=== PATIENT | male | born 1960 | race Caucasian/White ===

== ENCOUNTER 2017-03-14 14:15 | Inpatient (IN) | payer BC, OTHER ==
[2017-03-14 14:22] VITALS: BMI 19.8
--- NOTE | 2017-03-14 15:14 | PDOC ---
History of Present Illness - General Chief Complaint: Pain Stated Complaint: FEVER Time Seen by Provider: 03/14/17 15:11 History Source: Patient Exam Limitations: No Limitations - History of Present Illness Initial Comments: CHIEF COMPLAINT: 56 y/o afebrile male with PMH renal carcinoma with partial right nephrectomy (2009), sarcoidosis sent in by Dr. Villafana for admission. HISTORY OF PRESENT ILLNESS: According to the patient and his he has had a fever for the past 2 weeks with dry cough x 1 week and 25lb unintentional weight loss over the past 1 month. The patient was seen by Dr. Villafana today and sent here to be admitted to Dr. Ayon. The patient states currently he has minimal abdominal pain. The patient denies BURT, earache, sore throat, runny nose, n/v/d, CP, SOB, back pain, hematuria, dsyuria. He took tylenol for fever prior to coming to the ER. Pt is a former smoker. Vital signs on arrival are within normal limits. REVIEW OF SYSTEMS: GENERAL/CONSTITUTIONAL: +fever x 2 weeks. No weakness. No weight change. HEAD, EYES, EARS, NOSE AND THROAT: No change in vision. No ear pain or discharge. No sore throat. CARDIOVASCULAR: No chest pain or shortness of breath. RESPIRATORY: +dry cough x 1 week. No wheezing or hemoptysis. GASTROINTESTINAL: +abdominal pain. No nausea, vomiting, diarrhea. GENITOURINARY: No dysuria, frequency, or change in urination. MUSCULOSKELETAL: No joint or muscle swelling or pain. No neck or back pain. SKIN: No rash or easy bruising. NEUROLOGIC: No headache, vertigo, loss of consciousness, or loss of sensation. PHYSICAL EXAM: GENERAL: The patient is awake, alert, and fully oriented, in no acute distress. He has an infrequent dry cough. HEAD: Normal with no signs of trauma. ENT: Pupils equal, round and reactive to light, extraocular movements intact, sclera anicteric, conjunctiva clear. Neck supple. LUNGS: Clear to auscultation bilaterally. Normal excursion. No respiratory distress or use of accessory muscles. CV: RRR, S1/S2, no MRG. Cap refill < 2 sec. ABDOMEN: Soft, non-distended, non-tender even to deep palpation, no hepatomegaly or splenomegaly, no masses. EXTREMITIES: Normal range of motion, no edema. NEUROLOGICAL: Normal speech, normal gait. CN II-XII grossly intact. PSYCH: Normal mood, normal affect. SKIN: Warm, dry, normal turgor, no rashes or lesions noted. Past History - Past Medical History Allergies/Adverse Reactions: Allergies Allergy/AdvReac Type Severity Reaction Status Date / Time No Known Allergies Allergy Verified 03/14/17 14:18 Home Medications: Ambulatory Orders Gabapentin 100 mg PO HS 03/14/17 Losartan Potassium 50 mg PO DAILY 03/14/17 Metronidazole [Flagyl -] 250 mg PO TID 03/14/17 Prednisone 10 mg PO DAILY 03/14/17 HTN: Yes Other medical history: GOUT. SARCOIDOSIS. - Surgical History Lung Surgery: Yes (RT LOBECTOMY.) - Psycho/Social/Smoking Cessation Hx Anxiety: No Suicidal Ideation: No Smoking History: Former smoker Have you smoked in the past 12 months: No If you are a former smoker, when did you quit?: 2009 Information on smoking cessation initiated: No Hx Alcohol Use: No Drug/Substance Use Hx: No Substance Use Type: None *Physical Exam - Vital Signs Last Vital Signs Temp Pulse Resp BP Pulse Ox 97.8 F 79 18 133/89 98 03/14/17 14:17 03/14/17 14:17 03/14/17 14:17 03/14/17 14:17 03/14/17 14:17 ED Treatment Course - LABORATORY CBC & Chemistry Diagram: 03/14/17 16:40 03/14/17 16:40 Medical Decision Making - Medical Decision Making A/P: 56 y/o afebrile male sent in by PCP for admission for fever x 2 weeks, cough x 1 week and 25 lb unintentional weight loss over the past 1 month. The patient's PCP would like him admitted with Dr. Ayon for ID consult. Plan is as follows: 1. Labs 2. CXR 3. EKG 4. UA/culture Labs with WBC could of 15.4 with left shift. Lactic acidosis of 3.6. Ordered 2L IVF Spoke with Dr. Ayon who agrees to consult. Paged hospitalist for admission *DC/Admit/Observation/Transfer Diagnosis at time of Disposition: Fever of unknown origin, Lactic acidosis - Discharge Dispostion Condition at time of disposition: Stable - Referrals Referrals: Kuldeep Villafana [Primary Care Provider] -
--- NOTE | 2017-03-14 15:18 | PDOC ---
History of Present Illness - General Chief Complaint: Pain Stated Complaint: FEVER Time Seen by Provider: 03/14/17 15:11 Past History - Past Medical History Allergies/Adverse Reactions: Allergies Allergy/AdvReac Type Severity Reaction Status Date / Time No Known Allergies Allergy Verified 03/14/17 14:18 HTN: Yes Other medical history: GOUT. SARCOIDOSIS. - Surgical History Lung Surgery: Yes (RT LOBECTOMY.) - Psycho/Social/Smoking Cessation Hx Anxiety: No Suicidal Ideation: No Smoking History: Former smoker Have you smoked in the past 12 months: No If you are a former smoker, when did you quit?: 2009 Information on smoking cessation initiated: No Hx Alcohol Use: No Drug/Substance Use Hx: No Substance Use Type: None *Physical Exam - Vital Signs Last Vital Signs Temp Pulse Resp BP Pulse Ox 97.8 F 79 18 133/89 98 03/14/17 14:17 03/14/17 14:17 03/14/17 14:17 03/14/17 14:17 03/14/17 14:17
[2017-03-14 17:10] LABS: BASOPHIL 0.5 % (0-2.0); EOSINOPHIL 0.4 % (0-4.5); MCH 26.2 pg (25.7-33.7); MEAN PLT VOLUME 7.7 fl (7.5-11.1); NEUTROPHILS 83.1 % (42.8-82.8); PLATELET COUNT 405 K/MM3 (134-434); RDW 14.2 % (11.9-15.9); WHITE BLOOD COUNT 15.4 K/mm3 (4.0-10.0)
--- NOTE | 2017-03-14 17:21 | PDOC ---
*Physical Exam - Vital Signs Last Vital Signs Temp Pulse Resp BP Pulse Ox 97.8 F 79 18 133/89 98 03/14/17 14:17 03/14/17 14:17 03/14/17 14:17 03/14/17 14:17 03/14/17 14:17 ED Treatment Course - LABORATORY CBC & Chemistry Diagram: 03/20/17 09:10 03/20/17 09:10 - ADDITIONAL ORDERS Additional order review: 03/14/17 16:40 RBC 4.90 MCV 82.0 MCHC 32.0 RDW 14.2 MPV 7.7 Neutrophils % 83.1 H Lymphocytes % 6.3 L Monocytes % 9.7 Eosinophils % 0.4 Basophils % 0.5 Medical Decision Making - Medical Decision Making 03/14/17 17:20 Pt seen by the Advanced Practice Provider under my direct supervision Ancillary studies reviewed I agree with plan as outlined by the Advanced Practice Provider SUMEET Pack *DC/Admit/Observation/Transfer Diagnosis at time of Disposition: Lactic acidosis, Right upper lobe pneumonia, SIRS (systemic inflammatory response syndrome) - Discharge Dispostion Condition at time of disposition: Stable - Referrals - Patient Instructions - Post Discharge Activity
[2017-03-14 17:25] LABS: ALBUMIN 2.8 g/dl (3.4-5.0); ANION GAP 7 (8-16); CALCIUM 8.6 mg/dL (8.5-10.1); CO2 27 mmol/L (21-32); CREATININE 1.2 mg/dL (0.7-1.3); GLUCOSE,RANDOM 96 mg/dL (74-106); SGPT/ALT 32 U/L (12-78); TOT PROT 6.5 g/dl (6.4-8.2)
[2017-03-14 17:32] LABS: ALK PHOS 139 U/L (45-117); BILIRUBIN,TOTAL 0.7 mg/dL (0.2-1.0)
[2017-03-14 17:34] LABS: URINE APPEARANCE CLEAR; URINE BILIRUBIN NEGATIVE (NEGATIVE); URINE BLOOD NEGATIVE (NEGATIVE); URINE COLOR STRAW; URINE GLUCOSE (UA) NEGATIVE (NEGATIVE); URINE KETONE NEGATIVE (NEGATIVE); URINE LEUK ESTERASE NEGATIVE (NEGATIVE); URINE NITRITE NEGATIVE (NEGATIVE); URINE PROTEIN NEGATIVE (NEGATIVE); URINE UROBILINOGEN NEGATIVE mg/dL (0.2-1.0)
[2017-03-14 17:37] LABS: SGOT/AST 20 U/L (15-37)
[2017-03-14] MEDS ORDERED: SODIUM CHLORIDE 2,000 ML IV STA (18:34)
--- NOTE | 2017-03-14 19:19 | PDOC ---
*Physical Exam - Vital Signs Last Vital Signs Temp Pulse Resp BP Pulse Ox 97.8 F 79 18 133/89 98 03/14/17 14:17 03/14/17 14:17 03/14/17 14:17 03/14/17 14:17 03/14/17 14:17 ED Treatment Course - LABORATORY CBC & Chemistry Diagram: 03/31/17 09:30 03/31/17 09:30 - ADDITIONAL ORDERS Additional order review: Laboratory Results 03/14/17 03/14/17 03/14/17 16:40 16:40 16:40 Sodium 133 L Potassium 4.6 Chloride 99 Carbon Dioxide 27 Anion Gap 7 L BUN 13 Creatinine 1.2 Creat Clearance w eGFR > 60 Random Glucose 96 Lactic Acid 3.6 H* Calcium 8.6 Total Bilirubin 0.7 AST 20 ALT 32 Alkaline Phosphatase 139 H Total Protein 6.5 Albumin 2.8 L Urine Color Straw Urine Appearance Clear Urine pH 6.0 Urine Protein Negative Urine Glucose (UA) Negative Urine Ketones Negative Urine Blood Negative Urine Nitrite Negative Urine Bilirubin Negative Urine Urobilinogen Negative Ur Leukocyte Esterase Negative 03/14/17 16:40 RBC 4.90 MCV 82.0 MCHC 32.0 RDW 14.2 MPV 7.7 Neutrophils % 83.1 H Lymphocytes % 6.3 L Monocytes % 9.7 Eosinophils % 0.4 Basophils % 0.5 Medical Decision Making - Medical Decision Making 03/14/17 19:52 CHest xray: RUL pneuomonia with 2 additional nodules. considering fever, cough will cover with ceftriaxone and azithromycin. patient pending admission for further management of care. 03/14/17 20:17 patient accepted for admission by hospitalist Dr. salguero. pending official admission by [facility] team *DC/Admit/Observation/Transfer Diagnosis at time of Disposition: Lactic acidosis, SIRS (systemic inflammatory response syndrome) Right upper lobe pneumonia Qualifiers: Pneumonia type: due to unspecified organism Qualified Code(s): J18.1 - Lobar pneumonia, unspecified organism - Discharge Dispostion Disposition: HOME Condition at time of disposition: Stable Admit: Yes - Referrals - Patient Instructions - Post Discharge Activity
[2017-03-14] MEDS ORDERED: CEFTRIAXONE 1,000 MG in DEXTROSE 5%-WATER - 50 ML IVPB ONE (19:49)
[2017-03-14] MEDS ORDERED: AZITHROMYCIN IVPB 500 MG in DEXTROSE 5%-WATER - 250 ML IVPB ONE (19:49)
[2017-03-14] MEDS ORDERED: AZITHROMYCIN IVPB 250 ML IVPB ONE (20:25)
[2017-03-14] MEDS ORDERED: cefTRIAXone SODIUM 1 GM VIAL ONE (20:26)
[2017-03-14] MEDS ORDERED: SODIUM CHLORIDE 1,000 ML IV SCH (22:00)
--- NOTE | 2017-03-14 22:04 | HP ---
CHIEF COMPLAINT: cough, fever PCP: Dr. Villafana HISTORY OF PRESENT ILLNESS: This is a 56 year old male with a past medical history of renal cell carcinoma s /p partial nephrectomy 2009, R lung lobectomy ? upper, sarcoidosis, gout, HTN presented to the ED with a 1 month history of fever and dry cough. Pt also reports night sweats and weight loss of 30 pounds over the past 2-3 months. 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 He was sent by his PCP for admission. Pt also reports that he had a CT of his abdomen about 2 weeks ago secondary to abdominal pain and was put on flagyl for a thickening of his cecum and referred to GI. He is scheduled for colonoscopy on this Monday. He denies abdominal pain, N/V/D at present. Denies CP or SOB. ER course was notable for: (1) fever 103 (2) WBC 15.4 (3) CXR c/w RUL pna Recent Travel: pt denies any in last 3 months, went to [facility] in August PAST MEDICAL HISTORY: renal cell carcinoma s/p partial R nephrectomy sarcoidosis gout HTN PAST SURGICAL HISTORY: R partial nephrectomy 2009 R lung lobectomy, ? upper, due to suspected CA Social History: works as a chemistry technician Smoking: Quit 2009, previous 1/2ppd Alcohol: socially at events Drugs: denies Family History: mother alive, with gout father age 79, emphysema, HTN brother --"system shut down" unclear picture of etiology-was in [facility] daughter with HTN sisters alive and well Allergies No Known Allergies Allergy (Verified 03/14/17 14:18) HOME MEDICATIONS: 3 Medication Instructions Recorded Gabapentin 100 mg PO HS 03/14/17 Losartan Potassium 50 mg PO DAILY 03/14/17 Metronidazole [Flagyl -] 250 mg PO TID 03/14/17 Prednisone 10 mg PO DAILY 03/14/17 REVIEW OF SYSTEMS CONSTITUTIONAL: Present: fever, chills, weight change, night sweats Absent: diaphoresis, generalized weakness, malaise, loss of appetite HEENT: Absent: rhinorrhea, nasal congestion, throat pain, throat swelling, difficulty swallowing, mouth swelling, ear pain, eye pain, visual changes CARDIOVASCULAR: Absent: chest pain, syncope, palpitations, irregular heart rate, lightheadedness , peripheral edema RESPIRATORY: Present: cough Absent: shortness of breath, dyspnea with exertion, orthopnea, wheezing, stridor , hemoptysis GASTROINTESTINAL: Absent: abdominal pain, abdominal distension, nausea, vomiting, diarrhea, constipation, melena, hematochezia GENITOURINARY: Absent: dysuria, frequency, urgency, hesitancy, hematuria, flank pain, genital pain MUSCULOSKELETAL: Absent: myalgia, arthralgia, joint swelling, back pain, neck pain SKIN: Absent: rash, itching, pallor HEMATOLOGIC/IMMUNOLOGIC: Absent: easy bleeding, easy bruising, lymphadenopathy, frequent infections ENDOCRINE: Absent: unexplained weight gain, unexplained weight loss, heat intolerance, cold intolerance NEUROLOGIC: Absent: headache, focal weakness or paresthesias, dizziness, unsteady gait, seizure, mental status changes, bladder or bowel incontinence PSYCHIATRIC: Absent: anxiety, depression, suicidal or homicidal ideation, hallucinations. PHYSICAL EXAMINATION Vital Signs - 24 hr 3 03/14/17 03/14/17 03/14/17 14:17 19:20 22:25 Temperature 97.8 F 103 F H Pulse Rate 79 Pulse Rate [ 102 H Left] Respiratory 18 18 Rate Blood Pressure 133/89 Blood Pressure 130/84 [Left Arm] O2 Sat by Pulse 98 98 96 Oximetry (%) GENERAL: Awake, alert, and fully oriented, in no acute distress. HEAD: Normal with no signs of trauma. EYES: Pupils equal, round and reactive to light, extraocular movements intact, sclera anicteric, conjunctiva clear. No lid lag. EARS, NOSE, THROAT: Ears normal, nares patent, oropharynx clear without exudates. Moist mucous membranes. NECK: Normal range of motion, supple without lymphadenopathy, JVD, or masses. LUNGS: Breath sounds equal, clear to auscultation bilaterally except RUL. No wheezes, and no crackles. No accessory muscle use. RUL with crackles, squeaks HEART: Regular rate and rhythm, normal S1 and S2 without murmur, rub or gallop. ABDOMEN: Soft, nontender, not distended, normoactive bowel sounds, no guarding, no rebound, no masses. No hepatomegaly or splenomegaly. MUSCULOSKELETAL: Normal range of motion at all joints. No bony deformities or tenderness. No CVA tenderness. UPPER EXTREMITIES: 2+ pulses, warm, well-perfused. No cyanosis. No clubbing. No peripheral edema. LOWER EXTREMITIES: 2+ pulses, warm, well-perfused. No calf tenderness. No peripheral edema. NEUROLOGICAL: Cranial nerves II-XII intact. Normal speech. Normal gait. PSYCHIATRIC: Cooperative. Good eye contact. Appropriate mood and affect. SKIN: Warm, dry, normal turgor, no rashes or lesions noted, normal capillary refill. Laboratory Results - last 24 hr 3 03/14/17 03/14/17 03/14/17 16:40 16:40 16:40 WBC 15.4 H RBC 4.90 Hgb 12.9 Hct 40.2 MCV 82.0 MCH 26.2 MCHC 32.0 RDW 14.2 Plt Count 405 MPV 7.7 Neutrophils % 83.1 H Lymphocytes % 6.3 L Monocytes % 9.7 Eosinophils % 0.4 Basophils % 0.5 Sodium 133 L Potassium 4.6 Chloride 99 Carbon Dioxide 27 Anion Gap 7 L BUN 13 Creatinine 1.2 Creat Clearance w eGFR > 60 Random Glucose 96 Lactic Acid 3.6 H* Calcium 8.6 Total Bilirubin 0.7 AST 20 ALT 32 Alkaline Phosphatase 139 H Total Protein 6.5 Albumin 2.8 L Urine Color Straw Urine Appearance Clear Urine pH 6.0 Urine Protein Negative Urine Glucose (UA) Negative Urine Ketones Negative Urine Blood Negative Urine Nitrite Negative Urine Bilirubin Negative Urine Urobilinogen Negative Ur Leukocyte Esterase Negative Radiology Reports CHEST PA LAT Rule out pneumonia Chest x-ray PA and lateral. No prior is available for comparison. The cardiac silhouette is within normal limits in size of the aortic arch. There is interstitial thickening and airspace disease in the right upper lobe suggestive of pneumonia. 2 round densities in the left mid to lower lung measuring 1.8 and 1.3 cm, respectively. Mild elevation of the right hemidiaphragm. Mediastinum and visualized osseous structures appear intact. Impression: Right upper lobe airspace disease with pleural thickening suggestive of pneumonia. 2 round opacities in the left mid to lower lung measuring 1.8 and 1.3 cm, respectively suggestive of nodules. Further evaluation is needed. Reported By: Agustina Chiang MD 03/14/171945 ECG NSR, vent rate [address]/T changes ASSESSMENT/PLAN: 56yM with PMH R renal carcinoma s/p nephrectomy, right lobectomy, sarcoidosis, gout, HTN presented to the ED with fever, cough, weight loss, night sweats. He is being admitted for RUL PNA. RUL PNA, community acquired, severe sepsis - Elevated HR and temp, meets SIRS criteria with elevated lactic acid - cont ceftriaxone and zithromax - r/o TB given symptoms and potential for occupational exposure, Quantiferon gold and AFB x 3 if able to produce - ID consult with Dr. Ayon as per PCP - CT chest for further evaluation of RUL - if not improving with ceftriaxone and zithromax, consider fungal etiology given long standing prednisone - repeat lactic acid pending Sarcoidosis - cont prednisone 10mg HTN - cont home losartan, monitor renal function ? colitis - will continue flagyl for now. DVT PPX - mod risk, start heparin 5000u BID FEN - NS @ 100cc/hr - BMP in am - low sodium diet as tolerated Dispo: pt currently requires inpatient management of his emergent symptoms. Visit type - Emergency Visit Emergency Visit: Yes ED Registration Date: 03/14/17 Care time: The patient presented to the Emergency Department on the above date and was hospitalized for further evaluation of their emergent condition. - New Patient This patient is new to me today: Yes Date on this admission: 03/14/17 - Critical Care Critical Care patient: No
[2017-03-14] MEDS: HEPARIN NA (PORCINE) 5,000 UNITS/ML 1ML VIAL SQ SCH (22:22)
[2017-03-14] MEDS ORDERED: HEPARIN NA (PORCINE) 5,000 UNITS/ML 1ML VIAL ONE (22:37)
[2017-03-14] MEDS: SODIUM CHLORIDE 1,000 ML IV SCH (23:10)
[2017-03-14] MEDS: ACETAMINOPHEN 325 MG TABLET (FP) PO PRN (23:10)
[2017-03-15] MEDS: metroNIDAZOLE 250 MG TABLET PO SCH ×2 (06:55→14:55)
[2017-03-15] MEDS: ACETAMINOPHEN 325 MG TABLET (FP) PO PRN (07:06)
[2017-03-15 08:34] LABS: BASOPHIL 0.6 % (0-2.0); EOSINOPHIL 0.1 % (0-4.5); MCH 26.7 pg (25.7-33.7); MEAN PLT VOLUME 7.7 fl (7.5-11.1); PLATELET COUNT 361 K/MM3 (134-434); RDW 14.7 % (11.9-15.9); WHITE BLOOD COUNT 13.2 K/mm3 (4.0-10.0)
[2017-03-15 09:00] LABS: ANION GAP 10 (8-16); CALCIUM 7.8 mg/dL (8.5-10.1); CO2 24 mmol/L (21-32); CREATININE 0.9 mg/dL (0.7-1.3); GLUCOSE,RANDOM 86 mg/dL (74-106); PHOSPHOROUS 2.2 mg/dL (2.5-4.9)
[2017-03-15] MEDS: predniSONE 10 MG TABLET (UD) PO SCH (09:45)
[2017-03-15] MEDS: HEPARIN NA (PORCINE) 5,000 UNITS/ML 1ML VIAL SQ SCH (09:45)
[2017-03-15] MEDS: LOSARTAN POTASSIUM 50 MG TABLET (FP) PO SCH (09:45)
[2017-03-15 12:31] LABS: ALBUMIN 2.2 g/dl (3.4-5.0); BILIRUBIN,DIRECT 0.3 mg/dL (0.0-0.2); BILIRUBIN,TOTAL 0.5 mg/dL (0.2-1.0); TOT PROT 5.2 g/dl (6.4-8.2); URIC ACID 6.6 mg/dL (2.6-7.2)
--- NOTE | 2017-03-15 13:21 | EKG ---
Test Reason : Blood Pressure : / mmHG Vent. Rate : 099 BPM Atrial Rate : 099 BPM P-R Int : 154 ms QRS Dur : 070 ms QT Int : 314 ms P-R-T Axes : 053 038 018 degrees QTc Int : 402 ms NORMAL SINUS RHYTHM NORMAL ECG NO PREVIOUS ECGS AVAILABLE Confirmed by KRIS PENNY, LAZ ([id number]) on 03/15/2017 1:20:57 PM Referred By: Confirmed By:LAZ PONCE MD
--- NOTE | 2017-03-15 13:28 | PN ---
Physical Exam: SUBJECTIVE: Patient seen and examined. He is in no acute distress. He feels clammy. CT chest results d/w him and . OBJECTIVE: Vital Signs Period Temp Pulse Resp BP Sys/Parks Pulse Ox Last 24 Hr 103 F-103 F 92-102 18-20 107-130/65-84 96 PE Neuro: alert, awake, cn 2-12intact Pulm: left upper lobe course bs, no crackles, wheezing, sob CV: s1 s2 rrr no mrg Abd: s nt nd + bs Ext: warm, no le edema Laboratory Results - last 24 hr 03/14/17 03/15/17 03/15/17 21:40 06:30 06:30 WBC 13.2 H RBC 4.37 Hgb 11.7 Hct 35.4 MCV 81.0 MCH 26.7 MCHC 33.0 RDW 14.7 Plt Count 361 MPV 7.7 Neutrophils % 88.0 H Lymphocytes % 2.9 L D Monocytes % 8.4 Eosinophils % 0.1 Basophils % 0.6 Sodium 136 Potassium 4.2 Chloride 102 Carbon Dioxide 24 Anion Gap 10 BUN 9 D Creatinine 0.9 D Random Glucose 86 Lactic Acid 2.5 H* Uric Acid Calcium 7.8 L Phosphorus 2.2 L Magnesium 2.0 Total Bilirubin Direct Bilirubin AST ALT Alkaline Phosphatase LD Total Total Protein Albumin 03/15/17 03/15/17 10:25 11:28 WBC RBC Hgb Hct MCV MCH MCHC RDW Plt Count MPV Neutrophils % Lymphocytes % Monocytes % Eosinophils % Basophils % Sodium Potassium Chloride Carbon Dioxide Anion Gap BUN Creatinine Random Glucose Lactic Acid 1.2 Uric Acid 6.6 Calcium Phosphorus Magnesium Total Bilirubin 0.5 D Direct Bilirubin 0.3 H AST 9 L D ALT 21 D Alkaline Phosphatase 103 D LD Total 192 Total Protein 5.2 L Albumin 2.2 L D Active Medications Generic Name Dose Route Start Last Admin Trade Name Freq PRN Reason Stop Dose Admin Acetaminophen 650 mg 03/14/17 22:00 03/15/17 07:06 Tylenol - PO 650 mg Q4H PRN Administration FEVER OR PAIN Gabapentin 100 mg 03/15/17 22:00 Neurontin - PO HS TAMAR Sodium Chloride 1,000 mls @ 100 mls/hr 03/14/17 23:00 03/14/17 23:10 Normal Saline - IV 100 mls/hr ASDIR TAMAR Administration Losartan Potassium 50 mg 03/15/17 10:00 03/15/17 09:45 Cozaar - PO 50 mg DAILY TAMAR Administration Metronidazole 250 mg 03/15/17 06:00 03/15/17 06:55 Flagyl - PO 250 mg TID TAMAR Administration Prednisone 10 mg 03/15/17 10:00 03/15/17 09:45 Deltasone - PO 10 mg DAILY TAMAR Administration Assessment: 56 year old male with PMH R renal carcinoma s/p nephrectomy, right lobectomy, sarcoidosis, gout, HTN admitted with fever, cough, weight loss, night sweats. Plan: 1. Media stinal Lymphadenopathy. R axillary enlarged lymph - US R axilla for mapping - PT/INR - US guided biopsy tomorrow - d/w CT surgery will see pt - Continue IVF - Send LDH, hep panel, g6pd, hep b antigen/antb - d/w above w heme/onc Dr. whitt 2. RUL PNA, community acquired, severe sepsis/ rule out TB - Quant gold sent - AFB x3, induce sputum - Repeat lactic acid wnl - d/w Dr. Ayon will see pt and eval for abx at that time 3. Sarcoidosis - pulmonary consult placed given above findings - cont prednisone 10mg 4. HTN - Controlled - Losartan 50mg day 5. ? colitis - will continue flagyl for now - Previous CTAP w/ contrast given to Dr. Armstrong - Per , pt with full GI work up yesterday with Dr. Cabrera, will d/w dr. cabrera, outpt colonoscopy was scheduled 6. DVT PPX - Hold Heparin 5000units q8 for tomorrow, SCDs Visit type - Emergency Visit Emergency Visit: Yes ED Registration Date: 03/14/17 Care time: The patient presented to the Emergency Department on the above date and was hospitalized for further evaluation of their emergent condition. - New Patient This patient is new to me today: Yes Date on this admission: 03/15/17 - Critical Care Critical Care patient: Yes Total Critical Care Time (in minutes): 35 Critical Care Statement: The care of this patient involved high complexity decision making to prevent further life threatening deterioration of the patient 's condition and/or to evalute & treat vital organ system(s) failure or risk of failure. - Discharge Referral Referred to [facility] Med [facility].C.: No
[2017-03-15 13:50] LABS: INR 1.32 (0.82-1.09); PROTHROMBIN TIME (PATIENT) 14.6 SEC (9.98-11.88)
[2017-03-15] MEDS ORDERED: HEPARIN NA (PORCINE) 5,000 UNITS/ML 1ML VIAL SQ SCH (14:00)
--- NOTE | 2017-03-15 14:41 | CONSULT ---
Consult Consult Specialty:: Infectious Diseases Reason for Consultation:: Fever and weight loss - History of Present Illness Chief Complaint: Fever History of Present Illness: Patient is a 56 yr old man admitted with fever, chills, sweats and weight loss ( > 30 lbs ). He was well, as in his usual state of health until about mid-January when he noted intermittent fevers, chills and occasional sweats. This was associated with weakness and malaise. He was still able to work and did not have any other symptoms. In mid-February, he developed acute onset abdominal pains and was hospitalized in [facility] in the [place]. W/Up then included CT A/ P which reportedly showed slightly increased pulmonary nodules. He was given Zosyn for a few doses and was DC'ed. They offered to do colonoscopy but he refused. Since then, he continued to have same symptoms, as well as increased dry non-productive cough with SOB. Condition persisted and he was admitted. - History Source History Provided By: Patient, Family Member Limitations to Obtaining History: No Limitations - Past Medical History Cardio/Vascular: Yes: HTN Pulmonary: Yes: Other ((+) PPD) Renal/: Yes: Cancer Additional Medical History: Hx Sarcoid on chronic steroids since 2012. - Past Surgical History Past Surgical History: Yes: Nephrectomy ( - Partial (R)) Additional Surgical History: Wedge resection (R) Lung - Alcohol/Substance Use Hx Alcohol Use: No - Smoking History Smoking history: Former smoker Have you smoked in the past 12 months: No If you are a former smoker, when did you quit?: 2009 Home Medications - Allergies Allergies/Adverse Reactions: Allergies Allergy/AdvReac Type Severity Reaction Status Date / Time No Known Allergies Allergy Verified 03/14/17 14:18 - Home Medications Home Medications: Ambulatory Orders Gabapentin 100 mg PO HS 03/14/17 Losartan Potassium 50 mg PO DAILY 03/14/17 Metronidazole [Flagyl -] 250 mg PO TID 03/14/17 Prednisone 10 mg PO DAILY 03/14/17 Review of Systems - Review of Systems Constitutional: reports: Chills, Fever, Night Sweats Eyes: reports: No Symptoms HENT: reports: No Symptoms Neck: reports: No Symptoms Cardiovascular: reports: No Symptoms Respiratory: reports: Cough, SOB Gastrointestinal: denies: Abdominal Pain, Nausea, Rectal Bleeding, Vomiting, Vomiting Blood Genitourinary: reports: No Symptoms Musculoskeletal: reports: Muscle Weakness Physical Exam Vital Signs: Vital Signs Temperature 103 F H 03/15/17 07:47 Pulse Rate 92 H 03/15/17 07:47 Respiratory Rate 20 03/15/17 07:47 Blood Pressure 107/65 03/15/17 07:47 O2 Sat by Pulse Oximetry (%) 96 03/14/17 22:25 Constitutional: Yes: Thin Eyes: Yes: Conjunctiva Clear, EOM Intact, PERRL HENT: Yes: Normocephalic Neck: Yes: Supple Cardiovascular: Yes: Regular Rate and Rhythm Respiratory: Yes: CTA Bilaterally Gastrointestinal: Yes: Normal Bowel Sounds, Soft Musculoskeletal: Yes: WNL Extremities: Yes: WNL Labs: CBC, BMP 03/15/17 06:30 03/15/17 06:30 Imaging - Results Chest X-ray: Report Reviewed Cat Scan: Report Reviewed Problem List - Problems (1) Fever of unknown origin Code(s): R50.9 - FEVER, UNSPECIFIED (2) Right upper lobe pneumonia Code(s): J18.1 - LOBAR PNEUMONIA, UNSPECIFIED ORGANISM Qualifiers: Qualified Code(s): J18.1 - Lobar pneumonia, unspecified organism Assessment/Plan Patient with Hx renal cancer, sarcoid on chronic steroids, (+) PPD who is admitted with fever, weight loss and cough. r/o PTB, ? PCP vs fungal ? Malignancy Mancera c/s, Check TB spot/Quantiferon, Since no sputum can be obtained - needs Bronch with washings. Check AFB, Fungal, PCP smears. Isolation for now. Check ABG on RA. CT A/P with PO & IV contrast. Will consider axillary Bx. Check ESR/CRP.
[2017-03-15] MEDS: NAPH,MB-DB/K PH,MBDB POWDER PACKET PO SCH ×2 (14:43→22:38)
--- NOTE | 2017-03-15 14:48 | CONSULT ---
Consult - text type - Consultation Consultation Note: Thoracic Surgery Consultation: 56M with h/o renal cell carcinoma and sarcoid (on prednisone) presumably diagnosed by lung nodule resection on right p/w fever x 3 weeks and significant weight loss. No productive sputum. CXR and CT show cavitating RUL pneumonia. PE significant for fever and tachycardia. OTW looks well. No obvious palpable LUKAS. Right vats/thor scars present. CT: cavitating RUL pneumonia, could be early parapneumonic effusion component as well. B/L lung nodules. Imp/Plan: PNA and lung nodules--lung nodules may be chronic and typical of his sarcoid. Recommend: Address PNA. ID on board. Strongly consider bronchoscopy to get cx's as diff dx is broad on prednisone and should include aspergillus/other fungus, MAC, TB, and bacterial pathogens. Nodules should not be sampled if are stable compared to old films. I have spent 40 minutes in consultation with over 50% in counseling the patient and coordination of care with Dr. Ayon and Dr. Teran and the patient and his .
--- NOTE | 2017-03-15 16:17 | PN ---
Progress Note (short form) - Note Progress Note: PULMONARY CONSULTATION DICTATED IMP PNEUMONIA RUL ?TB,OPPORTUNISTIC FEVER ,WT LOSS ABOVE BILATERAL PULMONARY NODULES LIKELY SARCOID MEDIASTINAL AND HILAR ADENOPATHY LIKELY SECONDARY TO SARCOID,?INFECTIOUS H/O RENAL CELL CA S/P R NEPHRECTOMY ELEVATED LACTATE LEVEL PLAN FLEX BRONCH CULTURES ANTIBIOTICS PER ID DANAY BX IF BRONCH NEGATIVE DR LOJA Problem List - Problems (1) Right upper lobe pneumonia Code(s): J18.1 - LOBAR PNEUMONIA, UNSPECIFIED ORGANISM (2) SIRS (systemic inflammatory response syndrome) Code(s): R65.10 - SIRS OF NON-INFECTIOUS ORIGIN W/O ACUTE ORGAN DYSFUNCTION (3) Fever of unknown origin Code(s): R50.9 - FEVER, UNSPECIFIED (4) Sarcoidosis of lung with sarcoidosis of lymph nodes Code(s): D86.2 - SARCOIDOSIS OF LUNG WITH SARCOIDOSIS OF LYMPH NODES (5) Weight loss Code(s): R63.4 - ABNORMAL WEIGHT LOSS (6) H/O renal cell carcinoma Code(s): Z85.528 - PERSONAL HISTORY OF OTHER MALIGNANT NEOPLASM OF KIDNEY
--- NOTE | 2017-03-15 16:39 | CONS ---
DATE OF CONSULTATION: 03/15/2017 REFERRING PHYSICIAN: Elena Nelson NP HISTORY: The patient is a 56-year-old [place] male with a past medical history of renal cell carcinoma status post nephrectomy in 2009, history of sarcoidosis diagnosed by thoracotomy of the pulmonary nodule in 2012. The patient has since been on steroids initially on 20 mg daily currently maintained on 10 mg daily. He is a nonsmoker. Admitted to [facility] with complaint of 3- to 4-[id number] of 25- to 30-pound weight loss and fevers. The patient was hospitalized recently apparently secondary to abdominal pain. At the time, he apparently underwent a CAT scan of the abdomen, which revealed evidence of increased pulmonary nodules. At that time, he was hospitalized. He was placed on Zosyn for a few days and discharged home. Apparently, he was offered colonoscopy but refused. Since that time, he has complained of a dry cough and also fevers as well as significant weight loss. He does complain of shortness of breath with exertion. He denies any hemoptysis. There is no history of occupational exposures to chemicals or fumes. There is no history of recent travel. Of note, he does have a history of positive PPD. The patient underwent a CT scan of the chest during current hospitalization, which revealed bilateral pulmonary nodules, cavitary nodule in the right upper lobe, and a right upper lobe consolidation on air bronchogram in the right perihilar region that concluded in a superior segment of the right lower lobe. There were multiple pulmonary nodules and mediastinal right hilar adenopathy as well as some right axillary adenopathy. PAST MEDICAL HISTORY: Again, includes sarcoidosis, renal cell cancer status post right nephrectomy. REVIEW OF SYSTEMS: Positive fever. Positive weight loss, sweats. No hemoptysis, no chest pain, no palpitations. Positive shortness of breath. No abdominal pain, no lower extremity edema. CURRENT MEDICATIONS: Include prednisone 10 mg daily, Tylenol, Cozaar, Bactrim, Neurontin, normal saline, and . PHYSICAL EXAMINATION: General: The patient is a well-developed, thin [place] male. Awake and alert in no acute distress. Vital Signs: T-max is 103, currently 99.2, respiratory rate 18, O2 saturation 96% on room air. HEENT: Normocephalic and atraumatic. Neck: Supple. Heart: Regular with S1, S2. Chest: Clear. Abdomen: Soft. Bowel sounds are positive. Extremities: No cyanosis or edema. LABORATORIES: WBC 13.2, hemoglobin 11.7, hematocrit 35.4, and a platelet count of 361,000 with 88 polys, 2 lymphocytes, 8 monocytes. Lactate level on admission 0.6, currently 1.2. BUN 9, creatinine 0.9, albumin 2.2. UA negative. Chest CT again reveals right perihilar consolidation with extension into the superior segment of right lower lobe and right upper lobe cavitary infiltrate and nearby pulmonary nodules. IMPRESSION: 1. Fevers, weight loss, right upper lobe cavitary infiltrate, possible opportunistic tuberculosis in view of the patient's chronic steroid use and history of tuberculosis, possible purified protein derivative. Cannot exclude possible other opportunistic infections such as fungal, atypical mycobacteria. Cannot rule out possible malignancy. Right hilar adenopathy and extensive mediastinal adenopathy. Axillary secondary to sarcoid. 2. Bilateral pulmonary nodules most likely secondary to pulmonary sarcoid. 3. History of renal cell carcinoma status post right nephrectomy. PLAN: 1. We will schedule a flexible bronchoscope with BAL to obtain washings with culture. 2. Continue antibiotic therapy as per Infectious Disease. Obtain cultures. Continue isolation. If culture is negative or unrevealing, would recommend possible lymph node biopsy. KAYLAH LOJA M.D. CARTER/[id number]
[2017-03-15 17:51] LABS: ARTERIAL BLD GAS O2 SATURATION 97.3 % (90-98.9); ARTERIAL BLOOD GAS BASE EXCESS -0.9 meq/l (-2-2); ARTERIAL BLOOD GAS HCO3 22.2 meq/L (22-26); ARTERIAL BLOOD GAS PO2 86.3 mmHg (80-100); ARTERIAL BLOOD GAS pH 7.44 (7.35-7.45)
[2017-03-15 17:54] LABS: ALLENS TEST POSITIVE; ART PUNCT SITE RIGHT RADIAL; PT. ON O2? NO
[2017-03-15 17:55] LABS: LPM/O2% ROOM AIR
[2017-03-15] MEDS: SODIUM CHLORIDE 1,000 ML IV SCH (21:00)
[2017-03-15] MEDS: GABAPENTIN 100 MG CAPSULE (FP) PO SCH (22:38)
[2017-03-15] MEDS: SULFAMETHOXAZOLE/TRIMETHOPRIM 800MG/160MG D.S. TABLET PO SCH (22:38)
[2017-03-16] MEDS: SULFAMETHOXAZOLE/TRIMETHOPRIM 800MG/160MG D.S. TABLET PO SCH ×3 (06:42→21:33)
[2017-03-16] MEDS: SODIUM CHLORIDE 1,000 ML IV SCH ×3 (06:42→23:24)
[2017-03-16] MEDS: ACETAMINOPHEN 325 MG TABLET (FP) PO PRN (06:42)
[2017-03-16 08:04] LABS: BASOPHIL 0.5 % (0-2.0); EOSINOPHIL 0.2 % (0-4.5); MCHC 33.2 g/dl (32.0-35.9); MEAN CELL VOLUME 81.2 fl (80-96); MEAN PLT VOLUME 7.6 fl (7.5-11.1); NEUTROPHILS 87.2 % (42.8-82.8); PLATELET COUNT 338 K/MM3 (134-434); RDW 14.4 % (11.9-15.9); WHITE BLOOD COUNT 12.7 K/mm3 (4.0-10.0)
[2017-03-16 08:49] LABS: ALBUMIN 2.2 g/dl (3.4-5.0); ALK PHOS 97 U/L (45-117); ANION GAP 11 (8-16); BILIRUBIN,TOTAL 0.7 mg/dL (0.2-1.0); C-REACTIVE PROTEIN 11.9 MG/DL (0.00-0.3); CALCIUM 7.8 mg/dL (8.5-10.1); CO2 22 mmol/L (21-32); CREATININE 0.9 mg/dL (0.7-1.3); GLUCOSE,RANDOM 90 mg/dL (74-106); PHOSPHOROUS 2.2 mg/dL (2.5-4.9); SGOT/AST 11 U/L (15-37); SGPT/ALT 18 U/L (12-78); TOT PROT 5.1 g/dl (6.4-8.2)
--- NOTE | 2017-03-16 09:53 | PN ---
Progress Note (short form) - Note Progress Note: PULMONARY Remains febrile, +nonproductive cough. For bronchoscopy today. Last Vital Signs Temp Pulse Resp BP Pulse Ox 102.1 F H 96 H 20 119/72 96 03/16/17 06:36 03/16/17 06:36 03/16/17 06:36 03/16/17 06:36 03/15/17 21:00 Gen: diaphoretic Heart: RRR Lung: distant breath sounds Abd: soft, nontender Ext: no edema CBC, BMP 03/16/17 06:30 03/16/17 06:30 Active Medications Acetaminophen (Tylenol -) 650 mg PO Q4H PRN PRN Reason: FEVER OR PAIN Last Admin: 03/16/17 06:42 Dose: 650 mg Gabapentin (Neurontin -) 100 mg PO HS [facility] Last Admin: 03/15/17 22:38 Dose: 100 mg Sodium Chloride (Normal Saline -) 1,000 mls @ 100 mls/hr IV ASDIR [facility] Last Admin: 03/16/17 06:42 Dose: 100 mls/hr Losartan Potassium (Cozaar -) 50 mg PO DAILY [facility] Last Admin: 03/15/17 09:45 Dose: 50 mg Potassium Phos/Sodium Phos (Phos-Nak Packet -) 1 packet PO BID [facility] Last Admin: 03/15/17 22:38 Dose: 1 packet Prednisone (Deltasone -) 10 mg PO DAILY [facility] Last Admin: 03/15/17 09:45 Dose: 10 mg Trimethoprim/Sulfamethoxazole (Bactrim Ds -) 2 each PO TID [facility] Last Admin: 03/16/17 06:42 Dose: 2 each A/P r/o CAP vs atypical PNA vs mycobacterial pneumonia Sarcoidosis on chronic steroids Lung Nodule HTN - for bronchoscopy today with BAL and possible TBBx - continue antibitics for now - continue airborne isolation
[2017-03-16] MEDS ORDERED: DEXAMETHASONE SOD PHOSPHATE 4 MG/1 ML VIAL ONE (11:12)
[2017-03-16] MEDS ORDERED: PROPOFOL 20 ML ONE (11:12)
[2017-03-16] MEDS ORDERED: KETOROLAC TROMETHAMINE 30 MG/1 ML VIAL ONE (11:12)
[2017-03-16] MEDS ORDERED: LIDOCAINE HCL/PF 2% SDV 5ML VIAL ONE (11:12)
[2017-03-16] MEDS ORDERED: SUCCINYLCHOLINE CHLORIDE 200 MG/10 ML VIAL ONE (11:12)
[2017-03-16] MEDS ORDERED: MIDAZOLAM HCL 2 MG/2 ML SINGLE DOSE VIAL ONE (11:23)
--- NOTE | 2017-03-16 12:05 | PROC ---
Procedure Note Procedure: BRONCHOSCOPY NOTE After discussing the benefits of the procedure including bleeding and pneumothorax, informed consent was obtained. Pt was placed under general anesthesia and intubated with size 8.0 ETT by anesthesia. [employer] video bronchoscope was passed via the ETT and the airways were examined down to the subsegmental level. The laurie was sharp, there were no endobronchial lesions noted in either lung. The right upper lobe was wedged and I attempted to brush and biopsy the anterior and posterior segments where most of the disease was noted on CT chest. The airways were extremely narrowed, unable to pass the brush or the biopsy forceps. Forcep biopsies were taken from the end loop and then the segments were lavaged with saline. Bronchosope then withdrawn and procedure terminated. Pre-op Dx: r/o pneumonia Post-op Dx: same - ?post obstructive Plan: - f/u brushings, washings and pathology Anton Teran MD
[2017-03-16] MEDS ORDERED: ONDANSETRON 4 MG/2 ML VIAL IVPUSH PRN (12:20)
[2017-03-16] MEDS ORDERED: PROMETHAZINE HCL 25 MG/1 ML VIAL IVPUSH PRN (12:20)
[2017-03-16] MEDS ORDERED: oxyCODONE HCL 5 MG TABLET PO PRN (12:20)
[2017-03-16] MEDS: LOSARTAN POTASSIUM 50 MG TABLET (FP) PO SCH (14:58)
[2017-03-16] MEDS: NAPH,MB-DB/K PH,MBDB POWDER PACKET PO SCH ×2 (15:03→21:34)
[2017-03-16] MEDS: predniSONE 10 MG TABLET (UD) PO SCH (15:03)
--- NOTE | 2017-03-16 16:00 | PN ---
Physical Exam: SUBJECTIVE: Patient seen and examined. He is feeling much better today, he is coughing less, says the oxygen helps. He is agreeable to needle biopsy OBJECTIVE: Vital Signs Period Temp Pulse Resp BP Sys/Parks Pulse Ox Last 24 Hr 97.6 F-102.1 F 64-100 10-20 89-134/56-90 96-97 PE Neuro: alert, awake, cn 2-12intact Pulm: CTAB CV: s1 s2 rrr no mrg Abd: s nt nd + bs Ext: warm, no le edema Laboratory Results - last 24 hr 03/15/17 03/15/17 03/16/17 11:28 17:43 06:30 WBC RBC Hgb Hct MCV MCH MCHC RDW Plt Count MPV Neutrophils % Lymphocytes % Monocytes % Eosinophils % Basophils % ESR Puncture Site Right radial ABG pH 7.44 ABG pCO2 at Pt Temp 33.3 L ABG pO2 at Pt Temp 86.3 ABG HCO3 22.2 ABG O2 Sat (Measured) 97.3 ABG O2 Content 16.3 ABG Base Excess -0.9 Virgilio Test Positive Oxygen Flow Rate Room air PEEP 0.0 Sodium 138 Potassium 3.9 Chloride 105 Carbon Dioxide 22 Anion Gap 11 BUN 7 D Creatinine 0.9 Creat Clearance w eGFR > 60 Random Glucose 90 Calcium 7.8 L Phosphorus 2.2 L Total Bilirubin 0.7 D AST 11 L D ALT 18 Alkaline Phosphatase 97 C-Reactive Protein 11.9 H Total Protein 5.1 L Albumin 2.2 L Hep Bs Antigen Negative Hep B Core Ab Interpret Positive H 03/16/17 03/16/17 06:30 06:30 WBC 12.7 H RBC 4.12 Hgb 11.1 L Hct 33.5 L MCV 81.2 MCH 27.0 MCHC 33.2 RDW 14.4 Plt Count 338 MPV 7.6 Neutrophils % 87.2 H Lymphocytes % 4.6 L D Monocytes % 7.5 Eosinophils % 0.2 D Basophils % 0.5 ESR 55 H Puncture Site ABG pH ABG pCO2 at Pt Temp ABG pO2 at Pt Temp ABG HCO3 ABG O2 Sat (Measured) ABG O2 Content ABG Base Excess Virgilio Test Oxygen Flow Rate PEEP Sodium Potassium Chloride Carbon Dioxide Anion Gap BUN Creatinine Creat Clearance w eGFR Random Glucose Calcium Phosphorus Total Bilirubin AST ALT Alkaline Phosphatase C-Reactive Protein Total Protein Albumin Hep Bs Antigen Hep B Core Ab Interpret Active Medications Generic Name Dose Route Start Last Admin Trade Name Freq PRN Reason Stop Dose Admin Acetaminophen 650 mg 03/14/17 22:00 03/16/17 06:42 Tylenol - PO 650 mg Q4H PRN Administration FEVER OR PAIN Fentanyl 50 mcg 03/16/17 12:20 Sublimaze Injection - IVPUSH 03/19/17 12:21 [id number] PRN PAIN Gabapentin 100 mg 03/15/17 22:00 03/15/17 22:38 Neurontin - PO 100 mg HS T[facility] Administration Sodium Chloride 1,000 mls @ 100 mls/hr 03/14/17 23:00 03/16/17 13:45 Normal Saline - IV 0 mls ASDIR TAMAR Administration Losartan Potassium 50 mg 03/15/17 10:00 03/16/17 14:58 Cozaar - PO Not Given DAILY [facility] Ondansetron HCl 4 mg 03/16/17 12:20 Zofran Injection IVPUSH 03/16/17 18:21 Q6H PRN NAUSEA AND/OR VOMITING Oxycodone HCl 10 mg 03/16/17 12:20 Roxicodone - PO 03/17/17 12:19 Q4H PRN SEVERE PAIN Potassium Phos/Sodium Phos 1 packet 03/15/17 13:45 03/16/17 15:03 Phos-Nak Packet - PO 1 packet BID T[facility]AR Administration Prednisone 10 mg 03/15/17 10:00 03/16/17 15:03 Deltasone - PO 10 mg DAILY [facility] Administration Promethazine HCl 12.5 mg 03/16/17 12:20 Phenergan Injection - IVPUSH 03/16/17 18:21 Q6H PRN NAUSEA Trimethoprim/Sulfamethoxazole 2 each 03/15/17 22:00 03/16/17 15:02 Bactrim Ds - PO 2 each TID TAMAR Administration Assessment: 56 year old male with PMH R renal carcinoma s/p nephrectomy, right lobectomy, sarcoidosis, gout, HTN admitted with fever, cough, weight loss, night sweats. Plan: 1. Media stinal Lymphadenopathy. R axillary enlarged lymph ? scarcoid - Previous CT chest shows same nodules, per pt, was scheduled for PET scan this week, now hospitalized - For needle biopsy tomorrow - Continue IVF - Send LDH wnl - Hep panel, g6pd, hep b antigen pending - hep b antb + - Discussed with Dr. Ayon and Teran, in agreement 2. r/p MAC, TB, fungus, PCP - Bactrim TID for emperic pcp 3. RUL PNA, community acquired, severe sepsis/ rule out TB - Quant gold sent - AFB x3, induce sputum, 08/16 collected 4. Sarcoidosis - see above - Cont prednisone 10mg 4. HTN - Controlled - Losartan 50mg day 5. ? colitis - stop flagyl - Previous CTAP w/ contrast given to Dr. Armstrong - Per , pt with full GI work up yesterday with Dr. Cabrera, will d/w dr. cabrera, outpt colonoscopy was scheduled 6. DVT PPX - Hold Heparin 5000units q8 for tomorrow, SCDs Visit type - Emergency Visit Emergency Visit: Yes ED Registration Date: 03/14/17 Care time: The patient presented to the Emergency Department on the above date and was hospitalized for further evaluation of their emergent condition. - New Patient This patient is new to me today: No - Critical Care Critical Care patient: No
[2017-03-16] MEDS: GABAPENTIN 100 MG CAPSULE (FP) PO SCH (21:33)
[2017-03-17] MEDS: SULFAMETHOXAZOLE/TRIMETHOPRIM 800MG/160MG D.S. TABLET PO SCH ×4 (05:50→21:49)
--- NOTE | 2017-03-17 08:42 | PN ---
Progress Note (short form) - Note Progress Note: Anesthesia Post op Pt seen and examined A:alert and awake O: Vital Signs Temperature 98.2 F 03/17/17 06:41 Pulse Rate 70 03/17/17 06:41 Respiratory Rate 18 03/17/17 06:41 Blood Pressure 101/69 03/17/17 06:41 O2 Sat by Pulse Oximetry (%) 96 03/16/17 21:00 A/P:Current Active Problems H/O renal cell carcinoma (Acute) Lactic acidosis (Acute) Right upper lobe pneumonia (Acute) SIRS (systemic inflammatory response syndrome) (Acute) Sarcoidosis of lung with sarcoidosis of lymph nodes (Acute) Weight loss (Acute) s/p Bronch Doing well post op Continue current care Vernon Rome MD
[2017-03-17 09:03] LABS: ALBUMIN 2.1 g/dl (3.4-5.0); ANION GAP 9 (8-16); CALCIUM 7.9 mg/dL (8.5-10.1); CO2 21 mmol/L (21-32); GLUCOSE,RANDOM 115 mg/dL (74-106)
[2017-03-17 09:06] LABS: ALK PHOS 105 U/L (45-117); BILIRUBIN,TOTAL 0.4 mg/dL (0.2-1.0); CREATININE 0.8 mg/dL (0.7-1.3); PHOSPHOROUS 3.2 mg/dL (2.5-4.9); SGOT/AST 11 U/L (15-37); SGPT/ALT 18 U/L (12-78)
[2017-03-17 09:12] LABS: BASOPHIL 0.2 % (0-2.0); MCH 26.3 pg (25.7-33.7); MCHC 32.3 g/dl (32.0-35.9); MEAN CELL VOLUME 81.4 fl (80-96); NEUTROPHILS 92.2 % (42.8-82.8); PLATELET COUNT 346 K/MM3 (134-434); RDW 14.8 % (11.9-15.9); WHITE BLOOD COUNT 11.9 K/mm3 (4.0-10.0)
[2017-03-17] MEDS: NAPH,MB-DB/K PH,MBDB POWDER PACKET PO SCH ×3 (10:05→21:54)
[2017-03-17] MEDS: LOSARTAN POTASSIUM 50 MG TABLET (FP) PO SCH (11:30)
[2017-03-17] MEDS: predniSONE 10 MG TABLET (UD) PO SCH (11:30)
[2017-03-17] MEDS ORDERED: SODIUM CHLORIDE 1,000 ML IV SCH (14:20)
--- NOTE | 2017-03-17 14:21 | PN ---
Physical Exam: SUBJECTIVE: Patient seen and examined. He says he is feeling much better, no cough, he is able to take a deep breath w/o catching himself, feels as thought the bronch cleared him up OBJECTIVE: Vital Signs Period Temp Pulse Resp BP Sys/Parks Pulse Ox Last 24 Hr 97.6 F-98.2 F 64-77 18-18 86-105/53-69 96-96 PE Neuro: alert, awake, cn 2-12intact Pulm: CTAB CV: s1 s2 rrr no mrg Abd: s nt nd + bs Ext: warm, no le edema Laboratory Results - last 24 hr 03/15/17 03/17/17 03/17/17 11:28 06:00 06:00 WBC 11.9 H RBC 4.23 4.14 Hgb 10.9 L Hct 33.7 L MCV 81.4 MCH 26.3 MCHC 32.3 RDW 14.8 Plt Count 346 MPV 8.0 Neutrophils % 92.2 H Lymphocytes % 4.1 L Monocytes % 3.5 L Eosinophils % 0.0 D Basophils % 0.2 G6PD RBC Count 182 Sodium 139 Potassium 4.7 D Chloride 109 H Carbon Dioxide 21 Anion Gap 9 BUN 10 D Creatinine 0.8 Creat Clearance w eGFR > 60 Random Glucose 115 H D Calcium 7.9 L Phosphorus 3.2 D Total Bilirubin 0.4 D AST 11 L ALT 18 Alkaline Phosphatase 105 Total Protein 5.0 L Albumin 2.1 L Active Medications Generic Name Dose Route Start Last Admin Trade Name Freq PRN Reason Stop Dose Admin Acetaminophen 650 mg 03/14/17 22:00 03/16/17 06:42 Tylenol - PO 650 mg Q4H PRN Administration FEVER OR PAIN Gabapentin 100 mg 03/15/17 22:00 03/16/17 21:33 Neurontin - PO 100 mg HS T[facility]AR Administration Sodium Chloride 1,000 mls @ 100 mls/hr 03/14/17 23:00 03/16/17 23:24 Normal Saline - IV 100 mls/hr ASDIR TAMAR Administration Losartan Potassium 50 mg 03/15/17 10:00 03/17/17 11:30 Cozaar - PO 50 mg DAILY [facility] Administration Potassium Phos/Sodium Phos 1 packet 03/15/17 13:45 03/17/17 10:05 Phos-Nak Packet - PO Not Given BID [facility] Prednisone 10 mg 08/02/17 10:00 03/17/17 11:30 Deltasone - PO 10 mg DAILY [facility] Administration Trimethoprim/Sulfamethoxazole 2 each 03/15/17 22:00 03/17/17 14:09 Bactrim Ds - PO Not Given TID [facility] Imaging: - Previous CT chest shows same nodules ( report in chart) Assessment: 56 year old male with PMH R renal carcinoma s/p nephrectomy, right lobectomy, sarcoidosis, gout, HTN admitted with fever, cough, weight loss, night sweats. Plan: 1. Media stinal Lymphadenopathy. R axillary enlarged lymph ? scarcoid - For needle biopsy today - Bronch 03/16, awaiting cytology and cx - Decrease IVF - Hep panel, g6pd, hep b antigen pending - hep b antb + 2. r/p MAC, TB, fungus, PCP - Bactrim TID for emperic pcp 3. RUL PNA, community acquired, severe sepsis/ rule out TB - Quant gold sent - AFB x3, induce sputum, 2/3 collected 4. Sarcoidosis - see above - Cont prednisone 10mg 4. HTN - Controlled - Losartan 50mg day 5. ? colitis - stop flagyl - Previous CTAP w/ contrast given to Dr. Armstrong - Per , pt with full GI work up yesterday with Dr. Juarez, will d/w dr. juarez, outpt colonoscopy was scheduled 6. DVT PPX - SCDs Visit type - Emergency Visit Emergency Visit: Yes ED Registration Date: 03/14/17 Care time: The patient presented to the Emergency Department on the above date and was hospitalized for further evaluation of their emergent condition. - New Patient This patient is new to me today: No - Critical Care Critical Care patient: No
--- NOTE | 2017-03-17 15:44 | PN ---
Progress Note, Physician Chief Complaint: Fever History of Present Illness: Pt with Hx Renal cancer, sarcoid admitted with fever, weight loss. Hospital course significant for BAL, Rx with TMP/SMX. He had axillary biopsy today. Of note, he feels better and has been afebrile > 24 hours. - Current Medication List Current Medications: Active Medications Acetaminophen (Tylenol -) 650 mg PO Q4H PRN PRN Reason: FEVER OR PAIN Last Admin: 03/16/17 06:42 Dose: 650 mg Gabapentin (Neurontin -) 100 mg PO HS [facility] Last Admin: 03/16/17 21:33 Dose: 100 mg Sodium Chloride (Normal Saline -) 1,000 mls @ 75 mls/hr IV ASDIR [facility] Losartan Potassium (Cozaar -) 50 mg PO DAILY [facility] Last Admin: 03/17/17 11:30 Dose: 50 mg Potassium Phos/Sodium Phos (Phos-Nak Packet -) 1 packet PO BID [facility] Last Admin: 03/17/17 10:05 Dose: Not Given Prednisone (Deltasone -) 10 mg PO DAILY [facility] Last Admin: 03/17/17 11:30 Dose: 10 mg Trimethoprim/Sulfamethoxazole (Bactrim Ds -) 2 each PO TID [facility] Last Admin: 03/17/17 14:09 Dose: Not Given - Objective Vital Signs: Vital Signs Temperature 98.5 F 03/17/17 14:00 Pulse Rate 79 03/17/17 14:00 Respiratory Rate 18 03/17/17 06:41 Blood Pressure 135/76 03/17/17 14:00 O2 Sat by Pulse Oximetry (%) 96 03/16/17 21:00 Constitutional: Yes: No Distress Eyes: Yes: PERRL Neck: Yes: Trachea Midline Cardiovascular: Yes: Regular Rate and Rhythm Respiratory: Yes: CTA Bilaterally Labs: CBC, BMP 03/17/17 06:00 03/17/17 06:00 INR, PTT INR 1.32 (0.82-1.09) H 03/15/17 12:58 Problem List - Problems (1) Right upper lobe pneumonia Code(s): J18.1 - LOBAR PNEUMONIA, UNSPECIFIED ORGANISM Assessment/Plan Patient with Hx renal cancer, sarcoid on chronic steroids, (+) PPD who is admitted with fever, weight loss and cough. r/o PTB, ? PCP vs fungal ? Malignancy Continue bactrim for now Await c/s results.
--- NOTE | 2017-03-17 16:30 | PATH ---
Surgical Pathology Report Patient Name: MOLLY MICHAEL Med. Rec. #: [id number] /Age/Gender: 1960 (Age: 56) / M Account: [id number] Location: [facility] MED/SURG Taken: 03/16/2017 Received: 03/16/2017 Reported: 03/17/2017 Physicians: Anton Teran M.D. Dalton Georges M.D. Specimen(s) Received BRUSH BIOPSY, RIGHT UPPER LOBE Clinical History SIRS, rule out TB Final Diagnosis LUNG, RIGHT UPPER LOBE, BRUSH BIOPSY: BENIGN BRONCHIAL TISSUE WITH ACTIVE INFLAMMATION. SCATTERED ACID FAST BACILLI IDENTIFIED WITH AFB STAIN. NO FUNGAL ORGANIMS IDENTIFIED WITH GMS STAIN. NO GRANULOMAS IDENTIFIED IN THIS MATERIAL. NO MALIGNANCY IDENTIFIED. Comment: Refer to [id number] and C17-319 for the cytology results. Correlations with pending microbiology studies are suggested. The case was discussed with Dr. Georges on 03/17/17. Electronically Signed Kin Hartley M.D. Gross Description Received in formalin labeled "brush biopsy right upper lobe" is a 0.3 x 0.3 x 0.1 cm aggregate of casillas soft tissue fragments. The formalin is filtered and the specimen is entirely submitted in one cassette. /03/16/201703/16/2017
--- NOTE | 2017-03-17 16:31 | PATH ---
Cytology Non-Gynecological Report Patient Name: MOLLY MICHAEL Med. Rec. #: [id number] /Age/Gender: 1960 (Age: 56) / M Account: [id number] Location: [facility] MED/SURG Taken: 03/16/2017 Received: 03/16/2017 Reported: 03/17/2017 Physicians: Marco Antonio Flynn M.D. Joseph Brill, M.D. Specimen(s) Received BRONCHIAL BRUSHINGS RIGHT UPPER LOBE Clinical History R/o TB Final Diagnosis LUNG, RIGHT UPPER LOBE, BRONCHIAL BRUSHING: SATISFACTORY FOR EVALUATION. NO MALIGNANT CELLS IDENTIFIED. REACTIVE BRONCHIAL CELLS, ACUTE INFLAMMATION AND FOCAL HISTIOCYTES COLLECTIONS SUGGESTIVE OF GRANULOMAS. Comment: Also refer to [id number] and [id number]. Electronically Signed Kin Hartley M.D. Gross Description Received is a brush in 50 cc of clear 50% alcohol. Two Pap stained smear slides are made.
--- NOTE | 2017-03-17 16:34 | PATH ---
Cytology Non-Gynecological Report Patient Name: MOLLY MICHAEL Med. Rec. #: [id number] /Age/Gender: 1960 (Age: 56) / M Account: [id number] Location: [facility] MED/SURG Taken: 03/16/2017 Received: 03/16/2017 Reported: 03/17/2017 Physicians: Anton Teran M.D. Zurdo Galindo M.D. Dalton Georges M.D. Specimen(s) Received RIGHT UPPER LOBE BRONCHIAL WASHINGS Clinical History R/o TB Final Diagnosis LUNG, RIGHT UPPER LOBE, BRONCHIAL WASHINGS: SATISFACTORY FOR EVALUATION. NO MALIGNANT CELLS IDENTIFIED. REACTIVE BRONCHIAL CELLS, ACUTE INFLAMMATION AND FOCAL HISTOCYTES COLLECTION SUGGESTIVE OF GRANULOMAS. ACID-FAST BACILLI IDENTIFIED WITH AFB STAIN. NO FUNGAL ORGANISMS IDENTIFIED WITH GMS STAIN. Comment: Also refer to [id number]. Correlations with pending microbiology studies are suggested. The case was discussed with Dr. Georges on 01/15/17. Electronically Signed Kin Hartley M.D. Gross Description Received is 10 cc of pink fluid fresh. One cytofunnel slide and one cell block are made.
--- NOTE | 2017-03-17 16:39 | PN ---
Progress Note, Physician History of Present Illness: pulmonary alert,nad,-sob.+AFB seen 0n bronchial washings - Current Medication List Current Medications: Active Medications Acetaminophen (Tylenol -) 650 mg PO Q4H PRN PRN Reason: FEVER OR PAIN Last Admin: 03/16/17 06:42 Dose: 650 mg Gabapentin (Neurontin -) 100 mg PO HS [facility] Last Admin: 03/16/17 21:33 Dose: 100 mg Sodium Chloride (Normal Saline -) 1,000 mls @ 75 mls/hr IV ASDIR [facility] Losartan Potassium (Cozaar -) 50 mg PO DAILY [facility] Last Admin: 03/17/17 11:30 Dose: 50 mg Polyethylene Glycol (Miralax (For Daily Use) -) 17 gm PO DAILY [facility] Potassium Phos/Sodium Phos (Phos-Nak Packet -) 1 packet PO BID [facility] Last Admin: 03/17/17 16:00 Dose: 1 packet Prednisone (Deltasone -) 10 mg PO DAILY [facility] Last Admin: 03/17/17 11:30 Dose: 10 mg Senna (Senna -) 1 tab PO HS [facility] Stop: 03/17/17 22:01 Trimethoprim/Sulfamethoxazole (Bactrim Ds -) 2 each PO TID [facility] Last Admin: 03/17/17 16:00 Dose: 2 each - Objective Vital Signs: Vital Signs Temperature 98.5 F 03/17/17 14:00 Pulse Rate 79 03/17/17 14:00 Respiratory Rate 18 03/17/17 06:41 Blood Pressure 135/76 03/17/17 14:00 O2 Sat by Pulse Oximetry (%) 96 03/16/17 21:00 Constitutional: Yes: Well Nourished, Calm Eyes: Yes: WNL HENT: Yes: WNL Neck: Yes: WNL Cardiovascular: Yes: Regular Rate and Rhythm, S1, S2 Respiratory: Yes: Diminished Gastrointestinal: Yes: Normal Bowel Sounds, Soft Extremities: Yes: WNL Edema: No Labs: CBC, BMP 03/17/17 06:00 03/17/17 06:00 INR, PTT INR 1.32 (0.82-1.09) H 03/15/17 12:58 Problem List - Problems (1) Right upper lobe pneumonia Code(s): J18.1 - LOBAR PNEUMONIA, UNSPECIFIED ORGANISM (2) SIRS (systemic inflammatory response syndrome) Code(s): R65.10 - SIRS OF NON-INFECTIOUS ORIGIN W/O ACUTE ORGAN DYSFUNCTION (3) Fever of unknown origin Code(s): R50.9 - FEVER, UNSPECIFIED (4) Sarcoidosis of lung with sarcoidosis of lymph nodes Code(s): D86.2 - SARCOIDOSIS OF LUNG WITH SARCOIDOSIS OF LYMPH NODES (5) Weight loss Code(s): R63.4 - ABNORMAL WEIGHT LOSS (6) H/O renal cell carcinoma Code(s): Z85.528 - PERSONAL HISTORY OF OTHER MALIGNANT NEOPLASM OF KIDNEY Assessment/Plan IMP PNEUMONIA RUL +AFB FEVER ,WT LOSS SECONDAY TO TB BILATERAL PULMONARY NODULES LIKELY SARCOID MEDIASTINAL AND HILAR ADENOPATHY LIKELY SECONDARY TO SARCOID,?TB H/O RENAL CELL CA S/P R NEPHRECTOMY ELEVATED LACTATE LEVEL PLAN TB MEDS PER ID CONTINUE CURRENT RX CHECK BX TREND LACTATE DR LOJA Problem List - Problems (1) Right upper lobe pneumonia Code(s): J18.1 - LOBAR PNEUMONIA, UNSPECIFIED ORGANISM (2) SIRS (systemic inflammatory response syndrome) Code(s): R65.10 - SIRS OF NON-INFECTIOUS ORIGIN W/O ACUTE ORGAN DYSFUNCTION (3) Fever of unknown origin Code(s): R50.9 - FEVER, UNSPECIFIED (4) Sarcoidosis of lung with sarcoidosis of lymph nodes Code(s): D86.2 - SARCOIDOSIS OF LUNG WITH SARCOIDOSIS OF LYMPH NODES (5) Weight loss Code(s): R63.4 - ABNORMAL WEIGHT LOSS (6) H/O renal cell carcinoma Code(s): Z85.528 - PERSONAL HISTORY OF OTHER MALIGNANT NEOPLASM OF KIDNEY
[2017-03-17] MEDS: POLYETHYLENE GLYCOL 3350 119 GM BTL PO SCH (18:56)
[2017-03-17] MEDS: GABAPENTIN 100 MG CAPSULE (FP) PO SCH (21:49)
[2017-03-17] MEDS ORDERED: SENNOSIDES 8.6MG TABLET (FP) PO SCH (22:00)
[2017-03-18] MEDS: SULFAMETHOXAZOLE/TRIMETHOPRIM 800MG/160MG D.S. TABLET PO SCH ×2 (06:35→13:10)
[2017-03-18] MEDS: ACETAMINOPHEN 325 MG TABLET (FP) PO PRN ×2 (06:35→13:55)
[2017-03-18 08:01] LABS: BASOPHIL 0.2 % (0-2.0); EOSINOPHIL 0.1 % (0-4.5); MCH 26.5 pg (25.7-33.7); MCHC 32.7 g/dl (32.0-35.9); MEAN CELL VOLUME 81.1 fl (80-96); MEAN PLT VOLUME 7.9 fl (7.5-11.1); NEUTROPHILS 89.6 % (42.8-82.8); PLATELET COUNT 377 K/MM3 (134-434); RDW 14.3 % (11.9-15.9); WHITE BLOOD COUNT 10.6 K/mm3 (4.0-10.0)
[2017-03-18 08:16] LABS: ANION GAP 12 (8-16); CALCIUM 8.1 mg/dL (8.5-10.1); CO2 20 mmol/L (21-32); CREATININE 1.3 mg/dL (0.7-1.3); GLUCOSE,RANDOM 91 mg/dL (74-106)
[2017-03-18] MEDS ORDERED: SODIUM CHLORIDE 1,000 ML IV SCH ×2 (10:07→10:39)
[2017-03-18] MEDS ORDERED: SODIUM CHLORIDE 1,000 ML IV STA (10:07)
[2017-03-18] MEDS: POLYETHYLENE GLYCOL 3350 119 GM BTL PO SCH (10:29)
[2017-03-18] MEDS: predniSONE 10 MG TABLET (UD) PO SCH (10:29)
[2017-03-18] MEDS: LOSARTAN POTASSIUM 50 MG TABLET (FP) PO SCH (10:29)
[2017-03-18] MEDS: NAPH,MB-DB/K PH,MBDB POWDER PACKET PO SCH (10:30)
[2017-03-18] MEDS: SODIUM CHLORIDE 1,000 ML IV SCH ×2 (11:00→21:12)
--- NOTE | 2017-03-18 13:14 | PN ---
Physical Exam: SUBJECTIVE: Patient seen and examined. He appears flushed today and says he doesn't feel well. He has tenderness to needle bx site, decreased appetite Events: - Febrile tmax 102.7 - Elevated lactic acid x1L bolus given OBJECTIVE: Vital Signs Period Temp Pulse Resp BP Sys/Parks Pulse Ox Last 24 Hr 98.1 F-102.7 F 72-111 18-18 109-138/66-84 95-96 PE Neuro: alert, awake, cn 2-12intact Pulm: right lobe diminished CV: s1 s2 rrr no mrg Abd: s nt nd + bs Ext: warm, no le edema Skin: RUE axilla incision CDI Laboratory Results - last 24 hr 03/18/17 03/18/17 03/18/17 07:40 07:40 07:40 WBC 10.6 H RBC 4.15 Hgb 11.0 L Hct 33.7 L MCV 81.1 MCH 26.5 MCHC 32.7 RDW 14.3 Plt Count 377 MPV 7.9 Neutrophils % 89.6 H Lymphocytes % 3.4 L Monocytes % 6.7 D Eosinophils % 0.1 D Basophils % 0.2 Sodium 135 L Potassium 4.1 Chloride 103 Carbon Dioxide 20 L Anion Gap 12 BUN 8 Creatinine 1.3 D Random Glucose 91 D Lactic Acid 3.3 H* Calcium 8.1 L Active Medications Generic Name Dose Route Start Last Admin Trade Name Freq PRN Reason Stop Dose Admin Acetaminophen 650 mg 03/14/17 22:00 03/18/17 06:35 Tylenol - PO 650 mg Q4H PRN Administration FEVER OR PAIN Gabapentin 100 mg 03/15/17 22:00 03/17/17 21:49 Neurontin - PO 100 mg HS T[facility]AR Administration Sodium Chloride 1,000 mls @ 100 mls/hr 03/18/17 11:08 03/18/17 11:00 Normal Saline - IV 100 mls/hr Q10H [facility]AMAR Administration Losartan Potassium 50 mg 03/15/17 10:00 03/18/17 10:29 Cozaar - PO 50 mg DAILY [facility] Administration Polyethylene Glycol 17 gm 03/17/17 16:15 03/18/17 10:29 Miralax (For Daily Use) - PO Not Given DAILY [facility] Prednisone 10 mg 03/15/17 10:00 03/18/17 10:29 Deltasone - PO 10 mg DAILY [facility] Administration Trimethoprim/Sulfamethoxazole 2 each 03/15/17 22:00 03/18/17 13:10 Bactrim Ds - PO 2 each TID [facility]AR Administration Imaging: - Previous CT chest shows same nodules (report in chart) Assessment: 56 year old male with PMH R renal carcinoma s/p nephrectomy, right lobectomy, sarcoidosis, gout, HTN admitted with fever, cough, weight loss, night sweats. Plan: 1. Media stinal Lymphadenopathy. R axillary enlarged lymph ? scarcoid - BAL pathology report shows AFB stain - Needle bx 03/17, awaiting cultures - Bronch 03/16 cultures pending - Hep panel, g6pd, hep b antigen pending - NS 100cc/hr - Repeat lactic acid in 4 hrs - ID aware, abx recs to follow 2. r/p MAC, TB, fungus, PCP - Bactrim TID for empiric pcp 3. RUL PNA, community acquired, severe sepsis/ rule out TB - Quant gold sent - AFB x3, induce sputum, /3 collected 4. Sarcoidosis - see above - Cont prednisone 10mg 4. HTN - Controlled - Losartan 50mg day 5. ? colitis - Previous CTAP w/ contrast given to Dr. Armstrong - Per , pt with full GI work up yesterday with Dr. Juarez, will d/w dr. juarez, outpt colonoscopy was scheduled 6. DVT PPX - SCDs Visit type - Emergency Visit Emergency Visit: Yes ED Registration Date: 03/14/17 Care time: The patient presented to the Emergency Department on the above date and was hospitalized for further evaluation of their emergent condition. - New Patient This patient is new to me today: No - Critical Care Critical Care patient: No
--- NOTE | 2017-03-18 13:39 | PN ---
Progress Note, Physician History of Present Illness: pulmonary alert,nad,+ febrile earlier 102.7 - Current Medication List Current Medications: Active Medications Acetaminophen (Tylenol -) 650 mg PO Q4H PRN PRN Reason: FEVER OR PAIN Last Admin: 03/18/17 06:35 Dose: 650 mg Gabapentin (Neurontin -) 100 mg PO HS [facility] Last Admin: 03/17/17 21:49 Dose: 100 mg Sodium Chloride (Normal Saline -) 1,000 mls @ 100 mls/hr IV Q10H [facility] Last Admin: 03/18/17 11:00 Dose: 100 mls/hr Losartan Potassium (Cozaar -) 50 mg PO DAILY [facility] Last Admin: 03/18/17 10:29 Dose: 50 mg Polyethylene Glycol (Miralax (For Daily Use) -) 17 gm PO DAILY [facility] Last Admin: 03/18/17 10:29 Dose: Not Given Prednisone (Deltasone -) 10 mg PO DAILY [facility] Last Admin: 03/18/17 10:29 Dose: 10 mg Trimethoprim/Sulfamethoxazole (Bactrim Ds -) 2 each PO TID [facility] Last Admin: 03/18/17 13:10 Dose: 2 each - Objective Vital Signs: Vital Signs Temperature 99.6 F 03/18/17 10:00 Pulse Rate 90 03/18/17 10:00 Respiratory Rate 18 03/18/17 10:00 Blood Pressure 111/69 03/18/17 10:00 O2 Sat by Pulse Oximetry (%) 95 03/18/17 09:00 Constitutional: Yes: Well Nourished, Calm Eyes: Yes: WNL HENT: Yes: WNL Neck: Yes: WNL Cardiovascular: Yes: Regular Rate and Rhythm, S1, S2 Respiratory: Yes: Rales (few crackles rul) Gastrointestinal: Yes: Normal Bowel Sounds, Soft Extremities: Yes: WNL Edema: No Labs: CBC, BMP 03/18/17 07:40 03/18/17 07:40 INR, PTT INR 1.32 (0.82-1.09) H 03/15/17 12:58 Problem List - Problems (1) Right upper lobe pneumonia Code(s): J18.1 - LOBAR PNEUMONIA, UNSPECIFIED ORGANISM (2) SIRS (systemic inflammatory response syndrome) Code(s): R65.10 - SIRS OF NON-INFECTIOUS ORIGIN W/O ACUTE ORGAN DYSFUNCTION (3) Fever of unknown origin Code(s): R50.9 - FEVER, UNSPECIFIED (4) Sarcoidosis of lung with sarcoidosis of lymph nodes Code(s): D86.2 - SARCOIDOSIS OF LUNG WITH SARCOIDOSIS OF LYMPH NODES (5) Weight loss Code(s): R63.4 - ABNORMAL WEIGHT LOSS (6) H/O renal cell carcinoma Code(s): Z85.528 - PERSONAL HISTORY OF OTHER MALIGNANT NEOPLASM OF KIDNEY Assessment/Plan IMP PNEUMONIA RUL +AFB FEVER ,WT LOSS SECONDAY TO TB BILATERAL PULMONARY NODULES LIKELY SARCOID MEDIASTINAL AND HILAR ADENOPATHY LIKELY SECONDARY TO SARCOID,?TB H/O RENAL CELL CA S/P R NEPHRECTOMY ELEVATED LACTATE LEVEL PLAN TB MEDS PER ID CONTINUE CURRENT RX CHECK BX TREND LACTATE DR LOJA Problem List - Problems (1) Right upper lobe pneumonia Code(s): J18.1 - LOBAR PNEUMONIA, UNSPECIFIED ORGANISM (2) SIRS (systemic inflammatory response syndrome) Code(s): R65.10 - SIRS OF NON-INFECTIOUS ORIGIN W/O ACUTE ORGAN DYSFUNCTION (3) Fever of unknown origin Code(s): R50.9 - FEVER, UNSPECIFIED (4) Sarcoidosis of lung with sarcoidosis of lymph nodes Code(s): D86.2 - SARCOIDOSIS OF LUNG WITH SARCOIDOSIS OF LYMPH NODES (5) Weight loss Code(s): R63.4 - ABNORMAL WEIGHT LOSS (6) H/O renal cell carcinoma Code(s): Z85.528 - PERSONAL HISTORY OF OTHER MALIGNANT NEOPLASM OF KIDNEY
[2017-03-18] MEDS: PYRAZINAMIDE 500 MG TABLET PO SCH (15:39)
[2017-03-18] MEDS: ETHAMBUTOL HCL 400 MG TABLET PO SCH (15:39)
[2017-03-18] MEDS: PYRIDOXINE HCL (B-6) 50 MG TABLET (FP) PO SCH (15:40)
[2017-03-18] MEDS: RIFAMPIN 300 MG CAPSULE PO SCH (15:40)
[2017-03-18] MEDS: GABAPENTIN 100 MG CAPSULE (FP) PO SCH (21:11)
[2017-03-19] MEDS: SODIUM CHLORIDE 1,000 ML IV SCH ×3 (00:17→21:17)
[2017-03-19] MEDS: ACETAMINOPHEN 325 MG TABLET (FP) PO PRN (06:34)
[2017-03-19 07:34] LABS: BASOPHIL 0.5 % (0-2.0); EOSINOPHIL 0.1 % (0-4.5); MCH 26.2 pg (25.7-33.7); MCHC 32.1 g/dl (32.0-35.9); MEAN CELL VOLUME 81.4 fl (80-96); MEAN PLT VOLUME 7.9 fl (7.5-11.1); NEUTROPHILS 92.6 % (42.8-82.8); PLATELET COUNT 374 K/MM3 (134-434); RDW 14.7 % (11.9-15.9); WHITE BLOOD COUNT 11.5 K/mm3 (4.0-10.0)
[2017-03-19 08:18] LABS: ANION GAP 11 (8-16); CALCIUM 7.9 mg/dL (8.5-10.1); CO2 23 mmol/L (21-32); CREATININE 1.1 mg/dL (0.7-1.3); GLUCOSE,RANDOM 127 mg/dL (74-106)
[2017-03-19] MEDS ORDERED: SODIUM CHLORIDE 1,000 ML IV STA (09:52)
[2017-03-19] MEDS ORDERED: PT OWN MED DRAWER 7, Y5N ONE (10:14)
[2017-03-19] MEDS: LOSARTAN POTASSIUM 50 MG TABLET (FP) PO SCH (10:28)
[2017-03-19] MEDS: POLYETHYLENE GLYCOL 3350 119 GM BTL PO SCH (10:29)
[2017-03-19] MEDS: ETHAMBUTOL HCL 400 MG TABLET PO SCH (10:29)
[2017-03-19] MEDS: predniSONE 10 MG TABLET (UD) PO SCH (10:29)
[2017-03-19] MEDS: PYRAZINAMIDE 500 MG TABLET PO SCH (10:30)
[2017-03-19] MEDS: PYRIDOXINE HCL (B-6) 50 MG TABLET (FP) PO SCH (10:31)
[2017-03-19] MEDS: RIFAMPIN 300 MG CAPSULE PO SCH (10:31)
--- NOTE | 2017-03-19 10:48 | PN ---
Physical Exam: SUBJECTIVE: Patient seen and examined. He reports diminished appetite and nausea. He is depressed with his TB diagnosis. Denies vomiting. Event: - tmax this AM 101.2 OBJECTIVE: Vital Signs Period Temp Pulse Resp BP Sys/Parks Pulse Ox Last 24 Hr 97.9 F-102.7 F 61-98 18-18 98-111/56-68 96 PE Neuro: alert, awake, cn 2-12intact Pulm: right lobe diminished CV: s1 s2 rrr no mrg Abd: s nt nd + bs Ext: warm, no le edema Skin: RUE axilla incision CDI Laboratory Results - last 24 hr 03/18/17 03/19/17 03/19/17 15:35 06:10 06:10 WBC 11.5 H RBC 4.24 Hgb 11.1 L Hct 34.5 L MCV 81.4 MCH 26.2 MCHC 32.1 RDW 14.7 Plt Count 374 MPV 7.9 Neutrophils % 92.6 H Lymphocytes % 2.7 L D Monocytes % 4.1 Eosinophils % 0.1 Basophils % 0.5 Sodium 135 L Potassium 4.3 Chloride 101 Carbon Dioxide 23 Anion Gap 11 BUN 11 D Creatinine 1.1 Random Glucose 127 H D Lactic Acid 2.2 H* Calcium 7.9 L 03/15/17 03/15/17 03/19/17 11:28 11:28 06:10 G6PD RBC Count 182 Lactic Acid 2.1 H* Hep Bs Antigen Negative Hep B Core Ab Interpret Positive H Active Medications Generic Name Dose Route Start Last Admin Trade Name Freq PRN Reason Stop Dose Admin Acetaminophen 650 mg 03/14/17 22:00 03/19/17 06:34 Tylenol - PO 650 mg Q4H PRN Administration FEVER OR PAIN Ethambutol HCl 1,200 mg 03/18/17 14:30 03/19/17 10:29 Myambutol - PO 1,200 mg DAILY [facility]AMAR Administration Gabapentin 100 mg 03/15/17 22:00 03/18/17 21:11 Neurontin - PO 100 mg HS [facility]AMAR Administration Sodium Chloride 1,000 mls @ 100 mls/hr 03/18/17 11:08 03/19/17 00:17 Normal Saline - IV 100 mls/hr Q10H [facility]AMAR Administration Sodium Chloride 1,000 mls @ 1,000 mls/hr 03/19/17 09:52 03/19/17 10:33 Normal Saline - IV 03/19/17 10:51 1,000 mls/hr ASDIR STA Administration Losartan Potassium 50 mg 03/15/17 10:00 03/19/17 10:28 Cozaar - PO Not Given DAILY [facility] Polyethylene Glycol 17 gm 03/17/17 16:15 03/19/17 10:29 Miralax (For Daily Use) - PO 17 gm DAILY [facility] Administration Prednisone 10 mg 03/15/17 10:00 03/19/17 10:29 Deltasone - PO 10 mg DAILY [facility] Administration Pyrazinamide 1,500 mg 03/18/17 14:30 03/19/17 10:30 Pyrazinamide - PO 1,500 mg DAILY [facility] Administration Pyridoxine HCl 75 mg 03/18/17 14:30 03/19/17 10:31 Vitamin B6 - PO 75 mg DAILY [facility] Administration Rifampin 600 mg 03/18/17 14:45 03/19/17 10:31 Rifadin - PO 600 mg DAILY [facility] Administration Imaging: - Previous CT chest shows same nodules (report in chart) Assessment: 56 year old male with PMH R renal carcinoma s/p nephrectomy, right lobectomy, sarcoidosis, gout, HTN admitted with fever, cough, weight loss, night sweats, status post Bronch 03/16 with active TB on pathology. Plan: 1. Active TB - INH 300mg daily - Rifampin 600mg daily - Ethambutol 1200mg daily - Pyrazinamide 1500mg daily - Vit b6 75mg daily - Opthomology consult placed for baseline eye eval - Trend LFT's - Quant gold pending - AFB x3 2. Media stinal Lymphadenopathy. R axillary enlarged lymph ? scarcoid - Needle bx 03/17, awaiting cultures - Elevated lactic acid this AM - Give 1L bolus - Repeat lactic acid in 4 hrs 3. Sarcoidosis - See above - Cont prednisone 10mg 4. HTN - Controlled - Losartan 50mg day 5. ? colitis - Previous CTAP w/ contrast given to Dr. Armstrong, will need to return to IR to retrieve CD tomorrow - Per , work up w/ Dr. Juarez last week, CEA level drawn 6. DVT PPX - SCDs Visit type - Emergency Visit Emergency Visit: Yes ED Registration Date: 03/14/17 Care time: The patient presented to the Emergency Department on the above date and was hospitalized for further evaluation of their emergent condition. - New Patient This patient is new to me today: No - Critical Care Critical Care patient: No
--- NOTE | 2017-03-19 11:59 | PN ---
Progress Note, Physician History of Present Illness: pulmonary alert,weak,+night sweats. pt started on TB meds - Current Medication List Current Medications: Active Medications Acetaminophen (Tylenol -) 650 mg PO Q4H PRN PRN Reason: FEVER OR PAIN Last Admin: 03/19/17 06:34 Dose: 650 mg Ethambutol HCl (Myambutol -) 1,200 mg PO DAILY [facility] Last Admin: 03/19/17 10:29 Dose: 1,200 mg Gabapentin (Neurontin -) 100 mg PO HS [facility] Last Admin: 03/18/17 21:11 Dose: 100 mg Sodium Chloride (Normal Saline -) 1,000 mls @ 100 mls/hr IV Q10H [facility] Last Admin: 03/19/17 11:38 Dose: 100 mls/hr Losartan Potassium (Cozaar -) 50 mg PO DAILY [facility] Last Admin: 03/19/17 10:28 Dose: Not Given Polyethylene Glycol (Miralax (For Daily Use) -) 17 gm PO DAILY [facility] Last Admin: 03/19/17 10:29 Dose: 17 gm Prednisone (Deltasone -) 10 mg PO DAILY [facility] Last Admin: 03/19/17 10:29 Dose: 10 mg Pyrazinamide (Pyrazinamide -) 1,500 mg PO DAILY [facility] Last Admin: 03/19/17 10:30 Dose: 1,500 mg Pyridoxine HCl (Vitamin B6 -) 75 mg PO DAILY [facility] Last Admin: 03/19/17 10:31 Dose: 75 mg Rifampin (Rifadin -) 600 mg PO DAILY [facility] Last Admin: 03/19/17 10:31 Dose: 600 mg - Objective Vital Signs: Vital Signs Temperature 99 F 03/19/17 08:10 Pulse Rate 86 03/19/17 08:10 Respiratory Rate 18 03/19/17 08:10 Blood Pressure 98/62 03/19/17 08:10 O2 Sat by Pulse Oximetry (%) 96 03/18/17 21:00 Constitutional: Yes: Well Nourished, Calm Eyes: Yes: WNL HENT: Yes: WNL Neck: Yes: WNL Cardiovascular: Yes: Regular Rate and Rhythm, S1, S2 Respiratory: Yes: CTA Bilaterally Gastrointestinal: Yes: Normal Bowel Sounds, Soft Extremities: Yes: WNL Edema: No Labs: CBC, BMP 03/19/17 06:10 03/19/17 06:10 INR, PTT INR 1.32 (0.82-1.09) H 03/15/17 12:58 Laboratory Tests 03/19/17 06:10 Lactic Acid 2.1 H* Problem List - Problems (1) Right upper lobe pneumonia Code(s): J18.1 - LOBAR PNEUMONIA, UNSPECIFIED ORGANISM (2) SIRS (systemic inflammatory response syndrome) Code(s): R65.10 - SIRS OF NON-INFECTIOUS ORIGIN W/O ACUTE ORGAN DYSFUNCTION (3) Fever of unknown origin Code(s): R50.9 - FEVER, UNSPECIFIED (4) Sarcoidosis of lung with sarcoidosis of lymph nodes Code(s): D86.2 - SARCOIDOSIS OF LUNG WITH SARCOIDOSIS OF LYMPH NODES (5) Weight loss Code(s): R63.4 - ABNORMAL WEIGHT LOSS (6) H/O renal cell carcinoma Code(s): Z85.528 - PERSONAL HISTORY OF OTHER MALIGNANT NEOPLASM OF KIDNEY Assessment/Plan IMP PNEUMONIA RUL +AFB FEVER ,WT LOSS SECONDAY TO TB BILATERAL PULMONARY NODULES LIKELY SARCOID MEDIASTINAL AND HILAR ADENOPATHY LIKELY SECONDARY TO SARCOID,?TB H/O RENAL CELL CA S/P R NEPHRECTOMY ELEVATED LACTATE LEVEL IMPROVING PLAN TB MEDS PER ID CONTINUE CURRENT RX CHECK BX MONITOR LFTS TREND LACTATE DR LOJA Problem List - Problems (1) Right upper lobe pneumonia Code(s): J18.1 - LOBAR PNEUMONIA, UNSPECIFIED ORGANISM (2) SIRS (systemic inflammatory response syndrome) Code(s): R65.10 - SIRS OF NON-INFECTIOUS ORIGIN W/O ACUTE ORGAN DYSFUNCTION (3) Fever of unknown origin Code(s): R50.9 - FEVER, UNSPECIFIED (4) Sarcoidosis of lung with sarcoidosis of lymph nodes Code(s): D86.2 - SARCOIDOSIS OF LUNG WITH SARCOIDOSIS OF LYMPH NODES (5) Weight loss Code(s): R63.4 - ABNORMAL WEIGHT LOSS (6) H/O renal cell carcinoma Code(s): Z85.528 - PERSONAL HISTORY OF OTHER MALIGNANT NEOPLASM OF KIDNEY
--- NOTE | 2017-03-19 12:21 | PN ---
Progress Note, Physician Chief Complaint: Fever History of Present Illness: Pt with Hx Renal cancer, sarcoid admitted with fever, weight loss. Hospital course significant for BAL. The brush biopsy showed scattered AFB bacilli. He was started on INH/B6, Rifampin, EMB & PZA. He feels weak and continues to have intermittent fevers. - Current Medication List Current Medications: Active Medications Acetaminophen (Tylenol -) 650 mg PO Q4H PRN PRN Reason: FEVER OR PAIN Last Admin: 03/19/17 06:34 Dose: 650 mg Ethambutol HCl (Myambutol -) 1,200 mg PO DAILY [facility] Last Admin: 03/19/17 10:29 Dose: 1,200 mg Gabapentin (Neurontin -) 100 mg PO HS [facility] Last Admin: 03/18/17 21:11 Dose: 100 mg Sodium Chloride (Normal Saline -) 1,000 mls @ 100 mls/hr IV Q10H [facility] Last Admin: 03/19/17 11:38 Dose: 100 mls/hr Losartan Potassium (Cozaar -) 50 mg PO DAILY [facility] Last Admin: 03/19/17 10:28 Dose: Not Given Polyethylene Glycol (Miralax (For Daily Use) -) 17 gm PO DAILY [facility] Last Admin: 03/19/17 10:29 Dose: 17 gm Prednisone (Deltasone -) 10 mg PO DAILY [facility] Last Admin: 03/19/17 10:29 Dose: 10 mg Pyrazinamide (Pyrazinamide -) 1,500 mg PO DAILY [facility] Last Admin: 03/19/17 10:30 Dose: 1,500 mg Pyridoxine HCl (Vitamin B6 -) 75 mg PO DAILY [facility] Last Admin: 03/19/17 10:31 Dose: 75 mg Rifampin (Rifadin -) 600 mg PO DAILY [facility] Last Admin: 03/19/17 10:31 Dose: 600 mg - Objective Vital Signs: Vital Signs Temperature 99 F 03/19/17 08:10 Pulse Rate 86 03/19/17 08:10 Respiratory Rate 18 03/19/17 08:10 Blood Pressure 98/62 03/19/17 08:10 O2 Sat by Pulse Oximetry (%) 96 03/18/17 21:00 Constitutional: Yes: No Distress Eyes: Yes: PERRL Neck: Yes: Supple Cardiovascular: Yes: Regular Rate and Rhythm Respiratory: Yes: CTA Bilaterally Gastrointestinal: Yes: Normal Bowel Sounds, Soft Labs: CBC, BMP 03/19/17 06:10 03/19/17 06:10 INR, PTT INR 1.32 (0.82-1.09) H 03/15/17 12:58 Problem List - Problems (1) Right upper lobe pneumonia Code(s): J18.1 - LOBAR PNEUMONIA, UNSPECIFIED ORGANISM Assessment/Plan Patient with Hx renal cancer, sarcoid on chronic steroids, (+) PPD who is admitted with fever, weight loss and cough. Pneumonia - ? PTB Continue anti-TB meds Continue isolation Await culture results. Monitor LFT's. Consider baseline Ophthalmology evaluation.
[2017-03-19] MEDS: GABAPENTIN 100 MG CAPSULE (FP) PO SCH (21:11)
[2017-03-20] MEDS: SODIUM CHLORIDE 1,000 ML IV SCH ×4 (07:08→19:00)
[2017-03-20 09:24] LABS: BASOPHIL 1.4 % (0-2.0); EOSINOPHIL 0.6 % (0-4.5); MCH 26.2 pg (25.7-33.7); MCHC 32.2 g/dl (32.0-35.9); MEAN CELL VOLUME 81.3 fl (80-96); MEAN PLT VOLUME 7.6 fl (7.5-11.1); NEUTROPHILS 83.4 % (42.8-82.8); PLATELET COUNT 430 K/MM3 (134-434); RDW 14.9 % (11.9-15.9); WHITE BLOOD COUNT 11.7 K/mm3 (4.0-10.0)
[2017-03-20 09:58] LABS: ALBUMIN 2.4 g/dl (3.4-5.0); ANION GAP 8 (8-16); CALCIUM 8.8 mg/dL (8.5-10.1); CO2 26 mmol/L (21-32); CREATININE 1.1 mg/dL (0.7-1.3); GLUCOSE,RANDOM 99 mg/dL (74-106); SGOT/AST 20 U/L (15-37); SGPT/ALT 37 U/L (12-78)
[2017-03-20 10:01] LABS: ALK PHOS 137 U/L (45-117); BILIRUBIN,TOTAL 0.7 mg/dL (0.2-1.0); TOT PROT 5.8 g/dl (6.4-8.2)
[2017-03-20] MEDS ORDERED: PT OWN MED DRAWER 7, Y5N ONE ×2 (10:50→14:40)
[2017-03-20] MEDS: predniSONE 10 MG TABLET (UD) PO SCH (10:56)
[2017-03-20] MEDS: LOSARTAN POTASSIUM 50 MG TABLET (FP) PO SCH (10:56)
[2017-03-20] MEDS: POLYETHYLENE GLYCOL 3350 119 GM BTL PO SCH ×2 (10:57→11:08)
[2017-03-20] MEDS: ETHAMBUTOL HCL 400 MG TABLET PO SCH (10:58)
--- NOTE | 2017-03-20 10:58 | PN ---
Progress Note (short form) - Note Progress Note: SUBJECTIVE: The patient was seen and examined at the bedside, airborne precautions in place. He has no complaints at this time. Tmax 100 Current Medications Generic Name Dose Route Start Last Admin Trade Name Emerald PRN Reason Stop Dose Admin Acetaminophen 650 mg 03/14/17 22:00 03/19/17 06:34 Tylenol - PO 650 mg Q4H PRN Administration FEVER OR PAIN Ethambutol HCl 1,200 mg 03/18/17 14:30 03/19/17 10:29 Myambutol - PO 1,200 mg DAILY TAMAR Administration Gabapentin 100 mg 03/15/17 22:00 03/19/17 21:11 Neurontin - PO 100 mg HS TAMAR Administration Sodium Chloride 1,000 mls @ 100 mls/hr 03/18/17 11:08 03/20/17 07:08 Normal Saline - IV 100 mls/hr Q10H TAMAR Administration Losartan Potassium 50 mg 03/15/17 10:00 03/19/17 10:28 Cozaar - PO Not Given DAILY TAMAR Polyethylene Glycol 17 gm 03/17/17 16:15 03/19/17 10:29 Miralax (For Daily Use) - PO 17 gm DAILY TAMAR Administration Prednisone 10 mg 03/15/17 10:00 03/19/17 10:29 Deltasone - PO 10 mg DAILY TAMAR Administration Pyrazinamide 1,500 mg 03/18/17 14:30 03/19/17 10:30 Pyrazinamide - PO 1,500 mg DAILY TAMAR Administration Pyridoxine HCl 75 mg 03/18/17 14:30 03/19/17 10:31 Vitamin B6 - PO 75 mg DAILY TAMAR Administration Rifampin 600 mg 03/18/17 14:45 03/19/17 10:31 Rifadin - PO 600 mg DAILY TAMAR Administration Objective: Vital Signs Period Temp Pulse Resp BP Sys/Parks Pulse Ox Last 24 Hr 98.1 F-100 F 75-102 18-20 110-123/72-91 96 Physical Exam: General: NAD, A&Ox3 Lungs: CTA bilaterally Heart: RRR, S1S2 Abd: Soft, non-tender, non-distended. Normoactive bowel sounds Ext: Warm, well-perfused. 2+ DP/PT bilaterally Skin: Right axilla with dressing, c/d/i Neuro: CN 2-12 intact CBCD WBC 11.7 K/mm3 (4.0-10.0) H 03/20/17 09:10 RBC 4.67 M/mm3 (4.00-5.60) 03/20/17 09:10 Hgb 12.2 GM/dL (11.7-16.9) 03/20/17 09:10 Hct 38.0 % (35.4-49) 03/20/17 09:10 MCV 81.3 fl (80-96) 03/20/17 09:10 MCHC 32.2 g/dl (32.0-35.9) 03/20/17 09:10 RDW 14.9 % (11.9-15.9) 03/20/17 09:10 Plt Count 430 K/MM3 (134-434) 03/20/17 09:10 MPV 7.6 fl (7.5-11.1) 03/20/17 09:10 CMP Sodium 135 mmol/L (136-145) L 03/20/17 09:10 Potassium 4.6 mmol/L (3.5-5.1) 03/20/17 09:10 Chloride 101 mmol/L (98-107) 03/20/17 09:10 Carbon Dioxide 26 mmol/L (21-32) 03/20/17 09:10 Anion Gap 8 (8-16) 03/20/17 09:10 BUN 9 mg/dL (7-18) 03/20/17 09:10 Creatinine 1.1 mg/dL (0.7-1.3) 03/20/17 09:10 Creat Clearance w eGFR > 60 (>60) 03/20/17 09:10 Random Glucose 99 mg/dL (74-106) D 03/20/17 09:10 Calcium 8.8 mg/dL (8.5-10.1) 03/20/17 09:10 Total Bilirubin 0.7 mg/dL (0.2-1.0) D 03/20/17 09:10 AST 20 U/L (15-37) D 03/20/17 09:10 ALT 37 U/L (12-78) D 03/20/17 09:10 Alkaline Phosphatase 137 U/L (45-117) H D 03/20/17 09:10 Total Protein 5.8 g/dl (6.4-8.2) L 03/20/17 09:10 Albumin 2.4 g/dl (3.4-5.0) L 03/20/17 09:10 Microbiology 03/19/17 06:45 Sputum - Aerosol Induced AFB Smear Concentration - Preliminary 03/19/17 06:45 Sputum - Aerosol Induced Mycobacterial Culture - Preliminary 03/18/17 06:30 Sputum - Aerosol Induced AFB Smear Concentration - Preliminary 03/18/17 06:30 Sputum - Aerosol Induced Mycobacterial Culture - Preliminary 03/17/17 18:00 Sputum - Aerosol Induced AFB Smear Concentration - Preliminary 03/17/17 18:00 Sputum - Aerosol Induced Mycobacterial Culture - Preliminary 03/15/17 06:30 Blood - Peripheral Venous TB Test (QFT) ([facility]) - Preliminary 03/16/17 12:30 Bronchial Washings - Right Upper Lobe AFB Smear Concentration - Preliminary 03/16/17 12:30 Bronchial Washings - Right Upper Lobe Mycobacterial Culture - Preliminary 03/17/17 13:00 Lymph Node - Axillary Node AFB Smear Concentration - Preliminary 03/17/17 13:00 Lymph Node - Axillary Node Mycobacterial Culture - Preliminary 03/17/17 13:00 Lymph Node - Axillary Node Gram Stain - Final 03/17/17 13:00 Lymph Node - Axillary Node Tissue Culture - Preliminary 03/17/17 13:00 Lymph Node - Axillary Node Anaerobic Culture - Preliminary 03/14/17 19:00 Blood - Peripheral Venous Blood Culture - Final NO GROWTH AFTER 5 DAYS INCUBATION 03/14/17 Unknown Blood - Peripheral Venous Blood Culture - Final NO GROWTH AFTER 5 DAYS INCUBATION 03/16/17 12:30 Bronchial Washings - Right Upper Lobe Gram Stain - Final 03/16/17 12:30 Bronchial Washings - Right Upper Lobe Bronchoalveolar Lavage Culture - Final 03/17/17 13:00 Lymph Node - Axillary Node MELIA Preparation - Preliminary 03/17/17 13:00 Lymph Node - Axillary Node Fungal Culture - Preliminary 03/16/17 12:30 Bronchial Washings - Right Upper Lobe MELIA Preparation - Preliminary 03/16/17 12:30 Bronchial Washings - Right Upper Lobe Fungal Culture - Preliminary 03/14/17 16:40 Urine - Urine Clean Catch Urine Culture - Final NO GROWTH OBTAINED Imaging: - Previous CT chest shows same nodules (report in chart) - CT chest: multiple bilateral pulmonary nodules. Mediastinal and right hilar hymmphadenopathy as well as enlarged right axillary lymph nodes. Airspace disease in the right upper lobe extending to the perihilar region with involvement of the apical segment of the right lower love as well as a small cavity seen in the superior margin. 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 Plan: 1) Pulmonary: Active Tb - Started on INH (03/20) - Rifampin 600mg po daily - Ethambutol 1200mg po daily - Pyrazinamide 1500mg po daily - Vitamin B6 75mg po daily - F/u baseline ophthalmology - Quant gold positive - Appreciate ID consult - Appreciate pulmonary consult Sarcoidosis - With mediastinal and hilar adenopathy: 2/ sarcoid? - F/u right axillary lymph node biopsy - Continue prednisone 2) ID: elevated lactic acid - IV fluid bolus - Continue to monitor 3) Cardiology: HTN - Continue Losartan 4) GI: Colitis? - No complaints of diarrhea - F/u previous CTAP - Follows with Dr. Juarez as an outpatient 5) F/E/N: - Monitor electrolytes - Sodium controlled diet 6) Prophylaxis: - OOB ambulating - Heparin 5,000u sq tid 7) Dispo: - Requires continued inpatient care - Infection control, Zaira Franklin, contacted re: active Tb CODE STATUS: FULL CODE Visit type - Emergency Visit Emergency Visit: Yes ED Registration Date: 03/14/17 Care time: The patient presented to the Emergency Department on the above date and was hospitalized for further evaluation of their emergent condition. - New Patient This patient is new to me today: Yes Date on this admission: 03/20/17 - Critical Care Critical Care patient: No
[2017-03-20] MEDS: PYRAZINAMIDE 500 MG TABLET PO SCH (10:59)
[2017-03-20] MEDS: RIFAMPIN 300 MG CAPSULE PO SCH (10:59)
[2017-03-20] MEDS: PYRIDOXINE HCL (B-6) 50 MG TABLET (FP) PO SCH (10:59)
[2017-03-20] MEDS ORDERED: SODIUM CHLORIDE 1,000 ML IV STA (12:54)
[2017-03-20] MEDS: HEPARIN NA (PORCINE) 5,000 UNITS/ML 1ML VIAL SQ SCH ×2 (13:06→21:49)
--- NOTE | 2017-03-20 13:33 | PN ---
Progress Note, Physician History of Present Illness: PULMONARY ALERT,NAD,WEAK,-SOB - Current Medication List Current Medications: Active Medications Acetaminophen (Tylenol -) 650 mg PO Q4H PRN PRN Reason: FEVER OR PAIN Last Admin: 03/19/17 06:34 Dose: 650 mg Ethambutol HCl (Myambutol -) 1,200 mg PO DAILY [facility] Last Admin: 03/20/17 10:58 Dose: 1,200 mg Gabapentin (Neurontin -) 100 mg PO HS [facility] Last Admin: 03/19/17 21:11 Dose: 100 mg Heparin Sodium (Porcine) (Heparin -) 5,000 unit SQ TID [facility] Last Admin: 03/20/17 13:06 Dose: 5,000 unit Sodium Chloride (Normal Saline -) 1,000 mls @ 100 mls/hr IV Q10H TAMAR Last Admin: 03/20/17 07:08 Dose: 100 mls/hr Sodium Chloride (Normal Saline -) 1,000 mls @ 1,000 mls/hr IV ASDIR STA Stop: 03/20/17 13:53 Last Admin: 03/20/17 13:06 Dose: 1,000 mls/hr Isoniazid (Inh -) 300 mg PO DAILY [facility] Losartan Potassium (Cozaar -) 50 mg PO DAILY [facility] Last Admin: 03/20/17 10:56 Dose: 50 mg Polyethylene Glycol (Miralax (For Daily Use) -) 17 gm PO DAILY [facility] Last Admin: 03/20/17 11:08 Dose: Not Given Prednisone (Deltasone -) 10 mg PO DAILY [facility] Last Admin: 03/20/17 10:56 Dose: 10 mg Pyrazinamide (Pyrazinamide -) 1,500 mg PO DAILY [facility] Last Admin: 03/20/17 10:59 Dose: 1,500 mg Pyridoxine HCl (Vitamin B6 -) 75 mg PO DAILY [facility] Last Admin: 03/20/17 10:59 Dose: 75 mg Rifampin (Rifadin -) 600 mg PO DAILY [facility] Last Admin: 03/20/17 10:59 Dose: 600 mg - Objective Vital Signs: Vital Signs Temperature 99.9 F H 03/20/17 09:15 Pulse Rate 102 H 03/20/17 09:15 Respiratory Rate 20 03/20/17 09:15 Blood Pressure 123/91 03/20/17 09:15 O2 Sat by Pulse Oximetry (%) 96 03/19/17 21:00 Constitutional: Yes: Well Nourished, Calm Eyes: Yes: WNL HENT: Yes: WNL Neck: Yes: WNL Cardiovascular: Yes: Regular Rate and Rhythm, S1, S2 Respiratory: Yes: Diminished Gastrointestinal: Yes: Normal Bowel Sounds, Soft Extremities: Yes: WNL Edema: No Labs: CBC, BMP 03/20/17 09:10 03/20/17 09:10 INR, PTT INR 1.32 (0.82-1.09) H 03/15/17 12:58 Problem List - Problems (1) Right upper lobe pneumonia Code(s): J18.1 - LOBAR PNEUMONIA, UNSPECIFIED ORGANISM (2) SIRS (systemic inflammatory response syndrome) Code(s): R65.10 - SIRS OF NON-INFECTIOUS ORIGIN W/O ACUTE ORGAN DYSFUNCTION (3) Fever of unknown origin Code(s): R50.9 - FEVER, UNSPECIFIED (4) Sarcoidosis of lung with sarcoidosis of lymph nodes Code(s): D86.2 - SARCOIDOSIS OF LUNG WITH SARCOIDOSIS OF LYMPH NODES (5) Weight loss Code(s): R63.4 - ABNORMAL WEIGHT LOSS (6) H/O renal cell carcinoma Code(s): Z85.528 - PERSONAL HISTORY OF OTHER MALIGNANT NEOPLASM OF KIDNEY Assessment/Plan IMP PNEUMONIA RUL +AFB FEVER ,WT LOSS SECONDAY TO TB BILATERAL PULMONARY NODULES LIKELY SARCOID MEDIASTINAL AND HILAR ADENOPATHY LIKELY SECONDARY TO SARCOID,?TB H/O RENAL CELL CA S/P R NEPHRECTOMY ELEVATED LACTATE LEVEL IMPROVING PLAN TB MEDS PER ID CONTINUE CURRENT RX CHECK BX MONITOR LFTS TREND LACTATE DR LOJA Problem List - Problems (1) Right upper lobe pneumonia Code(s): J18.1 - LOBAR PNEUMONIA, UNSPECIFIED ORGANISM (2) SIRS (systemic inflammatory response syndrome) Code(s): R65.10 - SIRS OF NON-INFECTIOUS ORIGIN W/O ACUTE ORGAN DYSFUNCTION (3) Fever of unknown origin Code(s): R50.9 - FEVER, UNSPECIFIED (4) Sarcoidosis of lung with sarcoidosis of lymph nodes Code(s): D86.2 - SARCOIDOSIS OF LUNG WITH SARCOIDOSIS OF LYMPH NODES (5) Weight loss Code(s): R63.4 - ABNORMAL WEIGHT LOSS (6) H/O renal cell carcinoma Code(s): Z85.528 - PERSONAL HISTORY OF OTHER MALIGNANT NEOPLASM OF KIDNEY
[2017-03-20] MEDS: ISONIAZID 300 MG TABLET (FP) PO SCH (14:46)
[2017-03-20] MEDS: GABAPENTIN 100 MG CAPSULE (FP) PO SCH (21:49)
[2017-03-21] MEDS: HEPARIN NA (PORCINE) 5,000 UNITS/ML 1ML VIAL SQ SCH ×3 (06:34→22:16)
[2017-03-21 09:09] LABS: BASOPHIL 0.7 % (0-2.0); EOSINOPHIL 1.1 % (0-4.5); MCH 26.8 pg (25.7-33.7); MCHC 32.9 g/dl (32.0-35.9); MEAN CELL VOLUME 81.4 fl (80-96); MEAN PLT VOLUME 7.6 fl (7.5-11.1); PLATELET COUNT 433 K/MM3 (134-434); RDW 14.7 % (11.9-15.9); WHITE BLOOD COUNT 7.8 K/mm3 (4.0-10.0)
[2017-03-21 09:33] LABS: ALBUMIN 2.4 g/dl (3.4-5.0); ANION GAP 10 (8-16); CALCIUM 8.1 mg/dL (8.5-10.1); CO2 25 mmol/L (21-32); CREATININE 0.8 mg/dL (0.7-1.3); GLUCOSE,RANDOM 138 mg/dL (74-106); SGOT/AST 17 U/L (15-37); SGPT/ALT 31 U/L (12-78)
[2017-03-21 09:35] LABS: ALK PHOS 130 U/L (45-117); BILIRUBIN,TOTAL 0.8 mg/dL (0.2-1.0); TOT PROT 5.8 g/dl (6.4-8.2)
[2017-03-21] MEDS ORDERED: SODIUM CHLORIDE 1,000 ML IV STA (10:25)
[2017-03-21] MEDS ORDERED: SODIUM CHLORIDE 1,000 ML IV SCH (10:30)
[2017-03-21] MEDS ORDERED: PT OWN MED DRAWER 7, Y5N ONE (11:22)
[2017-03-21] MEDS: SODIUM CHLORIDE 1,000 ML IV SCH ×3 (11:36→22:15)
[2017-03-21] MEDS: ISONIAZID 300 MG TABLET (FP) PO SCH (11:37)
[2017-03-21] MEDS: PYRIDOXINE HCL (B-6) 50 MG TABLET (FP) PO SCH ×2 (11:37→11:45)
[2017-03-21] MEDS: ACETAMINOPHEN 325 MG TABLET (FP) PO PRN (11:38)
[2017-03-21] MEDS: ETHAMBUTOL HCL 400 MG TABLET PO SCH (11:38)
[2017-03-21] MEDS: PYRAZINAMIDE 500 MG TABLET PO SCH (11:39)
[2017-03-21] MEDS: RIFAMPIN 300 MG CAPSULE PO SCH (11:39)
[2017-03-21] MEDS: POLYETHYLENE GLYCOL 3350 119 GM BTL PO SCH (11:40)
[2017-03-21] MEDS: LOSARTAN POTASSIUM 50 MG TABLET (FP) PO SCH (11:41)
[2017-03-21] MEDS: predniSONE 10 MG TABLET (UD) PO SCH (11:41)
[2017-03-21 12:45] LABS: URINE APPEARANCE CLEAR; URINE BILIRUBIN NEGATIVE (NEGATIVE); URINE BLOOD NEGATIVE (NEGATIVE); URINE COLOR YELLOW; URINE GLUCOSE (UA) NEGATIVE (NEGATIVE); URINE KETONE NEGATIVE (NEGATIVE); URINE LEUK ESTERASE NEGATIVE (NEGATIVE); URINE NITRITE NEGATIVE (NEGATIVE); URINE PROTEIN NEGATIVE (NEGATIVE); URINE UROBILINOGEN NEGATIVE mg/dL (0.2-1.0)
--- NOTE | 2017-03-21 14:50 | PN ---
Progress Note (short form) - Note Progress Note: SUBJECTIVE: The patient was seen and examined at the bedside, airborne precautions in place. He has no complaints at this time. Tmax 100 Current Medications Generic Name Dose Route Start Last Admin Trade Name Emerald PRN Reason Stop Dose Admin Acetaminophen 650 mg 03/14/17 22:00 03/19/17 06:34 Tylenol - PO 650 mg Q4H PRN Administration FEVER OR PAIN Ethambutol HCl 1,200 mg 03/18/17 14:30 03/19/17 10:29 Myambutol - PO 1,200 mg DAILY TAMAR Administration Gabapentin 100 mg 03/15/17 22:00 03/19/17 21:11 Neurontin - PO 100 mg HS TAMAR Administration Sodium Chloride 1,000 mls @ 100 mls/hr 03/18/17 11:08 03/20/17 07:08 Normal Saline - IV 100 mls/hr Q10H TAMAR Administration Losartan Potassium 50 mg 03/15/17 10:00 03/19/17 10:28 Cozaar - PO Not Given DAILY TAMAR Polyethylene Glycol 17 gm 03/17/17 16:15 03/19/17 10:29 Miralax (For Daily Use) - PO 17 gm DAILY TAMAR Administration Prednisone 10 mg 03/15/17 10:00 03/19/17 10:29 Deltasone - PO 10 mg DAILY TAMAR Administration Pyrazinamide 1,500 mg 03/18/17 14:30 03/19/17 10:30 Pyrazinamide - PO 1,500 mg DAILY TAMAR Administration Pyridoxine HCl 75 mg 03/18/17 14:30 03/19/17 10:31 Vitamin B6 - PO 75 mg DAILY TAMAR Administration Rifampin 600 mg 03/18/17 14:45 03/19/17 10:31 Rifadin - PO 600 mg DAILY TAMAR Administration Objective: Vital Signs Period Temp Pulse Resp BP Sys/Parks Pulse Ox Last 24 Hr 98.1 F-100 F 75-102 18-20 110-123/72-91 96 Physical Exam: General: NAD, A&Ox3 Lungs: CTA bilaterally Heart: RRR, S1S2 Abd: Soft, non-tender, non-distended. Normoactive bowel sounds Ext: Warm, well-perfused. 2+ DP/PT bilaterally Skin: Right axilla with dressing, c/d/i Neuro: CN 2-12 intact Imaging: - Previous CT chest shows same nodules (report in chart) - CT chest: multiple bilateral pulmonary nodules. Mediastinal and right hilar hymmphadenopathy as well as enlarged right axillary lymph nodes. Airspace disease in the right upper lobe extending to the perihilar region with involvement of the apical segment of the right lower love as well as a small cavity seen in the superior margin. 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 Plan: 1) Pulmonary: + AFB on bronchial washings - Started on INH (03/20) - Rifampin 600mg po daily - Ethambutol 1200mg po daily - Pyrazinamide 1500mg po daily - Vitamin B6 75mg po daily - F/u baseline ophthalmology - Quant gold positive - PPD positive - AFB sputum negative x3. Sputum from 03/19 sent for mTb which was not detected - Bronchial washings with rare AFB seen - Appreciate ID consult - Appreciate pulmonary consult Sarcoidosis - With mediastinal and hilar adenopathy: 2/2 sarcoid vs. malignancy - F/u right axillary lymph node biopsy - Continue prednisone 2) ID: elevated lactic acid - IV fluid bolus followed by maintenance fluids - Continue to monitor 3) Cardiology: HTN - Continue Losartan 4) F/E/N: - Monitor electrolytes - Sodium controlled diet 5) Prophylaxis: - OOB ambulating - Heparin 5,000u sq tid 6) Dispo: - Requires continued inpatient care - Infection control, Zaira Franklin, contacted re: Tb CODE STATUS: FULL CODE Visit type - Emergency Visit Emergency Visit: Yes ED Registration Date: 03/14/17 Care time: The patient presented to the Emergency Department on the above date and was hospitalized for further evaluation of their emergent condition. - New Patient This patient is new to me today: No - Critical Care Critical Care patient: No
--- NOTE | 2017-03-21 15:40 | PN ---
Progress Note, Physician - Current Medication List Current Medications: Active Medications Acetaminophen (Tylenol -) 650 mg PO Q4H PRN PRN Reason: FEVER OR PAIN Last Admin: 03/21/17 11:38 Dose: 650 mg Ethambutol HCl (Myambutol -) 1,200 mg PO DAILY@1800 [facility] Gabapentin (Neurontin -) 100 mg PO HS [facility] Last Admin: 03/20/17 21:49 Dose: 100 mg Heparin Sodium (Porcine) (Heparin -) 5,000 unit SQ TID [facility] Last Admin: 03/21/17 15:22 Dose: 5,000 unit Sodium Chloride (Normal Saline -) 1,000 mls @ 100 mls/hr IV Q10H [facility] Last Admin: 03/21/17 11:43 Dose: Not Given Sodium Chloride (Normal Saline -) 1,000 mls @ 75 mls/hr IV ASDIR [facility] Isoniazid (Inh -) 300 mg PO DAILY@0700 [facility] Losartan Potassium (Cozaar -) 50 mg PO DAILY [facility] Last Admin: 03/21/17 11:41 Dose: 50 mg Polyethylene Glycol (Miralax (For Daily Use) -) 17 gm PO DAILY [facility] Last Admin: 03/21/17 11:40 Dose: Not Given Prednisone (Deltasone -) 10 mg PO DAILY [facility] Last Admin: 03/21/17 11:41 Dose: 10 mg Pyrazinamide (Pyrazinamide -) 1,500 mg PO DAILY@1800 [facility] Pyridoxine HCl (Vitamin B6 -) 75 mg PO DAILY@0700 [facility] Rifampin (Rifadin -) 600 mg PO DAILY [facility] Last Admin: 03/21/17 11:39 Dose: 600 mg - Objective Vital Signs: Vital Signs Temperature 99.1 F 03/21/17 15:03 Pulse Rate 80 03/21/17 15:03 Respiratory Rate 20 03/21/17 15:03 Blood Pressure 134/84 03/21/17 06:45 O2 Sat by Pulse Oximetry (%) 96 03/20/17 21:00 Labs: CBC, BMP 03/21/17 07:35 03/21/17 07:35 INR, PTT INR 1.32 (0.82-1.09) H 03/15/17 12:58 Problem List - Problems (1) Right upper lobe pneumonia Code(s): J18.1 - LOBAR PNEUMONIA, UNSPECIFIED ORGANISM (2) SIRS (systemic inflammatory response syndrome) Code(s): R65.10 - SIRS OF NON-INFECTIOUS ORIGIN W/O ACUTE ORGAN DYSFUNCTION (3) Fever of unknown origin Code(s): R50.9 - FEVER, UNSPECIFIED (4) Sarcoidosis of lung with sarcoidosis of lymph nodes Code(s): D86.2 - SARCOIDOSIS OF LUNG WITH SARCOIDOSIS OF LYMPH NODES (5) Weight loss Code(s): R63.4 - ABNORMAL WEIGHT LOSS (6) H/O renal cell carcinoma Code(s): Z85.528 - PERSONAL HISTORY OF OTHER MALIGNANT NEOPLASM OF KIDNEY Assessment/Plan IMP PNEUMONIA RUL +AFB FEVER ,WT LOSS SECONDAY TO TB, ? CA BILATERAL PULMONARY NODULES LIKELY SARCOID MEDIASTINAL AND HILAR ADENOPATHY LIKELY SECONDARY TO SARCOID,?TB H/O RENAL CELL CA S/P R NEPHRECTOMY ELEVATED LACTATE LEVEL IMPROVING PLAN TB MEDS PER ID CONTINUE CURRENT RX CHECK BX MONITOR LFTS TREND LACTATE DR LOJA Problem List - Problems (1) Right upper lobe pneumonia Code(s): J18.1 - LOBAR PNEUMONIA, UNSPECIFIED ORGANISM (2) SIRS (systemic inflammatory response syndrome) Code(s): R65.10 - SIRS OF NON-INFECTIOUS ORIGIN W/O ACUTE ORGAN DYSFUNCTION (3) Fever of unknown origin Code(s): R50.9 - FEVER, UNSPECIFIED (4) Sarcoidosis of lung with sarcoidosis of lymph nodes Code(s): D86.2 - SARCOIDOSIS OF LUNG WITH SARCOIDOSIS OF LYMPH NODES (5) Weight loss Code(s): R63.4 - ABNORMAL WEIGHT LOSS (6) H/O renal cell carcinoma Code(s): Z85.528 - PERSONAL HISTORY OF OTHER MALIGNANT NEOPLASM OF KIDNEY
--- NOTE | 2017-03-21 16:01 | CONSULT ---
Consult Consult Specialty:: Oncology Reason for Consultation:: Axillary mass positive for carcinoma - History of Present Illness History of Present Illness: is a 56 year old male who is admitted with unintentional weight loss , cough and lungnodules. He was planned to w/u as an OP , with a PET-CT. he also has h/o sarcoid for which he is on chronic 10mg prednsione. 2014, h/o RCC, and is s/p Nephrectomy and followed at [facility]. During the hospitalization, patient is diagnosed with TB (species yet to be determined) and presently is being actively treated with anti-TB regimen. He was found to have multiple lung nodules, mediastinal and hilar LAD, and also an axillary mass. Pt underwent axillary mass FNA and pathology is consistent with metastatic RCC. Oncology consulted for further recs. Patient seen and examined. Discussed with pt and daughter as per his request. patient continues to feel week, fatigued. Has intermittent cough. - History Source History Provided By: Patient, Family Member, Medical Record Limitations to Obtaining History: No Limitations - Past Medical History Cardio/Vascular: Yes: HTN Pulmonary: Yes: Other ((+) PPD) Renal/: Yes: Cancer Additional Medical History: Hx Sarcoid on chronic steroids since 2012. - Past Surgical History Past Surgical History: Yes: Nephrectomy ( - Partial (R)) Additional Surgical History: Wedge resection (R) Lung - Alcohol/Substance Use Hx Alcohol Use: No - Smoking History Smoking history: Former smoker Have you smoked in the past 12 months: No If you are a former smoker, when did you quit?: 2009 Home Medications - Allergies Allergies/Adverse Reactions: Allergies Allergy/AdvReac Type Severity Reaction Status Date / Time No Known Allergies Allergy Verified 03/14/17 14:18 - Home Medications Home Medications: Ambulatory Orders Gabapentin 100 mg PO HS 03/14/17 Losartan Potassium 50 mg PO DAILY 03/14/17 Metronidazole [Flagyl -] 250 mg PO TID 03/14/17 Prednisone 10 mg PO DAILY 03/14/17 Review of Systems - Review of Systems Constitutional: reports: Fever, Unintentional Wgt. Loss, Weakness Cardiovascular: denies: Chest Pain, Edema, Palpitations, Shortness of Breath Respiratory: denies: Cough, Exercise Intolerance, Hemoptysis Genitourinary: denies: Burning, Discharge Physical Exam Vital Signs: Vital Signs Temperature 99.1 F 03/21/17 15:03 Pulse Rate 80 03/21/17 15:03 Respiratory Rate 20 03/21/17 15:03 Blood Pressure 134/84 03/21/17 06:45 O2 Sat by Pulse Oximetry (%) 96 03/20/17 21:00 Constitutional: Yes: Calm, Thin Eyes: Yes: Conjunctiva Clear HENT: Yes: Atraumatic, Normocephalic Neck: Yes: Supple, Trachea Midline, Lymphadenopathy, Other (right axillary firm lymph node palpated) Cardiovascular: Yes: Regular Rate and Rhythm Respiratory: Yes: Regular, CTA Bilaterally Gastrointestinal: Yes: Normal Bowel Sounds, Soft Extremities: Yes: WNL Edema: No Labs: CBC, BMP 03/21/17 07:35 03/21/17 07:35 Imaging - Results X-ray: Report Reviewed Cat Scan: Report Reviewed Problem List - Problems (1) Metastatic renal cell carcinoma Code(s): C64.9 - MALIGNANT NEOPLASM OF UNSP KIDNEY, EXCEPT RENAL PELVIS (2) H/O renal cell carcinoma Code(s): Z85.528 - PERSONAL HISTORY OF OTHER MALIGNANT NEOPLASM OF KIDNEY (3) Right upper lobe pneumonia Code(s): J18.1 - LOBAR PNEUMONIA, UNSPECIFIED ORGANISM (4) Sarcoidosis of lung with sarcoidosis of lymph nodes Code(s): D86.2 - SARCOIDOSIS OF LUNG WITH SARCOIDOSIS OF LYMPH NODES (5) Tuberculosis Code(s): A15.9 - RESPIRATORY TUBERCULOSIS UNSPECIFIED Assessment/Plan Metastatic RCC ( clear cell) , past h/o resection of RCC Active TB Sarcoid -will complete staging w/u -CT a/p with contrast -treatment for mRCC presently for him in the setting of being treated for active TB is a challenge, request ID input too. discussed with daughter (RN in 5s)
--- NOTE | 2017-03-21 16:25 | PN ---
Progress Note, Physician History of Present Illness: pulmonary alert,feeling better,-resp distress - Current Medication List Current Medications: Active Medications Acetaminophen (Tylenol -) 650 mg PO Q4H PRN PRN Reason: FEVER OR PAIN Last Admin: 03/21/17 11:38 Dose: 650 mg Ethambutol HCl (Myambutol -) 1,200 mg PO DAILY@1800 [facility] Gabapentin (Neurontin -) 100 mg PO HS [facility] Last Admin: 03/20/17 21:49 Dose: 100 mg Heparin Sodium (Porcine) (Heparin -) 5,000 unit SQ TID [facility] Last Admin: 03/21/17 15:22 Dose: 5,000 unit Sodium Chloride (Normal Saline -) 1,000 mls @ 75 mls/hr IV ASDIR [facility] Isoniazid (Inh -) 300 mg PO DAILY@0700 [facility] Losartan Potassium (Cozaar -) 50 mg PO DAILY [facility] Last Admin: 03/21/17 11:41 Dose: 50 mg Polyethylene Glycol (Miralax (For Daily Use) -) 17 gm PO DAILY [facility] Last Admin: 03/21/17 11:40 Dose: Not Given Prednisone (Deltasone -) 10 mg PO DAILY [facility] Last Admin: 03/21/17 11:41 Dose: 10 mg Pyrazinamide (Pyrazinamide -) 1,500 mg PO DAILY@1800 [facility] Pyridoxine HCl (Vitamin B6 -) 75 mg PO DAILY@0700 [facility] Rifampin (Rifadin -) 600 mg PO DAILY [facility] Last Admin: 03/21/17 11:39 Dose: 600 mg - Objective Vital Signs: Vital Signs Temperature 99.1 F 03/21/17 15:03 Pulse Rate 80 03/21/17 15:03 Respiratory Rate 20 03/21/17 15:03 Blood Pressure 134/84 03/21/17 06:45 O2 Sat by Pulse Oximetry (%) 96 03/20/17 21:00 Constitutional: Yes: Well Nourished, Calm Eyes: Yes: WNL HENT: Yes: WNL Neck: Yes: WNL Cardiovascular: Yes: Regular Rate and Rhythm, S1, S2 Respiratory: Yes: CTA Bilaterally Gastrointestinal: Yes: Normal Bowel Sounds, Soft Extremities: Yes: WNL Edema: No Labs: CBC, BMP 03/21/17 07:35 03/21/17 07:35 INR, PTT INR 1.32 (0.82-1.09) H 03/15/17 12:58 Problem List - Problems (1) Right upper lobe pneumonia Code(s): J18.1 - LOBAR PNEUMONIA, UNSPECIFIED ORGANISM (2) SIRS (systemic inflammatory response syndrome) Code(s): R65.10 - SIRS OF NON-INFECTIOUS ORIGIN W/O ACUTE ORGAN DYSFUNCTION (3) Fever of unknown origin Code(s): R50.9 - FEVER, UNSPECIFIED (4) Sarcoidosis of lung with sarcoidosis of lymph nodes Code(s): D86.2 - SARCOIDOSIS OF LUNG WITH SARCOIDOSIS OF LYMPH NODES (5) Weight loss Code(s): R63.4 - ABNORMAL WEIGHT LOSS (6) H/O renal cell carcinoma Code(s): Z85.528 - PERSONAL HISTORY OF OTHER MALIGNANT NEOPLASM OF KIDNEY Assessment/Plan IMP PNEUMONIA RUL +AFB FEVER ,WT LOSS SECONDAY TO TB, ? CA BILATERAL PULMONARY NODULES LIKELY SARCOID MEDIASTINAL AND HILAR ADENOPATHY LIKELY SECONDARY TO SARCOID,?TB H/O RENAL CELL CA S/P R NEPHRECTOMY ELEVATED LACTATE LEVEL IMPROVING AXILLARY MASS PLAN TB MEDS PER ID CONTINUE CURRENT RX CHECK FINAL PATH MONITOR LFTS TREND LACTATE DR LOJA Problem List - Problems (1) Right upper lobe pneumonia Code(s): J18.1 - LOBAR PNEUMONIA, UNSPECIFIED ORGANISM (2) SIRS (systemic inflammatory response syndrome) Code(s): R65.10 - SIRS OF NON-INFECTIOUS ORIGIN W/O ACUTE ORGAN DYSFUNCTION (3) Fever of unknown origin Code(s): R50.9 - FEVER, UNSPECIFIED (4) Sarcoidosis of lung with sarcoidosis of lymph nodes Code(s): D86.2 - SARCOIDOSIS OF LUNG WITH SARCOIDOSIS OF LYMPH NODES (5) Weight loss Code(s): R63.4 - ABNORMAL WEIGHT LOSS (6) H/O renal cell carcinoma Code(s): Z85.528 - PERSONAL HISTORY OF OTHER MALIGNANT NEOPLASM OF KIDNEY
[2017-03-21] MEDS: GABAPENTIN 100 MG CAPSULE (FP) PO SCH (22:16)
[2017-03-22] MEDS: ACETAMINOPHEN 325 MG TABLET (FP) PO PRN (04:22)
[2017-03-22] MEDS: ISONIAZID 300 MG TABLET (FP) PO SCH (06:46)
[2017-03-22] MEDS: PYRIDOXINE HCL (B-6) 50 MG TABLET (FP) PO SCH (06:46)
[2017-03-22] MEDS: HEPARIN NA (PORCINE) 5,000 UNITS/ML 1ML VIAL SQ SCH ×3 (06:47→21:45)
--- NOTE | 2017-03-22 08:54 | PN ---
Progress Note (short form) - Note Progress Note: SUBJECTIVE: The patient was seen and examined at the bedside, he has no complaints at this time. He reports his appetite has improved Tmax 100.7 Current Medications Generic Name Dose Route Start Last Admin Trade Name Fresudhakar PRN Reason Stop Dose Admin Acetaminophen 650 mg 03/14/17 22:00 03/22/17 04:22 Tylenol - PO 650 mg Q4H PRN Administration FEVER OR PAIN Ethambutol HCl 1,200 mg 03/22/17 18:00 Myambutol - PO DAILY@1800 [facility] Gabapentin 100 mg 03/15/17 22:00 03/21/17 22:16 Neurontin - PO 100 mg HS [facility] Administration Heparin Sodium (Porcine) 5,000 unit 03/20/17 14:00 03/22/17 06:47 Heparin - SQ 5,000 unit TID [facility] Administration Sodium Chloride 1,000 mls @ 75 mls/hr 03/21/17 15:37 03/21/17 22:15 Normal Saline - IV Not Given ASDIR [facility] Isoniazid 300 mg 03/22/17 07:00 03/22/17 06:46 Inh - PO 300 mg DAILY@0700 [facility] Administration Losartan Potassium 50 mg 03/15/17 10:00 03/21/17 11:41 Cozaar - PO 50 mg DAILY [facility] Administration Polyethylene Glycol 17 gm 03/17/17 16:15 03/21/17 11:40 Miralax (For Daily Use) - PO Not Given DAILY [facility] Prednisone 10 mg 03/15/17 10:00 03/21/17 11:41 Deltasone - PO 10 mg DAILY [facility] Administration Pyrazinamide 1,500 mg 03/22/17 18:00 Pyrazinamide - PO DAILY@1800 [facility] Pyridoxine HCl 75 mg 03/22/17 07:00 03/22/17 06:46 Vitamin B6 - PO 75 mg DAILY@0700 [facility] Administration Rifampin 600 mg 03/18/17 14:45 03/21/17 11:39 Rifadin - PO 600 mg DAILY [facility] Administration Objective: Vital Signs Period Temp Pulse Resp BP Sys/Parks Pulse Ox Last 24 Hr 98.4 F-100.7 F 74-105 18-20 118-145/57-96 96-96 Physical Exam: General: NAD, A&Ox3 Lungs: Decreased right upper lobe breath sounds Heart: RRR, S1S2 Abd: Soft, non-tender, non-distended. Normoactive bowel sounds Ext: Warm, well-perfused. 2+ DP/PT bilaterally Skin: Right axillary lymph node swelling, tenderness Neuro: CN 2-12 intact CBCD WBC 7.8 K/mm3 (4.0-10.0) D 03/21/17 07:35 RBC 4.47 M/mm3 (4.00-5.60) 03/21/17 07:35 Hgb 12.0 GM/dL (11.7-16.9) 03/21/17 07:35 Hct 36.4 % (35.4-49) 03/21/17 07:35 MCV 81.4 fl (80-96) 03/21/17 07:35 MCHC 32.9 g/dl (32.0-35.9) 03/21/17 07:35 RDW 14.7 % (11.9-15.9) 03/21/17 07:35 Plt Count 433 K/MM3 (134-434) 03/21/17 07:35 MPV 7.6 fl (7.5-11.1) 03/21/17 07:35 CMP Sodium 136 mmol/L (136-145) 03/21/17 07:35 Potassium 4.2 mmol/L (3.5-5.1) 03/21/17 07:35 Chloride 101 mmol/L (98-107) 03/21/17 07:35 Carbon Dioxide 25 mmol/L (21-32) 03/21/17 07:35 Anion Gap 10 (8-16) 03/21/17 07:35 BUN 8 mg/dL (7-18) 03/21/17 07:35 Creatinine 0.8 mg/dL (0.7-1.3) D 03/21/17 07:35 Creat Clearance w eGFR > 60 (>60) 03/21/17 07:35 Random Glucose 138 mg/dL (74-106) H D 03/21/17 07:35 Calcium 8.1 mg/dL (8.5-10.1) L 03/21/17 07:35 Total Bilirubin 0.8 mg/dL (0.2-1.0) 03/21/17 07:35 AST 17 U/L (15-37) 03/21/17 07:35 ALT 31 U/L (12-78) 03/21/17 07:35 Alkaline Phosphatase 130 U/L (45-117) H 03/21/17 07:35 Total Protein 5.8 g/dl (6.4-8.2) L 03/21/17 07:35 Albumin 2.4 g/dl (3.4-5.0) L 03/21/17 07:35 Microbiology 03/18/17 06:30 Sputum - Aerosol Induced AFB Smear Concentration - Final 03/18/17 06:30 Sputum - Aerosol Induced Direct Acid Fast Bacilli Smear - Final 03/18/17 06:30 Sputum - Aerosol Induced Mycobacterial Culture - Preliminary 03/17/17 18:00 Sputum - Aerosol Induced AFB Smear Concentration - Final 03/17/17 18:00 Sputum - Aerosol Induced Direct Acid Fast Bacilli Smear - Final 03/17/17 18:00 Sputum - Aerosol Induced Mycobacterial Culture - Preliminary 03/19/17 06:45 Sputum - Aerosol Induced AFB Smear Concentration - Final 03/19/17 06:45 Sputum - Aerosol Induced Direct Acid Fast Bacilli Smear - Final 03/19/17 06:45 Sputum - Aerosol Induced Mycobacterial Culture - Preliminary 03/16/17 12:30 Bronchial Washings - Right Upper Lobe AFB Smear Concentration - Final 03/16/17 12:30 Bronchial Washings - Right Upper Lobe Mycobacterial Culture - Preliminary 03/15/17 06:30 Blood - Peripheral Venous TB Test (QFT) ([facility]) - Final 03/17/17 13:00 Lymph Node - Axillary Node AFB Smear Concentration - Preliminary 03/17/17 13:00 Lymph Node - Axillary Node Mycobacterial Culture - Preliminary 03/17/17 13:00 Lymph Node - Axillary Node Gram Stain - Final 03/17/17 13:00 Lymph Node - Axillary Node Tissue Culture - Preliminary 03/17/17 13:00 Lymph Node - Axillary Node Anaerobic Culture - Preliminary 03/14/17 19:00 Blood - Peripheral Venous Blood Culture - Final NO GROWTH AFTER 5 DAYS INCUBATION 03/14/17 Unknown Blood - Peripheral Venous Blood Culture - Final NO GROWTH AFTER 5 DAYS INCUBATION 03/16/17 12:30 Bronchial Washings - Right Upper Lobe Gram Stain - Final 03/16/17 12:30 Bronchial Washings - Right Upper Lobe Bronchoalveolar Lavage Culture - Final 03/17/17 13:00 Lymph Node - Axillary Node MELIA Preparation - Preliminary 03/17/17 13:00 Lymph Node - Axillary Node Fungal Culture - Preliminary 03/16/17 12:30 Bronchial Washings - Right Upper Lobe MELIA Preparation - Preliminary 03/16/17 12:30 Bronchial Washings - Right Upper Lobe Fungal Culture - Preliminary 03/14/17 16:40 Urine - Urine Clean Catch Urine Culture - Final NO GROWTH OBTAINED Imaging: - Previous CT chest shows same nodules (report in chart) - CT chest: multiple bilateral pulmonary nodules. Mediastinal and right hilar hymmphadenopathy as well as enlarged right axillary lymph nodes. Airspace disease in the right upper lobe extending to the perihilar region with involvement of the apical segment of the right lower love as well as a small cavity seen in the superior margin. 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 Plan: 1) Pulmonary: + AFB on bronchial washings - Started on INH (03/20) - Rifampin 600mg po daily - Ethambutol 1200mg po daily - Pyrazinamide 1500mg po daily - Vitamin B6 75mg po daily - F/u baseline ophthalmology - Quant gold positive - PPD positive - AFB sputum negative x3. Sputum from 03/19 sent for mTb which was not detected - Bronchial washings with rare AFB seen - Appreciate ID consult - Appreciate pulmonary consult Sarcoidosis - With mediastinal and hilar adenopathy: 2/2 sarcoid vs. malignancy - F/u right axillary lymph node biopsy - Continue prednisone 2) ID: elevated lactic acid - Resolved - Continue to monitor 3) Cardiology: HTN - Continue Losartan 4) F/E/N: - Monitor electrolytes - Sodium controlled diet 5) Prophylaxis: - OOB ambulating - Heparin 5,000u sq tid 6) Dispo: - Requires continued inpatient care - Infection control, Zaira Franklin, contacted re: Tb CODE STATUS: FULL CODE Visit type - Emergency Visit Emergency Visit: Yes ED Registration Date: 03/14/17 Care time: The patient presented to the Emergency Department on the above date and was hospitalized for further evaluation of their emergent condition. - New Patient This patient is new to me today: No - Critical Care Critical Care patient: No
[2017-03-22] MEDS: predniSONE 10 MG TABLET (UD) PO SCH (10:20)
[2017-03-22] MEDS: LOSARTAN POTASSIUM 50 MG TABLET (FP) PO SCH (10:20)
[2017-03-22] MEDS: RIFAMPIN 300 MG CAPSULE PO SCH (10:20)
[2017-03-22] MEDS: POLYETHYLENE GLYCOL 3350 119 GM BTL PO SCH (10:20)
--- NOTE | 2017-03-22 11:33 | PN ---
Progress Note, Physician Chief Complaint: Fever History of Present Illness: Pt with Hx Renal cancer, sarcoid admitted with fever, weight loss. Hospital course significant for BAL. The brush biopsy showed scattered AFB bacilli. He was started on INH/B6, Rifampin, EMB & PZA. He had nausea and weakness which improved after spacing out meds. AFB smear negative and molecular probe (-) MTB. - Current Medication List Current Medications: Active Medications Acetaminophen (Tylenol -) 650 mg PO Q4H PRN PRN Reason: FEVER OR PAIN Last Admin: 03/22/17 04:22 Dose: 650 mg Ethambutol HCl (Myambutol -) 1,200 mg PO DAILY@1800 [facility] Gabapentin (Neurontin -) 100 mg PO HS [facility] Last Admin: 03/21/17 22:16 Dose: 100 mg Heparin Sodium (Porcine) (Heparin -) 5,000 unit SQ TID [facility] Last Admin: 03/22/17 06:47 Dose: 5,000 unit Sodium Chloride (Normal Saline -) 1,000 mls @ 75 mls/hr IV ASDIR [facility] Last Admin: 03/21/17 22:15 Dose: Not Given Isoniazid (Inh -) 300 mg PO DAILY@0700 [facility] Last Admin: 03/22/17 06:46 Dose: 300 mg Losartan Potassium (Cozaar -) 50 mg PO DAILY [facility] Last Admin: 03/22/17 10:20 Dose: 50 mg Polyethylene Glycol (Miralax (For Daily Use) -) 17 gm PO DAILY [facility] Last Admin: 03/22/17 10:20 Dose: Not Given Prednisone (Deltasone -) 10 mg PO DAILY [facility] Last Admin: 03/22/17 10:20 Dose: 10 mg Pyrazinamide (Pyrazinamide -) 1,500 mg PO DAILY@1800 [facility] Pyridoxine HCl (Vitamin B6 -) 75 mg PO DAILY@0700 [facility] Last Admin: 03/22/17 06:46 Dose: 75 mg Rifampin (Rifadin -) 600 mg PO DAILY [facility] Last Admin: 03/22/17 10:20 Dose: 600 mg - Objective Vital Signs: Vital Signs Temperature 97.8 F 03/22/17 10:00 Pulse Rate 78 03/22/17 10:00 Respiratory Rate 20 03/22/17 10:00 Blood Pressure 121/70 03/22/17 10:00 O2 Sat by Pulse Oximetry (%) 96 03/22/17 10:00 Constitutional: Yes: No Distress Eyes: Yes: PERRL Neck: Yes: Trachea Midline Cardiovascular: Yes: Regular Rate and Rhythm Respiratory: Yes: CTA Bilaterally Gastrointestinal: Yes: Normal Bowel Sounds, Soft Labs: CBC, BMP 03/21/17 07:35 03/21/17 07:35 INR, PTT INR 1.32 (0.82-1.09) H 03/15/17 12:58 Problem List - Problems (1) Right upper lobe pneumonia Code(s): J18.1 - LOBAR PNEUMONIA, UNSPECIFIED ORGANISM Assessment/Plan Patient with Hx renal cancer, sarcoid on chronic steroids, (+) PPD who is admitted with fever, weight loss and cough. Pneumonia - ? MOTB (Mycobacteria other than TB) Continue anti-TB meds Continue isolation Await culture results. Monitor LFT's. Will call [facility].
--- NOTE | 2017-03-22 12:43 | PATH ---
Surgical Pathology Report Patient Name: MOLLY MICHAEL Med. Rec. #: [id number] /Age/Gender: 1960 (Age: 56) / M Account: [id number] Location: [facility] MED/SURG Taken: 03/17/2017 Received: 03/17/2017 Reported: 03/22/2017 Physicians: Marco Antonio Goodwin AGACNP Amara Nandikolla, M.D. Specimen(s) Received BX RIGHT LYMPH NODE Clinical History 56-year-old male with history of sarcoidosis with history of cavitary right upper lobe process and scarring with bilateral spiculated lung nodule and enlarged right axillary lymph node Final Diagnosis LYMPH NODE, RIGHT AXILLARY, NEEDLE CORE BIOPSY: METASTATIC CARCINOMA CONSISTENT WITH METASTATIC RENAL CELL CARCINOMA, CLEAR CELL TYPE, ROMINA NUCLEAR GRADE 2. NO SARCOMATOID AREAS IDENTIFIED. Comment: Sections reveal a proliferation of epithelial cells with clear cytoplasm, rounded nuclei, and small nucleoli. The cells form a nested pattern, and there are areas of hemorrhage. Areas of pigment deposition which is positive with iron stain and consistent with hemosiderin present. Immunohistochemical stains performed and interpreted at [facility] show the following results: The neoplastic cells stain with pankeratin, and do not stain with CK7, CK20, TTF-1, and S100. Immunohistochemical stains performed at [place], [place] ([id number]) and interpreted at [facility] show the following results: The neoplastic cells stain with RCC, PAX8, CD10, and vimentin. Flow cytometry performed and interpreted at [place], [place] ([id number]) shows the following: Interpretation: Limited sample; clonal B-cell populations are not detected, see comment. Comment: The majority of the events acquired appear to be CD45 negative (non-hematolymphoid origin). Correlation with complete morphologic and immunohistochemical assessment of the sample is essential. The histologic and immunophenotypic findings are consistent with metastatic renal cell carcinoma. This case was discussed with LUMA Hamilton and Dr. Banuelos on 03/21/2017. Electronically Signed Anton Mtz M.D. Gross Description Received in formalin labeled "lymph node right," are 5 casillas, cylindrical portions of soft tissue ranging from 0.3-1.2 cm in length and averaging 0.1 cm in diameter. The specimens are submitted in toto in one cassette. There is additional tissue received in RPMI solution which is sent to [facility]. 03/17/201703/17/2017
--- NOTE | 2017-03-22 15:00 | PN ---
Progress Note, Physician History of Present Illness: PULMONARY NO DISTRESS,-CP -SOB,MIN COUGH. AXILLARY NODE BX + METASTATIC RENAL CELL CA - Current Medication List Current Medications: Active Medications Acetaminophen (Tylenol -) 650 mg PO Q4H PRN PRN Reason: FEVER OR PAIN Last Admin: 03/22/17 04:22 Dose: 650 mg Ethambutol HCl (Myambutol -) 1,200 mg PO DAILY@1800 [facility] Gabapentin (Neurontin -) 100 mg PO HS [facility] Last Admin: 03/21/17 22:16 Dose: 100 mg Heparin Sodium (Porcine) (Heparin -) 5,000 unit SQ TID [facility] Last Admin: 03/22/17 13:14 Dose: 5,000 unit Sodium Chloride (Normal Saline -) 1,000 mls @ 75 mls/hr IV ASDIR [facility] Last Admin: 03/21/17 22:15 Dose: Not Given Isoniazid (Inh -) 300 mg PO DAILY@0700 [facility] Last Admin: 03/22/17 06:46 Dose: 300 mg Losartan Potassium (Cozaar -) 50 mg PO DAILY [facility] Last Admin: 03/22/17 10:20 Dose: 50 mg Polyethylene Glycol (Miralax (For Daily Use) -) 17 gm PO DAILY [facility] Last Admin: 03/22/17 10:20 Dose: Not Given Prednisone (Deltasone -) 10 mg PO DAILY [facility] Last Admin: 03/22/17 10:20 Dose: 10 mg Pyrazinamide (Pyrazinamide -) 1,500 mg PO DAILY@1800 [facility] Pyridoxine HCl (Vitamin B6 -) 75 mg PO DAILY@0700 [facility] Last Admin: 03/22/17 06:46 Dose: 75 mg Rifampin (Rifadin -) 600 mg PO DAILY [facility] Last Admin: 03/22/17 10:20 Dose: 600 mg - Objective Vital Signs: Vital Signs Temperature 97.8 F 03/22/17 10:00 Pulse Rate 78 03/22/17 10:00 Respiratory Rate 20 03/22/17 10:00 Blood Pressure 121/70 03/22/17 10:00 O2 Sat by Pulse Oximetry (%) 96 03/22/17 10:00 Constitutional: Yes: Well Nourished, Calm Eyes: Yes: WNL HENT: Yes: WNL Neck: Yes: WNL Cardiovascular: Yes: Regular Rate and Rhythm, S1, S2 Respiratory: Yes: CTA Bilaterally Gastrointestinal: Yes: Normal Bowel Sounds, Soft Extremities: Yes: WNL Edema: No Labs: CBC, BMP 03/21/17 07:35 03/21/17 07:35 INR, PTT INR 1.32 (0.82-1.09) H 03/15/17 12:58 Problem List - Problems (1) Right upper lobe pneumonia Code(s): J18.1 - LOBAR PNEUMONIA, UNSPECIFIED ORGANISM (2) SIRS (systemic inflammatory response syndrome) Code(s): R65.10 - SIRS OF NON-INFECTIOUS ORIGIN W/O ACUTE ORGAN DYSFUNCTION (3) Fever of unknown origin Code(s): R50.9 - FEVER, UNSPECIFIED (4) Sarcoidosis of lung with sarcoidosis of lymph nodes Code(s): D86.2 - SARCOIDOSIS OF LUNG WITH SARCOIDOSIS OF LYMPH NODES (5) Weight loss Code(s): R63.4 - ABNORMAL WEIGHT LOSS (6) H/O renal cell carcinoma Code(s): Z85.528 - PERSONAL HISTORY OF OTHER MALIGNANT NEOPLASM OF KIDNEY Assessment/Plan IMP PNEUMONIA RUL +AFB FEVER ,WT LOSS SECONDAY TO TB, ? CA BILATERAL PULMONARY NODULES LIKELY SARCOID METASTATIC RENAL CALL CA MEDIASTINAL AND HILAR ADENOPATHY LIKELY SECONDARY TO SARCOID,?TB H/O RENAL CELL CA S/P R NEPHRECTOMY ELEVATED LACTATE LEVEL IMPROVING AXILLARY MASS PLAN TB MEDS PER ID CONTINUE CURRENT RX MONITOR LFTS TREND LACTATE W/U PER ONCOLOGY DR LOJA Problem List - Problems (1) Right upper lobe pneumonia Code(s): J18.1 - LOBAR PNEUMONIA, UNSPECIFIED ORGANISM (2) SIRS (systemic inflammatory response syndrome) Code(s): R65.10 - SIRS OF NON-INFECTIOUS ORIGIN W/O ACUTE ORGAN DYSFUNCTION (3) Fever of unknown origin Code(s): R50.9 - FEVER, UNSPECIFIED (4) Sarcoidosis of lung with sarcoidosis of lymph nodes Code(s): D86.2 - SARCOIDOSIS OF LUNG WITH SARCOIDOSIS OF LYMPH NODES (5) Weight loss Code(s): R63.4 - ABNORMAL WEIGHT LOSS (6) H/O renal cell carcinoma Code(s): Z85.528 - PERSONAL HISTORY OF OTHER MALIGNANT NEOPLASM OF KIDNEY
[2017-03-22] MEDS: SODIUM CHLORIDE 1,000 ML IV SCH (15:05)
[2017-03-22] MEDS: ETHAMBUTOL HCL 400 MG TABLET PO SCH (17:27)
[2017-03-22] MEDS: PYRAZINAMIDE 500 MG TABLET PO SCH (17:27)
[2017-03-22] MEDS ORDERED: PT OWN MED DRAWER 7, Y5N ONE (18:02)
[2017-03-22] MEDS: GABAPENTIN 100 MG CAPSULE (FP) PO SCH (21:45)
[2017-03-23] MEDS: SODIUM CHLORIDE 1,000 ML IV SCH ×3 (06:40→17:44)
[2017-03-23] MEDS: ACETAMINOPHEN 325 MG TABLET (FP) PO PRN (06:40)
[2017-03-23] MEDS: ISONIAZID 300 MG TABLET (FP) PO SCH (06:41)
[2017-03-23] MEDS: HEPARIN NA (PORCINE) 5,000 UNITS/ML 1ML VIAL SQ SCH ×3 (06:41→21:38)
[2017-03-23 07:47] LABS: MCH 26.8 pg (25.7-33.7); MCHC 32.9 g/dl (32.0-35.9); MEAN CELL VOLUME 81.3 fl (80-96); MEAN PLT VOLUME 7.4 fl (7.5-11.1); PLATELET COUNT 453 K/MM3 (134-434); RDW 14.8 % (11.9-15.9); WHITE BLOOD COUNT 8.9 K/mm3 (4.0-10.0)
[2017-03-23 08:55] LABS: ALBUMIN 2.4 g/dl (3.4-5.0); ALK PHOS 120 U/L (45-117); ANION GAP 8 (8-16); BILIRUBIN,TOTAL 0.7 mg/dL (0.2-1.0); CALCIUM 9.1 mg/dL (8.5-10.1); CO2 26 mmol/L (21-32); CREATININE 0.7 mg/dL (0.7-1.3); GLUCOSE,RANDOM 90 mg/dL (74-106); SGOT/AST 16 U/L (15-37); SGPT/ALT 24 U/L (12-78); TOT PROT 5.7 g/dl (6.4-8.2)
[2017-03-23] MEDS ORDERED: PT OWN MED DRAWER 7, Y5N ONE ×3 (10:32→20:35)
[2017-03-23] MEDS: PYRIDOXINE HCL (B-6) 50 MG TABLET (FP) PO SCH (10:41)
[2017-03-23] MEDS: predniSONE 10 MG TABLET (UD) PO SCH (10:42)
[2017-03-23] MEDS: RIFAMPIN 300 MG CAPSULE PO SCH (10:42)
[2017-03-23] MEDS: LOSARTAN POTASSIUM 50 MG TABLET (FP) PO SCH (10:43)
[2017-03-23] MEDS: POLYETHYLENE GLYCOL 3350 119 GM BTL PO SCH (10:43)
[2017-03-23] MEDS ORDERED: MEROPENEM 1 GM in DEXTROSE 5%-WATER - 100 ML IVPB ONE (11:30)
--- NOTE | 2017-03-23 13:28 | PN ---
Progress Note (short form) - Note Progress Note: SUBJECTIVE: The patient was seen and examined at the bedside, he has no complaints at this time. He reports his appetite has improved Tmax 101 Current Medications Generic Name Dose Route Start Last Admin Trade Name Emerald PRN Reason Stop Dose Admin Acetaminophen 650 mg 03/14/17 22:00 03/23/17 06:40 Tylenol - PO 650 mg Q4H PRN Administration FEVER OR PAIN Ethambutol HCl 1,200 mg 03/22/17 18:00 03/22/17 17:27 Myambutol - PO 1,200 mg DAILY@1800 TAMAR Administration Gabapentin 100 mg 03/15/17 22:00 03/22/17 21:45 Neurontin - PO 100 mg HS TAMAR Administration Heparin Sodium (Porcine) 5,000 unit 03/20/17 14:00 03/23/17 06:41 Heparin - SQ 5,000 unit TID TAMAR Administration Sodium Chloride 1,000 mls @ 75 mls/hr 03/21/17 15:37 03/23/17 06:40 Normal Saline - IV 75 mls/hr ASDIR TAMAR Administration Meropenem 1 gm/ Dextrose 100 mls @ 100 mls/hr 03/23/17 18:00 IVPB Q8H-IV TAMAR Protocol Isoniazid 300 mg 03/22/17 07:00 03/23/17 06:41 Inh - PO 300 mg DAILY@0700 TAMAR Administration Losartan Potassium 50 mg 03/15/17 10:00 03/23/17 10:43 Cozaar - PO 50 mg DAILY TAMAR Administration Polyethylene Glycol 17 gm 03/17/17 16:15 03/23/17 10:43 Miralax (For Daily Use) - PO Not Given DAILY TAMAR Prednisone 10 mg 03/15/17 10:00 03/23/17 10:42 Deltasone - PO 10 mg DAILY TAMAR Administration Pyrazinamide 1,500 mg 03/22/17 18:00 03/22/17 17:27 Pyrazinamide - PO 1,500 mg DAILY@1800 TAMAR Administration Pyridoxine HCl 75 mg 03/22/17 07:00 03/23/17 10:41 Vitamin B6 - PO 75 mg DAILY@0700 TAMAR Administration Rifampin 600 mg 03/18/17 14:45 03/23/17 10:42 Rifadin - PO 600 mg DAILY TAMAR Administration Objective: Vital Signs Period Temp Pulse Resp BP Sys/Parks Pulse Ox Last 24 Hr 99.1 F-101 F 78-83 18-20 123-125/79-83 96 Physical Exam: General: NAD, A&Ox3 Lungs: Decreased right upper lobe breath sounds Heart: RRR, S1S2 Abd: Soft, non-tender, non-distended. Normoactive bowel sounds Ext: Warm, well-perfused. 2+ DP/PT bilaterally Skin: Right axillary lymph node swelling, tenderness Neuro: CN 2-12 intact CBCD WBC 8.9 K/mm3 (4.0-10.0) 03/23/17 06:00 RBC 4.17 M/mm3 (4.00-5.60) 03/23/17 06:00 Hgb 11.2 GM/dL (11.7-16.9) L 03/23/17 06:00 Hct 33.9 % (35.4-49) L 03/23/17 06:00 MCV 81.3 fl (80-96) 03/23/17 06:00 MCHC 32.9 g/dl (32.0-35.9) 03/23/17 06:00 RDW 14.8 % (11.9-15.9) 03/23/17 06:00 Plt Count 453 K/MM3 (134-434) H 03/23/17 06:00 MPV 7.4 fl (7.5-11.1) L 03/23/17 06:00 CMP Sodium 136 mmol/L (136-145) 03/23/17 06:00 Potassium 4.0 mmol/L (3.5-5.1) 03/23/17 06:00 Chloride 102 mmol/L (98-107) 03/23/17 06:00 Carbon Dioxide 26 mmol/L (21-32) 03/23/17 06:00 Anion Gap 8 (8-16) 03/23/17 06:00 BUN 4 mg/dL (7-18) L D 03/23/17 06:00 Creatinine 0.7 mg/dL (0.7-1.3) 03/23/17 06:00 Creat Clearance w eGFR > 60 (>60) 03/23/17 06:00 Random Glucose 90 mg/dL (74-106) D 03/23/17 06:00 Calcium 9.1 mg/dL (8.5-10.1) 03/23/17 06:00 Total Bilirubin 0.7 mg/dL (0.2-1.0) 03/23/17 06:00 AST 16 U/L (15-37) 03/23/17 06:00 ALT 24 U/L (12-78) D 03/23/17 06:00 Alkaline Phosphatase 120 U/L (45-117) H 03/23/17 06:00 Total Protein 5.7 g/dl (6.4-8.2) L 03/23/17 06:00 Albumin 2.4 g/dl (3.4-5.0) L 03/23/17 06:00 Microbiology 03/21/17 11:35 Blood - Peripheral Venous Blood Culture - Preliminary NO GROWTH OBTAINED AFTER 48 HOURS, INCUBATION TO CONTINUE FOR 3 DAYS. 03/21/17 11:35 Blood - Peripheral Venous Blood Culture - Preliminary NO GROWTH OBTAINED AFTER 48 HOURS, INCUBATION TO CONTINUE FOR 3 DAYS. 03/21/17 11:00 Urine - Urine Clean Catch Urine Culture - Final NO GROWTH OBTAINED 03/18/17 06:30 Sputum - Aerosol Induced AFB Smear Concentration - Final 03/18/17 06:30 Sputum - Aerosol Induced Direct Acid Fast Bacilli Smear - Final 03/18/17 06:30 Sputum - Aerosol Induced Mycobacterial Culture - Preliminary 03/17/17 18:00 Sputum - Aerosol Induced AFB Smear Concentration - Final 03/17/17 18:00 Sputum - Aerosol Induced Direct Acid Fast Bacilli Smear - Final 03/17/17 18:00 Sputum - Aerosol Induced Mycobacterial Culture - Preliminary 03/19/17 06:45 Sputum - Aerosol Induced AFB Smear Concentration - Final 03/19/17 06:45 Sputum - Aerosol Induced Direct Acid Fast Bacilli Smear - Final 03/19/17 06:45 Sputum - Aerosol Induced Mycobacterial Culture - Preliminary 03/16/17 12:30 Bronchial Washings - Right Upper Lobe AFB Smear Concentration - Final 03/16/17 12:30 Bronchial Washings - Right Upper Lobe Mycobacterial Culture - Preliminary 03/15/17 06:30 Blood - Peripheral Venous TB Test (QFT) ([facility]) - Final 03/17/17 13:00 Lymph Node - Axillary Node AFB Smear Concentration - Preliminary 03/17/17 13:00 Lymph Node - Axillary Node Mycobacterial Culture - Preliminary 03/17/17 13:00 Lymph Node - Axillary Node Gram Stain - Final 03/17/17 13:00 Lymph Node - Axillary Node Tissue Culture - Preliminary 03/17/17 13:00 Lymph Node - Axillary Node Anaerobic Culture - Preliminary 03/14/17 19:00 Blood - Peripheral Venous Blood Culture - Final NO GROWTH AFTER 5 DAYS INCUBATION 03/14/17 Unknown Blood - Peripheral Venous Blood Culture - Final NO GROWTH AFTER 5 DAYS INCUBATION 03/16/17 12:30 Bronchial Washings - Right Upper Lobe Gram Stain - Final 03/16/17 12:30 Bronchial Washings - Right Upper Lobe Bronchoalveolar Lavage Culture - Final 03/17/17 13:00 Lymph Node - Axillary Node MELIA Preparation - Preliminary 03/17/17 13:00 Lymph Node - Axillary Node Fungal Culture - Preliminary 03/16/17 12:30 Bronchial Washings - Right Upper Lobe MELIA Preparation - Preliminary 03/16/17 12:30 Bronchial Washings - Right Upper Lobe Fungal Culture - Preliminary 03/14/17 16:40 Urine - Urine Clean Catch Urine Culture - Final NO GROWTH OBTAINED Imaging: - Previous CT chest shows same nodules (report in chart) - CT chest: multiple bilateral pulmonary nodules. Mediastinal and right hilar hymmphadenopathy as well as enlarged right axillary lymph nodes. Airspace disease in the right upper lobe extending to the perihilar region with involvement of the apical segment of the right lower love as well as a small cavity seen in the superior margin. 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 Plan: 1) Pulmonary: + AFB on bronchial washings, quant gold positive - Continue INH, B6, Rifampin, Ethambutol, Pyrazinamide - F/u baseline ophthalmology - AFB sputum negative x3. Sputum from 03/19 sent for mTb which was not detected - Bronchial washings with rare AFB seen - Appreciate ID consult - Appreciate pulmonary consult Sarcoidosis - With mediastinal and hilar adenopathy: 2/2 sarcoid vs. malignancy - Continue prednisone (taper per pulmonary) 2) Onc: Metastatic renal cell carcinoma - Right axillary lymph node positive - F/u oncology consult for further management 2) ID: Possible colitis? vs. malignancy - CTAP with concentric wall thickening involving the cecum and the adjacent portion of the terminal ileum which may be infectious versus neoplastic disease - Discussed with Dr. Ayon, recommendation to start Meropenem given the patient is continuing to spike fevers - Repeat blood cultures today - Continue to monitor 3) Cardiology: HTN - Continue Losartan 4) F/E/N: - Monitor electrolytes - Sodium controlled diet 5) Prophylaxis: - OOB ambulating - Heparin 5,000u sq tid 6) Dispo: - Requires continued inpatient care - Infection control, Zaira Franklin, contacted re: Tb CODE STATUS: FULL CODE Visit type - Emergency Visit Emergency Visit: Yes ED Registration Date: 03/14/17 Care time: The patient presented to the Emergency Department on the above date and was hospitalized for further evaluation of their emergent condition. - New Patient This patient is new to me today: No - Critical Care Critical Care patient: No
--- NOTE | 2017-03-23 15:23 | PN ---
Progress Note, Physician History of Present Illness: pulmonary alert,nad,-sob,-cp,+ cough,+night sweats - Current Medication List Current Medications: Active Medications Acetaminophen (Tylenol -) 650 mg PO Q4H PRN PRN Reason: FEVER OR PAIN Last Admin: 03/23/17 06:40 Dose: 650 mg Ethambutol HCl (Myambutol -) 1,200 mg PO DAILY@1800 [facility] Last Admin: 03/22/17 17:27 Dose: 1,200 mg Gabapentin (Neurontin -) 100 mg PO HS [facility] Last Admin: 03/22/17 21:45 Dose: 100 mg Heparin Sodium (Porcine) (Heparin -) 5,000 unit SQ TID [facility] Last Admin: 03/23/17 13:36 Dose: 5,000 unit Sodium Chloride (Normal Saline -) 1,000 mls @ 75 mls/hr IV ASDIR [facility] Last Admin: 03/23/17 06:40 Dose: 75 mls/hr Meropenem 1 gm/ Dextrose 100 mls @ 100 mls/hr IVPB Q8H-IV TAMAR PRN Reason: Protocol Isoniazid (Inh -) 300 mg PO DAILY@0700 [facility] Last Admin: 03/23/17 06:41 Dose: 300 mg Losartan Potassium (Cozaar -) 50 mg PO DAILY [facility] Last Admin: 03/23/17 10:43 Dose: 50 mg Polyethylene Glycol (Miralax (For Daily Use) -) 17 gm PO DAILY [facility] Last Admin: 03/23/17 10:43 Dose: Not Given Prednisone (Deltasone -) 10 mg PO DAILY [facility] Last Admin: 03/23/17 10:42 Dose: 10 mg Pyrazinamide (Pyrazinamide -) 1,500 mg PO DAILY@1800 [facility] Last Admin: 03/22/17 17:27 Dose: 1,500 mg Pyridoxine HCl (Vitamin B6 -) 75 mg PO DAILY@0700 [facility] Last Admin: 03/23/17 10:41 Dose: 75 mg Rifampin (Rifadin -) 600 mg PO DAILY [facility] Last Admin: 03/23/17 10:42 Dose: 600 mg - Objective Vital Signs: Vital Signs Temperature 99.2 F 03/23/17 15:04 Pulse Rate 80 03/23/17 15:04 Respiratory Rate 20 03/23/17 15:04 Blood Pressure 123/79 08/10/17 06:21 O2 Sat by Pulse Oximetry (%) 96 03/22/17 21:00 Constitutional: Yes: Well Nourished, Calm Eyes: Yes: WNL HENT: Yes: WNL Neck: Yes: WNL Cardiovascular: Yes: Regular Rate and Rhythm, S1, S2 Respiratory: Yes: CTA Bilaterally Gastrointestinal: Yes: Normal Bowel Sounds, Soft Extremities: Yes: WNL Edema: No Labs: CBC, BMP 03/23/17 06:00 03/23/17 06:00 INR, PTT INR 1.32 (0.82-1.09) H 03/15/17 12:58 Problem List - Problems (1) Right upper lobe pneumonia Code(s): J18.1 - LOBAR PNEUMONIA, UNSPECIFIED ORGANISM (2) SIRS (systemic inflammatory response syndrome) Code(s): R65.10 - SIRS OF NON-INFECTIOUS ORIGIN W/O ACUTE ORGAN DYSFUNCTION (3) Fever of unknown origin Code(s): R50.9 - FEVER, UNSPECIFIED (4) Sarcoidosis of lung with sarcoidosis of lymph nodes Code(s): D86.2 - SARCOIDOSIS OF LUNG WITH SARCOIDOSIS OF LYMPH NODES (5) Weight loss Code(s): R63.4 - ABNORMAL WEIGHT LOSS (6) H/O renal cell carcinoma Code(s): Z85.528 - PERSONAL HISTORY OF OTHER MALIGNANT NEOPLASM OF KIDNEY Assessment/Plan IMP PNEUMONIA RUL +AFB?MAC,TB FEVER ,WT LOSS SECONDAY TO TB, ? CA BILATERAL PULMONARY NODULES LIKELY SARCOID METASTATIC RENAL CALL CA MEDIASTINAL AND HILAR ADENOPATHY LIKELY SECONDARY TO SARCOID,?TB H/O RENAL CELL CA S/P R NEPHRECTOMY ELEVATED LACTATE LEVEL IMPROVING AXILLARY MASS PLAN TB MEDS PER ID CONTINUE CURRENT RX MONITOR LFTS W/U PER ONCOLOGY DR LOJA Problem List - Problems (1) Right upper lobe pneumonia Code(s): J18.1 - LOBAR PNEUMONIA, UNSPECIFIED ORGANISM (2) SIRS (systemic inflammatory response syndrome) Code(s): R65.10 - SIRS OF NON-INFECTIOUS ORIGIN W/O ACUTE ORGAN DYSFUNCTION (3) Fever of unknown origin Code(s): R50.9 - FEVER, UNSPECIFIED (4) Sarcoidosis of lung with sarcoidosis of lymph nodes Code(s): D86.2 - SARCOIDOSIS OF LUNG WITH SARCOIDOSIS OF LYMPH NODES (5) Weight loss Code(s): R63.4 - ABNORMAL WEIGHT LOSS (6) H/O renal cell carcinoma Code(s): Z85.528 - PERSONAL HISTORY OF OTHER MALIGNANT NEOPLASM OF KIDNEY
[2017-03-23] MEDS ORDERED: predniSONE 10 MG TABLET (UD) PO SCH (15:50)
[2017-03-23] MEDS: PYRAZINAMIDE 500 MG TABLET PO SCH (17:39)
[2017-03-23] MEDS: ETHAMBUTOL HCL 400 MG TABLET PO SCH (17:39)
[2017-03-23] MEDS: MEROPENEM 1 GM in DEXTROSE 5%-WATER - 100 ML IVPB SCH (21:12)
--- NOTE | 2017-03-23 21:22 | PN ---
Progress Note (short form) - Note Progress Note: Patient seen and examined. Feels better. Trying to "accept" the diagnosis of cancer. Chart reviewed. Constitutional: Yes: Calm, Thin Eyes: Yes: Conjunctiva Clear HENT: Yes: Atraumatic, Normocephalic Neck: Yes: Supple, Trachea Midline, Lymphadenopathy, Other (right axillary firm lymph node palpated) Cardiovascular: Yes: Regular Rate and Rhythm Respiratory: Yes: Regular, CTA Bilaterally Gastrointestinal: Yes: Normal Bowel Sounds, Soft Extremities: Yes: WNL Edema: No Last Vital Signs Temp Pulse Resp BP Pulse Ox 99.5 F 80 20 129/86 95 03/23/17 19:00 03/23/17 19:00 03/23/17 19:00 03/23/17 19:00 03/23/17 09:00 Current Medications Generic Name Dose Route Start Last Admin Trade Name Freq PRN Reason Stop Dose Admin Acetaminophen 650 mg 03/14/17 22:00 03/23/17 06:40 Tylenol - PO 650 mg Q4H PRN Administration FEVER OR PAIN Ethambutol HCl 1,200 mg 03/22/17 18:00 03/23/17 17:39 Myambutol - PO 1,200 mg DAILY@1800 TAMAR Administration Gabapentin 100 mg 03/15/17 22:00 03/22/17 21:45 Neurontin - PO 100 mg HS TAMAR Administration Heparin Sodium (Porcine) 5,000 unit 03/20/17 14:00 03/23/17 13:36 Heparin - SQ 5,000 unit TID TAMAR Administration Sodium Chloride 1,000 mls @ 75 mls/hr 03/21/17 15:37 03/23/17 17:44 Normal Saline - IV 75 mls/hr ASDIR TAMAR Administration Meropenem 1 gm/ Dextrose 100 mls @ 100 mls/hr 03/23/17 20:00 03/23/17 21:12 IVPB 100 mls/hr Q8H-IV TAMAR Administration Protocol Isoniazid 300 mg 03/22/17 07:00 03/23/17 06:41 Inh - PO 300 mg DAILY@0700 TAMAR Administration Losartan Potassium 50 mg 03/15/17 10:00 03/23/17 10:43 Cozaar - PO 50 mg DAILY TAMAR Administration Polyethylene Glycol 17 gm 03/17/17 16:15 03/23/17 10:43 Miralax (For Daily Use) - PO Not Given DAILY [facility] Prednisone 5 mg/ Prednisone 2. 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 Sarcoid -CT a/p with contrast reviewed -would need to know definitively if the hilar/mediastinal/pulm nodules are sarcoid/reactive/TB?,will need to see outside CT scans to compare, as per pt was regularly following with CT scans at [facility]. -appreciate Pulm , tapering steroids. -to be discussed in tumor conference. will follow Problem List - Problems (1) Metastatic renal cell carcinoma Code(s): C64.9 - MALIGNANT NEOPLASM OF UNSP KIDNEY, EXCEPT RENAL PELVIS (2) H/O renal cell carcinoma Code(s): Z85.528 - PERSONAL HISTORY OF OTHER MALIGNANT NEOPLASM OF KIDNEY (3) Right upper lobe pneumonia Code(s): J18.1 - LOBAR PNEUMONIA, UNSPECIFIED ORGANISM (4) Sarcoidosis of lung with sarcoidosis of lymph nodes Code(s): D86.2 - SARCOIDOSIS OF LUNG WITH SARCOIDOSIS OF LYMPH NODES (5) Tuberculosis Code(s): A15.9 - RESPIRATORY TUBERCULOSIS UNSPECIFIED
[2017-03-23] MEDS: GABAPENTIN 100 MG CAPSULE (FP) PO SCH (21:38)
[2017-03-24] MEDS: MEROPENEM 1 GM in DEXTROSE 5%-WATER - 100 ML IVPB SCH ×3 (02:23→18:02)
[2017-03-24] MEDS: HEPARIN NA (PORCINE) 5,000 UNITS/ML 1ML VIAL SQ SCH ×3 (06:09→22:22)
[2017-03-24] MEDS: ACETAMINOPHEN 325 MG TABLET (FP) PO PRN (06:16)
[2017-03-24] MEDS: ISONIAZID 300 MG TABLET (FP) PO SCH (07:08)
[2017-03-24] MEDS: PYRIDOXINE HCL (B-6) 50 MG TABLET (FP) PO SCH (07:08)
[2017-03-24] MEDS ORDERED: PREDNISONE PO SCH (10:00)
[2017-03-24] MEDS ORDERED: PT OWN MED DRAWER 7, Y5N ONE ×3 (10:04→18:01)
[2017-03-24] MEDS: predniSONE 5 MG TABLET (UD) PO SCH (10:10)
[2017-03-24] MEDS: LOSARTAN POTASSIUM 50 MG TABLET (FP) PO SCH (10:10)
[2017-03-24] MEDS: RIFAMPIN 300 MG CAPSULE PO SCH (10:10)
[2017-03-24] MEDS: POLYETHYLENE GLYCOL 3350 119 GM BTL PO SCH (10:10)
--- NOTE | 2017-03-24 13:31 | PN ---
Physical Exam: SUBJECTIVE: Patient seen and examined at bedside. present. Has metallic taste in mouth from meds. Dry cough. Denies pain. OBJECTIVE: Vital Signs Period Temp Pulse Resp BP Sys/Parks Pulse Ox Last 24 Hr 98.1 F-101.5 F 72-89 18-20 112-129/68-86 95 GENERAL: The patient is awake, alert, and fully oriented, in no acute distress. HEAD: Normal with no signs of trauma. EYES: PERRL, extraocular movements intact, sclera anicteric, conjunctiva clear. No ptosis. LUNGS: Breath sounds equal, clear to auscultation bilaterally, no wheezes, no crackles, no accessory muscle use. HEART: Regular rate and rhythm, S1, S2 without murmur, rub or gallop. ABDOMEN: Soft, nontender, nondistended, normoactive bowel sounds, no guarding, no rebound. Well-healed surgical scar upper right flank. EXTREMITIES: 2+ pulses, warm, well-perfused, no edema. NEUROLOGICAL: Cranial nerves II through XII grossly intact. Normal speech, gait not observed. PSYCH: Depressed affect. SKIN: Warm, dry, normal turgor, no rashes or lesions noted Active Medications Generic Name Dose Route Start Last Admin Trade Name Freq PRN Reason Stop Dose Admin Acetaminophen 650 mg 03/14/17 22:00 03/24/17 06:16 Tylenol - PO 650 mg Q4H PRN Administration FEVER OR PAIN Ethambutol HCl 1,200 mg 03/22/17 18:00 03/23/17 17:39 Myambutol - PO 1,200 mg DAILY@1800 TAMAR Administration Gabapentin 100 mg 03/15/17 22:00 03/23/17 21:38 Neurontin - PO 100 mg HS TAMAR Administration Heparin Sodium (Porcine) 5,000 unit 03/20/17 14:00 03/24/17 06:09 Heparin - SQ 5,000 unit TID TAMAR Administration Sodium Chloride 1,000 mls @ 75 mls/hr 03/21/17 15:37 03/23/17 17:44 Normal Saline - IV 75 mls/hr ASDIR TAMAR Administration Meropenem 1 gm/ Dextrose 100 mls @ 100 mls/hr 03/23/17 20:00 03/24/17 10:09 IVPB 100 mls/hr Q8H-IV TAMAR Administration Protocol Isoniazid 300 mg 03/22/17 07:00 03/24/17 07:08 Inh - PO 300 mg DAILY@0700 TAMAR Administration Losartan Potassium 50 mg 03/15/17 10:00 03/24/17 10:10 Cozaar - PO 50 mg DAILY TAMAR Administration Polyethylene Glycol 17 gm 03/17/17 16:15 03/24/17 10:10 Miralax (For Daily Use) - PO Not Given DAILY [facility] Prednisone 7.5 mg 03/24/17 10:00 03/24/17 10:10 Deltasone - PO 7.5 mg DAILY TAMAR Administration Pyrazinamide 1,500 mg 03/22/17 18:00 03/23/17 17:39 Pyrazinamide - PO 1,500 mg DAILY@1800 TAMAR Administration Pyridoxine HCl 75 mg 03/22/17 07:00 03/24/17 07:08 Vitamin B6 - PO 75 mg DAILY@0700 TAMAR Administration Rifampin 600 mg 03/18/17 14:45 03/24/17 10:10 Rifadin - PO 600 mg DAILY TAMAR Administration ASSESSMENT & PLAN 56 year-old male with PMH of HTN, s/p right lung lobectomy, sarcoid, gout, and right renal carcinoma s/p partial nephrectomy (2009). M. tuberculosis complex --03/16 bronchial washing positive for M. tuberculosis complex, culture pending --continue INH, B6, rifampin, ethambutol, pyrazinamide Sarcoidosis --with mediastinal and hilar adenopathy, sarcoid v. malignancy --tapering prednisone Metastatic renal cell carcinoma --diagnosed 2009, s/p partial nephrectomy --03/17 right axillary node pathology positive for metastatic renal cell carcinoma, clear type --discussed with Dr. Banuelos, cannot treat CA until infection issue under control --bone scan pending Concentric r/o colitis v. malignancy --03/23 CTAP: concentric wall thickening involving the cecum and the adjacent portion of the terminal ileum, infectious v. neoplastic disease --continue meropenem (day #2) Hypertension --BP well-controlled --continue Losartan F/E/N Fluids: PO intake adequate Electrolytes: replete as indicated Nutrition: sodium controlled Physical therapy evaluation DVT prophylaxis: subq heparin, oob Dispo: continues to require inpatient care. Full code. Visit type - Emergency Visit Emergency Visit: Yes ED Registration Date: 03/14/17 Care time: The patient presented to the Emergency Department on the above date and was hospitalized for further evaluation of their emergent condition. - New Patient This patient is new to me today: Yes Date on this admission: 03/24/17 - Critical Care Critical Care patient: No
--- NOTE | 2017-03-24 14:55 | PN ---
Progress Note, Physician History of Present Illness: pulmonary alert,oob-chair,-resp distress,poor po intake, tmax 101.5 - Current Medication List Current Medications: Active Medications Acetaminophen (Tylenol -) 650 mg PO Q4H PRN PRN Reason: FEVER OR PAIN Last Admin: 03/24/17 06:16 Dose: 650 mg Ethambutol HCl (Myambutol -) 1,200 mg PO DAILY@1800 [facility] Last Admin: 03/23/17 17:39 Dose: 1,200 mg Gabapentin (Neurontin -) 100 mg PO HS [facility] Last Admin: 03/23/17 21:38 Dose: 100 mg Heparin Sodium (Porcine) (Heparin -) 5,000 unit SQ TID [facility] Last Admin: 03/24/17 14:38 Dose: 5,000 unit Sodium Chloride (Normal Saline -) 1,000 mls @ 75 mls/hr IV ASDIR [facility] Last Admin: 03/23/17 17:44 Dose: 75 mls/hr Meropenem 1 gm/ Dextrose 100 mls @ 100 mls/hr IVPB Q8H-IV TAMAR PRN Reason: Protocol Last Admin: 03/24/17 10:09 Dose: 100 mls/hr Isoniazid (Inh -) 300 mg PO DAILY@0700 [facility] Last Admin: 03/24/17 07:08 Dose: 300 mg Losartan Potassium (Cozaar -) 50 mg PO DAILY [facility] Last Admin: 03/24/17 10:10 Dose: 50 mg Polyethylene Glycol (Miralax (For Daily Use) -) 17 gm PO DAILY [facility] Last Admin: 03/24/17 10:10 Dose: Not Given Prednisone (Deltasone -) 7.5 mg PO DAILY [facility] Last Admin: 03/24/17 10:10 Dose: 7.5 mg Pyrazinamide (Pyrazinamide -) 1,500 mg PO DAILY@1800 [facility] Last Admin: 03/23/17 17:39 Dose: 1,500 mg Pyridoxine HCl (Vitamin B6 -) 75 mg PO DAILY@0700 [facility] Last Admin: 03/24/17 07:08 Dose: 75 mg Rifampin (Rifadin -) 600 mg PO DAILY [facility] Last Admin: 03/24/17 10:10 Dose: 600 mg - Objective Vital Signs: Vital Signs Temperature 98.1 F 03/24/17 10:00 Pulse Rate 72 03/24/17 10:00 Respiratory Rate 18 03/24/17 10:00 Blood Pressure 112/81 03/24/17 10:00 O2 Sat by Pulse Oximetry (%) 95 03/23/17 21:00 Constitutional: Yes: Calm, Thin Eyes: Yes: WNL HENT: Yes: WNL Neck: Yes: WNL Cardiovascular: Yes: Regular Rate and Rhythm, S1, S2 Respiratory: Yes: CTA Bilaterally Gastrointestinal: Yes: Normal Bowel Sounds, Soft Extremities: Yes: WNL Edema: No Labs: CBC, BMP 03/23/17 06:00 03/23/17 06:00 INR, PTT INR 1.32 (0.82-1.09) H 03/15/17 12:58 Problem List - Problems (1) Right upper lobe pneumonia Code(s): J18.1 - LOBAR PNEUMONIA, UNSPECIFIED ORGANISM (2) SIRS (systemic inflammatory response syndrome) Code(s): R65.10 - SIRS OF NON-INFECTIOUS ORIGIN W/O ACUTE ORGAN DYSFUNCTION (3) Fever of unknown origin Code(s): R50.9 - FEVER, UNSPECIFIED (4) Sarcoidosis of lung with sarcoidosis of lymph nodes Code(s): D86.2 - SARCOIDOSIS OF LUNG WITH SARCOIDOSIS OF LYMPH NODES (5) Weight loss Code(s): R63.4 - ABNORMAL WEIGHT LOSS (6) H/O renal cell carcinoma Code(s): Z85.528 - PERSONAL HISTORY OF OTHER MALIGNANT NEOPLASM OF KIDNEY Assessment/Plan IMP PNEUMONIA RUL +AFB?MAC,TB FEVER ,WT LOSS SECONDAY TO TB, ? CA BILATERAL PULMONARY NODULES LIKELY SARCOID,?METS METASTATIC RENAL CALL CA MEDIASTINAL AND HILAR ADENOPATHY LIKELY SECONDARY TO SARCOID,?TB,? CA H/O RENAL CELL CA S/P R NEPHRECTOMY ELEVATED LACTATE LEVEL IMPROVING AXILLARY MASS PLAN TB MEDS ANTIBIOTICS PER ID CONTINUE CURRENT RX MONITOR LFTS W/U PER ONCOLOGY SLOW STEROID TAPER DR LOJA Problem List - Problems (1) Right upper lobe pneumonia Code(s): J18.1 - LOBAR PNEUMONIA, UNSPECIFIED ORGANISM (2) SIRS (systemic inflammatory response syndrome) Code(s): R65.10 - SIRS OF NON-INFECTIOUS ORIGIN W/O ACUTE ORGAN DYSFUNCTION (3) Fever of unknown origin Code(s): R50.9 - FEVER, UNSPECIFIED (4) Sarcoidosis of lung with sarcoidosis of lymph nodes Code(s): D86.2 - SARCOIDOSIS OF LUNG WITH SARCOIDOSIS OF LYMPH NODES (5) Weight loss Code(s): R63.4 - ABNORMAL WEIGHT LOSS (6) H/O renal cell carcinoma Code(s): Z85.528 - PERSONAL HISTORY OF OTHER MALIGNANT NEOPLASM OF KIDNEY
--- NOTE | 2017-03-24 17:16 | PN ---
Progress Note (short form) - Note Progress Note: Patient seen and examined. Feels better. Fever spike noted.OOB to chair at bedside, Chart reviewed. Constitutional: Yes: Calm, Thin Eyes: Yes: Conjunctiva Clear HENT: Yes: Atraumatic, Normocephalic Neck: Yes: Supple, Trachea Midline, Lymphadenopathy, Other (right axillary firm lymph node palpated) Cardiovascular: Yes: Regular Rate and Rhythm Respiratory: Yes: Regular, CTA Bilaterally Gastrointestinal: Yes: Normal Bowel Sounds, Soft Extremities: Yes: WNL Edema: No Last Vital Signs Temp Pulse Resp BP Pulse Ox 99.0 F 88 20 112/81 96 03/24/17 15:13 03/24/17 15:13 03/24/17 15:13 03/24/17 10:00 03/24/17 09:00 CBC, BMP 03/23/17 06:00 03/23/17 06:00 Current Medications Generic Name Dose Route Start Last Admin Trade Name Freq PRN Reason Stop Dose Admin Acetaminophen 650 mg 03/14/17 22:00 03/24/17 06:16 Tylenol - PO 650 mg Q4H PRN Administration FEVER OR PAIN Ethambutol HCl 1,200 mg 03/22/17 18:00 03/23/17 17:39 Myambutol - PO 1,200 mg DAILY@1800 TAMAR Administration Gabapentin 100 mg 03/15/17 22:00 03/23/17 21:38 Neurontin - PO 100 mg HS TAMAR Administration Heparin Sodium (Porcine) 5,000 unit 03/20/17 14:00 03/24/17 14:38 Heparin - SQ 5,000 unit TID TAMAR Administration Sodium Chloride 1,000 mls @ 75 mls/hr 03/21/17 15:37 03/23/17 17:44 Normal Saline - IV 75 mls/hr ASDIR TAMAR Administration Meropenem 1 gm/ Dextrose 100 mls @ 100 mls/hr 03/23/17 20:00 03/24/17 10:09 IVPB 100 mls/hr Q8H-IV TAMAR Administration Protocol Isoniazid 300 mg 03/22/17 07:00 03/24/17 07:08 Inh - PO 300 mg DAILY@0700 TAMAR Administration Losartan Potassium 50 mg 03/15/17 10:00 03/24/17 10:10 Cozaar - PO 50 mg DAILY TAMAR Administration Polyethylene Glycol 17 gm 03/17/17 16:15 03/24/17 10:10 Miralax (For Daily Use) - PO Not Given DAILY TAMAR Prednisone 7.5 mg 03/24/17 10:00 03/24/17 10:10 Deltasone - PO 7.5 mg DAILY TAMAR Administration Pyrazinamide 1,500 mg 03/22/17 18:00 03/23/17 17:39 Pyrazinamide - PO 1,500 mg DAILY@1800 TAMAR Administration Pyridoxine HCl 75 mg 03/22/17 07:00 03/24/17 07:08 Vitamin B6 - PO 75 mg DAILY@0700 TAMAR Administration Rifampin 600 mg 03/18/17 14:45 03/24/17 10:10 Rifadin - PO 600 mg DAILY TAMAR Administration Metastatic RCC ( clear cell) , past h/o resection of RCC Active TB, not MTB species. Sarcoid -CT a/p with contrast reviewed -Ordered bone scan -appreciate Pulm , tapering steroids. -abx per ID -Tumor board discussion, compare old CT, treat infection, then repeat CT chest, later consider RX for RCC (with or without biopsy of the lung nodules) - expressed that she might go to [facility] for further care. will follow Discussed with the and also with Hospitalist. Problem List - Problems (1) Metastatic renal cell carcinoma Code(s): C64.9 - MALIGNANT NEOPLASM OF UNSP KIDNEY, EXCEPT RENAL PELVIS (2) H/O renal cell carcinoma Code(s): Z85.528 - PERSONAL HISTORY OF OTHER MALIGNANT NEOPLASM OF KIDNEY (3) Right upper lobe pneumonia Code(s): J18.1 - LOBAR PNEUMONIA, UNSPECIFIED ORGANISM (4) Sarcoidosis of lung with sarcoidosis of lymph nodes Code(s): D86.2 - SARCOIDOSIS OF LUNG WITH SARCOIDOSIS OF LYMPH NODES (5) Tuberculosis Code(s): A15.9 - RESPIRATORY TUBERCULOSIS UNSPECIFIED
[2017-03-24] MEDS: ETHAMBUTOL HCL 400 MG TABLET PO SCH (18:02)
[2017-03-24] MEDS: SODIUM CHLORIDE 1,000 ML IV SCH (18:40)
[2017-03-24] MEDS: PYRAZINAMIDE 500 MG TABLET PO SCH (19:33)
[2017-03-24] MEDS: GABAPENTIN 100 MG CAPSULE (FP) PO SCH (22:22)
[2017-03-25] MEDS: MEROPENEM 1 GM in DEXTROSE 5%-WATER - 100 ML IVPB SCH ×3 (01:30→18:48)
[2017-03-25] MEDS ORDERED: PT OWN MED DRAWER 7, Y5N ONE ×3 (01:58→17:24)
[2017-03-25] MEDS: HEPARIN NA (PORCINE) 5,000 UNITS/ML 1ML VIAL SQ SCH ×3 (06:08→21:30)
[2017-03-25] MEDS: PYRIDOXINE HCL (B-6) 50 MG TABLET (FP) PO SCH (06:08)
[2017-03-25] MEDS: ISONIAZID 300 MG TABLET (FP) PO SCH (06:09)
[2017-03-25 08:04] LABS: ALBUMIN 2.6 g/dl (3.4-5.0); ANION GAP 9 (8-16); CALCIUM 8.7 mg/dL (8.5-10.1); CO2 27 mmol/L (21-32); CREATININE 0.7 mg/dL (0.7-1.3); GLUCOSE,RANDOM 89 mg/dL (74-106); MAGNESIUM 2.1 mg/dL (1.8-2.4); PHOSPHOROUS 2.6 mg/dL (2.5-4.9); SGOT/AST 26 U/L (15-37); SGPT/ALT 40 U/L (12-78)
[2017-03-25 08:06] LABS: ALK PHOS 130 U/L (45-117); BILIRUBIN,TOTAL 0.6 mg/dL (0.2-1.0); MCH 26.7 pg (25.7-33.7); MCHC 32.6 g/dl (32.0-35.9); MEAN CELL VOLUME 81.9 fl (80-96); MEAN PLT VOLUME 7.2 fl (7.5-11.1); PLATELET COUNT 552 K/MM3 (134-434); RDW 15.4 % (11.9-15.9)
[2017-03-25] MEDS: LOSARTAN POTASSIUM 50 MG TABLET (FP) PO SCH (10:31)
[2017-03-25] MEDS: POLYETHYLENE GLYCOL 3350 119 GM BTL PO SCH (10:31)
[2017-03-25] MEDS: predniSONE 5 MG TABLET (UD) PO SCH (10:32)
[2017-03-25] MEDS: RIFAMPIN 300 MG CAPSULE PO SCH (10:32)
[2017-03-25 10:52] LABS: PLATELET ESTIMATE INCREASED (NORMAL)
--- NOTE | 2017-03-25 11:22 | PN ---
Progress Note (short form) - Note Progress Note: Feels OK. Comfortable on RA. Some residual dry cough. No CP or SOB. Intake & Output 03/22/17 03/23/17 03/24/17 03/25/17 23:59 23:59 23:59 23:59 Intake Total 1700 4000 1450 550 Output Total 600 Balance 1700 3400 1450 550 Last Vital Signs Temp Pulse Resp BP Pulse Ox 98.4 F 100 H 18 123/93 96 03/25/17 08:51 03/25/17 08:51 03/25/17 08:51 03/25/17 08:51 03/24/17 21:00 Active Medications Acetaminophen (Tylenol -) 650 mg PO Q4H PRN PRN Reason: FEVER OR PAIN Last Admin: 03/24/17 06:16 Dose: 650 mg Ethambutol HCl (Myambutol -) 1,200 mg PO DAILY@1800 [facility] Last Admin: 03/24/17 18:02 Dose: 1,200 mg Gabapentin (Neurontin -) 100 mg PO HS [facility] Last Admin: 03/24/17 22:22 Dose: 100 mg Heparin Sodium (Porcine) (Heparin -) 5,000 unit SQ TID [facility] Last Admin: 03/25/17 06:08 Dose: 5,000 unit Meropenem 1 gm/ Dextrose 100 mls @ 100 mls/hr IVPB Q8H-IV TAMAR PRN Reason: Protocol Last Admin: 03/25/17 10:32 Dose: 100 mls/hr Isoniazid (Inh -) 300 mg PO DAILY@0700 [facility] Last Admin: 03/25/17 06:09 Dose: 300 mg Losartan Potassium (Cozaar -) 50 mg PO DAILY [facility] Last Admin: 03/25/17 10:31 Dose: 50 mg Polyethylene Glycol (Miralax (For Daily Use) -) 17 gm PO DAILY [facility] Last Admin: 03/25/17 10:31 Dose: Not Given Prednisone (Deltasone -) 7.5 mg PO DAILY [facility] Last Admin: 03/25/17 10:32 Dose: 7.5 mg Pyrazinamide (Pyrazinamide -) 1,500 mg PO DAILY@1800 [facility] Last Admin: 03/24/17 19:33 Dose: 1,500 mg Pyridoxine HCl (Vitamin B6 -) 75 mg PO DAILY@0700 [facility] Last Admin: 03/25/17 06:08 Dose: 75 mg Rifampin (Rifadin -) 600 mg PO DAILY TAMAR Last Admin: 03/25/17 10:32 Dose: 600 mg Constitutional: Yes: NAD Eyes: Yes: WNL HENT: Yes: WNL Neck: Yes: WNL Cardiovascular: Yes: Regular Rate and Rhythm, S1, S2 Respiratory: Yes: CTA Bilaterally Gastrointestinal: Yes: Normal Bowel Sounds, Soft Extremities: Yes: WNL Edema: No Labs: Laboratory Results - last 24 hr 03/25/17 03/25/17 06:00 06:00 WBC 9.0 RBC 4.46 Hgb 11.9 Hct 36.5 MCV 81.9 MCH 26.7 MCHC 32.6 RDW 15.4 Plt Count 552 H D MPV 7.2 L Neutrophils % 86.0 H Lymphocytes % 4.0 L D Monocytes % 7.0 Eosinophils % 1.0 Myelocytes 2 Differential Comment Manual diff done Platelet Estimate Increased Sodium 135 L Potassium 4.1 Chloride 99 Carbon Dioxide 27 Anion Gap 9 BUN 6 L D Creatinine 0.7 Creat Clearance w eGFR > 60 Random Glucose 89 Calcium 8.7 Phosphorus 2.6 Magnesium 2.1 Total Bilirubin 0.6 AST 26 D ALT 40 D Alkaline Phosphatase 130 H Total Protein 6.0 L Albumin 2.6 L Problem List - Problems (1) Right upper lobe pneumonia Code(s): J18.1 - LOBAR PNEUMONIA, UNSPECIFIED ORGANISM (2) SIRS (systemic inflammatory response syndrome) Code(s): R65.10 - SIRS OF NON-INFECTIOUS ORIGIN W/O ACUTE ORGAN DYSFUNCTION (3) Fever of unknown origin Code(s): R50.9 - FEVER, UNSPECIFIED (4) Sarcoidosis of lung with sarcoidosis of lymph nodes Code(s): D86.2 - SARCOIDOSIS OF LUNG WITH SARCOIDOSIS OF LYMPH NODES (5) Weight loss Code(s): R63.4 - ABNORMAL WEIGHT LOSS (6) H/O renal cell carcinoma Code(s): Z85.528 - PERSONAL HISTORY OF OTHER MALIGNANT NEOPLASM OF KIDNEY Assessment/Plan IMP PNEUMONIA RUL +AFB -> MTB complex (+) FEVER / WT LOSS BILATERAL PULMONARY NODULES LIKELY SARCOID, ?METS METASTATIC RENAL CALL CA MEDIASTINAL AND HILAR ADENOPATHY: DDX : SARCOID / MTB / CA H/O RENAL CELL CA S/P R NEPHRECTOMY ELEVATED LACTATE LEVEL IMPROVING AXILLARY MASS PLAN TB MEDS PER ID CONTINUE CURRENT RX MONITOR LFTS W/U PER ONCOLOGY SLOW STEROID TAPER Dr Fine
--- NOTE | 2017-03-25 13:05 | PN ---
Progress Note, Physician Chief Complaint: Fever History of Present Illness: Pt with Hx Renal cancer, sarcoid admitted with fever, weight loss. Hospital course significant for BAL. The brush biopsy showed scattered AFB bacilli. He was started on INH/B6, Rifampin, EMB & PZA. He had nausea and weakness which improved after spacing out meds. DNA Probe of BAL Washings (+) MTB complex. Axillary Bx (+) RCC as well. - Current Medication List Current Medications: Active Medications Acetaminophen (Tylenol -) 650 mg PO Q4H PRN PRN Reason: FEVER OR PAIN Last Admin: 03/24/17 06:16 Dose: 650 mg Ethambutol HCl (Myambutol -) 1,200 mg PO DAILY@1800 [facility] Last Admin: 03/24/17 18:02 Dose: 1,200 mg Gabapentin (Neurontin -) 100 mg PO HS [facility] Last Admin: 03/24/17 22:22 Dose: 100 mg Heparin Sodium (Porcine) (Heparin -) 5,000 unit SQ TID [facility] Last Admin: 03/25/17 06:08 Dose: 5,000 unit Meropenem 1 gm/ Dextrose 100 mls @ 100 mls/hr IVPB Q8H-IV TAMAR PRN Reason: Protocol Last Admin: 03/25/17 10:32 Dose: 100 mls/hr Isoniazid (Inh -) 300 mg PO DAILY@0700 [facility] Last Admin: 03/25/17 06:09 Dose: 300 mg Losartan Potassium (Cozaar -) 50 mg PO DAILY [facility] Last Admin: 03/25/17 10:31 Dose: 50 mg Polyethylene Glycol (Miralax (For Daily Use) -) 17 gm PO DAILY [facility] Last Admin: 03/25/17 10:31 Dose: Not Given Prednisone (Deltasone -) 7.5 mg PO DAILY [facility] Last Admin: 03/25/17 10:32 Dose: 7.5 mg Pyrazinamide (Pyrazinamide -) 1,500 mg PO DAILY@1800 [facility] Last Admin: 03/24/17 19:33 Dose: 1,500 mg Pyridoxine HCl (Vitamin B6 -) 75 mg PO DAILY@0700 [facility] Last Admin: 03/25/17 06:08 Dose: 75 mg Rifampin (Rifadin -) 600 mg PO DAILY [facility] Last Admin: 03/25/17 10:32 Dose: 600 mg - Objective Vital Signs: Vital Signs Temperature 98.4 F 08/12/17 08:51 Pulse Rate 100 H 03/25/17 08:51 Respiratory Rate 18 03/25/17 08:51 Blood Pressure 123/93 03/25/17 08:51 O2 Sat by Pulse Oximetry (%) 96 03/24/17 21:00 Constitutional: Yes: No Distress Eyes: Yes: PERRL HENT: Yes: Normocephalic Neck: Yes: Supple Cardiovascular: Yes: Regular Rate and Rhythm Respiratory: Yes: CTA Bilaterally Gastrointestinal: Yes: Normal Bowel Sounds, Soft. No: Tenderness Labs: CBC, BMP 03/25/17 06:00 03/25/17 06:00 INR, PTT INR 1.32 (0.82-1.09) H 03/15/17 12:58 Problem List - Problems (1) Right upper lobe pneumonia Code(s): J18.1 - LOBAR PNEUMONIA, UNSPECIFIED ORGANISM (2) Pulmonary tuberculosis Code(s): A15.0 - TUBERCULOSIS OF LUNG Assessment/Plan Patient with Hx renal cancer, sarcoid on chronic steroids, (+) PPD who is admitted with fever, weight loss and cough. Pneumonia Pulm TB ( + DNA Probe ) Continue anti-TB meds Continue isolation Monitor LFT's. Would Rx TB for at least 4-6 weeks prior to chemoRx.
--- NOTE | 2017-03-25 13:34 | PN ---
Physical Exam: SUBJECTIVE: Patient seen and examined OBJECTIVE: Vital Signs Period Temp Pulse Resp BP Sys/Parks Pulse Ox Last 24 Hr 98.4 F-100.7 F 84-100 18-20 116-123/77-93 96 GENERAL: The patient is awake, alert, and fully oriented, in no acute distress. HEAD: Normal with no signs of trauma. EYES: PERRL, extraocular movements intact, sclera anicteric, conjunctiva clear. No ptosis. LUNGS: Breath sounds equal, clear to auscultation bilaterally, no wheezes, no crackles, no accessory muscle use. HEART: Regular rate and rhythm, S1, S2 without murmur, rub or gallop. ABDOMEN: Soft, nontender, nondistended, normoactive bowel sounds, no guarding, no rebound. Well-healed surgical scar upper right flank. EXTREMITIES: 2+ pulses, warm, well-perfused, no edema. NEUROLOGICAL: Cranial nerves II through XII grossly intact. Normal speech, gait not observed. PSYCH: Depressed affect. SKIN: Warm, dry, normal turgor, no rashes or lesions noted Laboratory Results - last 24 hr 03/25/17 03/25/17 06:00 06:00 WBC 9.0 RBC 4.46 Hgb 11.9 Hct 36.5 MCV 81.9 MCH 26.7 MCHC 32.6 RDW 15.4 Plt Count 552 H D MPV 7.2 L Neutrophils % 86.0 H Lymphocytes % 4.0 L D Monocytes % 7.0 Eosinophils % 1.0 Myelocytes 2 Differential Comment Manual diff done Platelet Estimate Increased Sodium 135 L Potassium 4.1 Chloride 99 Carbon Dioxide 27 Anion Gap 9 BUN 6 L D Creatinine 0.7 Creat Clearance w eGFR > 60 Random Glucose 89 Calcium 8.7 Phosphorus 2.6 Magnesium 2.1 Total Bilirubin 0.6 AST 26 D ALT 40 D Alkaline Phosphatase 130 H Total Protein 6.0 L Albumin 2.6 L Active Medications Generic Name Dose Route Start Last Admin Trade Name Freq PRN Reason Stop Dose Admin Acetaminophen 650 mg 03/14/17 22:00 03/24/17 06:16 Tylenol - PO 650 mg Q4H PRN Administration FEVER OR PAIN Ethambutol HCl 1,200 mg 03/22/17 18:00 03/24/17 18:02 Myambutol - PO 1,200 mg DAILY@1800 TAMAR Administration Gabapentin 100 mg 03/15/17 22:00 03/24/17 22:22 Neurontin - PO 100 mg HS TAMAR Administration Heparin Sodium (Porcine) 5,000 unit 03/20/17 14:00 03/25/17 06:08 Heparin - SQ 5,000 unit TID ATMAR Administration Meropenem 1 gm/ Dextrose 100 mls @ 100 mls/hr 03/23/17 20:00 03/25/17 10:32 IVPB 100 mls/hr Q8H-IV TAMAR Administration Protocol Isoniazid 300 mg 03/22/17 07:00 03/25/17 06:09 Inh - PO 300 mg DAILY@0700 TAMAR Administration Losartan Potassium 50 mg 03/15/17 10:00 03/25/17 10:31 Cozaar - PO 50 mg DAILY TAMAR Administration Polyethylene Glycol 17 gm 03/17/17 16:15 03/25/17 10:31 Miralax (For Daily Use) - PO Not Given DAILY TAMAR Prednisone 7.5 mg 03/24/17 10:00 03/25/17 10:32 Deltasone - PO 7.5 mg DAILY TAMAR Administration Pyrazinamide 1,500 mg 03/22/17 18:00 03/24/17 19:33 Pyrazinamide - PO 1,500 mg DAILY@1800 TAMAR Administration Pyridoxine HCl 75 mg 03/22/17 07:00 03/25/17 06:08 Vitamin B6 - PO 75 mg DAILY@0700 TAMAR Administration Rifampin 600 mg 03/18/17 14:45 03/25/17 10:32 Rifadin - PO 600 mg DAILY TAMAR Administration ASSESSMENT & PLAN 56 year-old male with PMH of HTN, s/p right lung lobectomy, sarcoid, gout, and right renal carcinoma s/p partial nephrectomy (2009). M. tuberculosis complex --03/16 bronchial washing positive for M. tuberculosis complex, culture pending --continue INH, B6, rifampin, ethambutol, pyrazinamide (day #4); per Dr. Ayon, will need ~ 2 weeks of therapy prior to discharge; will need 4-6 weeks of therapy before starting chemotherapy Sarcoidosis --with mediastinal and hilar adenopathy, sarcoid v. malignancy --tapering prednisone Metastatic renal cell carcinoma --diagnosed 2009, s/p partial nephrectomy --03/17 right axillary node pathology positive for metastatic renal cell carcinoma, clear type --discussed with Dr. Banuelos, staging workup is complete, pending bone scan results Concentric r/o colitis v. malignancy --03/23 CTAP: concentric wall thickening involving the cecum and the adjacent portion of the terminal ileum, infectious v. neoplastic disease --continue meropenem (day #3) --GI consult requested Hypertension --BP well-controlled --continue Losartan F/E/N Fluids: PO intake adequate Electrolytes: replete as indicated Nutrition: sodium controlled Physical therapy evaluation DVT prophylaxis: subq heparin, oob Dispo: continues to require inpatient care. Full code. Visit type - Emergency Visit Emergency Visit: Yes ED Registration Date: 03/14/17 Care time: The patient presented to the Emergency Department on the above date and was hospitalized for further evaluation of their emergent condition. - New Patient This patient is new to me today: No - Critical Care Critical Care patient: No
[2017-03-25] MEDS: ONDANSETRON 4 MG/2 ML VIAL IVPUSH PRN (18:48)
[2017-03-25] MEDS: GABAPENTIN 100 MG CAPSULE (FP) PO SCH (21:28)
[2017-03-25] MEDS: ETHAMBUTOL HCL 400 MG TABLET PO SCH (21:28)
[2017-03-25] MEDS: PYRAZINAMIDE 500 MG TABLET PO SCH (21:29)
[2017-03-26] MEDS: MEROPENEM 1 GM in DEXTROSE 5%-WATER - 100 ML IVPB SCH ×3 (02:49→18:26)
[2017-03-26] MEDS: HEPARIN NA (PORCINE) 5,000 UNITS/ML 1ML VIAL SQ SCH ×3 (06:50→22:30)
[2017-03-26] MEDS: ISONIAZID 300 MG TABLET (FP) PO SCH (06:51)
[2017-03-26] MEDS: PYRIDOXINE HCL (B-6) 50 MG TABLET (FP) PO SCH (06:52)
--- NOTE | 2017-03-26 09:03 | PN ---
Physical Exam: SUBJECTIVE: Patient seen and examined at bedside. OBJECTIVE: Vital Signs Period Temp Pulse Resp BP Sys/Parks Pulse Ox Last 24 Hr 98.2 F-99.1 F 80-92 18-20 118-121/60-85 96 GENERAL: The patient is awake, alert, and fully oriented, in no acute distress. HEAD: Normal with no signs of trauma. EYES: PERRL, extraocular movements intact, sclera anicteric, conjunctiva clear. No ptosis. LUNGS: Breath sounds equal, clear to auscultation bilaterally, no wheezes, no crackles, no accessory muscle use. HEART: Regular rate and rhythm, S1, S2 without murmur, rub or gallop. ABDOMEN: Soft, nontender, nondistended, normoactive bowel sounds, no guarding, no rebound. Well-healed surgical scar upper right flank. EXTREMITIES: 2+ pulses, warm, well-perfused, no edema. NEUROLOGICAL: Cranial nerves II through XII grossly intact. Normal speech, gait not observed. PSYCH: Depressed affect. SKIN: Warm, dry, normal turgor, no rashes or lesions noted Laboratory Results - last 24 hr 03/25/17 06:00 WBC 9.0 RBC 4.46 Hgb 11.9 Hct 36.5 MCV 81.9 MCH 26.7 MCHC 32.6 RDW 15.4 Plt Count 552 H D MPV 7.2 L Neutrophils % 86.0 H Lymphocytes % 4.0 L D Monocytes % 7.0 Eosinophils % 1.0 Myelocytes 2 Differential Comment Manual diff done Platelet Estimate Increased Active Medications Generic Name Dose Route Start Last Admin Trade Name Emerald PRN Reason Stop Dose Admin Acetaminophen 650 mg 03/14/17 22:00 03/24/17 06:16 Tylenol - PO 650 mg Q4H PRN Administration FEVER OR PAIN Ethambutol HCl 1,200 mg 03/22/17 18:00 03/25/17 21:28 Myambutol - PO 1,200 mg DAILY@1800 T[facility]AR Administration Gabapentin 100 mg 03/15/17 22:00 03/25/17 21:28 Neurontin - PO 100 mg HS TAMAR Administration Heparin Sodium (Porcine) 5,000 unit 03/20/17 14:00 03/26/17 06:50 Heparin - SQ 5,000 unit TID ATMAR Administration Meropenem 1 gm/ Dextrose 100 mls @ 100 mls/hr 03/23/17 20:00 03/26/17 02:49 IVPB 100 mls/hr Q8H-IV TAMAR Administration Protocol Isoniazid 300 mg 03/22/17 07:00 03/26/17 06:51 Inh - PO 300 mg DAILY@0700 TMAAR Administration Losartan Potassium 50 mg 03/15/17 10:00 03/25/17 10:31 Cozaar - PO 50 mg DAILY [facility]AR Administration Ondansetron HCl 4 mg 03/25/17 18:38 03/25/17 18:48 Zofran Injection IVPUSH 4 mg Q6H PRN Administration NAUSEA AND/OR VOMITING Polyethylene Glycol 17 gm 03/17/17 16:15 03/25/17 10:31 Miralax (For Daily Use) - PO Not Given DAILY [facility] Prednisone 7.5 mg 03/24/17 10:00 03/25/17 10:32 Deltasone - PO 7.5 mg DAILY TAMAR Administration Pyrazinamide 1,500 mg 03/22/17 18:00 03/25/17 21:29 Pyrazinamide - PO 1,500 mg DAILY@1800 T[facility]AR Administration Pyridoxine HCl 75 mg 03/22/17 07:00 03/26/17 06:52 Vitamin B6 - PO 75 mg DAILY@0700 T[facility]AR Administration Rifampin 600 mg 03/18/17 14:45 03/25/17 10:32 Rifadin - PO 600 mg DAILY TAMAR Administration ASSESSMENT & PLAN 56 year-old male with PMH of HTN, s/p right lung lobectomy, sarcoid, gout, and right renal carcinoma s/p partial nephrectomy (2009). Now with active TB. M. tuberculosis complex --03/16 bronchial washing positive for M. tuberculosis complex, culture pending --continue INH, B6, rifampin, ethambutol, pyrazinamide (day #5) Sarcoidosis --with mediastinal and hilar adenopathy, sarcoid v. malignancy --tapering prednisone Metastatic renal cell carcinoma --diagnosed 2009, s/p partial nephrectomy --03/17 right axillary node pathology positive for metastatic renal cell carcinoma, clear type --discussed with Dr. Banuelos, staging workup is complete, pending bone scan results --cleared for discharge by oncology; will need to treat TB for 4-6 weeks before chemotherapy Concentric r/o colitis v. malignancy --03/23 CTAP: concentric wall thickening involving the cecum and the adjacent portion of the terminal ileum, infectious v. neoplastic disease --continue meropenem (day #4) --GI consult: will need colonoscopy as outpatient Hypertension --BP well-controlled --continue Losartan F/E/N Fluids: PO intake adequate Electrolytes: replete as indicated Nutrition: sodium controlled DVT prophylaxis: subq heparin, oob Dispo: continues to require inpatient care. Full code. Visit type - Emergency Visit Emergency Visit: Yes ED Registration Date: 03/14/17 Care time: The patient presented to the Emergency Department on the above date and was hospitalized for further evaluation of their emergent condition. - New Patient This patient is new to me today: No - Critical Care Critical Care patient: No
--- NOTE | 2017-03-26 09:15 | CON.GI ---
Consult Consult Specialty:: gastroenterology Referred by:: Dr Corbin/ Lane - History of Present Illness History of Present Illness: 56 y/o male with PMH of sarcoidosis, on chronic Prednisone use, metastatic renal cancer was admitted because of fever , weight loss and right upper lobe pneumonia. Barb turner was diagnosed to have pulmonary tuberculosis associated with right axillary mass. Catscan reveled a concentric inflammation of the cecum was found. At present he is receiving quadruple PTB medication. He develops nausea and epigastric pain after taking the medication. - Past Medical History Cardio/Vascular: Yes: HTN Pulmonary: Yes: Other ((+) PPD) Renal/: Yes: Cancer Additional Medical History: Hx Sarcoid on chronic steroids since 2012. - Past Surgical History Past Surgical History: Yes: Nephrectomy ( - Partial (R)) Additional Surgical History: Wedge resection (R) Lung - Alcohol/Substance Use Hx Alcohol Use: No - Smoking History Smoking history: Former smoker Have you smoked in the past 12 months: No If you are a former smoker, when did you quit?: 2009 Home Medications - Allergies Allergies/Adverse Reactions: Allergies Allergy/AdvReac Type Severity Reaction Status Date / Time No Known Allergies Allergy Verified 03/14/17 14:18 - Home Medications Home Medications: Ambulatory Orders Gabapentin 100 mg PO HS 03/14/17 Losartan Potassium 50 mg PO DAILY 03/14/17 Metronidazole [Flagyl -] 250 mg PO TID 03/14/17 Prednisone 10 mg PO DAILY 03/14/17 Physical Exam-GI Vital Signs: Vital Signs Temperature 99.1 F 03/26/17 06:00 Pulse Rate 80 03/26/17 06:00 Respiratory Rate 20 03/26/17 06:00 Blood Pressure 118/60 03/26/17 06:00 O2 Sat by Pulse Oximetry (%) 96 03/25/17 21:00 Constitutional: Yes: Well Nourished Eyes: Yes: Conjunctiva Clear HENT: Yes: Atraumatic Neck: Yes: Trachea Midline Cardiovascular: Yes: Regular Rate and Rhythm Respiratory: Yes: CTA Bilaterally ...Palpate: Yes: Soft. No: Firm/Rigid, Guarding, Hepatomegaly, Mass, Pulsatile Mass Labs: CBC, BMP 03/25/17 06:00 03/25/17 06:00 INR, PTT INR 1.32 (0.82-1.09) H 08/02/17 12:58 Problem List - Problems (1) Abnormal CAT scan Assessment/Plan: of the cecum R> at this time is highly contagious, will conitnue taking anti TB medication at this time and will schedule for elective colonoscopy once cleared by ID check cea level patient was made aware to follow-up Code(s): R93.8 - ABNORMAL FINDINGS ON DIAGNOSTIC IMAGING OF BODY STRUCTURES
[2017-03-26] MEDS ORDERED: PT OWN MED DRAWER 7, Y5N ONE ×2 (10:26→18:14)
[2017-03-26] MEDS: ONDANSETRON 4 MG/2 ML VIAL IVPUSH PRN (10:52)
[2017-03-26] MEDS: RIFAMPIN 300 MG CAPSULE PO SCH (10:56)
[2017-03-26] MEDS: LOSARTAN POTASSIUM 50 MG TABLET (FP) PO SCH (10:57)
[2017-03-26] MEDS: predniSONE 5 MG TABLET (UD) PO SCH (10:57)
[2017-03-26] MEDS: PANTOPRAZOLE 40 MG TABLET (FP) PO SCH (10:57)
[2017-03-26] MEDS: POLYETHYLENE GLYCOL 3350 119 GM BTL PO SCH (10:58)
[2017-03-26] MEDS ORDERED: METOCLOPRAMIDE HCL 10 MG TABLET (FP) PO SCH (11:00)
--- NOTE | 2017-03-26 12:02 | PN ---
Progress Note (short form) - Note Progress Note: Feels OK. Noted MTB complex is (+). Some residual dry cough. No CP or SOB. Intake & Output 03/23/17 03/24/17 03/25/17 03/26/17 23:59 23:59 23:59 23:59 Intake Total 4000 1450 1210 590 Output Total 600 Balance 3400 1450 1210 590 Last Vital Signs Temp Pulse Resp BP Pulse Ox 99.3 F 92 H 18 104/63 96 03/26/17 10:00 03/26/17 10:00 03/26/17 10:00 03/26/17 10:00 03/25/17 21:00 Active Medications Acetaminophen (Tylenol -) 650 mg PO Q4H PRN PRN Reason: FEVER OR PAIN Last Admin: 03/24/17 06:16 Dose: 650 mg Ethambutol HCl (Myambutol -) 1,200 mg PO DAILY@1800 [facility] Last Admin: 03/25/17 21:28 Dose: 1,200 mg Gabapentin (Neurontin -) 100 mg PO HS [facility] Last Admin: 03/25/17 21:28 Dose: 100 mg Heparin Sodium (Porcine) (Heparin -) 5,000 unit SQ TID [facility] Last Admin: 03/26/17 06:50 Dose: 5,000 unit Meropenem 1 gm/ Dextrose 100 mls @ 100 mls/hr IVPB Q8H-IV [facility] PRN Reason: Protocol Last Admin: 03/26/17 10:58 Dose: 100 mls/hr Isoniazid (Inh -) 300 mg PO DAILY@0700 [facility] Last Admin: 03/26/17 06:51 Dose: 300 mg Losartan Potassium (Cozaar -) 50 mg PO DAILY [facility] Last Admin: 03/26/17 10:57 Dose: 50 mg Metoclopramide HCl (Reglan -) 5 mg PO TIDAC [facility] Last Admin: 03/26/17 10:58 Dose: 5 mg Mirtazapine (Remeron -) 7.5 mg PO [facility] Ondansetron HCl (Zofran Injection) 4 mg IVPUSH Q6H PRN PRN Reason: NAUSEA AND/OR VOMITING Last Admin: 03/26/17 10:52 Dose: 4 mg Pantoprazole Sodium (Protonix -) 40 mg PO DAILY [facility] Last Admin: 03/26/17 10:57 Dose: 40 mg Polyethylene Glycol (Miralax (For Daily Use) -) 17 gm PO DAILY [facility] Last Admin: 03/26/17 10:58 Dose: Not Given Prednisone (Deltasone -) 7.5 mg PO DAILY [facility] Last Admin: 03/26/17 10:57 Dose: 7.5 mg Pyrazinamide (Pyrazinamide -) 1,500 mg PO DAILY@1800 [facility] Last Admin: 03/25/17 21:29 Dose: 1,500 mg Pyridoxine HCl (Vitamin B6 -) 75 mg PO DAILY@0700 [facility] Last Admin: 03/26/17 06:52 Dose: 75 mg Rifampin (Rifadin -) 600 mg PO DAILY [facility] Last Admin: 03/26/17 10:56 Dose: 600 mg Constitutional: Yes: NAD Eyes: Yes: WNL HENT: Yes: WNL Neck: Yes: WNL Cardiovascular: Yes: Regular Rate and Rhythm, S1, S2 Respiratory: Yes: CTA Bilaterally Gastrointestinal: Yes: Normal Bowel Sounds, Soft Extremities: Yes: WNL Edema: No Labs: Problem List - Problems (1) Right upper lobe pneumonia Code(s): J18.1 - LOBAR PNEUMONIA, UNSPECIFIED ORGANISM (2) SIRS (systemic inflammatory response syndrome) Code(s): R65.10 - SIRS OF NON-INFECTIOUS ORIGIN W/O ACUTE ORGAN DYSFUNCTION (3) Fever of unknown origin Code(s): R50.9 - FEVER, UNSPECIFIED (4) Sarcoidosis of lung with sarcoidosis of lymph nodes Code(s): D86.2 - SARCOIDOSIS OF LUNG WITH SARCOIDOSIS OF LYMPH NODES (5) Weight loss Code(s): R63.4 - ABNORMAL WEIGHT LOSS (6) H/O renal cell carcinoma Code(s): Z85.528 - PERSONAL HISTORY OF OTHER MALIGNANT NEOPLASM OF KIDNEY Assessment/Plan IMP PNEUMONIA RUL +AFB -> MTB complex (+) FEVER / WT LOSS BILATERAL PULMONARY NODULES LIKELY SARCOID, ?METS METASTATIC RENAL CALL CA MEDIASTINAL AND HILAR ADENOPATHY: DDX : SARCOID / MTB / CA H/O RENAL CELL CA S/P R NEPHRECTOMY ELEVATED LACTATE LEVEL IMPROVING AXILLARY MASS PLAN TB MEDS PER ID CONTINUE CURRENT RX MONITOR LFTS W/U PER ONCOLOGY STEROID TAPER Dr Fine
--- NOTE | 2017-03-26 12:26 | HOSP ---
Subjective - Review of Symptoms Events since last encounter: Advised by BIANCA Del Valle that 20 minutes after administering Reglan patient broke out in a rash. Patient seen and examined. Complaining of itchy rash on back. Neuro: A&Ox3 Throat: clear Lungs: CTA Skin: Erythematous rash across entire back. A&P Allergic drug reaction to Reglan --no airway compromise --administered 50mg benadryl IVP --entered Reglan allergy into EMR --will follow closely Physical Examination Vital Signs: Vital Signs Temperature 99.3 F 03/26/17 10:00 Pulse Rate 92 H 03/26/17 10:00 Respiratory Rate 18 03/26/17 10:00 Blood Pressure 104/63 03/26/17 10:00 O2 Sat by Pulse Oximetry (%) 96 03/25/17 21:00 Labs: CBC, BMP 03/25/17 06:00 03/25/17 06:00
[2017-03-26] MEDS ORDERED: ONDANSETRON *ODT* 4 MG TABLET SL PRN (12:50)
--- NOTE | 2017-03-26 13:54 | PN ---
Progress Note (short form) - Note Progress Note: Patient seen and examined. at bedside. All consult notes reviewed Chart reviewed. Constitutional: Yes: Calm, Thin Eyes: Yes: Conjunctiva Clear HENT: Yes: Atraumatic, Normocephalic Neck: Yes: Supple, Trachea Midline, Lymphadenopathy, Other (right axillary firm lymph node palpated) Cardiovascular: Yes: Regular Rate and Rhythm Respiratory: Yes: Regular, CTA Bilaterally Gastrointestinal: Yes: Normal Bowel Sounds, Soft Extremities: Yes: WNL Edema: No Last Vital Signs Temp Pulse Resp BP Pulse Ox 99.3 F 92 H 18 104/63 96 03/26/17 10:00 03/26/17 10:00 03/26/17 10:00 03/26/17 10:00 03/25/17 21:00 Current Medications Generic Name Dose Route Start Last Admin Trade Name Freq PRN Reason Stop Dose Admin Acetaminophen 650 mg 03/14/17 22:00 03/24/17 06:16 Tylenol - PO 650 mg Q4H PRN Administration FEVER OR PAIN Ethambutol HCl 1,200 mg 03/22/17 18:00 03/25/17 21:28 Myambutol - PO 1,200 mg DAILY@1800 [facility] Administration Gabapentin 100 mg 03/15/17 22:00 03/25/17 21:28 Neurontin - PO 100 mg HS [facility] Administration Heparin Sodium (Porcine) 5,000 unit 03/20/17 14:00 03/26/17 06:50 Heparin - SQ 5,000 unit TID [facility] Administration Meropenem 1 gm/ Dextrose 100 mls @ 100 mls/hr 03/23/17 20:00 03/26/17 10:58 IVPB 100 mls/hr Q8H-IV [facility] Administration Protocol Isoniazid 300 mg 03/22/17 07:00 03/26/17 06:51 Inh - PO 300 mg DAILY@0700 [facility] Administration Losartan Potassium 50 mg 03/15/17 10:00 03/26/17 10:57 Cozaar - PO 50 mg DAILY [facility] Administration Mirtazapine 7.5 mg 03/26/17 22:00 Remeron - PO HS [facility] Ondansetron HCl 4 mg 03/26/17 12:50 Zofran Odt - SL Q6H PRN NAUSEA AND/OR VOMITING Pantoprazole Sodium 40 mg 03/26/17 10:00 03/26/17 10:57 Protonix - PO 40 mg DAILY [facility] Administration Polyethylene Glycol 17 gm 03/17/17 16:15 03/26/17 10:58 Miralax (For Daily Use) - PO Not Given DAILY [facility] Prednisone 7.5 mg 03/24/17 10:00 03/26/17 10:57 Deltasone - PO 7.5 mg DAILY [facility] Administration Pyrazinamide 1,500 mg 03/22/17 18:00 03/25/17 21:29 Pyrazinamide - PO 1,500 mg DAILY@1800 [facility] Administration Pyridoxine HCl 75 mg 03/22/17 07:00 03/26/17 06:52 Vitamin B6 - PO 75 mg DAILY@0700 [facility] Administration Rifampin 600 mg 03/18/17 14:45 03/26/17 10:56 Rifadin - PO 600 mg DAILY [facility] Administration CBC, BMP 03/25/17 06:00 03/25/17 06:00 Metastatic RCC ( clear cell) , past h/o resection of RCC Mycobactrium complex infection, on anti-mycobacterium drugs Sarcoid -CT a/p with contrast reviewed,GI consult noted -pendig bone scan -tapering steroids. -ID note reviewed, Treatment for at least 4-6weeks prior to chemo initiation - expressed that she might go to [facility] [place] further care of malignancy will follow Problem List - Problems (1) Metastatic renal cell carcinoma Code(s): C64.9 - MALIGNANT NEOPLASM OF UNSP KIDNEY, EXCEPT RENAL PELVIS (2) H/O renal cell carcinoma Code(s): Z85.528 - PERSONAL HISTORY OF OTHER MALIGNANT NEOPLASM OF KIDNEY (3) Right upper lobe pneumonia Code(s): J18.1 - LOBAR PNEUMONIA, UNSPECIFIED ORGANISM (4) Sarcoidosis of lung with sarcoidosis of lymph nodes Code(s): D86.2 - SARCOIDOSIS OF LUNG WITH SARCOIDOSIS OF LYMPH NODES (5) Tuberculosis Code(s): A15.9 - RESPIRATORY TUBERCULOSIS UNSPECIFIED
[2017-03-26] MEDS ORDERED: oxyCODONE HCL 5 MG TABLET PO PRN (17:58)
[2017-03-26] MEDS: ETHAMBUTOL HCL 400 MG TABLET PO SCH (18:29)
[2017-03-26] MEDS: PYRAZINAMIDE 500 MG TABLET PO SCH (18:30)
[2017-03-26] MEDS ORDERED: SODIUM CHLORIDE 500 ML IV STA (18:54)
[2017-03-26] MEDS: GABAPENTIN 100 MG CAPSULE (FP) PO SCH (22:29)
[2017-03-26] MEDS: MIRTAZAPINE 15 MG TABLET (FP) PO SCH (22:29)
[2017-03-27] MEDS: MEROPENEM 1 GM in DEXTROSE 5%-WATER - 100 ML IVPB SCH ×3 (02:03→18:22)
[2017-03-27] MEDS: ACETAMINOPHEN 325 MG TABLET (FP) PO PRN (02:04)
[2017-03-27] MEDS: HEPARIN NA (PORCINE) 5,000 UNITS/ML 1ML VIAL SQ SCH ×3 (06:00→22:30)
[2017-03-27] MEDS: ISONIAZID 300 MG TABLET (FP) PO SCH (06:25)
[2017-03-27] MEDS: PYRIDOXINE HCL (B-6) 50 MG TABLET (FP) PO SCH (06:25)
[2017-03-27] MEDS ORDERED: PT OWN MED DRAWER 7, Y5N ONE ×5 (06:39→20:06)
--- NOTE | 2017-03-27 09:49 | PN ---
Progress Note (short form) - Note Progress Note: PULMONARY Febrile to 101.9 overnight. States his cough is dry. Last Vital Signs Temp Pulse Resp BP Pulse Ox 98.9 F 80 20 103/69 96 03/27/17 06:00 03/27/17 06:00 03/27/17 06:00 03/27/17 06:00 03/26/17 21:00 Gen: NAD at rest Heart: RRR Lung: distant breath sounds Abd: soft, nontender Ext: no edema CBC, BMP 03/25/17 06:00 03/25/17 06:00 Active Medications Acetaminophen (Tylenol -) 650 mg PO Q4H PRN PRN Reason: FEVER OR PAIN Last Admin: 03/27/17 02:04 Dose: 650 mg Ethambutol HCl (Myambutol -) 1,200 mg PO DAILY@1800 [facility] Last Admin: 03/26/17 18:29 Dose: 1,200 mg Gabapentin (Neurontin -) 100 mg PO [facility] Last Admin: 03/26/17 22:29 Dose: 100 mg Heparin Sodium (Porcine) (Heparin -) 5,000 unit SQ TID [facility] Last Admin: 03/27/17 06:00 Dose: Not Given Meropenem 1 gm/ Dextrose 100 mls @ 100 mls/hr IVPB Q8H-IV [facility] PRN Reason: Protocol Last Admin: 03/27/17 02:03 Dose: 100 mls/hr Isoniazid (Inh -) 300 mg PO DAILY@0700 [facility] Last Admin: 03/27/17 06:25 Dose: 300 mg Losartan Potassium (Cozaar -) 50 mg PO DAILY [facility] Last Admin: 03/26/17 10:57 Dose: 50 mg Mirtazapine (Remeron -) 7.5 mg PO [facility] Last Admin: 03/26/17 22:29 Dose: 7.5 mg Ondansetron HCl (Zofran Odt -) 4 mg SL Q6H PRN PRN Reason: NAUSEA AND/OR VOMITING Last Admin: 03/26/17 18:26 Dose: 4 mg Oxycodone HCl (Roxicodone -) 5 mg PO Q6H PRN PRN Reason: PAIN Pantoprazole Sodium (Protonix -) 40 mg PO DAILY [facility] Last Admin: 03/26/17 10:57 Dose: 40 mg Polyethylene Glycol (Miralax (For Daily Use) -) 17 gm PO DAILY [facility] Last Admin: 03/26/17 10:58 Dose: Not Given Prednisone (Deltasone -) 7.5 mg PO DAILY [facility] Last Admin: 03/26/17 10:57 Dose: 7.5 mg Pyrazinamide (Pyrazinamide -) 1,500 mg PO DAILY@1800 [facility] Last Admin: 03/26/17 18:30 Dose: 1,500 mg Pyridoxine HCl (Vitamin B6 -) 75 mg PO DAILY@0700 [facility] Last Admin: 03/27/17 06:25 Dose: 75 mg Rifampin (Rifadin -) 600 mg PO DAILY [facility] Last Admin: 03/26/17 10:56 Dose: 600 mg Zinc Acetate/Diphenhydramine (Benadryl 2% Cream) 1 applic TP BID [facility] Last Admin: 03/26/17 22:30 Dose: 1 applic A/P Pulmonary Tuberculosis Likely Superimposed post obstructive pneumonia Metastatic Renal Cancer Sarcoidosis on chronic steroids Lung Nodules HTN - continue MTB treatment, antibiotics - monitor fever curve - continue airborne isolation for now - taper off steroids - DVT prophylaxis
[2017-03-27] MEDS: POLYETHYLENE GLYCOL 3350 119 GM BTL PO SCH (11:57)
[2017-03-27] MEDS: predniSONE 5 MG TABLET (UD) PO SCH ×2 (11:57→13:03)
[2017-03-27] MEDS: PANTOPRAZOLE 40 MG TABLET (FP) PO SCH (11:57)
[2017-03-27] MEDS: LOSARTAN POTASSIUM 50 MG TABLET (FP) PO SCH (11:57)
[2017-03-27] MEDS: RIFAMPIN 300 MG CAPSULE PO SCH (11:58)
--- NOTE | 2017-03-27 12:47 | PN ---
Physical Exam: SUBJECTIVE: Patient seen and examined oob to chair. Still with pruritic rash on back. OBJECTIVE: Vital Signs Period Temp Pulse Resp BP Sys/Parks Pulse Ox Last 24 Hr 98.7 F-101.9 F 80-94 18-20 102-104/63-69 96 GENERAL: The patient is awake, alert, and fully oriented, in no acute distress. HEAD: Normal with no signs of trauma. EYES: PERRL, extraocular movements intact, sclera anicteric, conjunctiva clear. No ptosis. LUNGS: Breath sounds equal, clear to auscultation bilaterally, no wheezes, no crackles, no accessory muscle use. HEART: Regular rate and rhythm, S1, S2 without murmur, rub or gallop. ABDOMEN: Soft, nontender, nondistended, normoactive bowel sounds, no guarding, no rebound. Well-healed surgical scar upper right flank. EXTREMITIES: 2+ pulses, warm, well-perfused, no edema. NEUROLOGICAL: Cranial nerves II through XII grossly intact. Normal speech, gait not observed. PSYCH: Depressed affect. SKIN: Erythematous rash across entire back Active Medications Generic Name Dose Route Start Last Admin Trade Name Freq PRN Reason Stop Dose Admin Acetaminophen 650 mg 03/14/17 22:00 03/27/17 02:04 Tylenol - PO 650 mg Q4H PRN Administration FEVER OR PAIN Ethambutol HCl 1,200 mg 03/22/17 18:00 03/26/17 18:29 Myambutol - PO 1,200 mg DAILY@1800 [facility] Administration Gabapentin 100 mg 03/15/17 22:00 03/26/17 22:29 Neurontin - PO 100 mg HS [facility] Administration Heparin Sodium (Porcine) 5,000 unit 03/20/17 14:00 03/27/17 06:00 Heparin - SQ Not Given TID [facility] Meropenem 1 gm/ Dextrose 100 mls @ 100 mls/hr 03/23/17 20:00 03/27/17 11:57 IVPB 100 mls/hr Q8H-IV [facility] Administration Protocol Isoniazid 300 mg 03/22/17 07:00 03/27/17 06:25 Inh - PO 300 mg DAILY@0700 [facility] Administration Losartan Potassium 50 mg 03/15/17 10:00 03/27/17 11:57 Cozaar - PO 50 mg DAILY [facility] Administration Mirtazapine 7.5 mg 03/26/17 22:00 03/26/17 22:29 Remeron - PO 7.5 mg HS [facility] Administration Ondansetron HCl 4 mg 03/26/17 12:50 03/26/17 18:26 Zofran Odt - SL 4 mg Q6H PRN Administration NAUSEA AND/OR VOMITING Oxycodone HCl 5 mg 03/26/17 17:58 Roxicodone - PO Q6H PRN PAIN Pantoprazole Sodium 40 mg 03/26/17 10:00 03/27/17 11:57 Protonix - PO 40 mg DAILY [facility] Administration Polyethylene Glycol 17 gm 03/17/17 16:15 03/27/17 11:57 Miralax (For Daily Use) - PO Not Given DAILY [facility] Prednisone 7.5 mg 03/24/17 10:00 03/27/17 11:57 Deltasone - PO 7.5 mg DAILY [facility] Administration Pyrazinamide 1,500 mg 03/22/17 18:00 03/26/17 18:30 Pyrazinamide - PO 1,500 mg DAILY@1800 [facility] Administration Pyridoxine HCl 75 mg 03/22/17 07:00 03/27/17 06:25 Vitamin B6 - PO 75 mg DAILY@0700 [facility] Administration Rifampin 600 mg 03/18/17 14:45 03/27/17 11:58 Rifadin - PO 600 mg DAILY [facility] Administration Zinc Acetate/Diphenhydramine 1 applic 03/26/17 22:00 03/27/17 11:59 Benadryl 2% Cream TP 1 applic BID [facility] Administration ASSESSMENT & PLAN 56 year-old male with PMH of HTN, s/p right lung lobectomy, sarcoid, gout, and right renal carcinoma s/p partial nephrectomy (2009). 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 Now with possible drug reaction. M. tuberculosis complex --03/16 bronchial washing positive for M. tuberculosis complex, culture pending --fever to 101.9, WBC wnl --continue INH, B6, rifampin, ethambutol, pyrazinamide (day #6) and meropenem (day #5) Drug reaction --given one dose of metoclopramide yesterday and 20 minutes later developed rash across back and posterior neck; no respiratory involvement, vitals remained stable; treated with benadryl IVP 50mg x 1 and IV fluids --on today's exam, rash persists across entire back and is pruritic; will give another dose benadryl and IV pepcid, on low dose steroids --discussed with Dr. Ayon; possible this is drug reaction to the single dose of metaclopramide, but could be delayed reaction to any one of multiple antibiotics patient is on; if rash persists over next 48 hours, will need to consider stopping all other meds and reintroducing them back one by one Sarcoidosis --with mediastinal and hilar adenopathy, sarcoid v. malignancy --tapering prednisone, 5mg 03/28 and 03/29, then off Metastatic renal cell carcinoma --diagnosed 2009, s/p partial nephrectomy --03/17 right axillary node pathology positive for metastatic renal cell carcinoma, clear type --discussed with Dr. Banuelos, staging workup is complete, pending bone scan results --cleared for discharge by oncology; will need to treat TB for 4-6 weeks before chemotherapy Concentric r/o colitis v. malignancy --03/23 CTAP: concentric wall thickening involving the cecum and the adjacent portion of the terminal ileum, infectious v. neoplastic disease --GI consult: will need colonoscopy as outpatient, no intervention during acute infection phase Hypertension --BP well-controlled --continue Losartan F/E/N Fluids: PO intake adequate Electrolytes: replete as indicated Nutrition: sodium controlled Physical therapy- daily; reverse precautions DVT prophylaxis: subq heparin, oob Dispo: continues to require inpatient care. Full code. Visit type - Emergency Visit Emergency Visit: Yes ED Registration Date: 03/14/17 Care time: The patient presented to the Emergency Department on the above date and was hospitalized for further evaluation of their emergent condition. - New Patient This patient is new to me today: No - Critical Care Critical Care patient: No
[2017-03-27] MEDS ORDERED: FAMOTIDINE 20 MG/50 ML IVPB 50 ML IVPB ONE (13:15)
[2017-03-27] MEDS: PYRAZINAMIDE 500 MG TABLET PO SCH (18:18)
[2017-03-27] MEDS: ETHAMBUTOL HCL 400 MG TABLET PO SCH (18:18)
[2017-03-27] MEDS ORDERED: diphenhydrAMINE HCL 25 MG CAPSULE (FP) PO PRN (19:59)
[2017-03-27] MEDS: MIRTAZAPINE 15 MG TABLET (FP) PO SCH (22:31)
[2017-03-27] MEDS: GABAPENTIN 100 MG CAPSULE (FP) PO SCH (22:31)
[2017-03-28] MEDS: MEROPENEM 1 GM in DEXTROSE 5%-WATER - 100 ML IVPB SCH ×3 (02:28→18:02)
[2017-03-28] MEDS ORDERED: PT OWN MED DRAWER 7, Y5N ONE ×3 (06:41→18:02)
[2017-03-28] MEDS: ISONIAZID 300 MG TABLET (FP) PO SCH (06:46)
[2017-03-28] MEDS: PYRIDOXINE HCL (B-6) 50 MG TABLET (FP) PO SCH (06:47)
[2017-03-28] MEDS: HEPARIN NA (PORCINE) 5,000 UNITS/ML 1ML VIAL SQ SCH ×3 (06:47→21:44)
--- NOTE | 2017-03-28 10:07 | PN ---
Physical Exam: SUBJECTIVE: Patient seen and examined in negative pressure room. Complains of fine pink rash to trunk and extremities. OBJECTIVE: Vital Signs Period Temp Pulse Resp BP Sys/Parks Pulse Ox Last 24 Hr 98 F-100.2 F 75-97 18-20 96-125/72-77 95 GENERAL: The patient is awake, alert, and fully oriented, in no acute distress. LUNGS: Breath sounds distant, clear to auscultation bilaterally, no wheezes, no crackles, no accessory muscle use. HEART: Regular rate and rhythm, S1, S2 without murmur, rub or gallop. ABDOMEN: Soft, nontender, nondistended, normoactive bowel sounds, no guarding, no rebound, no hepatosplenomegaly, no masses. EXTREMITIES: 2+ pulses, warm, well-perfused, no edema. NEUROLOGICAL: Cranial nerves II through XII grossly intact. Normal speech, gait steady. SKIN: Fine diffuse pink puritic rash to trunk and extremities. Active Medications Generic Name Dose Route Start Last Admin Trade Name Freq PRN Reason Stop Dose Admin Acetaminophen 650 mg 03/14/17 22:00 03/27/17 02:04 Tylenol - PO 650 mg Q4H PRN Administration FEVER OR PAIN Diphenhydramine HCl 25 mg 03/27/17 19:59 Benadryl - PO Q6H PRN FOR ITCHING Ethambutol HCl 1,200 mg 03/22/17 18:00 03/27/17 18:18 Myambutol - PO 1,200 mg DAILY@1800 [facility] Administration Gabapentin 100 mg 03/15/17 22:00 03/27/17 22:31 Neurontin - PO 100 mg HS [facility] Administration Heparin Sodium (Porcine) 5,000 unit 03/20/17 14:00 03/28/17 06:47 Heparin - SQ 5,000 unit TID [facility] Administration Meropenem 1 gm/ Dextrose 100 mls @ 100 mls/hr 03/23/17 20:00 03/28/17 02:28 IVPB 100 mls/hr Q8H-IV [facility] Administration Protocol Isoniazid 300 mg 03/22/17 07:00 03/28/17 06:46 Inh - PO 300 mg DAILY@0700 [facility] Administration Losartan Potassium 50 mg 03/15/17 10:00 03/27/17 11:57 Cozaar - PO 50 mg DAILY [facility] Administration Mirtazapine 7.5 mg 03/26/17 22:00 03/27/17 22:31 Remeron - PO 7.5 mg HS [facility] Administration Ondansetron HCl 4 mg 03/26/17 12:50 03/26/17 18:26 Zofran Odt - SL 4 mg Q6H PRN Administration NAUSEA AND/OR VOMITING Oxycodone HCl 5 mg 03/26/17 17:58 Roxicodone - PO Q6H PRN PAIN Pantoprazole Sodium 40 mg 03/26/17 10:00 03/27/17 11:57 Protonix - PO 40 mg DAILY [facility] Administration Polyethylene Glycol 17 gm 03/17/17 16:15 03/27/17 11:57 Miralax (For Daily Use) - PO Not Given DAILY [facility] Prednisone 5 mg 03/28/17 10:00 Deltasone - PO 03/29/17 10:01 DAILY [facility] Pyrazinamide 1,500 mg 03/22/17 18:00 03/27/17 18:18 Pyrazinamide - PO 1,500 mg DAILY@1800 [facility] Administration Pyridoxine HCl 75 mg 03/22/17 07:00 03/28/17 06:47 Vitamin B6 - PO 75 mg DAILY@0700 [facility] Administration Rifampin 600 mg 03/18/17 14:45 03/27/17 11:58 Rifadin - PO 600 mg DAILY [facility] Administration Zinc Acetate/Diphenhydramine 1 applic 03/26/17 22:00 03/27/17 22:30 Benadryl 2% Cream TP 1 applic BID [facility] Administration Microbiology 03/23/17 15:40 Blood - Peripheral Venous Blood Culture - Preliminary NO GROWTH OBTAINED AFTER 96 HOURS, INCUBATION TO CONTINUE FOR 1 DAYS. 03/23/17 15:45 Blood - Peripheral Venous Blood Culture - Preliminary NO GROWTH OBTAINED AFTER 96 HOURS, INCUBATION TO CONTINUE FOR 1 DAYS. 03/21/17 11:35 Blood - Peripheral Venous Blood Culture - Final NO GROWTH AFTER 5 DAYS INCUBATION 03/21/17 11:35 Blood - Peripheral Venous Blood Culture - Final NO GROWTH AFTER 5 DAYS INCUBATION 03/16/17 12:30 Bronchial Washings - Right Upper Lobe AFB Smear Concentration - Final 03/16/17 12:30 Bronchial Washings - Right Upper Lobe Mycobacterial Culture - Preliminary M. Tuberculosis Complex 03/17/17 13:00 Lymph Node - Axillary Node AFB Smear Concentration - Final 03/17/17 13:00 Lymph Node - Axillary Node Mycobacterial Culture - Preliminary 03/17/17 13:00 Lymph Node - Axillary Node Gram Stain - Final 03/17/17 13:00 Lymph Node - Axillary Node Tissue Culture - Final 03/17/17 13:00 Lymph Node - Axillary Node Anaerobic Culture - Preliminary 03/21/17 11:00 Urine - Urine Clean Catch Urine Culture - Final NO GROWTH OBTAINED 03/18/17 06:30 Sputum - Aerosol Induced AFB Smear Concentration - Final 03/18/17 06:30 Sputum - Aerosol Induced Direct Acid Fast Bacilli Smear - Final 03/18/17 06:30 Sputum - Aerosol Induced Mycobacterial Culture - Preliminary 03/17/17 18:00 Sputum - Aerosol Induced AFB Smear Concentration - Final 03/17/17 18:00 Sputum - Aerosol Induced Direct Acid Fast Bacilli Smear - Final 03/17/17 18:00 Sputum - Aerosol Induced Mycobacterial Culture - Preliminary 03/19/17 06:45 Sputum - Aerosol Induced AFB Smear Concentration - Final 03/19/17 06:45 Sputum - Aerosol Induced Direct Acid Fast Bacilli Smear - Final 03/19/17 06:45 Sputum - Aerosol Induced Mycobacterial Culture - Preliminary 03/15/17 06:30 Blood - Peripheral Venous TB Test (QFT) ([facility]) - Final 03/14/17 19:00 Blood - Peripheral Venous Blood Culture - Final NO GROWTH AFTER 5 DAYS INCUBATION 03/14/17 Unknown Blood - Peripheral Venous Blood Culture - Final NO GROWTH AFTER 5 DAYS INCUBATION 03/16/17 12:30 Bronchial Washings - Right Upper Lobe Gram Stain - Final 03/16/17 12:30 Bronchial Washings - Right Upper Lobe Bronchoalveolar Lavage Culture - Final 03/17/17 13:00 Lymph Node - Axillary Node MELIA Preparation - Preliminary 03/17/17 13:00 Lymph Node - Axillary Node Fungal Culture - Preliminary 03/16/17 12:30 Bronchial Washings - Right Upper Lobe MELIA Preparation - Preliminary 03/16/17 12:30 Bronchial Washings - Right Upper Lobe Fungal Culture - Preliminary 03/14/17 16:40 Urine - Urine Clean Catch Urine Culture - Final NO GROWTH OBTAINED Imaging: ASSESSMENT/PLAN: A: 56yo man with renal cell carcinoma with mets-> lymph ?colon vs colitis, sarcoid , TB with ?superimposed PNA now with continued rash to trunk and extremities P: 1. TB - Airborne precautions - Rifampin - Vit B6 - Pyrazinamide - INH - Ethambutol - Neurontin - Quantiferon gold (+) - Sputum AFB (-) x3 - Bronchial washing (+) AFB - ID following - Pulm following 2. Fevers - likely from TB/PNA - Tylenol prn - trend fever curve 3. Allergic reaction to medication - rash started after initiation of Meropenem - unsure which medication is causative agent - increase Benadryl to 50mg q6h prn - ID plan to continue meds until 03/30. If rash has not resolved will hold all meds and reintroduce individually until agent is identified 4. Lactic acidosis - resolved 5. Leukocytosis - resolved 6. Renal cell carcinoma - Onc following - treatment deferred until after TB treatment completed - Bone scan read pending 7. Colon Mets vs colitis - Onc following - GI Lantin recommends outpatient f/u once TB cleared 8. HTN - well controlled - continue Cozaar 9. Sarcoid - continue steroid taper - Pulm following 10. F/E/N - low Na diet - replete prn 11. PPX - PPI - OOB - sqh Dispo- requires continued inpatient treatment of his acute medical condition Visit type - Emergency Visit Emergency Visit: Yes ED Registration Date: 03/14/17 Care time: The patient presented to the Emergency Department on the above date and was hospitalized for further evaluation of their emergent condition. - New Patient This patient is new to me today: Yes Date on this admission: 04/06/17 - Critical Care Critical Care patient: No
--- NOTE | 2017-03-28 10:09 | PN ---
Progress Note (short form) - Note Progress Note: PULMONARY Low grade temp overnight. Reports generalized pruritic rash. Last Vital Signs Temp Pulse Resp BP Pulse Ox 100.2 F H 75 20 96/73 95 03/28/17 05:22 03/28/17 05:22 03/28/17 05:22 03/28/17 05:22 03/27/17 21:00 Gen: NAD at rest Heart: RRR Lung: distant breath sounds Abd: soft, nontender Ext: no edema CBC, BMP 03/25/17 06:00 03/25/17 06:00 Active Medications Acetaminophen (Tylenol -) 650 mg PO Q4H PRN PRN Reason: FEVER OR PAIN Last Admin: 03/27/17 02:04 Dose: 650 mg Diphenhydramine HCl (Benadryl Injection -) 50 mg IVPB Q6H PRN PRN Reason: FOR ITCHING Ethambutol HCl (Myambutol -) 1,200 mg PO DAILY@1800 [facility] Last Admin: 03/27/17 18:18 Dose: 1,200 mg Gabapentin (Neurontin -) 100 mg PO HS [facility] Last Admin: 03/27/17 22:31 Dose: 100 mg Heparin Sodium (Porcine) (Heparin -) 5,000 unit SQ TID [facility] Last Admin: 03/28/17 06:47 Dose: 5,000 unit Meropenem 1 gm/ Dextrose 100 mls @ 100 mls/hr IVPB Q8H-IV [facility] PRN Reason: Protocol Last Admin: 03/28/17 02:28 Dose: 100 mls/hr Isoniazid (Inh -) 300 mg PO DAILY@0700 [facility] Last Admin: 03/28/17 06:46 Dose: 300 mg Losartan Potassium (Cozaar -) 50 mg PO DAILY [facility] Last Admin: 03/27/17 11:57 Dose: 50 mg Mirtazapine (Remeron -) 7.5 mg PO HS [facility] Last Admin: 03/27/17 22:31 Dose: 7.5 mg Ondansetron HCl (Zofran Odt -) 4 mg SL Q6H PRN PRN Reason: NAUSEA AND/OR VOMITING Last Admin: 03/26/17 18:26 Dose: 4 mg Oxycodone HCl (Roxicodone -) 5 mg PO Q6H PRN PRN Reason: PAIN Pantoprazole Sodium (Protonix -) 40 mg PO DAILY [facility] Last Admin: 03/27/17 11:57 Dose: 40 mg Polyethylene Glycol (Miralax (For Daily Use) -) 17 gm PO DAILY [facility] Last Admin: 03/27/17 11:57 Dose: Not Given Prednisone (Deltasone -) 5 mg PO DAILY [facility] Stop: 03/29/17 10:01 Pyrazinamide (Pyrazinamide -) 1,500 mg PO DAILY@1800 [facility] Last Admin: 03/27/17 18:18 Dose: 1,500 mg Pyridoxine HCl (Vitamin B6 -) 75 mg PO DAILY@0700 [facility] Last Admin: 03/28/17 06:47 Dose: 75 mg Rifampin (Rifadin -) 600 mg PO DAILY [facility] Last Admin: 03/27/17 11:58 Dose: 600 mg Zinc Acetate/Diphenhydramine (Benadryl 2% Cream) 1 applic TP BID [facility] Last Admin: 03/27/17 22:30 Dose: 1 applic A/P Pulmonary Tuberculosis Likely Superimposed post obstructive pneumonia Metastatic Renal Cancer Sarcoidosis on chronic steroids Lung Nodules HTN - increase benadryl to 50mg IV q6 prn - consider stopping meropenem - continue MTB treatment - monitor fever curve - continue airborne isolation for now - taper off steroids - DVT prophylaxis
[2017-03-28] MEDS: PANTOPRAZOLE 40 MG TABLET (FP) PO SCH (10:21)
[2017-03-28] MEDS: LOSARTAN POTASSIUM 50 MG TABLET (FP) PO SCH (10:21)
[2017-03-28] MEDS: predniSONE 5 MG TABLET (UD) PO SCH (10:21)
[2017-03-28] MEDS: RIFAMPIN 300 MG CAPSULE PO SCH (10:23)
[2017-03-28] MEDS: POLYETHYLENE GLYCOL 3350 119 GM BTL PO SCH (10:24)
[2017-03-28] MEDS: ETHAMBUTOL HCL 400 MG TABLET PO SCH (17:58)
[2017-03-28] MEDS: PYRAZINAMIDE 500 MG TABLET PO SCH (17:59)
[2017-03-28] MEDS: GABAPENTIN 100 MG CAPSULE (FP) PO SCH (21:43)
[2017-03-28] MEDS: MIRTAZAPINE 15 MG TABLET (FP) PO SCH (21:43)
[2017-03-29] MEDS: MEROPENEM 1 GM in DEXTROSE 5%-WATER - 100 ML IVPB SCH ×2 (01:22→10:50)
[2017-03-29] MEDS ORDERED: PT OWN MED DRAWER 7, Y5N ONE ×2 (06:15→10:04)
[2017-03-29] MEDS: ISONIAZID 300 MG TABLET (FP) PO SCH (06:30)
[2017-03-29] MEDS: PYRIDOXINE HCL (B-6) 50 MG TABLET (FP) PO SCH (06:30)
[2017-03-29] MEDS: HEPARIN NA (PORCINE) 5,000 UNITS/ML 1ML VIAL SQ SCH ×3 (06:31→22:03)
--- NOTE | 2017-03-29 10:11 | PN ---
Progress Note (short form) - Note Progress Note: PULMONARY Low grade temp overnight. Still with generalized pruritic rash, pt states it is worse after he receives the meropenem. Last Vital Signs Temp Pulse Resp BP Pulse Ox 100 F H 104 H 18 92/61 94 L 03/29/17 06:00 03/29/17 06:00 03/29/17 06:00 03/29/17 06:00 03/28/17 21:00 Gen: NAD at rest Heart: RRR Lung: distant breath sounds Abd: soft, nontender Ext: no edema CBC, BMP 03/25/17 06:00 03/25/17 06:00 Active Medications Acetaminophen (Tylenol -) 650 mg PO Q4H PRN PRN Reason: FEVER OR PAIN Last Admin: 03/27/17 02:04 Dose: 650 mg Diphenhydramine HCl (Benadryl Injection -) 50 mg IVPB Q6H PRN PRN Reason: FOR ITCHING Last Admin: 03/28/17 15:26 Dose: 50 mg Ethambutol HCl (Myambutol -) 1,200 mg PO DAILY@1800 [facility] Last Admin: 03/28/17 17:58 Dose: 1,200 mg Gabapentin (Neurontin -) 100 mg PO HS [facility] Last Admin: 03/28/17 21:43 Dose: 100 mg Heparin Sodium (Porcine) (Heparin -) 5,000 unit SQ TID [facility] Last Admin: 03/29/17 06:31 Dose: 5,000 unit Meropenem 1 gm/ Dextrose 100 mls @ 100 mls/hr IVPB Q8H-IV [facility] PRN Reason: Protocol Last Admin: 03/29/17 01:22 Dose: 100 mls/hr Isoniazid (Inh -) 300 mg PO DAILY@0700 [facility] Last Admin: 03/29/17 06:30 Dose: 300 mg Losartan Potassium (Cozaar -) 50 mg PO DAILY [facility] Last Admin: 03/28/17 10:21 Dose: 50 mg Mirtazapine (Remeron -) 7.5 mg PO HS [facility] Last Admin: 03/28/17 21:43 Dose: 7.5 mg Ondansetron HCl (Zofran Odt -) 4 mg SL Q6H PRN PRN Reason: NAUSEA AND/OR VOMITING Last Admin: 03/26/17 18:26 Dose: 4 mg Oxycodone HCl (Roxicodone -) 5 mg PO Q6H PRN PRN Reason: PAIN Pantoprazole Sodium (Protonix -) 40 mg PO DAILY [facility] Last Admin: 03/28/17 10:21 Dose: 40 mg Polyethylene Glycol (Miralax (For Daily Use) -) 17 gm PO DAILY [facility] Last Admin: 03/28/17 10:24 Dose: 17 gm Pyrazinamide (Pyrazinamide -) 1,500 mg PO DAILY@1800 [facility] Last Admin: 03/28/17 17:59 Dose: 1,500 mg Pyridoxine HCl (Vitamin B6 -) 75 mg PO DAILY@0700 [facility] Last Admin: 03/29/17 06:30 Dose: 75 mg Rifampin (Rifadin -) 600 mg PO DAILY [facility] Last Admin: 03/28/17 10:23 Dose: 600 mg Zinc Acetate/Diphenhydramine (Benadryl 2% Cream) 1 applic TP BID [facility] Last Admin: 03/28/17 21:50 Dose: 1 applic A/P Pulmonary Tuberculosis Likely Superimposed post obstructive pneumonia Metastatic Renal Cancer Sarcoidosis on chronic steroids Lung Nodules HTN - continue benadryl, will give 1 dose of medrol - consider stopping meropenem - continue MTB treatment - monitor fever curve - continue airborne isolation for now - DVT prophylaxis
[2017-03-29] MEDS: PANTOPRAZOLE 40 MG TABLET (FP) PO SCH (10:46)
[2017-03-29] MEDS: predniSONE 5 MG TABLET (UD) PO SCH (10:46)
[2017-03-29] MEDS: LOSARTAN POTASSIUM 50 MG TABLET (FP) PO SCH (10:46)
[2017-03-29] MEDS: RIFAMPIN 300 MG CAPSULE PO SCH (10:49)
[2017-03-29] MEDS: POLYETHYLENE GLYCOL 3350 119 GM BTL PO SCH (11:13)
[2017-03-29] MEDS ORDERED: methylPREDNISolone NA SUCC 40 MG/1 ML VIAL IVPB ONE ×2 (12:00→14:30)
--- NOTE | 2017-03-29 12:19 | PN ---
Progress Note, Physician Chief Complaint: Fever History of Present Illness: Pt with Hx Renal cancer, sarcoid admitted with fever, weight loss. Hospital course significant for BAL. The brush biopsy showed scattered AFB bacilli. He was started on INH/B6, Rifampin, EMB & PZA. He had nausea and weakness which improved after spacing out meds. DNA Probe of BAL Washings (+) MTB complex. Axillary Bx (+) RCC as well. He was started on Meropenem for continued fevers in the setting of an abnormal CT Scan of the Abd which showed a thickened cecum. He has been having a maculo-papular skin eruption which he feels is temporally related to Meropenem infusion. - Current Medication List Current Medications: Active Medications Acetaminophen (Tylenol -) 650 mg PO Q4H PRN PRN Reason: FEVER OR PAIN Last Admin: 03/27/17 02:04 Dose: 650 mg Diphenhydramine HCl (Benadryl Injection -) 50 mg IVPB Q6H PRN PRN Reason: FOR ITCHING Last Admin: 03/29/17 10:48 Dose: 50 mg Ethambutol HCl (Myambutol -) 1,200 mg PO DAILY@1800 [facility] Last Admin: 03/28/17 17:58 Dose: 1,200 mg Gabapentin (Neurontin -) 100 mg PO HS [facility] Last Admin: 03/28/17 21:43 Dose: 100 mg Heparin Sodium (Porcine) (Heparin -) 5,000 unit SQ TID [facility] Last Admin: 03/29/17 06:31 Dose: 5,000 unit Isoniazid (Inh -) 300 mg PO DAILY@0700 [facility] Last Admin: 03/29/17 06:30 Dose: 300 mg Losartan Potassium (Cozaar -) 50 mg PO DAILY [facility] Last Admin: 03/29/17 10:46 Dose: 50 mg Mirtazapine (Remeron -) 7.5 mg PO HS [facility] Last Admin: 03/28/17 21:43 Dose: 7.5 mg Ondansetron HCl (Zofran Odt -) 4 mg SL Q6H PRN PRN Reason: NAUSEA AND/OR VOMITING Last Admin: 03/26/17 18:26 Dose: 4 mg Oxycodone HCl (Roxicodone -) 5 mg PO Q6H PRN PRN Reason: PAIN Pantoprazole Sodium (Protonix -) 40 mg PO DAILY [facility] Last Admin: 03/29/17 10:46 Dose: 40 mg Polyethylene Glycol (Miralax (For Daily Use) -) 17 gm PO DAILY [facility] Last Admin: 03/29/17 11:13 Dose: Not Given Pyrazinamide (Pyrazinamide -) 1,500 mg PO DAILY@1800 [facility] Last Admin: 03/28/17 17:59 Dose: 1,500 mg Pyridoxine HCl (Vitamin B6 -) 75 mg PO DAILY@0700 [facility] Last Admin: 03/29/17 06:30 Dose: 75 mg Rifampin (Rifadin -) 600 mg PO DAILY [facility] Last Admin: 03/29/17 10:49 Dose: 600 mg Zinc Acetate/Diphenhydramine (Benadryl 2% Cream) 1 applic TP BID [facility] Last Admin: 03/29/17 11:01 Dose: 1 applic - Objective Vital Signs: Vital Signs Temperature 100 F H 03/29/17 06:00 Pulse Rate 104 H 03/29/17 06:00 Respiratory Rate 18 03/29/17 06:00 Blood Pressure 92/61 03/29/17 06:00 O2 Sat by Pulse Oximetry (%) 94 L 03/28/17 21:00 Constitutional: Yes: No Distress Eyes: Yes: PERRL HENT: Yes: Normocephalic Neck: Yes: Supple Cardiovascular: Yes: Regular Rate and Rhythm Respiratory: Yes: Regular, CTA Bilaterally Gastrointestinal: Yes: Normal Bowel Sounds, Soft Integumentary: Yes: Rash ( - faint maculo-papular) Labs: CBC, BMP 03/25/17 06:00 03/25/17 06:00 INR, PTT INR 1.32 (0.82-1.09) H 03/15/17 12:58 Problem List - Problems (1) Right upper lobe pneumonia Code(s): J18.1 - LOBAR PNEUMONIA, UNSPECIFIED ORGANISM (2) Pulmonary tuberculosis Code(s): A15.0 - TUBERCULOSIS OF LUNG (3) Drug-induced skin rash Code(s): L27.0 - GEN SKIN ERUPTION DUE TO DRUGS AND MEDS TAKEN INTERNALLY Assessment/Plan Patient with Hx renal cancer, sarcoid on chronic steroids, (+) PPD who is admitted with fever, weight loss and cough. Pneumonia Pulm TB ( + DNA Probe ) Continue anti-TB meds Monitor LFT's DC Meropenem..
--- NOTE | 2017-03-29 14:16 | PN ---
Physical Exam: SUBJECTIVE: Patient seen and examined. He complains of itching and intermittent cough OBJECTIVE: Vital Signs Period Temp Pulse Resp BP Sys/Parks Pulse Ox Last 24 Hr 98.6 F-100 F 90-104 18-18 92-143/61-71 94 PE Neuro: alert, awake, cn 2-12 intact Pulm:clear diminished bases + dry cough CV: s1 s2 rrr no mrg Abd: s nt nd + bs Skin: diffuse macular papular rash trunk, b/l UE and lower ext Active Medications Generic Name Dose Route Start Last Admin Trade Name Freq PRN Reason Stop Dose Admin Acetaminophen 650 mg 03/14/17 22:00 03/27/17 02:04 Tylenol - PO 650 mg Q4H PRN Administration FEVER OR PAIN Diphenhydramine HCl 50 mg 03/28/17 10:01 03/29/17 10:48 Benadryl Injection - IVPB 50 mg Q6H PRN Administration FOR ITCHING Ethambutol HCl 1,200 mg 03/22/17 18:00 03/28/17 17:58 Myambutol - PO 1,200 mg DAILY@1800 [facility] Administration Gabapentin 100 mg 03/15/17 22:00 03/28/17 21:43 Neurontin - PO 100 mg HS [facility] Administration Heparin Sodium (Porcine) 5,000 unit 03/20/17 14:00 03/29/17 06:31 Heparin - SQ 5,000 unit TID [facility] Administration Isoniazid 300 mg 03/22/17 07:00 03/29/17 06:30 Inh - PO 300 mg DAILY@0700 [facility] Administration Losartan Potassium 50 mg 03/15/17 10:00 03/29/17 10:46 Cozaar - PO 50 mg DAILY [facility] Administration Mirtazapine 7.5 mg 03/26/17 22:00 03/28/17 21:43 Remeron - PO 7.5 mg HS [facility] Administration Ondansetron HCl 4 mg 03/26/17 12:50 03/26/17 18:26 Zofran Odt - SL 4 mg Q6H PRN Administration NAUSEA AND/OR VOMITING Oxycodone HCl 5 mg 03/26/17 17:58 Roxicodone - PO Q6H PRN PAIN Pantoprazole Sodium 40 mg 03/26/17 10:00 03/29/17 10:46 Protonix - PO 40 mg DAILY [facility] Administration Polyethylene Glycol 17 gm 03/17/17 16:15 03/29/17 11:13 Miralax (For Daily Use) - PO Not Given DAILY [facility] Pyrazinamide 1,500 mg 03/22/17 18:00 03/28/17 17:59 Pyrazinamide - PO 1,500 mg DAILY@1800 [facility] Administration Pyridoxine HCl 75 mg 03/22/17 07:00 03/29/17 06:30 Vitamin B6 - PO 75 mg DAILY@0700 [facility] Administration Rifampin 600 mg 03/18/17 14:45 03/29/17 10:49 Rifadin - PO 600 mg DAILY [facility] Administration Zinc Acetate/Diphenhydramine 1 applic 03/26/17 22:00 03/29/17 11:01 Benadryl 2% Cream TP 1 applic BID [facility] Administration Assessment: 56 year old male with PMHx of HTN, s/p right lung lobectomy, sarcoid , gout, and right renal carcinoma s/p partial nephrectomy (2009). 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 Now with possible drug reaction. Plan: 1. M. tuberculosis complex - 03/16 BAL +M. tuberculosis complex, culture pending - Continue Rifampin, Ethambutol, Pyrazinamide, B6 (started 03/18), INH 03/20 2. Drug reaction - Medrol 60mg x1 - Stop meropenem for superimposed pna - Continue PRN Benadryl - d/w ID 3. Metastatic renal cell carcinoma hx 2009, s/p partial nephrectomy - 03/17 right axillary node pathology positive for metastatic renal cell carcinoma , clear type - Treat TB 4-6 weeks prior to chemo with oncology - Bone scan reviewed 4. Sarcoidosis - With mediastinal and hilar adenopathy, sarcoid v. malignancy - Final dose maintenance prednisone today 5. Concentric r/o colitis v. malignancy - 03/23 CTAP: concentric wall thickening involving the cecum and the adjacent portion of the terminal ileum, infectious v. neoplastic disease - Sees Dr. Juarez: will need colonoscopy as outpatient, no intervention during acute infection phase, CEA drawn during office visit 6. Hypertension - Continue Losartan 7. DVT ppx - Heparin TID Visit type - Emergency Visit Emergency Visit: Yes ED Registration Date: 03/14/17 Care time: The patient presented to the Emergency Department on the above date and was hospitalized for further evaluation of their emergent condition. - New Patient This patient is new to me today: No - Critical Care Critical Care patient: No
--- NOTE | 2017-03-29 16:42 | PN ---
Progress Note (short form) - Note Progress Note: Patient seen and examined. Chart reviewed. Rash improving. Constitutional: Yes: Calm, Thin Eyes: Yes: Conjunctiva Clear HENT: Yes: Atraumatic, Normocephalic Neck: Yes: Supple, Trachea Midline, Lymphadenopathy, Other (right axillary firm lymph node palpated) Cardiovascular: Yes: Regular Rate and Rhythm Respiratory: Yes: Regular, CTA Bilaterally Gastrointestinal: Yes: Normal Bowel Sounds, Soft Extremities: Yes: WNL Edema: No Last Vital Signs Temp Pulse Resp BP Pulse Ox 100 F H 104 H 18 92/61 94 L 03/29/17 06:00 03/29/17 06:00 03/29/17 06:00 03/29/17 06:00 03/28/17 21:00 CBC, BMP 03/25/17 06:00 03/25/17 06:00 Current Medications Generic Name Dose Route Start Last Admin Trade Name Freq PRN Reason Stop Dose Admin Acetaminophen 650 mg 03/14/17 22:00 03/27/17 02:04 Tylenol - PO 650 mg Q4H PRN Administration FEVER OR PAIN Diphenhydramine HCl 50 mg 03/28/17 10:01 03/29/17 10:48 Benadryl Injection - IVPB 50 mg Q6H PRN Administration FOR ITCHING Ethambutol HCl 1,200 mg 03/22/17 18:00 03/28/17 17:58 Myambutol - PO 1,200 mg DAILY@1800 [facility] Administration Gabapentin 100 mg 03/15/17 22:00 03/28/17 21:43 Neurontin - PO 100 mg HS [facility] Administration Heparin Sodium (Porcine) 5,000 unit 03/20/17 14:00 03/29/17 14:37 Heparin - SQ 5,000 unit TID [facility] Administration Isoniazid 300 mg 03/22/17 07:00 03/29/17 06:30 Inh - PO 300 mg DAILY@0700 [facility] Administration Losartan Potassium 50 mg 03/15/17 10:00 03/29/17 10:46 Cozaar - PO 50 mg DAILY [facility] Administration Mirtazapine 7.5 mg 03/26/17 22:00 03/28/17 21:43 Remeron - PO 7.5 mg HS [facility] Administration Ondansetron HCl 4 mg 03/26/17 12:50 03/26/17 18:26 Zofran Odt - SL 4 mg Q6H PRN Administration NAUSEA AND/OR VOMITING Oxycodone HCl 5 mg 03/26/17 17:58 Roxicodone - PO Q6H PRN PAIN Pantoprazole Sodium 40 mg 03/26/17 10:00 03/29/17 10:46 Protonix - PO 40 mg DAILY [facility] Administration Polyethylene Glycol 17 gm 03/17/17 16:15 03/29/17 11:13 Miralax (For Daily Use) - PO Not Given DAILY [facility] Pyrazinamide 1,500 mg 03/22/17 18:00 03/28/17 17:59 Pyrazinamide - PO 1,500 mg DAILY@1800 [facility] Administration Pyridoxine HCl 75 mg 03/22/17 07:00 03/29/17 06:30 Vitamin B6 - PO 75 mg DAILY@0700 [facility] Administration Rifampin 600 mg 03/18/17 14:45 03/29/17 10:49 Rifadin - PO 600 mg DAILY [facility] Administration Zinc Acetate/Diphenhydramine 1 applic 03/26/17 22:00 03/29/17 11:01 Benadryl 2% Cream TP 1 applic BID [facility] Administration Metastatic RCC ( clear cell) , past h/o resection of RCC Mycobactrium complex infection, on anti-mycobacterium drugs Sarcoid drug rash thrombocytosis -CT a/p with contrast reviewed,GI consult noted -bone scan negative for bony mets -tapering steroids. -thrombocytosis , likely a feature of mRCC ( seen in mRCC pts) -ID note reviewed, Treatment for at least 4-6weeks prior to chemo initiation will follow Problem List - Problems (1) Metastatic renal cell carcinoma Code(s): C64.9 - MALIGNANT NEOPLASM OF UNSP KIDNEY, EXCEPT RENAL PELVIS (2) H/O renal cell carcinoma Code(s): Z85.528 - PERSONAL HISTORY OF OTHER MALIGNANT NEOPLASM OF KIDNEY (3) Right upper lobe pneumonia Code(s): J18.1 - LOBAR PNEUMONIA, UNSPECIFIED ORGANISM (4) Sarcoidosis of lung with sarcoidosis of lymph nodes Code(s): D86.2 - SARCOIDOSIS OF LUNG WITH SARCOIDOSIS OF LYMPH NODES (5) Tuberculosis Code(s): A15.9 - RESPIRATORY TUBERCULOSIS UNSPECIFIED
[2017-03-29] MEDS: PYRAZINAMIDE 500 MG TABLET PO SCH (17:54)
[2017-03-29] MEDS: ETHAMBUTOL HCL 400 MG TABLET PO SCH (17:56)
[2017-03-29] MEDS: GABAPENTIN 100 MG CAPSULE (FP) PO SCH (22:03)
[2017-03-29] MEDS: MIRTAZAPINE 15 MG TABLET (FP) PO SCH (22:03)
[2017-03-30] MEDS: ISONIAZID 300 MG TABLET (FP) PO SCH (06:15)
[2017-03-30] MEDS: HEPARIN NA (PORCINE) 5,000 UNITS/ML 1ML VIAL SQ SCH ×2 (06:16→13:38)
[2017-03-30] MEDS: PYRIDOXINE HCL (B-6) 50 MG TABLET (FP) PO SCH (06:19)
--- NOTE | 2017-03-30 09:57 | PN ---
Progress Note (short form) - Note Progress Note: PULMONARY Meropenem discontinued with improvement of rash. Last low grade temp 100 8/ AM. +nonproductive cough that is positional. Last Vital Signs Temp Pulse Resp BP Pulse Ox 99.3 F 98 H 18 113/67 94 L 03/30/17 06:00 03/30/17 06:00 03/30/17 06:00 03/30/17 06:00 03/29/17 21:00 Gen: NAD at rest Heart: RRR Lung: distant breath sounds Abd: soft, nontender Ext: no edema CBC, BMP 03/25/17 06:00 03/25/17 06:00 Active Medications Acetaminophen (Tylenol -) 650 mg PO Q4H PRN PRN Reason: FEVER OR PAIN Last Admin: 03/27/17 02:04 Dose: 650 mg Diphenhydramine HCl (Benadryl Injection -) 50 mg IVPB Q6H PRN PRN Reason: FOR ITCHING Last Admin: 03/29/17 10:48 Dose: 50 mg Ethambutol HCl (Myambutol -) 1,200 mg PO DAILY@1800 [facility] Last Admin: 03/29/17 17:56 Dose: 1,200 mg Gabapentin (Neurontin -) 100 mg PO [facility] Last Admin: 03/29/17 22:03 Dose: 100 mg Heparin Sodium (Porcine) (Heparin -) 5,000 unit SQ TID [facility] Last Admin: 03/30/17 06:16 Dose: 5,000 unit Isoniazid (Inh -) 300 mg PO DAILY@0700 [facility] Last Admin: 03/30/17 06:15 Dose: 300 mg Losartan Potassium (Cozaar -) 50 mg PO DAILY [facility] Last Admin: 03/29/17 10:46 Dose: 50 mg Mirtazapine (Remeron -) 7.5 mg PO HS [facility] Last Admin: 03/29/17 22:03 Dose: 7.5 mg Ondansetron HCl (Zofran Odt -) 4 mg SL Q6H PRN PRN Reason: NAUSEA AND/OR VOMITING Last Admin: 03/26/17 18:26 Dose: 4 mg Oxycodone HCl (Roxicodone -) 5 mg PO Q6H PRN PRN Reason: PAIN Pantoprazole Sodium (Protonix -) 40 mg PO DAILY [facility] Last Admin: 03/29/17 10:46 Dose: 40 mg Polyethylene Glycol (Miralax (For Daily Use) -) 17 gm PO DAILY [facility] Last Admin: 03/29/17 11:13 Dose: Not Given Pyrazinamide (Pyrazinamide -) 1,500 mg PO DAILY@1800 [facility] Last Admin: 03/29/17 17:54 Dose: 1,500 mg Pyridoxine HCl (Vitamin B6 -) 75 mg PO DAILY@0700 [facility] Last Admin: 03/30/17 06:19 Dose: 75 mg Rifampin (Rifadin -) 600 mg PO DAILY [facility] Last Admin: 03/29/17 10:49 Dose: 600 mg Zinc Acetate/Diphenhydramine (Benadryl 2% Cream) 1 applic TP BID [facility] Last Admin: 03/29/17 22:08 Dose: 1 applic A/P Pulmonary Tuberculosis Likely Superimposed post obstructive pneumonia Metastatic Renal Cancer Sarcoidosis on chronic steroids Lung Nodules HTN - agree with stopping meropenem - continue MTB treatment - monitor fever curve - consider d/c home if no further temps with home isolation as last sputum AFB have been negative - DVT prophylaxis
[2017-03-30] MEDS: PANTOPRAZOLE 40 MG TABLET (FP) PO SCH (11:04)
[2017-03-30] MEDS: LOSARTAN POTASSIUM 50 MG TABLET (FP) PO SCH (11:04)
[2017-03-30] MEDS: POLYETHYLENE GLYCOL 3350 119 GM BTL PO SCH (11:06)
[2017-03-30] MEDS: RIFAMPIN 300 MG CAPSULE PO SCH (11:06)
--- NOTE | 2017-03-30 13:09 | PN ---
Physical Exam: SUBJECTIVE: Patient seen and examined. He says his rash is better, less itchy, he only coughs when he moves, cough is dry. OBJECTIVE: Vital Signs Period Temp Pulse Resp BP Sys/Parks Pulse Ox Last 24 Hr 98.8 F-99.3 F 96-101 18-18 113-115/67-74 94-96 PE Neuro: alert, awake, cn 2-12 intact Pulm:clear diminished bases + dry cough CV: s1 s2 rrr no mrg Abd: s nt nd + bs Skin: diffuse macular papular rash trunk, b/l UE and lower ext Active Medications Generic Name Dose Route Start Last Admin Trade Name Freq PRN Reason Stop Dose Admin Acetaminophen 650 mg 03/14/17 22:00 03/27/17 02:04 Tylenol - PO 650 mg Q4H PRN Administration FEVER OR PAIN Diphenhydramine HCl 50 mg 03/28/17 10:01 03/29/17 10:48 Benadryl Injection - IVPB 50 mg Q6H PRN Administration FOR ITCHING Ethambutol HCl 1,200 mg 03/22/17 18:00 03/29/17 17:56 Myambutol - PO 1,200 mg DAILY@1800 [facility] Administration Gabapentin 100 mg 03/15/17 22:00 03/29/17 22:03 Neurontin - PO 100 mg HS [facility] Administration Heparin Sodium (Porcine) 5,000 unit 03/20/17 14:00 03/30/17 06:16 Heparin - SQ 5,000 unit TID [facility] Administration Isoniazid 300 mg 03/22/17 07:00 03/30/17 06:15 Inh - PO 300 mg DAILY@0700 [facility] Administration Losartan Potassium 50 mg 03/15/17 10:00 03/30/17 11:04 Cozaar - PO 50 mg DAILY [facility] Administration Mirtazapine 7.5 mg 03/26/17 22:00 03/29/17 22:03 Remeron - PO 7.5 mg HS [facility] Administration Ondansetron HCl 4 mg 03/26/17 12:50 03/26/17 18:26 Zofran Odt - SL 4 mg Q6H PRN Administration NAUSEA AND/OR VOMITING Oxycodone HCl 5 mg 03/26/17 17:58 Roxicodone - PO Q6H PRN PAIN Pantoprazole Sodium 40 mg 03/26/17 10:00 03/30/17 11:04 Protonix - PO 40 mg DAILY [facility] Administration Polyethylene Glycol 17 gm 03/17/17 16:15 03/30/17 11:06 Miralax (For Daily Use) - PO Not Given DAILY [facility] Pyrazinamide 1,500 mg 03/22/17 18:00 03/29/17 17:54 Pyrazinamide - PO 1,500 mg DAILY@1800 [facility] Administration Pyridoxine HCl 75 mg 03/22/17 07:00 03/30/17 06:19 Vitamin B6 - PO 75 mg DAILY@0700 [facility] Administration Rifampin 600 mg 03/18/17 14:45 03/30/17 11:06 Rifadin - PO 600 mg DAILY [facility] Administration Zinc Acetate/Diphenhydramine 1 applic 03/26/17 22:00 03/30/17 11:06 Benadryl 2% Cream TP 1 applic BID [facility] Administration Assessment: 56 year old male with PMHx of HTN, s/p right lung lobectomy, sarcoid , gout, and right renal carcinoma s/p partial nephrectomy (2009). 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 Now with possible drug reaction. Plan: 1. M. tuberculosis complex - 03/16 BAL +M. tuberculosis complex, culture pending - Continue Rifampin, Ethambutol, Pyrazinamide, B6 (started 03/18), INH 03/20 2. Drug reaction - Stop meropenem 03/29 - Rash dissipating - Continue PRN Benadryl 3. Metastatic renal cell carcinoma hx 2009, s/p partial nephrectomy - 03/17 right axillary node pathology positive for metastatic renal cell carcinoma , clear type - Treat TB 4-6 weeks prior to chemo with oncology - Bone scan reviewed, no bony mets 4. Sarcoidosis - With mediastinal and hilar adenopathy, sarcoid v. malignancy - Final dose maintenance prednisone today 5. Concentric r/o colitis v. malignancy - 03/23 CTAP: concentric wall thickening involving the cecum and the adjacent portion of the terminal ileum, infectious v. neoplastic disease - Sees Dr. Juarez: will need colonoscopy as outpatient, no intervention during acute infection phase, CEA reported done in office 6. Hypertension - Continue Losartan 7. DVT ppx - Heparin TID Dispo: - D/w ID likely d/c home next week, PADMINI will need to home site visit prior to discharge, paperwork initiated Visit type - Emergency Visit Emergency Visit: Yes ED Registration Date: 03/14/17 Care time: The patient presented to the Emergency Department on the above date and was hospitalized for further evaluation of their emergent condition. - New Patient This patient is new to me today: No - Critical Care Critical Care patient: No
[2017-03-30] MEDS: ETHAMBUTOL HCL 400 MG TABLET PO SCH (17:36)
[2017-03-30] MEDS: PYRAZINAMIDE 500 MG TABLET PO SCH (17:36)
[2017-03-30] MEDS ORDERED: PT OWN MED DRAWER 7, Y5N ONE (20:44)
[2017-03-30] MEDS: MIRTAZAPINE 15 MG TABLET (FP) PO SCH (22:29)
[2017-03-30] MEDS: GABAPENTIN 100 MG CAPSULE (FP) PO SCH (22:30)
[2017-03-31] MEDS: PYRIDOXINE HCL (B-6) 50 MG TABLET (FP) PO SCH (06:19)
[2017-03-31] MEDS: ISONIAZID 300 MG TABLET (FP) PO SCH (06:19)
--- NOTE | 2017-03-31 09:40 | PN ---
Physical Exam: SUBJECTIVE: Patient seen and examined. He has gout pain to his R foot, it awoke it from sleep. No fever, no cough with movement OBJECTIVE: Vital Signs Period Temp Pulse Resp BP Sys/Parks Pulse Ox Last 24 Hr 98.6 F-98.9 F 93-107 18-20 102-123/65-72 PE Neuro: alert, awake, cn 2-12 intact Pulm: ctab CV: s1 s2 rrr no mrg Abd: s nt nd + bs Skin: clear Ext: R foot lateral tenderness mild swelling no redness Current Medications Generic Name Dose Route Start Last Admin Trade Name Freq PRN Reason Stop Dose Admin Acetaminophen 650 mg 03/14/17 22:00 03/27/17 02:04 Tylenol - PO 650 mg Q4H PRN Administration FEVER OR PAIN Enoxaparin Sodium 40 mg 03/31/17 10:00 Lovenox - SQ DAILY TAMAR Ethambutol HCl 1,200 mg 03/22/17 18:00 03/30/17 17:36 Myambutol - PO 1,200 mg DAILY@1800 [facility] Administration Isoniazid 300 mg 03/22/17 07:00 03/31/17 06:19 Inh - PO 300 mg DAILY@0700 [facility] Administration Losartan Potassium 50 mg 03/15/17 10:00 03/30/17 11:04 Cozaar - PO 50 mg DAILY [facility] Administration Mirtazapine 7.5 mg 03/26/17 22:00 03/30/17 22:29 Remeron - PO 7.5 mg HS TAMAR Administration Ondansetron HCl 4 mg 03/26/17 12:50 03/26/17 18:26 Zofran Odt - SL 4 mg Q6H PRN Administration NAUSEA AND/OR VOMITING Pantoprazole Sodium 40 mg 03/26/17 10:00 03/30/17 11:04 Protonix - PO 40 mg DAILY T[facility]AR Administration Polyethylene Glycol 17 gm 03/17/17 16:15 03/30/17 11:06 Miralax (For Daily Use) - PO Not Given DAILY [facility] Pyrazinamide 1,500 mg 03/22/17 18:00 03/30/17 17:36 Pyrazinamide - PO 1,500 mg DAILY@1800 [facility] Administration Pyridoxine HCl 75 mg 03/22/17 07:00 03/31/17 06:19 Vitamin B6 - PO 75 mg DAILY@0700 [facility] Administration Rifampin 600 mg 03/18/17 14:45 03/30/17 11:06 Rifadin - PO 600 mg DAILY [facility] Administration Zinc Acetate/Diphenhydramine 1 applic 03/26/17 22:00 03/30/17 22:31 Benadryl 2% Cream TP 1 applic BID TAMAR Administration Microbiology 03/16/17 12:30 AFB Smear Concentration - Final Bronchial Washings - Right Upper Lobe Mycobacterial Culture - Final M. Tuberculosis Complex Imaging: - 03/23 CTAP: concentric wall thickening involving the cecum and the adjacent portion of the terminal ileum, infectious v. neoplastic disease - Bone scan: no bony mets Assessment: 56 year old male with PMHx of HTN, s/p right lung lobectomy, sarcoid , gout, and right renal carcinoma s/p partial nephrectomy (2009). 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 Plan: 1. M. tuberculosis complex w +/- superimposed pna - 03/16 BAL +M. tuberculosis complex; butt sensitive cx - Continue Rifampin, Ethambutol, Pyrazinamide, B6 (started 03/18), INH 03/20 - Repeat AFB x3 required PADMINI, #1 sent today - Meropenem stopped 03/29 2. Acute gout, R foot - PT prefers to increase PO intake, if worsens will start low dose prednisone, refuses colchicine - Get Uric acid level, however may be unhelpful d/t PTZ 3. Metastatic renal cell carcinoma hx 2009, s/p partial nephrectomy - 03/17 right axillary node pathology positive for metastatic renal cell carcinoma , clear type - Treat TB 4-6 weeks prior to chemo with oncology 4. Sarcoidosis - With mediastinal and hilar adenopathy, sarcoid v. malignancy - Stopped prednisone 02/26 - Stopped neurontin 5. Drug reaction - Resolved - Stopped meropenem 03/29 6. Concentric r/o colitis v. malignancy - Sees Dr. Juarez: outpt colonoscopy as outpatient, no intervention during acute infection phase, CEA reportedly done in office 7. HTN - Losartan 50mg daily 8. Depression/appetite stimulant - Remeron 9. DVT ppx - Lovenox sq Visit type - Emergency Visit Emergency Visit: Yes ED Registration Date: 03/14/17 Care time: The patient presented to the Emergency Department on the above date and was hospitalized for further evaluation of their emergent condition. - New Patient This patient is new to me today: No - Critical Care Critical Care patient: No
--- NOTE | 2017-03-31 09:59 | PN ---
Progress Note (short form) - Note Progress Note: PULMONARY FEVER CURVE IS DOWN/APPEARS ANOREXIC AND DEPRESSED RIGHT ANKLE GOUTY FLARE 6/10 PAIN SCALE PREFERS TO HOLD OFF ON STEROIDS OR COLCHICINE AT THE MOMENT VSS ANICTERIC DISTANT BREATH SOUNDS S1S2 BS+ SOFT NO ANKLE EDEMA LABS/MEDS/NOTES/IMAGING/MICRO REVIEWED A/P Pulmonary Tuberculosis Likely Superimposed post obstructive pneumonia Metastatic Renal Cancer Sarcoidosis Lung Nodules HTN - continue MTB treatment - monitor fever curve - await ID input regarding TBC regime and length of treatment once discharged - DVT prophylaxis Aline REGALADO MD
[2017-03-31 10:29] LABS: BASOPHIL 0.8 % (0-2.0); EOSINOPHIL 9.1 % (0-4.5); MCH 26.8 pg (25.7-33.7); MCHC 32.9 g/dl (32.0-35.9); MEAN CELL VOLUME 81.6 fl (80-96); NEUTROPHILS 69.5 % (42.8-82.8); PLATELET COUNT 503 K/MM3 (134-434); RDW 15.6 % (11.9-15.9); WHITE BLOOD COUNT 7.2 K/mm3 (4.0-10.0)
[2017-03-31] MEDS: LOSARTAN POTASSIUM 50 MG TABLET (FP) PO SCH (10:39)
[2017-03-31] MEDS: POLYETHYLENE GLYCOL 3350 119 GM BTL PO SCH (10:39)
[2017-03-31] MEDS: ENOXAPARIN NA (PORCINE) 40 MG/0.4 ML DISP.SYRIN SQ SCH (10:39)
[2017-03-31] MEDS: RIFAMPIN 300 MG CAPSULE PO SCH (10:40)
[2017-03-31 11:27] LABS: ALBUMIN 2.7 g/dl (3.4-5.0); ANION GAP 10 (8-16); BILIRUBIN,TOTAL 0.6 mg/dL (0.2-1.0); CALCIUM 8.4 mg/dL (8.5-10.1); CO2 26 mmol/L (21-32); CREATININE 0.8 mg/dL (0.7-1.3); GLUCOSE,RANDOM 173 mg/dL (74-106); SGOT/AST 34 U/L (15-37); SGPT/ALT 53 U/L (12-78); TOT PROT 6.4 g/dl (6.4-8.2)
[2017-03-31 11:30] LABS: ALK PHOS 115 U/L (45-117)
[2017-03-31 12:34] LABS: URIC ACID 14.9 mg/dL (2.6-7.2)
[2017-03-31] MEDS ORDERED: predniSONE 20 MG TABLET (UD) PO ONE (18:45)
[2017-03-31] MEDS: PYRAZINAMIDE 500 MG TABLET PO SCH (18:47)
[2017-03-31] MEDS: ETHAMBUTOL HCL 400 MG TABLET PO SCH (18:47)
[2017-03-31] MEDS: ACETAMINOPHEN 325 MG TABLET (FP) PO PRN (18:47)
[2017-03-31] MEDS ORDERED: PT OWN MED DRAWER 7, Y5N ONE (20:55)
[2017-03-31] MEDS: MIRTAZAPINE 15 MG TABLET (FP) PO SCH (21:00)
[2017-04-01] MEDS: ISONIAZID 300 MG TABLET (FP) PO SCH (06:31)
[2017-04-01] MEDS: PYRIDOXINE HCL (B-6) 50 MG TABLET (FP) PO SCH (06:31)
[2017-04-01] MEDS ORDERED: PT OWN MED DRAWER 7, Y5N ONE ×3 (10:06→20:59)
[2017-04-01] MEDS: ENOXAPARIN NA (PORCINE) 40 MG/0.4 ML DISP.SYRIN SQ SCH (10:10)
[2017-04-01] MEDS: LOSARTAN POTASSIUM 50 MG TABLET (FP) PO SCH (10:10)
[2017-04-01] MEDS: RIFAMPIN 300 MG CAPSULE PO SCH (10:11)
[2017-04-01] MEDS: POLYETHYLENE GLYCOL 3350 119 GM BTL PO SCH (10:11)
--- NOTE | 2017-04-01 11:54 | PN ---
Physical Exam: SUBJECTIVE: Patient seen and examined. He says his right foot pain is much better, swelling has decrease. He is agreeable to colchicine. Family at bedside OBJECTIVE: Vital Signs Period Temp Pulse Resp BP Sys/Parks Pulse Ox Last 24 Hr 97.8 F-102.3 F 87-114 18-18 103-116/61-82 95 PE Neuro: alert, awake, cn 2-12 intact Pulm: CTAB no cough CV: s1 s2 rrr no mrg Abd: s nt nd + bs Ext: R foot dorsal mild tenderness, ROM improved, still limited compared to L Laboratory Results - last 24 hr 03/31/17 09:30 Sodium 133 L Potassium 4.1 Chloride 97 L Carbon Dioxide 26 Anion Gap 10 BUN 10 D Creatinine 0.8 Creat Clearance w eGFR > 60 Random Glucose 173 H D Uric Acid 14.9 H* D Calcium 8.4 L Total Bilirubin 0.6 AST 34 D ALT 53 D Alkaline Phosphatase 115 Total Protein 6.4 Albumin 2.7 L Active Medications Generic Name Dose Route Start Last Admin Trade Name Freq PRN Reason Stop Dose Admin Acetaminophen 650 mg 03/14/17 22:00 03/31/17 18:47 Tylenol - PO 650 mg Q4H PRN Administration FEVER OR PAIN Enoxaparin Sodium 40 mg 03/31/17 10:00 04/01/17 10:10 Lovenox - SQ 40 mg DAILY T[facility]AR Administration Ethambutol HCl 1,200 mg 03/22/17 18:00 03/31/17 18:47 Myambutol - PO 1,200 mg DAILY@1800 [facility] Administration Isoniazid 300 mg 03/22/17 07:00 04/01/17 06:31 Inh - PO 300 mg DAILY@0700 [facility] Administration Losartan Potassium 50 mg 03/15/17 10:00 04/01/17 10:10 Cozaar - PO 50 mg DAILY [facility] Administration Mirtazapine 7.5 mg 03/26/17 22:00 03/31/17 21:00 Remeron - PO 7.5 mg HS T[facility]AR Administration Ondansetron HCl 4 mg 03/26/17 12:50 03/26/17 18:26 Zofran Odt - SL 4 mg Q6H PRN Administration NAUSEA AND/OR VOMITING Polyethylene Glycol 17 gm 03/17/17 16:15 04/01/17 10:11 Miralax (For Daily Use) - PO Not Given DAILY [facility] Pyrazinamide 1,500 mg 03/22/17 18:00 03/31/17 18:47 Pyrazinamide - PO 1,500 mg DAILY@1800 [facility] Administration Pyridoxine HCl 75 mg 03/22/17 07:00 04/01/17 06:31 Vitamin B6 - PO 75 mg DAILY@0700 [facility] Administration Rifampin 600 mg 03/18/17 14:45 04/01/17 10:11 Rifadin - PO 600 mg DAILY [facility] Administration Zinc Acetate/Diphenhydramine 1 applic 03/26/17 22:00 04/01/17 10:10 Benadryl 2% Cream TP 1 applic BID TAMAR Administration Abx: - Meropenem stopped 03/29 Assessment: 56 year old male with PMHx of HTN, s/p right lung lobectomy, sarcoid , gout, and right renal carcinoma s/p partial nephrectomy (2009). 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 Plan: 1. M. tuberculosis complex w +/- superimposed pna - 03/16 BAL +M. tuberculosis complex; butt sensitive cx - Continue Rifampin, Ethambutol, Pyrazinamide, B6 (started 03/18), INH 03/20 - Repeat AFB x3 required PADMINI, 09/16 today 2. Acute gout, R foot, hx of gout - On PTZ - Improved with prednisone 30mg - Dose 0.6mg colchicine today 3. Metastatic renal cell carcinoma hx 2009, s/p partial nephrectomy - 03/17 right axillary node pathology positive for metastatic renal cell carcinoma , clear type - Treat TB 4-6 weeks prior to chemo with oncology 4. Sarcoidosis - With mediastinal and hilar adenopathy, sarcoid v. malignancy - Off prednisone 5. HTN - Low BP's - Decrease Losartan 25mg daily 6. Depression/appetite stimulant - Remeron 7. Drug reaction - Resolved 8. Concentric r/o colitis v. malignancy - Sees Dr. Juarez: outpt colonoscopy as outpatient, no intervention during acute infection phase, CEA reportedly done in office 9. DVT ppx - Lovenox sq Visit type - Emergency Visit Emergency Visit: Yes ED Registration Date: 03/14/17 Care time: The patient presented to the Emergency Department on the above date and was hospitalized for further evaluation of their emergent condition. - New Patient This patient is new to me today: No - Critical Care Critical Care patient: No
--- NOTE | 2017-04-01 12:10 | PN ---
Progress Note (short form) - Note Progress Note: PULMONARY Denies fevers or chills. No further cough. Last Vital Signs Temp Pulse Resp BP Pulse Ox 98.1 F 87 18 103/61 96 04/01/17 10:00 04/01/17 10:00 04/01/17 10:00 04/01/17 10:00 04/01/17 09:00 Gen: NAD at rest Heart: RRR Lung: distant breath sounds Abd: soft, nontender Ext: no edema CBC, BMP 03/31/17 09:30 03/31/17 09:30 Active Medications Acetaminophen (Tylenol -) 650 mg PO Q4H PRN PRN Reason: FEVER OR PAIN Last Admin: 03/31/17 18:47 Dose: 650 mg Colchicine (Colcrys -) 0.6 mg PO ONCE ONE Stop: 04/01/17 13:01 Enoxaparin Sodium (Lovenox -) 40 mg SQ DAILY [facility] Last Admin: 04/01/17 10:10 Dose: 40 mg Ethambutol HCl (Myambutol -) 1,200 mg PO DAILY@1800 [facility] Last Admin: 03/31/17 18:47 Dose: 1,200 mg Isoniazid (Inh -) 300 mg PO DAILY@0700 [facility] Last Admin: 04/01/17 06:31 Dose: 300 mg Losartan Potassium (Cozaar -) 25 mg PO DAILY [facility] Mirtazapine (Remeron -) 7.5 mg PO HS [facility] Last Admin: 03/31/17 21:00 Dose: 7.5 mg Ondansetron HCl (Zofran Odt -) 4 mg SL Q6H PRN PRN Reason: NAUSEA AND/OR VOMITING Last Admin: 03/26/17 18:26 Dose: 4 mg Polyethylene Glycol (Miralax (For Daily Use) -) 17 gm PO DAILY [facility] Last Admin: 04/01/17 10:11 Dose: Not Given Pyrazinamide (Pyrazinamide -) 1,500 mg PO DAILY@1800 [facility] Last Admin: 03/31/17 18:47 Dose: 1,500 mg Pyridoxine HCl (Vitamin B6 -) 75 mg PO DAILY@0700 [facility] Last Admin: 04/01/17 06:31 Dose: 75 mg Rifampin (Rifadin -) 600 mg PO DAILY [facility] Last Admin: 04/01/17 10:11 Dose: 600 mg Zinc Acetate/Diphenhydramine (Benadryl 2% Cream) 1 applic TP BID [facility] Last Admin: 04/01/17 10:10 Dose: 1 applic A/P Pulmonary Tuberculosis Likely Superimposed post obstructive pneumonia Metastatic Renal Cancer Sarcoidosis on chronic steroids Lung Nodules HTN - continue MTB treatment - monitor fever curve - consider d/c home if no further temps with home isolation as last sputum AFB have been negative - DVT prophylaxis
[2017-04-01] MEDS ORDERED: COLCHICINE 0.6 MG TABLET (FP) PO ONE (13:00)
--- NOTE | 2017-04-01 17:35 | PN ---
Progress Note, Physician Chief Complaint: Fever History of Present Illness: Pt with Hx Renal cancer, sarcoid admitted with fever, weight loss. Hospital course significant for BAL. The brush biopsy showed scattered AFB bacilli. He was started on INH/B6, Rifampin, EMB & PZA. He had nausea and weakness which improved after spacing out meds. DNA Probe of BAL Washings (+) MTB complex. Axillary Bx (+) RCC as well. He still has intermittent fevers, but has been less frequent. - Current Medication List Current Medications: Active Medications Acetaminophen (Tylenol -) 650 mg PO Q4H PRN PRN Reason: FEVER OR PAIN Last Admin: 03/31/17 18:47 Dose: 650 mg Enoxaparin Sodium (Lovenox -) 40 mg SQ DAILY [facility] Last Admin: 04/01/17 10:10 Dose: 40 mg Ethambutol HCl (Myambutol -) 1,200 mg PO DAILY@1800 [facility] Last Admin: 03/31/17 18:47 Dose: 1,200 mg Isoniazid (Inh -) 300 mg PO DAILY@0700 [facility] Last Admin: 04/01/17 06:31 Dose: 300 mg Losartan Potassium (Cozaar -) 25 mg PO DAILY [facility] Mirtazapine (Remeron -) 7.5 mg PO HS [facility] Last Admin: 03/31/17 21:00 Dose: 7.5 mg Ondansetron HCl (Zofran Odt -) 4 mg SL Q6H PRN PRN Reason: NAUSEA AND/OR VOMITING Last Admin: 03/26/17 18:26 Dose: 4 mg Polyethylene Glycol (Miralax (For Daily Use) -) 17 gm PO DAILY [facility] Last Admin: 04/01/17 10:11 Dose: Not Given Pyrazinamide (Pyrazinamide -) 1,500 mg PO DAILY@1800 [facility] Last Admin: 03/31/17 18:47 Dose: 1,500 mg Pyridoxine HCl (Vitamin B6 -) 75 mg PO DAILY@0700 [facility] Last Admin: 04/01/17 06:31 Dose: 75 mg Rifampin (Rifadin -) 600 mg PO DAILY [facility] Last Admin: 04/01/17 10:11 Dose: 600 mg Zinc Acetate/Diphenhydramine (Benadryl 2% Cream) 1 applic TP BID [facility] Last Admin: 04/01/17 10:10 Dose: 1 applic - Objective Vital Signs: Vital Signs Temperature 98.2 F 04/01/17 15:44 Pulse Rate 80 04/01/17 15:44 Respiratory Rate 16 04/01/17 15:44 Blood Pressure 118/72 04/01/17 15:44 O2 Sat by Pulse Oximetry (%) 96 04/01/17 09:00 Constitutional: Yes: No Distress Eyes: Yes: PERRL Neck: Yes: Supple Cardiovascular: Yes: Regular Rate and Rhythm Respiratory: Yes: CTA Bilaterally Gastrointestinal: Yes: Normal Bowel Sounds Labs: CBC, BMP 03/31/17 09:30 03/31/17 09:30 INR, PTT INR 1.32 (0.82-1.09) H 03/15/17 12:58 Problem List - Problems (1) Right upper lobe pneumonia Code(s): J18.1 - LOBAR PNEUMONIA, UNSPECIFIED ORGANISM (2) Pulmonary tuberculosis Code(s): A15.0 - TUBERCULOSIS OF LUNG (3) Drug-induced skin rash Code(s): L27.0 - GEN SKIN ERUPTION DUE TO DRUGS AND MEDS TAKEN INTERNALLY Assessment/Plan Patient with Hx renal cancer, sarcoid on chronic steroids, (+) PPD who is admitted with fever, weight loss and cough. Pneumonia Pulm TB ( + DNA Probe ) Continue anti-TB meds. Needs at least 2 months 4 ANTI-TB rx. Repeat smears (P). Need repeat AFB c/s 2 months post RX.
[2017-04-01] MEDS: PYRAZINAMIDE 500 MG TABLET PO SCH (17:59)
[2017-04-01] MEDS: ETHAMBUTOL HCL 400 MG TABLET PO SCH (17:59)
[2017-04-01] MEDS: MIRTAZAPINE 15 MG TABLET (FP) PO SCH (22:06)
[2017-04-02] MEDS: ISONIAZID 300 MG TABLET (FP) PO SCH (06:29)
[2017-04-02] MEDS: PYRIDOXINE HCL (B-6) 50 MG TABLET (FP) PO SCH (06:29)
[2017-04-02] MEDS ORDERED: PT OWN MED DRAWER 7, Y5N ONE ×3 (09:06→20:22)
[2017-04-02] MEDS: POLYETHYLENE GLYCOL 3350 119 GM BTL PO SCH (09:07)
[2017-04-02] MEDS: RIFAMPIN 300 MG CAPSULE PO SCH (09:13)
[2017-04-02] MEDS: ENOXAPARIN NA (PORCINE) 40 MG/0.4 ML DISP.SYRIN SQ SCH (09:13)
--- NOTE | 2017-04-02 09:55 | PN ---
Physical Exam: SUBJECTIVE: Patient seen and examined. He feels well, he is eating breakfast, very eager to go home. States his R foot pain has resolved OBJECTIVE: Vital Signs Period Temp Pulse Resp BP Sys/Parks Pulse Ox Last 24 Hr 98.1 F-98.2 F 80-87 16-20 102-118/61-72 96 PE Neuro: alert, awake, cn 2-12 intact Pulm: CTAB CV: s1 s2 rrr no mrg Abd: s nt nd + bs Ext: R foot tenderness- resolved, no le edema Active Medications Generic Name Dose Route Start Last Admin Trade Name Freq PRN Reason Stop Dose Admin Acetaminophen 650 mg 03/14/17 22:00 03/31/17 18:47 Tylenol - PO 650 mg Q4H PRN Administration FEVER OR PAIN Enoxaparin Sodium 40 mg 03/31/17 10:00 04/02/17 09:13 Lovenox - SQ 40 mg DAILY [facility] Administration Ethambutol HCl 1,200 mg 03/22/17 18:00 04/01/17 17:59 Myambutol - PO 1,200 mg DAILY@1800 [facility] Administration Isoniazid 300 mg 03/22/17 07:00 04/02/17 06:29 Inh - PO 300 mg DAILY@0700 [facility] Administration Losartan Potassium 25 mg 04/01/17 12:01 Cozaar - PO DAILY [facility] Mirtazapine 7.5 mg 03/26/17 22:00 04/01/17 22:06 Remeron - PO 7.5 mg HS [facility] Administration Ondansetron HCl 4 mg 03/26/17 12:50 03/26/17 18:26 Zofran Odt - SL 4 mg Q6H PRN Administration NAUSEA AND/OR VOMITING Polyethylene Glycol 17 gm 03/17/17 16:15 04/02/17 09:07 Miralax (For Daily Use) - PO Not Given DAILY [facility] Pyrazinamide 1,500 mg 03/22/17 18:00 04/01/17 17:59 Pyrazinamide - PO 1,500 mg DAILY@1800 [facility] Administration Pyridoxine HCl 75 mg 03/22/17 07:00 04/02/17 06:29 Vitamin B6 - PO 75 mg DAILY@0700 [facility] Administration Rifampin 600 mg 03/18/17 14:45 04/02/17 09:13 Rifadin - PO 600 mg DAILY [facility] Administration Zinc Acetate/Diphenhydramine 1 applic 03/26/17 22:00 04/02/17 09:15 Benadryl 2% Cream TP 1 applic BID TAMAR Administration Assessment: 56 year old male with PMHx of HTN, s/p right lung lobectomy, sarcoid , gout, and right renal carcinoma s/p partial nephrectomy (2009). 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 Plan: 1. M. tuberculosis complex w +/- superimposed pna - 03/16 BAL +M. tuberculosis complex; butt sensitive cx - Continue Rifampin, Ethambutol, Pyrazinamide, B6 (started 03/18), INH 03/20 x 2 months before deescalating - Repeat AFB x3 required PADMINI, 10/14 today 2. Acute gout, R foot, hx of gout - Resolved - colchicine 0.6mg prn 3. Metastatic renal cell carcinoma hx 2009, s/p partial nephrectomy - 03/17 right axillary node pathology positive for metastatic renal cell carcinoma , clear type - Treat TB 4-6 weeks prior to chemo with oncology 4. Sarcoidosis - With mediastinal and hilar adenopathy, sarcoid v. malignancy - Off prednisone 5. HTN - Stop losartan for hypotension 6. Depression/appetite stimulant - Remeron 7. Drug reaction - Resolved 8. Concentric r/o colitis v. malignancy - Sees Dr. Juarez: outpt colonoscopy as outpatient, no intervention during acute infection phase, CEA reportedly done in office 9. DVT ppx - Lovenox sq Dispo: - Awaiting home site visit from [facility] Visit type - Emergency Visit Emergency Visit: Yes ED Registration Date: 03/14/17 Care time: The patient presented to the Emergency Department on the above date and was hospitalized for further evaluation of their emergent condition. - New Patient This patient is new to me today: No - Critical Care Critical Care patient: No
[2017-04-02] MEDS: LOSARTAN POTASSIUM 25 MG TABLET PO SCH (10:40)
--- NOTE | 2017-04-02 10:43 | PN ---
Progress Note (short form) - Note Progress Note: PULMONARY Denies fevers or chills. Denies cough. Last Vital Signs Temp Pulse Resp BP Pulse Ox 98.2 F 84 20 102/65 96 04/02/17 06:05 04/02/17 06:05 04/02/17 06:05 04/02/17 06:05 04/01/17 21:00 Gen: NAD at rest Heart: RRR Lung: distant breath sounds Abd: soft, nontender Ext: no edema CBC, BMP 03/31/17 09:30 03/31/17 09:30 Active Medications Acetaminophen (Tylenol -) 650 mg PO Q4H PRN PRN Reason: FEVER OR PAIN Last Admin: 03/31/17 18:47 Dose: 650 mg Enoxaparin Sodium (Lovenox -) 40 mg SQ DAILY [facility] Last Admin: 04/02/17 09:13 Dose: 40 mg Ethambutol HCl (Myambutol -) 1,200 mg PO DAILY@1800 [facility] Last Admin: 04/01/17 17:59 Dose: 1,200 mg Isoniazid (Inh -) 300 mg PO DAILY@0700 [facility] Last Admin: 04/02/17 06:29 Dose: 300 mg Losartan Potassium (Cozaar -) 25 mg PO DAILY [facility] Last Admin: 04/02/17 10:40 Dose: Not Given Mirtazapine (Remeron -) 7.5 mg PO HS [facility] Last Admin: 04/01/17 22:06 Dose: 7.5 mg Ondansetron HCl (Zofran Odt -) 4 mg SL Q6H PRN PRN Reason: NAUSEA AND/OR VOMITING Last Admin: 03/26/17 18:26 Dose: 4 mg Polyethylene Glycol (Miralax (For Daily Use) -) 17 gm PO DAILY [facility] Last Admin: 04/02/17 09:07 Dose: Not Given Pyrazinamide (Pyrazinamide -) 1,500 mg PO DAILY@1800 [facility] Last Admin: 04/01/17 17:59 Dose: 1,500 mg Pyridoxine HCl (Vitamin B6 -) 75 mg PO DAILY@0700 [facility] Last Admin: 04/02/17 06:29 Dose: 75 mg Rifampin (Rifadin -) 600 mg PO DAILY [facility] Last Admin: 04/02/17 09:13 Dose: 600 mg Zinc Acetate/Diphenhydramine (Benadryl 2% Cream) 1 applic TP BID [facility] Last Admin: 04/02/17 09:15 Dose: 1 applic A/P Pulmonary Tuberculosis Likely Superimposed post obstructive pneumonia Metastatic Renal Cancer Sarcoidosis on chronic steroids Lung Nodules HTN - continue MTB treatment - f/u sensitivities - monitor fever curve - consider d/c home if no further temps with home isolation as last sputum AFB have been negative once cleared by PADMINI - DVT prophylaxis
[2017-04-02] MEDS: ETHAMBUTOL HCL 400 MG TABLET PO SCH (18:19)
[2017-04-02] MEDS: PYRAZINAMIDE 500 MG TABLET PO SCH (18:20)
[2017-04-02] MEDS: MIRTAZAPINE 15 MG TABLET (FP) PO SCH (21:23)
[2017-04-03] MEDS: PYRIDOXINE HCL (B-6) 50 MG TABLET (FP) PO SCH (06:18)
[2017-04-03] MEDS: ISONIAZID 300 MG TABLET (FP) PO SCH (06:18)
[2017-04-03] MEDS: LOSARTAN POTASSIUM 25 MG TABLET PO SCH (12:28)
[2017-04-03] MEDS: ENOXAPARIN NA (PORCINE) 40 MG/0.4 ML DISP.SYRIN SQ SCH (12:28)
[2017-04-03] MEDS: RIFAMPIN 300 MG CAPSULE PO SCH (12:30)
[2017-04-03] MEDS: POLYETHYLENE GLYCOL 3350 119 GM BTL PO SCH (12:30)
--- NOTE | 2017-04-03 12:58 | PN ---
Progress Note (short form) - Note Progress Note: PULMONARY Denies fevers or chills or cough. Wants to go home. Last Vital Signs Temp Pulse Resp BP Pulse Ox 98.8 F 78 20 110/85 96 04/03/17 09:52 04/03/17 09:52 04/03/17 09:52 04/03/17 09:52 04/02/17 21:00 Gen: NAD at rest Heart: RRR Lung: distant breath sounds Abd: soft, nontender Ext: no edema CBC, BMP 03/31/17 09:30 03/31/17 09:30 Active Medications Acetaminophen (Tylenol -) 650 mg PO Q4H PRN PRN Reason: FEVER OR PAIN Last Admin: 03/31/17 18:47 Dose: 650 mg Enoxaparin Sodium (Lovenox -) 40 mg SQ DAILY [facility] Last Admin: 04/03/17 12:28 Dose: 40 mg Ethambutol HCl (Myambutol -) 1,200 mg PO DAILY@1800 [facility] Last Admin: 04/02/17 18:19 Dose: 1,200 mg Isoniazid (Inh -) 300 mg PO DAILY@0700 [facility] Last Admin: 04/03/17 06:18 Dose: 300 mg Losartan Potassium (Cozaar -) 25 mg PO DAILY [facility] Last Admin: 04/03/17 12:28 Dose: 25 mg Mirtazapine (Remeron -) 7.5 mg PO HS [facility] Last Admin: 04/02/17 21:23 Dose: 7.5 mg Ondansetron HCl (Zofran Odt -) 4 mg SL Q6H PRN PRN Reason: NAUSEA AND/OR VOMITING Last Admin: 03/26/17 18:26 Dose: 4 mg Polyethylene Glycol (Miralax (For Daily Use) -) 17 gm PO DAILY [facility] Last Admin: 04/03/17 12:30 Dose: Not Given Pyrazinamide (Pyrazinamide -) 1,500 mg PO DAILY@1800 [facility] Last Admin: 04/02/17 18:20 Dose: 1,500 mg Pyridoxine HCl (Vitamin B6 -) 75 mg PO DAILY@0700 [facility] Last Admin: 04/03/17 06:18 Dose: 75 mg Rifampin (Rifadin -) 600 mg PO DAILY [facility] Last Admin: 04/03/17 12:30 Dose: 600 mg Zinc Acetate/Diphenhydramine (Benadryl 2% Cream) 1 applic TP BID [facility] Last Admin: 04/03/17 12:30 Dose: Not Given A/P Pulmonary Tuberculosis Likely Superimposed post obstructive pneumonia Metastatic Renal Cancer Sarcoidosis on chronic steroids Lung Nodules HTN - continue MTB treatment - f/u sensitivities - monitor fever curve - consider d/c home pending clearance by PADMINI - DVT prophylaxis
--- NOTE | 2017-04-03 13:46 | PN ---
Physical Exam: SUBJECTIVE: Patient seen and examined. He has increased pain to R bunion, no resp issues. OBJECTIVE: Vital Signs Period Temp Pulse Resp BP Sys/Parks Pulse Ox Last 24 Hr 98.4 F-100.0 F 62-101 16-20 110-130/77-85 96 PE Neuro: alert, awake, cn 2-12 intact Pulm: CTAB CV: s1 s2 rrr no mrg Abd: s nt nd + bs Ext: R bunion tender mild swelling Active Medications Generic Name Dose Route Start Last Admin Trade Name Freq PRN Reason Stop Dose Admin Acetaminophen 650 mg 03/14/17 22:00 03/31/17 18:47 Tylenol - PO 650 mg Q4H PRN Administration FEVER OR PAIN Enoxaparin Sodium 40 mg 03/31/17 10:00 04/03/17 12:28 Lovenox - SQ 40 mg DAILY [facility] Administration Ethambutol HCl 1,200 mg 03/22/17 18:00 04/02/17 18:19 Myambutol - PO 1,200 mg DAILY@1800 [facility] Administration Isoniazid 300 mg 03/22/17 07:00 04/03/17 06:18 Inh - PO 300 mg DAILY@0700 T[facility] Administration Losartan Potassium 25 mg 04/01/17 12:01 04/03/17 12:28 Cozaar - PO 25 mg DAILY [facility] Administration Mirtazapine 7.5 mg 03/26/17 22:00 04/02/17 21:23 Remeron - PO 7.5 mg HS T[facility]AR Administration Ondansetron HCl 4 mg 03/26/17 12:50 03/26/17 18:26 Zofran Odt - SL 4 mg Q6H PRN Administration NAUSEA AND/OR VOMITING Polyethylene Glycol 17 gm 03/17/17 16:15 04/03/17 12:30 Miralax (For Daily Use) - PO Not Given DAILY [facility] Pyrazinamide 1,500 mg 03/22/17 18:00 04/02/17 18:20 Pyrazinamide - PO 1,500 mg DAILY@1800 T[facility] Administration Pyridoxine HCl 75 mg 03/22/17 07:00 04/03/17 06:18 Vitamin B6 - PO 75 mg DAILY@0700 [facility] Administration Rifampin 600 mg 03/18/17 14:45 04/03/17 12:30 Rifadin - PO 600 mg DAILY TAMAR Administration Zinc Acetate/Diphenhydramine 1 applic 03/26/17 22:00 04/03/17 12:30 Benadryl 2% Cream TP Not Given BID TAMAR Assessment: 56 year old male with PMHx of HTN, s/p right lung lobectomy, sarcoid , gout, and right renal carcinoma s/p partial nephrectomy (2009). 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 Plan: 1. M. tuberculosis complex w +/- superimposed pna - 03/16 BAL +M. tuberculosis complex; butt sensitive cx - Continue Rifampin, Ethambutol, Pyrazinamide, B6 (started 03/18), INH 03/20 x 2 months before deescalating - Discharge meds sent to [facility] pharmacy per Dr. Ayon - Repeat AFB x3 sent 2. Acute gout, R foot, hx of gout - Redose colchicine 0.6mg x1 today 3. Metastatic renal cell carcinoma hx 2009, s/p partial nephrectomy - 03/17 right axillary node pathology positive for metastatic renal cell carcinoma , clear type - Treat TB 4-6 weeks prior to chemo with oncology 4. Sarcoidosis - With mediastinal and hilar adenopathy, sarcoid v. malignancy - Off prednisone 5. HTN - Stop losartan for hypotension - Restart as needed 6. Depression/appetite stimulant - Remeron 7. Drug reaction - Resolved 8. Concentric r/o colitis v. malignancy - Sees Dr. Juarez: outpt colonoscopy as outpatient, no intervention during acute infection phase, CEA reportedly done in office 9. DVT ppx - Lovenox sq Dispo: - Awaiting home site visit from [facility] Visit type - Emergency Visit Emergency Visit: Yes ED Registration Date: 03/14/17 Care time: The patient presented to the Emergency Department on the above date and was hospitalized for further evaluation of their emergent condition. - New Patient This patient is new to me today: No - Critical Care Critical Care patient: No
[2017-04-03] MEDS ORDERED: COLCHICINE 0.6 MG TABLET (FP) PO ONE (14:10)
[2017-04-03] MEDS: PYRAZINAMIDE 500 MG TABLET PO SCH (18:31)
[2017-04-03] MEDS: ETHAMBUTOL HCL 400 MG TABLET PO SCH (18:31)
[2017-04-03] MEDS: MIRTAZAPINE 15 MG TABLET (FP) PO SCH (22:46)
[2017-04-04] MEDS: PYRIDOXINE HCL (B-6) 50 MG TABLET (FP) PO SCH (06:48)
[2017-04-04] MEDS: ISONIAZID 300 MG TABLET (FP) PO SCH (06:49)
[2017-04-04] MEDS: POLYETHYLENE GLYCOL 3350 119 GM BTL PO SCH (11:47)
[2017-04-04] MEDS: ENOXAPARIN NA (PORCINE) 40 MG/0.4 ML DISP.SYRIN SQ SCH (11:47)
[2017-04-04] MEDS: RIFAMPIN 300 MG CAPSULE PO SCH (11:48)
[2017-04-04] MEDS: LOSARTAN POTASSIUM 25 MG TABLET PO SCH (11:48)
--- NOTE | 2017-04-04 12:30 | PN ---
Physical Exam: SUBJECTIVE: Patient seen and examined at bedside. Voices no complaints. Advises [facility] came to his house this morning for home inspection. OBJECTIVE: Vital Signs Period Temp Pulse Resp BP Sys/Parks Pulse Ox Last 24 Hr 98.0 F-100.3 F 79-104 18-20 97-123/53-80 GENERAL: The patient is awake, alert, and fully oriented, in no acute distress. HEAD: Normal with no signs of trauma. EYES: PERRL, extraocular movements intact, sclera anicteric, conjunctiva clear. No ptosis. LUNGS: Breath sounds equal, clear to auscultation bilaterally, no wheezes, no crackles, no accessory muscle use. HEART: Regular rate and rhythm, S1, S2 without murmur, rub or gallop. ABDOMEN: Soft, nontender, nondistended, normoactive bowel sounds, no guarding, no rebound. Well-healed surgical scar upper right flank. EXTREMITIES: 2+ pulses, warm, well-perfused, no edema. NEUROLOGICAL: Cranial nerves II through XII grossly intact. Normal speech, gait not observed. Active Medications Generic Name Dose Route Start Last Admin Trade Name Freq PRN Reason Stop Dose Admin Acetaminophen 650 mg 03/14/17 22:00 03/31/17 18:47 Tylenol - PO 650 mg Q4H PRN Administration FEVER OR PAIN Enoxaparin Sodium 40 mg 03/31/17 10:00 04/04/17 11:47 Lovenox - SQ 40 mg DAILY TAMAR Administration Ethambutol HCl 1,200 mg 03/22/17 18:00 04/03/17 18:31 Myambutol - PO 1,200 mg DAILY@1800 T[facility]AR Administration Isoniazid 300 mg 03/22/17 07:00 04/04/17 06:49 Inh - PO 300 mg DAILY@0700 TAMAR Administration Losartan Potassium 25 mg 04/01/17 12:01 04/04/17 11:48 Cozaar - PO 25 mg DAILY TAMAR Administration Mirtazapine 7.5 mg 03/26/17 22:00 04/03/17 22:46 Remeron - PO 7.5 mg HS TAMAR Administration Ondansetron HCl 4 mg 03/26/17 12:50 03/26/17 18:26 Zofran Odt - SL 4 mg Q6H PRN Administration NAUSEA AND/OR VOMITING Polyethylene Glycol 17 gm 03/17/17 16:15 04/04/17 11:47 Miralax (For Daily Use) - PO Not Given DAILY [facility] Pyrazinamide 1,500 mg 03/22/17 18:00 04/03/17 18:31 Pyrazinamide - PO 1,500 mg DAILY@1800 TAMAR Administration Pyridoxine HCl 75 mg 03/22/17 07:00 04/04/17 06:48 Vitamin B6 - PO 75 mg DAILY@0700 TAMAR Administration Rifampin 600 mg 03/18/17 14:45 04/04/17 11:48 Rifadin - PO 600 mg DAILY TAMAR Administration Zinc Acetate/Diphenhydramine 1 applic 03/26/17 22:00 04/04/17 11:49 Benadryl 2% Cream TP Not Given BID [facility] ASSESSMENT & PLAN 56 year-old male with PMH of HTN, s/p right lung lobectomy, sarcoid, gout, and right renal carcinoma s/p partial nephrectomy (2009). 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 M. tuberculosis complex --03/16 bronchial washing positive for M. tuberculosis complex --04/02 AFB positive for rare acid fast bacilli despite drug therapy --last febrile on 03/31 --continue INH, B6, rifampin, ethambutol, pyrazinamide; course of meropenem complete (03/23-->03/29) Acute gout, resolved Drug reaction to metoclopramide, resolved Sarcoidosis --with mediastinal and hilar adenopathy, sarcoid v. malignancy --prednisone tapered off Metastatic renal cell carcinoma --diagnosed 2009, s/p partial nephrectomy --03/17 right axillary node pathology positive for metastatic renal cell carcinoma, clear type --03/27 Bone Scan: increased activity left seventh rib with may be posttraumatic; no definite evidence of bony metastases --cleared for discharge by oncology; will need to treat TB for 4-6 weeks before chemotherapy Concentric r/o colitis v. malignancy --03/23 CTAP: concentric wall thickening involving the cecum and the adjacent portion of the terminal ileum, infectious v. neoplastic disease --GI consult: will need colonoscopy as outpatient, no intervention during acute infection phase Hypertension --BP well-controlled --continue Losartan F/E/N Fluids: PO intake adequate Electrolytes: replete as indicated Nutrition: sodium controlled Physical therapy- daily; reverse precautions DVT prophylaxis: lovenox, oob Dispo: awaiting clearance from [facility]. Home inspection took place earlier today. Visit type - Emergency Visit Emergency Visit: Yes ED Registration Date: 03/14/17 Care time: The patient presented to the Emergency Department on the above date and was hospitalized for further evaluation of their emergent condition. - New Patient This patient is new to me today: No - Critical Care Critical Care patient: No
--- NOTE | 2017-04-04 14:33 | PN ---
Progress Note (short form) - Note Progress Note: PULMONARY Denies fevers or chills or cough. Wants to go home. [facility] inspected his home this AM. Last Vital Signs Temp Pulse Resp BP Pulse Ox 99.6 F 79 20 97/69 94 L 04/04/17 08:37 04/04/17 08:37 04/04/17 08:37 04/04/17 08:37 04/04/17 09:00 Gen: NAD at rest Heart: RRR Lung: distant breath sounds Abd: soft, nontender Ext: no edema CBC, BMP 03/31/17 09:30 03/31/17 09:30 Active Medications Acetaminophen (Tylenol -) 650 mg PO Q4H PRN PRN Reason: FEVER OR PAIN Last Admin: 03/31/17 18:47 Dose: 650 mg Enoxaparin Sodium (Lovenox -) 40 mg SQ DAILY [facility] Last Admin: 04/04/17 11:47 Dose: 40 mg Ethambutol HCl (Myambutol -) 1,200 mg PO DAILY@1800 [facility] Last Admin: 04/03/17 18:31 Dose: 1,200 mg Isoniazid (Inh -) 300 mg PO DAILY@0700 [facility] Last Admin: 04/04/17 06:49 Dose: 300 mg Losartan Potassium (Cozaar -) 25 mg PO DAILY [facility] Last Admin: 04/04/17 11:48 Dose: 25 mg Mirtazapine (Remeron -) 7.5 mg PO HS [facility] Last Admin: 04/03/17 22:46 Dose: 7.5 mg Ondansetron HCl (Zofran Odt -) 4 mg SL Q6H PRN PRN Reason: NAUSEA AND/OR VOMITING Last Admin: 03/26/17 18:26 Dose: 4 mg Polyethylene Glycol (Miralax (For Daily Use) -) 17 gm PO DAILY [facility] Last Admin: 04/04/17 11:47 Dose: Not Given Pyrazinamide (Pyrazinamide -) 1,500 mg PO DAILY@1800 [facility] Last Admin: 04/03/17 18:31 Dose: 1,500 mg Pyridoxine HCl (Vitamin B6 -) 75 mg PO DAILY@0700 [facility] Last Admin: 04/04/17 06:48 Dose: 75 mg Rifampin (Rifadin -) 600 mg PO DAILY [facility] Last Admin: 04/04/17 11:48 Dose: 600 mg Zinc Acetate/Diphenhydramine (Benadryl 2% Cream) 1 applic TP BID [facility] Last Admin: 04/04/17 11:49 Dose: Not Given A/P Pulmonary Tuberculosis Likely Superimposed post obstructive pneumonia Metastatic Renal Cancer Sarcoidosis on chronic steroids Lung Nodules HTN - continue MTB treatment - f/u sensitivities - monitor fever curve - consider d/c home pending clearance by [facility] - DVT prophylaxis
[2017-04-04] MEDS: ETHAMBUTOL HCL 400 MG TABLET PO SCH (18:09)
[2017-04-04] MEDS: PYRAZINAMIDE 500 MG TABLET PO SCH (18:10)
--- NOTE | 2017-04-04 19:35 | PN ---
Progress Note, Physician Chief Complaint: Fever History of Present Illness: Pt with Hx Renal cancer, sarcoid admitted with fever, weight loss. Hospital course significant for BAL. The brush biopsy showed scattered AFB bacilli. He was started on INH/B6, Rifampin, EMB & PZA. He had nausea and weakness which improved after spacing out meds. DNA Probe of BAL Washings (+) MTB complex. Axillary Bx (+) RCC as well. He still has intermittent fevers, but has been less frequent. Have been in contact with [facility] - TB control and Dr. Hoffman. Home visit made and cleared for [facility]. - Current Medication List Current Medications: Active Medications Acetaminophen (Tylenol -) 650 mg PO Q4H PRN PRN Reason: FEVER OR PAIN Last Admin: 03/31/17 18:47 Dose: 650 mg Enoxaparin Sodium (Lovenox -) 40 mg SQ DAILY [facility] Last Admin: 04/04/17 11:47 Dose: 40 mg Ethambutol HCl (Myambutol -) 1,200 mg PO DAILY@1800 [facility] Last Admin: 04/04/17 18:09 Dose: 1,200 mg Isoniazid (Inh -) 300 mg PO DAILY@0700 [facility] Last Admin: 04/04/17 06:49 Dose: 300 mg Losartan Potassium (Cozaar -) 25 mg PO DAILY [facility] Last Admin: 04/04/17 11:48 Dose: 25 mg Mirtazapine (Remeron -) 7.5 mg PO HS [facility] Last Admin: 04/03/17 22:46 Dose: 7.5 mg Ondansetron HCl (Zofran Odt -) 4 mg SL Q6H PRN PRN Reason: NAUSEA AND/OR VOMITING Last Admin: 03/26/17 18:26 Dose: 4 mg Polyethylene Glycol (Miralax (For Daily Use) -) 17 gm PO DAILY [facility] Last Admin: 04/04/17 11:47 Dose: Not Given Pyrazinamide (Pyrazinamide -) 1,500 mg PO DAILY@1800 [facility] Last Admin: 04/04/17 18:10 Dose: 1,500 mg Pyridoxine HCl (Vitamin B6 -) 75 mg PO DAILY@0700 [facility] Last Admin: 04/04/17 06:48 Dose: 75 mg Rifampin (Rifadin -) 600 mg PO DAILY [facility] Last Admin: 04/04/17 11:48 Dose: 600 mg Zinc Acetate/Diphenhydramine (Benadryl 2% Cream) 1 applic TP BID [facility] Last Admin: 04/04/17 11:49 Dose: Not Given - Objective Vital Signs: Vital Signs Temperature 99 F 04/04/17 17:14 Pulse Rate 99 H 04/04/17 17:14 Respiratory Rate 20 04/04/17 17:14 Blood Pressure 111/67 04/04/17 17:14 O2 Sat by Pulse Oximetry (%) 94 L 04/04/17 09:00 Constitutional: Yes: No Distress Eyes: Yes: PERRL Neck: Yes: Supple Cardiovascular: Yes: Regular Rate and Rhythm Respiratory: Yes: CTA Bilaterally Gastrointestinal: Yes: Normal Bowel Sounds, Soft Labs: CBC, BMP 03/31/17 09:30 03/31/17 09:30 INR, PTT INR 1.32 (0.82-1.09) H 03/15/17 12:58 Problem List - Problems (1) Right upper lobe pneumonia Code(s): J18.1 - LOBAR PNEUMONIA, UNSPECIFIED ORGANISM (2) Pulmonary tuberculosis Code(s): A15.0 - TUBERCULOSIS OF LUNG (3) Drug-induced skin rash Code(s): L27.0 - GEN SKIN ERUPTION DUE TO DRUGS AND MEDS TAKEN INTERNALLY Assessment/Plan Patient with Hx renal cancer, sarcoid on chronic steroids, (+) PPD who is admitted with fever, weight loss and cough. Pneumonia Pulm TB ( + DNA Probe ) Continue anti-TB meds. Monitor LFT's Eye evaluation can be done as outpatient. Needs at least 2 months 4 ANTI-TB rx. OK for DC in AM, Home isolation except appts. He has an appointment with [facility]/TB Unit on Monday - [facility] Meds were e-prescribed to [facility] [address] Follow up in my office in 2 weeks - .
[2017-04-04] MEDS: MIRTAZAPINE 15 MG TABLET (FP) PO SCH (21:23)
[2017-04-05] MEDS ORDERED: PT OWN MED DRAWER 7, Y5N ONE (09:47)
[2017-04-05] MEDS: LOSARTAN POTASSIUM 25 MG TABLET PO SCH (09:50)
[2017-04-05] MEDS: RIFAMPIN 300 MG CAPSULE PO SCH (09:51)
[2017-04-05] MEDS: ENOXAPARIN NA (PORCINE) 40 MG/0.4 ML DISP.SYRIN SQ SCH (09:52)
[2017-04-05] MEDS: POLYETHYLENE GLYCOL 3350 119 GM BTL PO SCH ×2 (09:52→09:59)
--- NOTE | 2017-04-05 12:05 | PN ---
Progress Note (short form) - Note Progress Note: PULMONARY Denies fevers or chills or cough. Cleared by [facility] for discharge. Last Vital Signs Temp Pulse Resp BP Pulse Ox 99.9 F H 99 H 20 114/75 94 L 04/04/17 21:00 04/04/17 21:00 04/04/17 21:00 04/04/17 21:00 04/04/17 21:00 Gen: NAD at rest Heart: RRR Lung: distant breath sounds Abd: soft, nontender Ext: no edema CBC, BMP 03/31/17 09:30 03/31/17 09:30 Active Medications Acetaminophen (Tylenol -) 650 mg PO Q4H PRN PRN Reason: FEVER OR PAIN Last Admin: 03/31/17 18:47 Dose: 650 mg Enoxaparin Sodium (Lovenox -) 40 mg SQ DAILY [facility] Last Admin: 04/05/17 09:52 Dose: 40 mg Ethambutol HCl (Myambutol -) 1,200 mg PO DAILY@1800 [facility] Last Admin: 04/04/17 18:09 Dose: 1,200 mg Isoniazid (Inh -) 300 mg PO DAILY@0700 [facility] Last Admin: 04/04/17 06:49 Dose: 300 mg Losartan Potassium (Cozaar -) 25 mg PO DAILY [facility] Last Admin: 04/05/17 09:50 Dose: 25 mg Mirtazapine (Remeron -) 7.5 mg PO HS [facility] Last Admin: 04/04/17 21:23 Dose: 7.5 mg Ondansetron HCl (Zofran Odt -) 4 mg SL Q6H PRN PRN Reason: NAUSEA AND/OR VOMITING Last Admin: 03/26/17 18:26 Dose: 4 mg Polyethylene Glycol (Miralax (For Daily Use) -) 17 gm PO DAILY [facility] Last Admin: 04/05/17 09:59 Dose: Not Given Pyrazinamide (Pyrazinamide -) 1,500 mg PO DAILY@1800 [facility] Last Admin: 04/04/17 18:10 Dose: 1,500 mg Pyridoxine HCl (Vitamin B6 -) 75 mg PO DAILY@0700 [facility] Last Admin: 04/04/17 06:48 Dose: 75 mg Rifampin (Rifadin -) 600 mg PO DAILY [facility] Last Admin: 04/05/17 09:51 Dose: 600 mg Zinc Acetate/Diphenhydramine (Benadryl 2% Cream) 1 applic TP BID [facility] Last Admin: 04/05/17 09:54 Dose: Not Given A/P Pulmonary Tuberculosis Likely Superimposed post obstructive pneumonia Metastatic Renal Cancer Sarcoidosis on chronic steroids Lung Nodules HTN - continue MTB treatment - f/u sensitivities - will need outpt f/u of CT chest in 6-8 weeks, discussed with pt and family - d/c home
[2017-04-05 12:32] VITALS: BP 129/92; PULSE 100; TEMP 98.1
--- NOTE | 2017-04-05 13:15 | DS ---
Physical Exam: SUBJECTIVE: Patient seen and examined at bedside. OBJECTIVE: Vital Signs Period Temp Pulse Resp BP Sys/Parks Pulse Ox Last 24 Hr 98.1 F-99.9 F 99-100 20-20 111-129/67-92 94 PHYSICAL EXAM GENERAL: The patient is awake, alert, and fully oriented, in no acute distress. HEAD: Normal with no signs of trauma. EYES: PERRL, extraocular movements intact, sclera anicteric, conjunctiva clear. ENT: Ears normal, nares patent, oropharynx clear without exudates, moist mucous membranes. NECK: Trachea midline, full range of motion, supple. LUNGS: Breath sounds equal, clear to auscultation bilaterally, no wheezes, no crackles, no accessory muscle use. HEART: Regular rate and rhythm, S1, S2 without murmur, rub or gallop. ABDOMEN: Soft, nontender, nondistended, normoactive bowel sounds, no guarding, no rebound, no hepatosplenomegaly, no masses. EXTREMITIES: 2+ pulses, warm, well-perfused, no edema. NEUROLOGICAL: Cranial nerves II through XII grossly intact. Normal speech, steady gait. LABS CBCD WBC 7.2 K/mm3 (4.0-10.0) 03/31/17 09:30 RBC 4.52 M/mm3 (4.00-5.60) 03/31/17 09:30 Hgb 12.1 GM/dL (11.7-16.9) 03/31/17 09:30 Hct 36.9 % (35.4-49) 03/31/17 09:30 MCV 81.6 fl (80-96) 03/31/17 09:30 MCHC 32.9 g/dl (32.0-35.9) 03/31/17 09:30 RDW 15.6 % (11.9-15.9) 03/31/17 09:30 Plt Count 503 K/MM3 (134-434) H 03/31/17 09:30 MPV 7.0 fl (7.5-11.1) L 03/31/17 09:30 CMP Sodium 133 mmol/L (136-145) L 03/31/17 09:30 Potassium 4.1 mmol/L (3.5-5.1) 03/31/17 09:30 Chloride 97 mmol/L (98-107) L 03/31/17 09:30 Carbon Dioxide 26 mmol/L (21-32) 03/31/17 09:30 Anion Gap 10 (8-16) 03/31/17 09:30 BUN 10 mg/dL (7-18) D 03/31/17 09:30 Creatinine 0.8 mg/dL (0.7-1.3) 03/31/17 09:30 Creat Clearance w eGFR > 60 (>60) 03/31/17 09:30 Calcium 8.4 mg/dL (8.5-10.1) L 03/31/17 09:30 Total Bilirubin 0.6 mg/dL (0.2-1.0) 03/31/17 09:30 AST 34 U/L (15-37) D 03/31/17 09:30 ALT 53 U/L (12-78) D 03/31/17 09:30 Alkaline Phosphatase 115 U/L (45-117) 03/31/17 09:30 Total Protein 6.4 g/dl (6.4-8.2) 03/31/17 09:30 Albumin 2.7 g/dl (3.4-5.0) L 03/31/17 09:30 Microbiology 03/19/17 06:45 Sputum - Aerosol Induced AFB Smear Concentration - Final 03/19/17 06:45 Sputum - Aerosol Induced Direct Acid Fast Bacilli Smear - Final 03/19/17 06:45 Sputum - Aerosol Induced Mycobacterial Culture - Preliminary Acid Fast Bacillus 04/01/17 08:47 Sputum - Expectorated AFB Smear Concentration - Final 04/01/17 08:47 Sputum - Expectorated Direct Acid Fast Bacilli Smear - Final 04/01/17 08:47 Sputum - Expectorated Mycobacterial Culture - Preliminary 04/02/17 07:09 Sputum - Expectorated AFB Smear Concentration - Final 04/02/17 07:09 Sputum - Expectorated Direct Acid Fast Bacilli Smear - Final 04/02/17 07:09 Sputum - Expectorated Mycobacterial Culture - Preliminary 03/31/17 10:08 Sputum - Expectorated AFB Smear Concentration - Final 03/31/17 10:08 Sputum - Expectorated Direct Acid Fast Bacilli Smear - Final 03/31/17 10:08 Sputum - Expectorated Mycobacterial Culture - Preliminary 03/18/17 06:30 Sputum - Aerosol Induced AFB Smear Concentration - Final 03/18/17 06:30 Sputum - Aerosol Induced Direct Acid Fast Bacilli Smear - Final 03/18/17 06:30 Sputum - Aerosol Induced Mycobacterial Culture - Preliminary Acid Fast Bacillus 03/17/17 18:00 Sputum - Aerosol Induced AFB Smear Concentration - Final 03/17/17 18:00 Sputum - Aerosol Induced Direct Acid Fast Bacilli Smear - Final 03/17/17 18:00 Sputum - Aerosol Induced Mycobacterial Culture - Preliminary Acid Fast Bacillus 03/16/17 12:30 Bronchial Washings - Right Upper Lobe AFB Smear Concentration - Final 03/16/17 12:30 Bronchial Washings - Right Upper Lobe Mycobacterial Culture - Final M. Tuberculosis Complex 03/23/17 15:40 Blood - Peripheral Venous Blood Culture - Final NO GROWTH AFTER 5 DAYS INCUBATION 03/23/17 15:45 Blood - Peripheral Venous Blood Culture - Final NO GROWTH AFTER 5 DAYS INCUBATION 03/21/17 11:35 Blood - Peripheral Venous Blood Culture - Final NO GROWTH AFTER 5 DAYS INCUBATION 03/21/17 11:35 Blood - Peripheral Venous Blood Culture - Final NO GROWTH AFTER 5 DAYS INCUBATION 03/17/17 13:00 Lymph Node - Axillary Node AFB Smear Concentration - Final 03/17/17 13:00 Lymph Node - Axillary Node Mycobacterial Culture - Preliminary 03/17/17 13:00 Lymph Node - Axillary Node Gram Stain - Final 03/17/17 13:00 Lymph Node - Axillary Node Tissue Culture - Final 03/17/17 13:00 Lymph Node - Axillary Node Anaerobic Culture - Preliminary 03/21/17 11:00 Urine - Urine Clean Catch Urine Culture - Final NO GROWTH OBTAINED 03/15/17 06:30 Blood - Peripheral Venous TB Test (QFT) ([facility]) - Final 03/14/17 19:00 Blood - Peripheral Venous Blood Culture - Final NO GROWTH AFTER 5 DAYS INCUBATION 03/14/17 Unknown Blood - Peripheral Venous Blood Culture - Final NO GROWTH AFTER 5 DAYS INCUBATION 03/16/17 12:30 Bronchial Washings - Right Upper Lobe Gram Stain - Final 03/16/17 12:30 Bronchial Washings - Right Upper Lobe Bronchoalveolar Lavage Culture - Final 03/17/17 13:00 Lymph Node - Axillary Node MELIA Preparation - Preliminary 03/17/17 13:00 Lymph Node - Axillary Node Fungal Culture - Preliminary 03/16/17 12:30 Bronchial Washings - Right Upper Lobe MELIA Preparation - Preliminary 03/16/17 12:30 Bronchial Washings - Right Upper Lobe Fungal Culture - Preliminary 03/14/17 16:40 Urine - Urine Clean Catch Urine Culture - Final NO GROWTH OBTAINED HOSPITAL COURSE: Date of Admission:03/14/17 Date of Discharge: 04/05/17 Pre hospital course 56 year-old male with a past medical history of HTN, renal cell carcinoma s/p partial nephrectomy 2009, right upper lung lobectomy due to suspected cancer, sarcoidosis, and gout. He was sent to the ED by his PCP for admission. Patient reported a one-month history of fever and dry cough. Patient reported night sweats and weight loss of 30 pounds over 2-3 months. He reported that he always had a positive PPD as a child due to BCG. Pt also reported he had a CT of his abdomen 2 weeks previous secondary to abdominal pain and was put on flagyl for a thickening of his cecum. 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 He travelled to the [facility] in August 2016. ER course (1) fever 103 (2) WBC 15.4 (3) CXR c/w RUL pneumonia Subsequent hospital course by Problem List Imaging 03/14/17 CT chest: (1) multiple bilateral pulmonary nodules; (2) mediastinal and right hilar lymphadenopathy, and an enlarged right axillary lymph node; (3) findings highly suspicious for malignancy/metastases; (4) airspace disease in RUL extending to perihilar region with involvement of the apical segment of RLL as well as a 8mm cavity in superior margin of RUL M. tuberculosis complex --03/17, 03/18, and 03/19 AFB cultures all positive for acid fast bacilli --04/02 AFB positive for rare acid fast bacilli despite drug therapy --last febrile on 03/31 --continue INH, B6, rifampin, ethambutol, pyrazinamide; course of meropenem complete (03/23-->03/29) --cleared for discharge by [facility] Department of Health Acute gout, resolved --treated with colchicine Drug reaction to metoclopramide, resolved --treated with benadryl Sarcoidosis --with mediastinal and hilar adenopathy, sarcoid v. malignancy --prednisone tapered off Metastatic renal cell carcinoma --diagnosed 2009, s/p partial nephrectomy --03/17 right axillary node pathology positive for metastatic renal cell carcinoma, clear type --03/27 Bone Scan: increased activity left seventh rib with may be posttraumatic; no definite evidence of bony metastases --cleared for discharge by oncology; will need to treat TB for 4-6 weeks before chemotherapy Concentric r/o colitis v. malignancy --03/23 CTAP: concentric wall thickening involving the cecum and the adjacent portion of the terminal ileum, infectious v. neoplastic disease --GI consult: will need colonoscopy as outpatient, no intervention during acute infection phase Hypertension --BP well-controlled --continued Losartan Minutes to complete discharge: 45 Discharge Summary Reason For Visit: SIRS/RGT UPPER LOBE PNEUMONIA Current Active Problems Abnormal CAT scan (Acute) Drug-induced skin rash (Acute) H/O renal cell carcinoma (Acute) Lactic acidosis (Acute) Metastatic renal cell carcinoma (Acute) Pulmonary tuberculosis (Acute) Right upper lobe pneumonia (Acute) SIRS (systemic inflammatory response syndrome) (Acute) Sarcoidosis of lung with sarcoidosis of lymph nodes (Acute) Tuberculosis (Acute) Weight loss (Acute) Condition: Stable - Instructions Diet, Activity, Other Instructions: PATIENT AND AWARE TO FOLLOWUP WITH [facility] [place] ON Monday THEY WILL CALL PT at home TODAY TO VERIFY APPOINTMENT # to call [phone] or [phone] Referrals: Jeff Ayon MD [Staff Physician] - 2 Weeks Kuldeep Villafana [Primary Care Provider] - Disposition: HOME - Home Medications Comprehensive Discharge Medication List: Ambulatory Orders Gabapentin 100 mg PO HS 03/14/17 Losartan Potassium 50 mg PO DAILY 03/14/17 Ethambutol HCl [Myambutol -] 1,200 mg PO DAILY@1800 #30 tablet 04/05/17 Isoniazid [Nydrazid -] 300 mg PO DAILY@0700 #30 tablet 04/05/17 Mirtazapine [Remeron -] 7.5 mg PO HS tablet 04/05/17 Polyethylene Glycol 3350 [Miralax 119 gm Btl -] 17 gm PO DAILY bottle 04/05/17 Pyrazinamide - 1,500 mg PO DAILY@1800 #30 tablet 04/05/17 Pyridoxine HCl (B-6) [Vitamin B6 -] 75 mg PO DAILY@0700 tablet 04/05/17 Rifampin [Rifadin -] 600 mg PO DAILY #30 mg 08/23/17 This patient is new to me today: No Emergency Visit: Yes ED Registration Date: 03/14/17 Care time: The patient presented to the Emergency Department on the above date and was hospitalized for further evaluation of their emergent condition. Critical Care patient: No - Discharge Referral Referred to [facility] No
== END 2017-04-05 14:06 | disposition home or self-care (01) | DRG 167 ==
LOC: JER 14:15 → SUPCPDRO 14:15 → JERBED 21:06 → J8W 22:55
PROVIDERS: ADMIT Internal Medicine; ATTEND Nurse Practitioner Acute Care
PROC: 0B9C8ZX Drainage of Right Upper Lung Lobe, Via Natural or Artificial Opening Endoscopic, Diagnostic (ICD-10-PCS; 2017-03-16)
PROC: 0BBC8ZX Excision of Right Upper Lung Lobe, Via Natural or Artificial Opening Endoscopic, Diagnostic (ICD-10-PCS; principal; 2017-03-16 13:30)
PROC: 0XB Anatomical Regions, Upper Extremities, Excision (ICD-10-PCS; 2017-03-17)
DX: A31.0 Pulmonary mycobacterial infection (principal); C77.3 Secondary and unspecified malignant neoplasm of axilla and upper limb lymph nodes; Z68.1 Body mass index [BMI] 19.9 or less, adult; E87.2 Acidosis; R65.10 Systemic inflammatory response syndrome (SIRS) of non-infectious origin without acute organ dysfunction; Z51.89 Encounter for other specified aftercare; J18.9 Pneumonia, unspecified organism; D86.2 Sarcoidosis of lung with sarcoidosis of lymph nodes; Z85.528 Personal history of other malignant neoplasm of kidney; R63.4 Abnormal weight loss; M10.9 Gout, unspecified; Z87.891 Personal history of nicotine dependence; Z90.2 Acquired absence of lung [part of]; R59.0 Localized enlarged lymph nodes; K52.9 Noninfective gastroenteritis and colitis, unspecified; Z90.5 Acquired absence of kidney; L27.0 Generalized skin eruption due to drugs and medicaments taken internally; T45.0X5A Adverse effect of antiallergic and antiemetic drugs, initial encounter; Z79.52 Long term (current) use of systemic steroids; R91.8 Other nonspecific abnormal finding of lung field; E78.2 Mixed hyperlipidemia
CPT/HCPCS: 36415; 36600; 71010-TC; 71020-TC; 71250-TC; 74177-TC; 76000-TC; 76882; 76942-TC; 78306-TC; 80048; 80053; 80076; 81003; 82803; 82955; 83605; 83615; 83735; 84100; 84550; 85025; 85027; 85041; 85610; 85651; 86140; 86480; 86704; 87040; 87070; 87075; 87086; 87102; 87116; 87205; 87206; 87210; 87340; 88104; 88108; 88305-TC; 88341-TC; 93005; 93010; 94760; 97116-GP; 97161-GP; 99283-25; A9503; G0480; J1644

== ENCOUNTER 2017-04-16 09:07 | Inpatient (IN) | payer BC, OTHER ==
--- NOTE | 2017-04-16 09:44 | PDOC ---
History of Present Illness - General History Source: Patient Exam Limitations: No Limitations - History of Present Illness Initial Comments: 04/16/17 10:50 Patient is a 56 year old male, TB+ with a significant past medical history of renal cell carcinoma s/p partial nephrectomy 2009, R lung lobectomy upper quadrant, s/p Epigastric periumbilical left upper quadrant, sarcoidosis, gout, HTN who presents to the ED with complaints of diffuse abdominal pain beginning last night. Patient stated being given sputum test 2 weeks prior with negative results. Patient was prescribed rifampin. Patient was given colonoscopy 1 year prior in [facility], results indicating sarcoidosis within colon and lungs. Denies any urinary complaints. Denies any dysuria, hematuria. Denies any other medication. Denies chemotherapy. Denies night sweats. Denies nausea, fever, chills, chest pain, SOB. Denies headaches, lightheadedness, dizziness. Allergies: Metoclopramide HCL PMD: Dr. Villafana <Andi Boucher - Last Filed: 04/16/17 12:10> <Tahira Medeiros - Last Filed: 04/16/17 12:54> - General Chief Complaint: Pain, Acute Stated Complaint: PAIN Time Seen by Provider: 04/16/17 09:37 Past History <Andi Boucher - Last Filed: 04/16/17 12:10> - Past Medical History Cancer: Yes (Renal ca, s/p R Nephrectomy) HTN: Yes - Surgical History Abdominal Surgery: (partial right nephrectomy 2009) - Psycho/Social/Smoking Cessation Hx Anxiety: No Suicidal Ideation: No Smoking History: Former smoker Have you smoked in the past 12 months: No If you are a former smoker, when did you quit?: 2009 Information on smoking cessation initiated: No Hx Alcohol Use: No Drug/Substance Use Hx: No Substance Use Type: None <Tahira Medeiros - Last Filed: 04/16/17 12:54> - Past Medical History Allergies/Adverse Reactions: Allergies Allergy/AdvReac Type Severity Reaction Status Date / Time metoclopramide HCl Allergy Intermediate Rash Verified 04/16/17 09:13 [From Reglan] Home Medications: Ambulatory Orders Gabapentin 100 mg PO HS 03/14/17 Losartan Potassium 50 mg PO DAILY 03/14/17 Ethambutol HCl [Myambutol -] 1,200 mg PO DAILY@1800 #30 tablet 04/05/17 Isoniazid [Nydrazid -] 300 mg PO DAILY@0700 #30 tablet 04/05/17 Mirtazapine [Remeron -] 7.5 mg PO HS tablet 04/05/17 Pyrazinamide - 1,500 mg PO DAILY@1800 #30 tablet 04/05/17 Pyridoxine HCl (B-6) [Vitamin B6 -] 75 mg PO DAILY@0700 tablet 04/05/17 Rifampin [Rifadin -] 600 mg PO DAILY #30 mg 04/05/17 Review of Systems - Review of Systems Able to Perform ROS?: Yes Comments:: 04/16/17 10:50 GENERAL/CONSTITUTIONAL: No fever or chills. No weakness. HEAD, EYES, EARS, NOSE AND THROAT: No change in vision. No ear pain or discharge. No sore throat. GASTROINTESTINAL: No nausea, vomiting, diarrhea or constipation. GENITOURINARY: No dysuria, frequency, or change in urination. CARDIOVASCULAR: No chest pain or shortness of breath. RESPIRATORY: No cough, wheezing, or hemoptysis. MUSCULOSKELETAL: + Diffuse Abdominal pain. No joint or muscle swelling. No neck or back pain. SKIN: No rash NEUROLOGIC: No headache, vertigo, loss of consciousness, or change in strength/ sensation. ENDOCRINE: No increased thirst. No abnormal weight change. HEMATOLOGIC/LYMPHATIC: No anemia, easy bleeding, or history of blood clots. ALLERGIC/IMMUNOLOGIC: No hives or skin allergy. All Other Systems: Reviewed and Negative <Andi Boucher - Last Filed: 04/16/17 12:10> *Physical Exam - Vital Signs Last Vital Signs Temp Pulse Resp BP Pulse Ox 97.9 F 114 H 19 130/97 99 04/16/17 09:13 04/16/17 09:13 04/16/17 09:13 04/16/17 09:13 04/16/17 09:13 - Physical Exam Comments: 04/16/17 10:51 GENERAL: + Acute distress. Awake, alert, and fully oriented HEAD: No signs of trauma EYES: PERRLA, EOMI, sclera anicteric, conjunctiva clear ENT: Auricles normal inspection, hearing grossly normal, nares patent, oropharynx clear without exudates. Moist mucosa NECK: Normal ROM, supple, no lymphadenopathy, JVD, or masses LUNGS: Breath sounds equal, clear to auscultation bilaterally. No wheezes, and no crackles HEART: Regular rate and rhythm, normal S1 and S2, no murmurs, rubs or gallops ABDOMEN: + Epigastric periumbilical left upper quadrant. Soft, nontender, normoactive bowel sounds. No guarding, no rebound. No masses EXTREMITIES: Normal range of motion, no edema. No clubbing or cyanosis. No cords, erythema, or tenderness NEUROLOGICAL: Cranial nerves II through XII grossly intact. Normal speech, normal gait SKIN: Warm, Dry, normal turgor, no rashes or lesions noted. <Andi Boucher - Last Filed: 04/16/17 12:10> - Vital Signs Last Vital Signs Temp Pulse Resp BP Pulse Ox 97.9 F 114 H 19 130/97 99 04/16/17 09:13 04/16/17 09:13 04/16/17 09:13 04/16/17 09:13 04/16/17 09:13 <Tahira Medeiros - Last Filed: 04/16/17 12:54> ED Treatment Course - LABORATORY CBC & Chemistry Diagram: 04/16/17 09:40 04/16/17 09:56 - ADDITIONAL ORDERS Additional order review: Laboratory Results 04/16/17 04/16/17 09:58 09:56 Sodium 139 Potassium 4.6 Chloride 101 Carbon Dioxide 25 Anion Gap 13 BUN 9 Creatinine 1.0 D Creat Clearance w eGFR > 60 Random Glucose 134 H D Lactic Acid 1.7 Calcium 9.4 Total Bilirubin 0.8 D AST 65 H D ALT 68 D Alkaline Phosphatase 115 Total Protein 7.6 Albumin 3.3 L D Lipase 137 04/16/17 09:40 RBC 5.13 MCV 81.8 MCHC 33.0 RDW 16.1 H MPV 6.8 L Neutrophils % 84.3 H D Lymphocytes % 4.8 L D Monocytes % 8.7 Eosinophils % 1.3 D Basophils % 0.9 - Medications Given in the ED: ED Medications Discontinued Medications Generic Name Dose Route Start Last Admin Trade Name Freq PRN Reason Stop Dose Admin Morphine Sulfate 4 mg 04/16/17 09:54 04/16/17 10:11 Morphine Injection - IVPUSH 04/16/17 09:55 4 mg ONCE ONE Administration Ondansetron HCl 4 mg 04/16/17 09:54 04/16/17 10:11 Zofran Injection IVPUSH 04/16/17 09:55 4 mg ONCE ONE Administration Sodium Chloride 1,000 ml 04/16/17 09:54 04/16/17 10:11 Normal Saline - IV 04/16/17 09:55 1,000 ml ONCE ONE Administration <Andi Boucher - Last Filed: 04/16/17 12:10> - LABORATORY CBC & Chemistry Diagram: 04/16/17 09:40 04/16/17 09:56 <Tahira Medeiros - Last Filed: 04/16/17 12:54> Medical Decision Making - Medical Decision Making 04/16/17 12:10 Called [facility] on boni; @12:04pm. Awaiting Call back. <Andi Boucher - Last Filed: 04/16/17 12:10> - Medical Decision Making 04/16/17 10:45 56yo male with diffuse abd pain x 1 day assoc with n/v. currently being treated for active TB, recent sputum cx was negative, on rifampin and INH -concern for pancreatitis, colitis, diverticulitis, hx of ileitis in past, hx of RCC in past - no chemo yet, hx of partial nephrectomy -labs -ct abd/pelvis -pain control -nausea control -ivf hydration 04/16/17 11:01 re-eval: pt feeling better. resting comfortably, no vomiting. mild elevation in WBC, AST, normal lactate. Pending CT abd/pelvis 04/16/17 12:[address] Costello from who will be down to eval the patient. recommends medicine admission given other active medical issues. 04/16/17 12:30 microblog sent to , awaiting call back 04/16/17 12:54 case discussed with Hui from who accepts pt to service Patient and family updated, agrees to stay for further eval and tx <Tahira Medeiros - Last Filed: 04/16/17 12:54> *DC/Admit/Observation/Transfer - Attestations Scribe Attestion: 04/16/17 10:52 Documentation prepared by Andi Boucher, acting as medical lab specialist for Tahira Medeiros DO, MD. <Andi Boucher - Last Filed: 04/16/17 12:10> - Discharge Dispostion Admit: Yes - Attestations Physician Attestion: 04/16/17 10:47 I, Dr. Tahira Medeiros DO, attest that this document has been prepared under my direction and personally reviewed by me in its entirety. I further attest, that it accurately reflects all work, treatment, procedures and medical decision -making performed by me. <Tahira Medeiros - Last Filed: 04/16/17 12:54> Diagnosis at time of Disposition: SBO (small bowel obstruction), Enteritis, Tuberculosis, Pulmonary tuberculosis , H/O renal cell carcinoma, Sarcoidosis of lung with sarcoidosis of lymph nodes - Discharge Dispostion Condition at time of disposition: Guarded - Referrals Referrals: Kuldeep Villafana [Primary Care Provider] -
[2017-04-16] MEDS ORDERED: SODIUM CHLORIDE 0.9% 1000 ML INFUS.BAG IV ONE ×2 (09:54→11:33)
[2017-04-16] MEDS ORDERED: ONDANSETRON 4 MG/2 ML VIAL IVPUSH ONE (09:54)
[2017-04-16] MEDS ORDERED: morphine CARPU-JECT 4 MG/1 ML DISP.SYRIN IVPUSH ONE (09:54)
[2017-04-16] MEDS ORDERED: ONDANSETRON 4 MG/2 ML VIAL ONE (10:04)
[2017-04-16] MEDS ORDERED: morphine CARPU-JECT 4 MG/1 ML DISP.SYRIN ONE (10:04)
[2017-04-16 10:06] LABS: BASOPHIL 0.9 % (0-2.0); EOSINOPHIL 1.3 % (0-4.5); MEAN CELL VOLUME 81.8 fl (80-96); MEAN PLT VOLUME 6.8 fl (7.5-11.1); NEUTROPHILS 84.3 % (42.8-82.8); PLATELET COUNT 585 K/MM3 (134-434); RDW 16.1 % (11.9-15.9); WHITE BLOOD COUNT 10.8 K/mm3 (4.0-10.0)
[2017-04-16 10:32] LABS: ALBUMIN 3.3 g/dl (3.4-5.0); ANION GAP 13 (8-16); BILIRUBIN,TOTAL 0.8 mg/dL (0.2-1.0); CALCIUM 9.4 mg/dL (8.5-10.1); CO2 25 mmol/L (21-32); GLUCOSE,RANDOM 134 mg/dL (74-106); SGPT/ALT 68 U/L (12-78); TOT PROT 7.6 g/dl (6.4-8.2)
[2017-04-16 10:33] LABS: ALK PHOS 115 U/L (45-117)
[2017-04-16 10:43] LABS: SGOT/AST 65 U/L (15-37)
--- NOTE | 2017-04-16 13:10 | HP ---
CHIEF COMPLAINT: Abdominal pain PCP: Dr. Corley HISTORY OF PRESENT ILLNESS: This is a 56 year old male with a history of HTN, gout, metastatic renal carcinoma (right axillary node, ?rib) s/p partial nephrectomy in 2009 and RUL lobectomy, pulmonary and colonic sarcoidosis, and active tuberculosis (admitted here 03/14/17-04/05/17, discharged on INH, B, rifampin, ethambutol, pyrazinamide in consultation with [facility]). Of note, he had been treated with Flagyl 2 weeks prior to that admission for abdominal pain with thickening of his cecum noted on CT. He presented to the ED today complaining of abdominal pain and inability to have BM or pass flatus since last night. ER course was notable for: (1) CTAP with IV contrast: Significant thickening of the cecal wall again seen suggestive of inflammatory vs infectious vs infiltrative process. Interval worsening of stranding of perinephric fat and interval moderte amount of free fluid/ascites in the RLQ and pelvis. Suggestion of thickening of the terminal ileum wall.Moderate dilation of the proximal and mid small bowel loops consistent with mid to distal small bowel obstruction. There are significantly thickened and dilated mid small bowel loops in the lower abdomen and pelvis stranding of the surrounding fat consisent with inflammatory vs. infectious process. (2) WBC 10.8 Recent Travel: [facility] Aug 2016 PAST MEDICAL HISTORY: As above PAST SURGICAL HISTORY: Partial nephrectomy, lobectomy Social History: Lives with . 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 Smoking: Quit 2009 Alcohol: Occasional Drugs: None Family History: Non-contributory Allergies metoclopramide HCl [From Reglan] Allergy (Intermediate, Verified 04/16/17 09:13) Rash HOME MEDICATIONS: Home Medications Medication Instructions Recorded Gabapentin 100 mg PO HS 03/14/17 Losartan Potassium 50 mg PO DAILY 03/14/17 Ethambutol HCl [Myambutol -] 1,200 mg PO DAILY@1800 #30 tablet 04/05/17 Isoniazid [Nydrazid -] 300 mg PO DAILY@0700 #30 tablet 04/05/17 Mirtazapine [Remeron -] 7.5 mg PO HS tablet 04/05/17 Pyrazinamide - 1,500 mg PO DAILY@1800 #30 tablet 04/05/17 Pyridoxine HCl (B-6) [Vitamin B6 -] 75 mg PO DAILY@0700 tablet 04/05/17 Rifampin [Rifadin -] 600 mg PO DAILY #30 mg 04/05/17 REVIEW OF SYSTEMS CONSTITUTIONAL: Generalized weakness, malaise, loss of appetite, weight loss Absent: fever, chills HEENT: Absent: rhinorrhea, nasal congestion, throat pain, throat swelling, difficulty swallowing, mouth swelling, ear pain, eye pain, visual changes CARDIOVASCULAR: Absent: chest pain, syncope, palpitations, irregular heart rate, lightheadedness , peripheral edema RESPIRATORY: Dry cough Absent: shortness of breath, dyspnea with exertion, orthopnea, wheezing, stridor , hemoptysis GASTROINTESTINAL: See HPI GENITOURINARY: Absent: dysuria, frequency, urgency, hesitancy, hematuria, flank pain, genital pain MUSCULOSKELETAL: Absent: myalgia, arthralgia, joint swelling, back pain, neck pain SKIN: Absent: rash, itching, pallor HEMATOLOGIC/IMMUNOLOGIC: Absent: easy bleeding, easy bruising, lymphadenopathy, frequent infections ENDOCRINE: Absent: unexplained weight gain, heat intolerance, cold intolerance NEUROLOGIC: Absent: headache, focal weakness or paresthesias, dizziness, unsteady gait, seizure, mental status changes, bladder or bowel incontinence PSYCHIATRIC: Absent: anxiety, depression, suicidal or homicidal ideation, hallucinations. PHYSICAL EXAMINATION GENERAL: Awake, alert, and fully oriented, in no acute distress. HEAD: Normal with no signs of trauma. EYES: Pupils equal, round and reactive to light, extraocular movements intact, sclera anicteric, conjunctiva clear. No lid lag. EARS, NOSE, THROAT: Ears normal, nares patent, oropharynx clear without exudates. Moist mucous membranes. NECK: Normal range of motion, supple without lymphadenopathy, JVD, or masses. LUNGS: Breath sounds equal, clear to auscultation bilaterally. No wheezes, and no crackles. No accessory muscle use. HEART: Regular rate and rhythm, normal S1 and S2 without murmur, rub or gallop. ABDOMEN: Soft, no focal tenderness, not distended, bowel sounds present all 4 quadrants, no guarding, no rebound, no masses. No hepatomegaly or splenomegaly. MUSCULOSKELETAL: Normal range of motion at all joints. No bony deformities or tenderness. No CVA tenderness. UPPER EXTREMITIES: 2+ pulses, warm, well-perfused. No cyanosis. No clubbing. No peripheral edema. LOWER EXTREMITIES: 2+ pulses, warm, well-perfused. No calf tenderness. No peripheral edema. NEUROLOGICAL: Cranial nerves II-XII intact. Normal speech. Normal gait. PSYCHIATRIC: Cooperative. Good eye contact. Appropriate mood and affect. SKIN: Warm, dry, normal turgor, no rashes or lesions noted, normal capillary refill. ASSESSMENT/PLAN: 56 year old male with active TB, admitted with severe ileitis vs. SBO. Problem List - Problem (1) SBO (small bowel obstruction) Assessment/Plan: -Vs ileitis; TB ileitis is on the differential -NGT to low intermittent suction -Zofran prn nausea -Zosyn/Flagyl for ileitis -Stool studies if able -IVF -NPO -Likely CTAP with contrast via NGT tomorrow Code(s): K56.69 - OTHER INTESTINAL OBSTRUCTION (2) Tuberculosis Assessment/Plan: -Discussed with Dr. Ayon. Should remain on isolation precautions, but no contraindication to surgical procedure should it be needed (had 3 negative smears [although 04/03 says rare AFB?] here prior to discharge with one additional as an outpatient) -Will need to hold TB meds until can take PO -ID will follow Code(s): A15.9 - RESPIRATORY TUBERCULOSIS UNSPECIFIED (3) HTN (hypertension) Assessment/Plan: -At goal -Observe off medications while NPO Code(s): I10 - ESSENTIAL (PRIMARY) HYPERTENSION (4) DVT prophylaxis Assessment/Plan: -[facility] Code(s): XTW5182 - Visit type - Emergency Visit Emergency Visit: Yes ED Registration Date: 04/16/17 Care time: The patient presented to the Emergency Department on the above date and was hospitalized for further evaluation of their emergent condition. - New Patient This patient is new to me today: Yes Date on this admission: 04/16/17 - Critical Care Critical Care patient: No
[2017-04-16 13:45] VITALS: BMI 18.8
[2017-04-16 14:26] LABS: URINE APPEARANCE CLEAR; URINE BILIRUBIN NEGATIVE (NEGATIVE); URINE BLOOD NEGATIVE (NEGATIVE); URINE COLOR AMBER; URINE GLUCOSE (UA) NEGATIVE (NEGATIVE); URINE KETONE 2+ (NEGATIVE); URINE LEUK ESTERASE NEGATIVE (NEGATIVE); URINE NITRITE NEGATIVE (NEGATIVE); URINE PROTEIN NEGATIVE (NEGATIVE); URINE UROBILINOGEN NEGATIVE mg/dL (0.2-1.0)
[2017-04-16] MEDS ORDERED: PIPERACILLIN/TAZOB 4.5 GM/100 ML PRE-DOCKED IVPB SCH (15:15)
[2017-04-16] MEDS ORDERED: HEPARIN NA (PORCINE) 5,000 UNITS/ML 1ML VIAL ONE (15:40)
[2017-04-16] MEDS ORDERED: METRONIDAZOLE 500 MG PREMIXED 100 ML IVPB ONE (15:41)
--- NOTE | 2017-04-16 15:41 | CONSULT ---
Consult Consult Specialty:: General Surgery Referred by:: Dr. Medeiros Reason for Consultation:: SBO, enteritis - History of Present Illness Chief Complaint: epigastric pain associated w/N/V, diarrhea History of Present Illness: 56yo M with h/o R renal cell CA s/p lap partial nephrectomy 2009, found with met to R axillary LN last month, sarcoid diagnosed on R lung open wedge biopsy 2012 and reportedly (per pt) noted on colonoscopy last year, on steroids/ prednisone since 2012 until last month (tapered off in hospital), pulmonary TB diagnosed last month in hospital by bronchoscopy (M. TB) on INH, Rifampin, Ethambutol, Pyrazinimide (d/c home 04/05/17 with restrictions on outings), presents with N/V starting yesterday midday after eating, associated with squeezing epigastric pain that eventually got better but returned periodically all through last night, and looser stool/diarrhea since yesterday pm (was normal /formed day before), no F/C. Pain is better after morphine in ER. Still with some nausea, could not take oral contrast for CT. In ER, wbc 10.8, lact 1.7, UA + ketones only; CT with IV contrast showed small bowel dilation and wall thickening with stranding consistent with enteritis and mid-distal SBO, also cecal and TI wall thickening/inflammation but not gross appendicitis, free fluid in RLQ and pelvis, no free air. Previous CT in early March showed some cecal and terminal ileitis as well, but less than currently. He is on airborne precautions and admitted to medicine. Surgery is consulted regarding the SBO and enteritis. - History Source History Provided By: Patient, Medical Record Limitations to Obtaining History: No Limitations - Past Medical History Cardio/Vascular: Yes: HTN Pulmonary: Yes: Other (sarcoidosis (R wedge lung bx 2012), TB on 4-drug treatment since last month) Hepatobiliary: Yes: Hepatitis B (per lab hx is positive for core Ab) Renal/: Yes: Cancer (s/p lap partial R nephrectomy 2009, metastatic to R ax LN by bx last month) Infectious Disease: Yes: Tuberculosis (on treatment) Rheumatology: Yes: Gout (R hallux flare last month, better now) Additional Medical History: Hx Sarcoid on chronic steroids since 2012 - tapered off Pred 10mg/d last month while in hospital - Past Surgical History Past Surgical History: Yes: Colonoscopy (2016 - polyps (not cancer) and reportedly sarcoid), Nephrectomy (laparoscopic - Partial (R) 2009) Additional Surgical History: R lung wedge biopsy (open) 2012 for sarcoid dx - Alcohol/Substance Use Hx Alcohol Use: Yes (rare) History of Substance Use: reports: None - Smoking History Smoking history: Former smoker Have you smoked in the past 12 months: No If you are a former smoker, when did you quit?: 2009 - Social History Usual Living Arrangement: With Spouse Home Medications - Allergies Allergies/Adverse Reactions: Allergies Allergy/AdvReac Type Severity Reaction Status Date / Time metoclopramide HCl Allergy Intermediate Rash Verified 04/16/17 15:43 [From Reglan] - Home Medications Home Medications: Ambulatory Orders Gabapentin 100 mg PO HS 03/14/17 Losartan Potassium 50 mg PO DAILY 03/14/17 Ethambutol HCl [Myambutol -] 1,200 mg PO DAILY@1800 #30 tablet 04/05/17 Isoniazid [Nydrazid -] 300 mg PO DAILY@0700 #30 tablet 04/05/17 Mirtazapine [Remeron -] 7.5 mg PO HS tablet 04/05/17 Pyrazinamide - 1,500 mg PO DAILY@1800 #30 tablet 04/05/17 Pyridoxine HCl (B-6) [Vitamin B6 -] 75 mg PO DAILY@0700 tablet 04/05/17 Rifampin [Rifadin -] 600 mg PO DAILY #30 mg 04/05/17 Family Disease History - Family Disease History Family History: Unremarkable Review of Systems - Review of Systems Constitutional: denies: Chills, Fever Eyes: denies: Blurred Vision, Recent Change in Vision HENT: denies: Difficult Swallowing, Throat Pain Neck: denies: Pain on Movement, Stiffness Cardiovascular: denies: Chest Pain, Palpitations Respiratory: reports: Cough (dry). denies: SOB Gastrointestinal: reports: Abdominal Pain (with hpi), Diarrhea (with hpi only), Nausea (with hpi), Vomiting (with hpi). denies: Constipation Genitourinary: denies: Burning, Dysuria, Flank Pain Musculoskeletal: reports: Joint Pain (with gout at times, R hallux/metatarsal better since last month (had one dose colchicine last month)). denies: Back Pain, Muscle Pain Integumentary: denies: Change in Color, Rash Neurological: denies: Dizziness, Headache Physical Exam Vital Signs: Vital Signs Temperature 97.9 F 04/16/17 09:13 Pulse Rate 85 04/16/17 13:30 Respiratory Rate 18 04/16/17 13:30 Blood Pressure 120/81 04/16/17 13:30 O2 Sat by Pulse Oximetry (%) 97 04/16/17 13:30 Constitutional: Yes: Well Nourished, No Distress, Calm Eyes: Yes: Conjunctiva Clear, EOM Intact HENT: Yes: Atraumatic, Normocephalic Neck: Yes: Supple, Trachea Midline Cardiovascular: Yes: Regular Rate and Rhythm. No: Murmur Respiratory: Yes: Regular, CTA Bilaterally Gastrointestinal: Yes: Normal Bowel Sounds, Soft. No: Distention, Tenderness ( at my exam) ...Rectal Exam: Yes: Deferred Renal/: No: CVA Tenderness - Left, CVA Tenderness - Right Musculoskeletal: No: Back Pain, Joint Swelling Extremities: No: Cool, Cyanosis Edema: No Peripheral Pulses WNL: Yes Integumentary: No: Jaundice, Rash Neurological: Yes: Alert, Oriented Psychiatric: Yes: Alert, Oriented Labs: CBCD WBC 10.8 K/mm3 (4.0-10.0) H D 04/16/17 09:40 RBC 5.13 M/mm3 (4.00-5.60) 04/16/17 09:40 Hgb 13.9 GM/dL (11.7-16.9) D 04/16/17 09:40 Hct 42.0 % (35.4-49) 04/16/17 09:40 MCV 81.8 fl (80-96) 04/16/17 09:40 MCHC 33.0 g/dl (32.0-35.9) 04/16/17 09:40 RDW 16.1 % (11.9-15.9) H 04/16/17 09:40 Plt Count 585 K/MM3 (134-434) H 04/16/17 09:40 MPV 6.8 fl (7.5-11.1) L 04/16/17 09:40 CMP Sodium 139 mmol/L (136-145) 04/16/17 09:56 Potassium 4.6 mmol/L (3.5-5.1) 04/16/17 09:56 Chloride 101 mmol/L (98-107) 04/16/17 09:56 Carbon Dioxide 25 mmol/L (21-32) 04/16/17 09:56 Anion Gap 13 (8-16) 04/16/17 09:56 BUN 9 mg/dL (7-18) 04/16/17 09:56 Creatinine 1.0 mg/dL (0.7-1.3) D 04/16/17 09:56 Creat Clearance w eGFR > 60 (>60) 04/16/17 09:56 Calcium 9.4 mg/dL (8.5-10.1) 04/16/17 09:56 Total Bilirubin 0.8 mg/dL (0.2-1.0) D 04/16/17 09:56 AST 65 U/L (15-37) H D 04/16/17 09:56 ALT 68 U/L (12-78) D 04/16/17 09:56 Alkaline Phosphatase 115 U/L (45-117) 04/16/17 09:56 Total Protein 7.6 g/dl (6.4-8.2) 04/16/17 09:56 Albumin 3.3 g/dl (3.4-5.0) L D 04/16/17 09:56 lact 1.7 Imaging - Results Cat Scan: Report Reviewed (mid-SB dilation to 3.5cm with wall thickening, stranding, also cecal and terminal ileal inflammation with fluid in RLQ and pelvis, appendix partially visualized without gross appendicitis, diverticulosis , no free air, bilateral pulmonary nodules in visualized lower lungs), Image Reviewed Problem List - Problems (1) SBO (small bowel obstruction) Assessment/Plan: admitted to medicine NPO/IVF/NGT placed by me in ER with scant clear output initially, secured at 66cm at right nare CT was done with IV but no PO contrast will leave NG to suction today tomorrow, will plan for oral contrast via NGT with f/u AXR and possibly repeat CT to see if contrast passes into colon Code(s): K56.69 - OTHER INTESTINAL OBSTRUCTION (2) Enteritis presumed infectious Assessment/Plan: etiology unclear - infectious? TB? inflammatory? sarcoid-related? malignant? renal cell CA met to R axillary node, but unlikely to SB NPO/IVF/NGT may be contributing to bowel dilation/obstruction will check stool for culture, O&P, C diff IV antibiotics per ID - likely Zosyn, Flagyl to start if obstruction clears on f/u imaging, would remove NGT and treat primarily for enteritis/gastroenteritis Code(s): A09 - INFECTIOUS GASTROENTERITIS AND COLITIS, UNSPECIFIED (3) Pulmonary tuberculosis Assessment/Plan: on 4-drug treatment since last month had 3 AFB smears 03/31- prior to discharge - one was positive for rare AFB seen on smear per ID, has also had one negative smear since discharge home remains on airborne precautions in hospital need to hold TB meds while NPO if/when not obstructed by imaging and NG removed, can resume with sips of water ID on board Code(s): A15.0 - TUBERCULOSIS OF LUNG (4) Metastatic renal cell carcinoma Assessment/Plan: met to R axillary LN diagnosed last month tx deferred at this time Code(s): C64.9 - MALIGNANT NEOPLASM OF UNSP KIDNEY, EXCEPT RENAL PELVIS Qualifiers: Laterality: right Qualified Code(s): C64.1 - Malignant neoplasm of right kidney, except renal pelvis; C79.9 - Secondary malignant neoplasm of unspecified site (5) Sarcoidosis of lung Assessment/Plan: steroids tapered off last month in hospital reportedly thought to have sarcoid noted on colonoscopy last year as well had planned to f/u with GI after TB treatment completed Code(s): D86.0 - SARCOIDOSIS OF LUNG (6) HTN (hypertension) Assessment/Plan: treat prn while npo for now Code(s): I10 - ESSENTIAL (PRIMARY) HYPERTENSION Qualifiers: Hypertension type: unspecified Qualified Code(s): I10 - Essential ( primary) hypertension
[2017-04-16] MEDS: HEPARIN NA (PORCINE) 5,000 UNITS/ML 1ML VIAL SQ SCH ×2 (15:52→21:17)
[2017-04-16] MEDS: SODIUM CHLORIDE 1,000 ML IV SCH ×2 (15:52→21:19)
[2017-04-16] MEDS: METRONIDAZOLE 500 MG PREMIXED 100 ML IVPB SCH (15:52)
[2017-04-16] MEDS ORDERED: PIPERACILLIN/TAZOB 4.5 GM/100 ML PRE-DOCKED IVPB ONE (16:00)
[2017-04-16] MEDS ORDERED: ETHAMBUTOL HCL 400 MG TABLET PO SCH (18:00)
[2017-04-16] MEDS ORDERED: PYRAZINAMIDE 500 MG TABLET PO SCH (18:00)
[2017-04-16] MEDS: GABAPENTIN 100 MG CAPSULE (FP) PO SCH (21:17)
[2017-04-16] MEDS: MIRTAZAPINE 15 MG TABLET (FP) PO SCH (21:17)
[2017-04-16] MEDS: FAMOTIDINE 20 MG/50 ML IVPB 50 ML IVPB SCH (22:00)
[2017-04-17] MEDS: morphine CARPU-JECT 4 MG/1 ML DISP.SYRIN IVPUSH PRN ×2 (01:09→09:56)
[2017-04-17] MEDS: METRONIDAZOLE 500 MG PREMIXED 100 ML IVPB SCH ×4 (02:43→20:45)
[2017-04-17] MEDS: HEPARIN NA (PORCINE) 5,000 UNITS/ML 1ML VIAL SQ SCH ×3 (06:57→21:59)
[2017-04-17] MEDS ORDERED: ISONIAZID 300 MG TABLET (FP) PO SCH (07:00)
[2017-04-17] MEDS ORDERED: PYRIDOXINE HCL (B-6) 50 MG TABLET (FP) PO SCH (07:00)
[2017-04-17 08:31] LABS: BASOPHIL 0.7 % (0-2.0); EOSINOPHIL 3.8 % (0-4.5); MCHC 32.6 g/dl (32.0-35.9); MEAN CELL VOLUME 82.9 fl (80-96); MEAN PLT VOLUME 6.6 fl (7.5-11.1); NEUTROPHILS 81.6 % (42.8-82.8); PLATELET COUNT 451 K/MM3 (134-434); RDW 16.2 % (11.9-15.9); WHITE BLOOD COUNT 8.7 K/mm3 (4.0-10.0)
[2017-04-17 08:55] LABS: ALBUMIN 2.5 g/dl (3.4-5.0); ANION GAP 13 (8-16); CALCIUM 7.9 mg/dL (8.5-10.1); CO2 22 mmol/L (21-32); GLUCOSE,RANDOM 83 mg/dL (74-106); MAGNESIUM 2.2 mg/dL (1.8-2.4)
[2017-04-17 08:59] LABS: ALK PHOS 76 U/L (45-117); BILIRUBIN,TOTAL 0.9 mg/dL (0.2-1.0); CREATININE 0.8 mg/dL (0.7-1.3); SGOT/AST 83 U/L (15-37); SGPT/ALT 86 U/L (12-78); TOT PROT 5.6 g/dl (6.4-8.2)
[2017-04-17] MEDS: FAMOTIDINE 20 MG/50 ML IVPB 50 ML IVPB SCH ×2 (09:17→21:56)
[2017-04-17] MEDS ORDERED: HYDROmorphone HCL CARPU-JECT 1 MG/1 ML DISP.SYRIN IVPB ONE (09:45)
[2017-04-17] MEDS ORDERED: RIFAMPIN 300 MG CAPSULE PO SCH (10:00)
[2017-04-17] MEDS ORDERED: LOSARTAN POTASSIUM 50 MG TABLET (FP) PO SCH (10:00)
--- NOTE | 2017-04-17 10:39 | PN ---
Progress Note, Physician Chief Complaint: epigastric pain with n/v History of Present Illness: Pt seen and examined in bed. NGT with 410 total recorded since placement, scant output in canister. Pt without nausea, c/o dry mouth and epigastric pain that comes and goes. He describes it as gathering from the lower midline up into the epigastrium then "it stops there, and last several minutes, then goes away." Pain medication does relieve it. No fevers. He did have a "normal" BM in the toilet, stool studies not yet sent. - Current Medication List Current Medications: Active Medications Gabapentin (Neurontin -) 100 mg PO HS ON LICENSE OF [facility] Last Admin: 04/16/17 21:17 Dose: Not Given Heparin Sodium (Porcine) (Heparin -) 5,000 unit SQ TID TAAMR Last Admin: 04/17/17 06:57 Dose: 5,000 unit Sodium Chloride (Normal Saline -) 1,000 mls @ 75 mls/hr IV ASDIR TAMAR Stop: 04/18/17 03:49 Last Admin: 04/16/17 21:19 Dose: 75 mls/hr Metronidazole (Flagyl 500mg Premixed Ivpb -) 100 mls @ 100 mls/hr IVPB Q6H-IV TAMAR Last Admin: 04/17/17 09:17 Dose: 100 mls/hr Famotidine/Sodium Chloride (Pepcid 20 Mg Premixed Ivpb -) 50 mls @ 100 mls/hr IVPB BID TAMAR Last Admin: 04/17/17 09:17 Dose: 100 mls/hr Mirtazapine (Remeron -) 7.5 mg PO HS ON LICENSE OF [facility] Last Admin: 04/16/17 21:17 Dose: Not Given Morphine Sulfate (Morphine Injection -) 2 mg IVPUSH Q4H PRN PRN Reason: PAIN Last Admin: 04/17/17 09:56 Dose: 2 mg Ondansetron HCl (Zofran Injection) 4 mg IVPB Q6H PRN PRN Reason: NAUSEA Piperacillin Sod/Tazobactam Sod (Zosyn 4.5gm Ivpb (Pre-Docked)) 4.5 gm IVPB Q8H -IV TAMAR - Objective Vital Signs: Vital Signs Temperature 99.2 F 04/17/17 05:45 Pulse Rate 83 04/17/17 05:45 Respiratory Rate 16 04/17/17 05:45 Blood Pressure 141/94 04/17/17 05:45 O2 Sat by Pulse Oximetry (%) 98 04/16/17 21:00 Vital Signs Period Temp Pulse Resp BP Sys/Parks Pulse Ox Last 24 Hr 98.7 F-99.6 F 78-97 16-20 120-142/68-98 97-98 Intake & Output 04/16/17 04/17/17 04/17/17 23:59 07:59 15:59 Intake Total 200 650 Output Total 160 250 Balance 40 400 Intake: IV 650 Normal Saline - 1,000 ml 650 @ 75 mls/hr IV ASDIR TAMAR Rx#:[id number] IVPB 200 Output: Gastric Drainage 160 250 Other: Voiding Method Urinal Bowel Movement No No Constitutional: Yes: Well Nourished, No Distress, Calm Cardiovascular: Yes: Regular Rate and Rhythm. No: Murmur Respiratory: Yes: Regular, CTA Bilaterally Gastrointestinal: Yes: Soft, Hypoactive Bowel Sounds, Tenderness, Epigastrium ( no guarding or tympany). No: Distention, Tenderness, Rebound Neurological: Yes: Alert, Oriented Labs: CBC, BMP 04/17/17 07:25 04/17/17 07:25 CMP Sodium 145 mmol/L (136-145) 04/17/17 07:25 Potassium 3.9 mmol/L (3.5-5.1) 04/17/17 07:25 Chloride 110 mmol/L (98-107) H 04/17/17 07:25 Carbon Dioxide 22 mmol/L (21-32) 04/17/17 07:25 Anion Gap 13 (8-16) 04/17/17 07:25 BUN 6 mg/dL (7-18) L D 04/17/17 07:25 Creatinine 0.8 mg/dL (0.7-1.3) 04/17/17 07:25 Creat Clearance w eGFR > 60 (>60) 04/17/17 07:25 Random Glucose 83 mg/dL (74-106) D 04/17/17 07:25 Lactic Acid 1.7 mmol/L (0.4-2.0) 04/16/17 09:58 Calcium 7.9 mg/dL (8.5-10.1) L 04/17/17 07:25 Magnesium 2.2 mg/dL (1.8-2.4) 04/17/17 07:25 Total Bilirubin 0.9 mg/dL (0.2-1.0) 04/17/17 07:25 AST 83 U/L (15-37) H D 04/17/17 07:25 ALT 86 U/L (12-78) H D 04/17/17 07:25 Alkaline Phosphatase 76 U/L (45-117) D 04/17/17 07:25 Total Protein 5.6 g/dl (6.4-8.2) L D 04/17/17 07:25 Albumin 2.5 g/dl (3.4-5.0) L D 04/17/17 07:25 Lipase 137 U/L (73-393) 04/16/17 09:56 wbc normal Na/Cl slightly up - ....Imaging Chest X-ray: Report Reviewed (from yesterday) Problem List - Problems (1) SBO (small bowel obstruction) Assessment/Plan: NPO/IVF/NGT will give oral contrast via NGT with f/u AXR if contrast in colon, would remove NGT, continue NPO/IVF except for TB meds with sips of water only and continue abx for enteritis if contrast not in colon after 4-5 hrs, will repeat CT to evaluate site of obstruction and enteritis and continue NG to suction recommend strict I/O's - need to monitor fluid balance Code(s): K56.69 - OTHER INTESTINAL OBSTRUCTION (2) Enteritis presumed infectious Assessment/Plan: etiology unclear - infectious? TB? inflammatory? sarcoid-related? malignant? renal cell CA met to R axillary node, but unlikely to SB NPO/IVF/NGT may be contributing to bowel dilation/obstruction need to send stool for culture, O&P, (C diff if still loose/liquid) IV antibiotics per ID - on Zosyn, Flagyl if obstruction clears on f/u imaging, would remove NGT and treat primarily for enteritis/gastroenteritis keep NPO until no pain or tenderness on exam Code(s): A09 - INFECTIOUS GASTROENTERITIS AND COLITIS, UNSPECIFIED (3) Pulmonary tuberculosis Assessment/Plan: on 4-drug treatment since last month had 3 AFB smears 03/31- prior to discharge - one was positive for rare AFB seen on smear per ID, has also had one negative smear since discharge home remains on airborne precautions in hospital need to hold TB meds while NPO if/when not obstructed by imaging and NG removed, can resume with sips of water ID on board Code(s): A15.0 - TUBERCULOSIS OF LUNG (4) Metastatic renal cell carcinoma Assessment/Plan: met to R axillary LN diagnosed last month tx deferred at this time Code(s): C64.9 - MALIGNANT NEOPLASM OF UNSP KIDNEY, EXCEPT RENAL PELVIS Qualifiers: Laterality: right Qualified Code(s): C64.1 - Malignant neoplasm of right kidney, except renal pelvis; C79.9 - Secondary malignant neoplasm of unspecified site (5) Sarcoidosis of lung Assessment/Plan: steroids tapered off last month in hospital reportedly thought to have sarcoid noted on colonoscopy last year as well had planned to f/u with GI after TB treatment completed Code(s): D86.0 - SARCOIDOSIS OF LUNG (6) HTN (hypertension) Assessment/Plan: treat prn while npo for now Code(s): I10 - ESSENTIAL (PRIMARY) HYPERTENSION Qualifiers: Hypertension type: unspecified Qualified Code(s): I10 - Essential ( primary) hypertension
[2017-04-17] MEDS: ONDANSETRON 4 MG/2 ML VIAL IVPB PRN (11:56)
[2017-04-17] MEDS: SODIUM CHLORIDE 1,000 ML IV SCH (14:47)
--- NOTE | 2017-04-17 15:41 | CONSULT ---
Consult Consult Specialty:: Infectious Diseases Reason for Consultation:: Pulmonary TB - History of Present Illness Chief Complaint: Nausea, vomiting and abdominal pain - History Source History Provided By: Patient Limitations to Obtaining History: No Limitations - Past Medical History Cardio/Vascular: Yes: HTN Pulmonary: Yes: Other (sarcoidosis (R wedge lung bx 2012), TB on 4-drug treatment since last month) Hepatobiliary: Yes: Hepatitis B (per lab hx is positive for core Ab) Renal/: Yes: Cancer (s/p lap partial R nephrectomy 2009, metastatic to R ax LN by bx last month) Infectious Disease: Yes: Tuberculosis (on treatment) Rheumatology: Yes: Gout (R hallux flare last month, better now) Additional Medical History: Hx Sarcoid on chronic steroids since 2012 - tapered off Pred 10mg/d last month while in hospital - Past Surgical History Past Surgical History: Yes: Colonoscopy (2015 - polyps (not cancer) and reportedly sarcoid), Nephrectomy (laparoscopic - Partial (R) 2009) Additional Surgical History: R lung wedge biopsy (open) 2012 for sarcoid dx - Alcohol/Substance Use Hx Alcohol Use: Yes (rare) History of Substance Use: reports: None - Smoking History Smoking history: Former smoker Have you smoked in the past 12 months: No If you are a former smoker, when did you quit?: 2009 - Social History Usual Living Arrangement: With Spouse Home Medications - Allergies Allergies/Adverse Reactions: Allergies Allergy/AdvReac Type Severity Reaction Status Date / Time metoclopramide HCl Allergy Intermediate Rash Verified 04/16/17 15:43 [From Reglan] - Home Medications Home Medications: Ambulatory Orders Gabapentin 100 mg PO HS 03/14/17 Losartan Potassium 50 mg PO DAILY 03/14/17 Ethambutol HCl [Myambutol -] 1,200 mg PO DAILY@1800 #30 tablet 04/05/17 Isoniazid [Nydrazid -] 300 mg PO DAILY@0700 #30 tablet 04/05/17 Mirtazapine [Remeron -] 7.5 mg PO HS tablet 04/05/17 Pyrazinamide - 1,500 mg PO DAILY@1800 #30 tablet 04/05/17 Pyridoxine HCl (B-6) [Vitamin B6 -] 75 mg PO DAILY@0700 tablet 04/05/17 Rifampin [Rifadin -] 600 mg PO DAILY #30 mg 04/05/17 Review of Systems - Review of Systems Constitutional: denies: Chills, Fever, Night Sweats Cardiovascular: denies: Chest Pain Respiratory: denies: Cough Gastrointestinal: reports: Abdominal Pain, Nausea, Vomiting Neurological: reports: No Symptoms Physical Exam Vital Signs: Vital Signs Temperature 98.1 F 04/17/17 14:33 Pulse Rate 80 04/17/17 14:33 Respiratory Rate 18 04/17/17 14:33 Blood Pressure 131/88 04/17/17 14:33 O2 Sat by Pulse Oximetry (%) 96 04/17/17 09:00 Constitutional: Yes: No Distress, Calm Eyes: Yes: PERRL HENT: Yes: Atraumatic Neck: Yes: Supple Cardiovascular: Yes: Regular Rate and Rhythm Respiratory: Yes: Regular, CTA Bilaterally Gastrointestinal: Yes: Soft. No: Tenderness Labs: CBC, BMP 04/17/17 07:25 04/17/17 07:25 Imaging - Results Chest X-ray: Report Reviewed X-ray: Report Reviewed Problem List - Problems (1) Pulmonary tuberculosis Code(s): A15.0 - TUBERCULOSIS OF LUNG (2) SBO (small bowel obstruction) Code(s): K56.69 - OTHER INTESTINAL OBSTRUCTION (3) H/O renal cell carcinoma Code(s): Z85.528 - PERSONAL HISTORY OF OTHER MALIGNANT NEOPLASM OF KIDNEY Assessment/Plan Patient with Hx metastatic RCC, Pulm Sarcoidosis, Pulm TB with enteritis ? Exacerbation sarcoidosis, TB enteritis Xray shows contrast in small bowel, (R) and transverse colon Restart TB meds Agree Zosyn/Flagyl.
--- NOTE | 2017-04-17 16:39 | PN ---
Physical Exam: SUBJECTIVE: Patient seen and examined at bedside. Complains of 6/10 abdominal pain. present. OBJECTIVE: Vital Signs Period Temp Pulse Resp BP Sys/Parks Pulse Ox Last 24 Hr 98.1 F-99.6 F 78-97 16-20 124-147/68-98 96-98 GENERAL/NEURO: A&Ox3. Cranial nerves II through XII grossly intact. Normal speech. HEAD: Normal with no signs of trauma. LUNGS: CTA HEART: Regular rate and rhythm, S1, S2 without murmur, rub or gallop. ABDOMEN: Soft, diffusely tender, normoactive bowel sounds EXTREMITIES: 2+ pulses, warm, well-perfused, no edema. Laboratory Results - last 24 hr 04/17/17 04/17/17 07:25 07:25 WBC 8.7 RBC 4.22 Hgb 11.4 L D Hct 35.0 L D MCV 82.9 MCH 27.0 MCHC 32.6 RDW 16.2 H Plt Count 451 H D MPV 6.6 L Neutrophils % 81.6 Lymphocytes % 5.6 L Monocytes % 8.3 Eosinophils % 3.8 D Basophils % 0.7 Sodium 145 Potassium 3.9 Chloride 110 H Carbon Dioxide 22 Anion Gap 13 BUN 6 L D Creatinine 0.8 Creat Clearance w eGFR > 60 Random Glucose 83 D Calcium 7.9 L Magnesium 2.2 Total Bilirubin 0.9 AST 83 H D ALT 86 H D Alkaline Phosphatase 76 D Total Protein 5.6 L D Albumin 2.5 L D Active Medications Generic Name Dose Route Start Last Admin Trade Name Freq PRN Reason Stop Dose Admin Gabapentin 100 mg 04/16/17 22:00 04/16/17 21:17 Neurontin - PO Not Given HS TAMAR Heparin Sodium (Porcine) 5,000 unit 04/16/17 15:00 04/17/17 14:45 Heparin - SQ 5,000 unit TID TAMAR Administration Sodium Chloride 1,000 mls @ 75 mls/hr 04/16/17 14:30 04/17/17 14:47 Normal Saline - IV 04/18/17 03:49 75 mls/hr ASDIR TAMAR Administration Metronidazole 100 mls @ 100 mls/hr 04/16/17 15:15 04/17/17 14:45 Flagyl 500mg Premixed Ivpb - IVPB 100 mls/hr Q6H-IV TAMAR Administration Famotidine/Sodium Chloride 50 mls @ 100 mls/hr 04/16/17 22:00 04/17/17 09:17 Pepcid 20 Mg Premixed Ivpb - IVPB 100 mls/hr BID TAMAR Administration Mirtazapine 7.5 mg 04/16/17 22:00 04/16/17 21:17 Remeron - PO Not Given HS TAMAR Morphine Sulfate 2 mg 04/16/17 14:22 04/17/17 09:56 Morphine Injection - IVPUSH 2 mg Q4H PRN Administration PAIN Ondansetron HCl 4 mg 04/16/17 14:22 04/17/17 11:56 Zofran Injection IVPB 4 mg Q6H PRN Administration NAUSEA Piperacillin Sod/Tazobactam Sod 4.5 gm 04/16/17 18:00 Zosyn 4.5gm Ivpb (Pre-Docked) IVPB Q8H-IV [facility] ASSESSMENT/PLAN: 56 year-old male with PMH of HTN, active pulmonary tuberculosis, sarcoid, gout, and metastatic renal cell carcinoma s/p partial nephrectomy (2009). Admitted for SBO. SBO --04/16 CTAP: significant thickening of cecal wall; worsening stranding of perinephric fat and moderate free fluid/ascites in RLQ and pelvis; SBO; dilated small loops in lower abdomen and pelvis --etiology uncertain: TB enteritis v. exacerbation of sarcoidosis v. malignancy v. 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 Full Code. Visit type - Emergency Visit Emergency Visit: Yes ED Registration Date: 04/16/17 Care time: The patient presented to the Emergency Department on the above date and was hospitalized for further evaluation of their emergent condition. - New Patient This patient is new to me today: Yes Date on this admission: 04/17/17 - Critical Care Critical Care patient: No
[2017-04-17] MEDS: PIPERACILLIN/TAZOB 4.5 GM/100 ML PRE-DOCKED IVPB SCH (19:47)
[2017-04-17] MEDS ORDERED: PIPERACILLIN/TAZOBACTAM 4.5 GM VIAL IVPB ONE (19:51)
[2017-04-17] MEDS ORDERED: DEXTROSE 5%-WATER 100 ML IVPB ONE (19:51)
[2017-04-17] MEDS: PIPERACILLIN/TAZOB 4.5 GM 4.5 GM in DEXTROSE 5%-WATER 100 ML IVPB SCH (19:59)
[2017-04-17] MEDS: MIRTAZAPINE 15 MG TABLET (FP) PO SCH (21:57)
[2017-04-17] MEDS: GABAPENTIN 100 MG CAPSULE (FP) PO SCH (21:57)
--- NOTE | 2017-04-17 22:15 | EKG ---
Test Reason : Blood Pressure : / mmHG Vent. Rate : 078 BPM Atrial Rate : 078 BPM P-R Int : 156 ms QRS Dur : 072 ms QT Int : 380 ms P-R-T Axes : 063 062 031 degrees QTc Int : 433 ms NORMAL SINUS RHYTHM NORMAL ECG WHEN COMPARED WITH ECG OF 14-MAR-2017 21:29, NO SIGNIFICANT CHANGE WAS FOUND Confirmed by SHYLA MOE MD ([id number]) on 04/17/2017 10:15:34 PM Referred By: Confirmed By:SHYLA MOE MD
[2017-04-18] MEDS ORDERED: PIPERACILLIN/TAZOBACTAM 4.5 GM VIAL IVPB ONE ×3 (01:05→18:18)
[2017-04-18] MEDS ORDERED: DEXTROSE 5%-WATER 100 ML IVPB ONE ×3 (01:05→18:18)
[2017-04-18] MEDS: PIPERACILLIN/TAZOB 4.5 GM 4.5 GM in DEXTROSE 5%-WATER 100 ML IVPB SCH ×3 (01:22→18:19)
[2017-04-18] MEDS: METRONIDAZOLE 500 MG PREMIXED 100 ML IVPB SCH ×5 (02:22→21:06)
[2017-04-18] MEDS: HEPARIN NA (PORCINE) 5,000 UNITS/ML 1ML VIAL SQ SCH ×3 (06:11→21:21)
[2017-04-18] MEDS: FAMOTIDINE 20 MG/50 ML IVPB 50 ML IVPB SCH ×2 (09:39→21:25)
[2017-04-18 09:49] LABS: BASOPHIL 0.6 % (0-2.0); EOSINOPHIL 5.8 % (0-4.5); MCH 26.9 pg (25.7-33.7); MCHC 32.7 g/dl (32.0-35.9); MEAN CELL VOLUME 82.3 fl (80-96); MEAN PLT VOLUME 6.6 fl (7.5-11.1); NEUTROPHILS 78.5 % (42.8-82.8); PLATELET COUNT 392 K/MM3 (134-434); RDW 16.2 % (11.9-15.9); WHITE BLOOD COUNT 8.2 K/mm3 (4.0-10.0)
[2017-04-18] MEDS: PIPERACILLIN/TAZOB 4.5 GM/100 ML PRE-DOCKED IVPB SCH ×2 (09:51→14:24)
[2017-04-18 10:11] LABS: ALBUMIN 2.5 g/dl (3.4-5.0); ANION GAP 12 (8-16); CO2 23 mmol/L (21-32); CREATININE 0.9 mg/dL (0.7-1.3); GLUCOSE,RANDOM 71 mg/dL (74-106); MAGNESIUM 2.1 mg/dL (1.8-2.4); PHOSPHOROUS 1.9 mg/dL (2.5-4.9); SGPT/ALT 104 U/L (12-78)
[2017-04-18 10:15] LABS: ALK PHOS 72 U/L (45-117); BILIRUBIN,TOTAL 0.8 mg/dL (0.2-1.0); SGOT/AST 90 U/L (15-37); TOT PROT 5.3 g/dl (6.4-8.2)
[2017-04-18] MEDS ORDERED: ETHAMBUTOL HCL 400 MG TABLET PO SCH (10:30)
[2017-04-18] MEDS ORDERED: PYRAZINAMIDE 500 MG TABLET PO SCH (10:30)
--- NOTE | 2017-04-18 11:58 | PN ---
Progress Note, Physician Chief Complaint: epigastric pain with n/v History of Present Illness: Pt seen and examined in bed. No overnight events. Pt denies pain at this time. No BM yet (denies earlier in hosp), but now feels like could go. Has had flatus. No N/V with NG clamped yesterday. AXR done this am with all contrast in colon. Tube removed at bedside. Nurse will obtain stool sample. - Current Medication List Current Medications: Active Medications Ethambutol HCl (Myambutol -) 1,200 mg PO DAILY@1800 [facility] Gabapentin (Neurontin -) 100 mg PO [facility] Last Admin: 04/17/17 21:57 Dose: 100 mg Heparin Sodium (Porcine) (Heparin -) 5,000 unit SQ TID [facility] Last Admin: 04/18/17 06:11 Dose: 5,000 unit Metronidazole (Flagyl 500mg Premixed Ivpb -) 100 mls @ 100 mls/hr IVPB Q6H-IV [facility] Last Admin: 04/18/17 09:38 Dose: 100 mls/hr Famotidine/Sodium Chloride (Pepcid 20 Mg Premixed Ivpb -) 50 mls @ 100 mls/hr IVPB BID [facility] Last Admin: 04/18/17 09:39 Dose: 100 mls/hr Piperacillin Sod/Tazobactam (Sod 4.5 gm/ Dextrose) 100 mls @ 200 mls/hr IVPB Q8H-IV [facility] Last Admin: 04/18/17 09:38 Dose: 200 mls/hr Dextrose/Sodium Chloride (D5-1/2ns -) 1,000 mls @ 125 mls/hr IV ASDIR [facility] Isoniazid (Inh -) 300 mg PO DAILY [facility] Mirtazapine (Remeron -) 7.5 mg PO [facility] Last Admin: 04/17/17 21:57 Dose: 7.5 mg Morphine Sulfate (Morphine Injection -) 2 mg IVPUSH Q4H PRN PRN Reason: PAIN Last Admin: 04/17/17 09:56 Dose: 2 mg Ondansetron HCl (Zofran Injection) 4 mg IVPB Q6H PRN PRN Reason: NAUSEA Last Admin: 04/17/17 11:56 Dose: 4 mg Pyrazinamide (Pyrazinamide -) 1,500 mg PO DAILY@1800 [facility] Pyridoxine HCl (Vitamin B6 -) 75 mg PO DAILY [facility] Rifampin (Rifadin -) 600 mg PO DAILY [facility] - Objective Vital Signs: Vital Signs Temperature 98.8 F 04/18/17 07:15 Pulse Rate 81 04/18/17 07:15 Respiratory Rate 18 04/18/17 07:15 Blood Pressure 133/77 04/18/17 07:15 O2 Sat by Pulse Oximetry (%) 96 04/17/17 21:00 Vital Signs Period Temp Pulse Resp BP Sys/Parks Pulse Ox Last 24 Hr 97.9 F-98.8 F 78-81 18-18 131-142/77-88 96 Intake & Output 04/17/17 04/18/17 04/18/17 23:59 07:59 15:59 Intake Total 250 800 Balance 250 800 Intake: IV 600 Normal Saline - 1,000 ml 600 @ 75 mls/hr IV ASDIR TAMAR Rx#:[id number] IVPB 250 200 Other: Voiding Method Urinal Bowel Movement No No Constitutional: Yes: Well Nourished, No Distress, Calm HENT: Yes: Other (NG removed) Gastrointestinal: Yes: Soft. No: Distention, Tenderness Neurological: Yes: Alert, Oriented Labs: CBC, BMP 04/18/17 09:20 04/18/17 09:20 - ....Imaging X-ray: Report Reviewed (all contrast in colon, most SB loops resolved, one left in LUQ; cecum appears abnormal with wall thickening, ?apple-core lesion), Image Reviewed Problem List - Problems (1) SBO (small bowel obstruction) Assessment/Plan: NGT removed, continue NPO/IVF except for TB meds with sips of water and ice chips for now continue abx for enteritis recommend strict I/O's to obtain stool studies monitor labs will need GI followup when acute issues resolved will follow Code(s): K56.69 - OTHER INTESTINAL OBSTRUCTION (2) Enteritis presumed infectious Assessment/Plan: etiology unclear - infectious? TB? inflammatory? sarcoid-related? malignant? renal cell CA met to R axillary node, but unlikely to SB may have contributed to bowel obstruction need to send stool for culture, O&P, (C diff if still loose/liquid) IV antibiotics per ID - on Zosyn, Flagyl obstruction cleared, treat primarily for enteritis/gastroenteritis ice chips ok, NPO except meds for now Code(s): A09 - INFECTIOUS GASTROENTERITIS AND COLITIS, UNSPECIFIED (3) Pulmonary tuberculosis Assessment/Plan: on 4-drug treatment since last month had 3 AFB smears 03/31- prior to discharge - one was positive for rare AFB seen on smear per ID, has also had one negative smear since discharge home remains on airborne precautions in hospital resume TB meds with sips of water ID on board Code(s): A15.0 - TUBERCULOSIS OF LUNG (4) Metastatic renal cell carcinoma Assessment/Plan: met to R axillary LN diagnosed last month tx deferred at this time Code(s): C64.9 - MALIGNANT NEOPLASM OF UNSP KIDNEY, EXCEPT RENAL PELVIS Qualifiers: Laterality: right Qualified Code(s): C64.1 - Malignant neoplasm of right kidney, except renal pelvis; C79.9 - Secondary malignant neoplasm of unspecified site (5) Sarcoidosis of lung Assessment/Plan: no acute issues Code(s): D86.0 - SARCOIDOSIS OF LUNG (6) HTN (hypertension) Assessment/Plan: may resume home losartan if indicated Code(s): I10 - ESSENTIAL (PRIMARY) HYPERTENSION Qualifiers: Hypertension type: unspecified Qualified Code(s): I10 - Essential ( primary) hypertension
[2017-04-18] MEDS: DEXTROSE 5%-0.45% SALINE 1,000 ML IV SCH (12:24)
[2017-04-18] MEDS: PYRIDOXINE HCL (B-6) 50 MG TABLET (FP) PO SCH (13:09)
--- NOTE | 2017-04-18 13:13 | PN ---
Physical Exam: SUBJECTIVE: Patient seen and examined at bedside. The taste of PO meds make him nauseous. OBJECTIVE: Vital Signs Period Temp Pulse Resp BP Sys/Parks Pulse Ox Last 24 Hr 97.8 F-98.8 F 78-82 18-18 131-142/77-88 96 GENERAL/NEURO: A&Ox3. Cranial nerves II through XII grossly intact. Normal speech. HEAD: Normal with no signs of trauma. LUNGS: CTA HEART: Regular rate and rhythm, S1, S2 without murmur, rub or gallop. ABDOMEN: Soft, diffusely tender, normoactive bowel sounds EXTREMITIES: 2+ pulses, warm, well-perfused, no edema. Laboratory Results - last 24 hr 04/18/17 04/18/17 09:20 09:20 WBC 8.2 RBC 4.11 Hgb 11.1 L Hct 33.8 L MCV 82.3 MCH 26.9 MCHC 32.7 RDW 16.2 H Plt Count 392 MPV 6.6 L Neutrophils % 78.5 Lymphocytes % 6.5 L Monocytes % 8.6 Eosinophils % 5.8 H Basophils % 0.6 Sodium 145 Potassium 3.8 Chloride 110 H Carbon Dioxide 23 Anion Gap 12 BUN 5 L Creatinine 0.9 Creat Clearance w eGFR > 60 Random Glucose 71 L Calcium 8.0 L Phosphorus 1.9 L D Magnesium 2.1 Total Bilirubin 0.8 AST 90 H ALT 104 H D Alkaline Phosphatase 72 Total Protein 5.3 L Albumin 2.5 L Active Medications Generic Name Dose Route Start Last Admin Trade Name Freq PRN Reason Stop Dose Admin Ethambutol HCl 1,200 mg 04/18/17 18:00 Myambutol - PO DAILY@1800 T[facility] Gabapentin 100 mg 04/16/17 22:00 04/17/17 21:57 Neurontin - PO 100 mg HS TAMAR Administration Heparin Sodium (Porcine) 5,000 unit 04/16/17 15:00 04/18/17 06:11 Heparin - SQ 5,000 unit TID TAMAR Administration Metronidazole 100 mls @ 100 mls/hr 04/16/17 15:15 04/18/17 09:38 Flagyl 500mg Premixed Ivpb - IVPB 100 mls/hr Q6H-IV TAMAR Administration Famotidine/Sodium Chloride 50 mls @ 100 mls/hr 04/16/17 22:00 04/18/17 09:39 Pepcid 20 Mg Premixed Ivpb - IVPB 100 mls/hr BID TAMAR Administration Piperacillin Sod/Tazobactam 100 mls @ 200 mls/hr 04/17/17 19:45 04/18/17 09:38 Sod 4.5 gm/ Dextrose IVPB 200 mls/hr Q8H-IV TAMAR Administration Dextrose/Sodium Chloride 1,000 mls @ 125 mls/hr 04/18/17 10:45 04/18/17 12:24 D5-1/2ns - IV 125 mls/hr ASDIR TAMAR Administration Isoniazid 300 mg 04/18/17 10:30 Inh - PO DAILY [facility]AR Mirtazapine 7.5 mg 04/16/17 22:00 04/17/17 21:57 Remeron - PO 7.5 mg HS TAMAR Administration Morphine Sulfate 2 mg 04/16/17 14:22 04/17/17 09:56 Morphine Injection - IVPUSH 2 mg Q4H PRN Administration PAIN Ondansetron HCl 4 mg 04/16/17 14:22 04/17/17 11:56 Zofran Injection IVPB 4 mg Q6H PRN Administration NAUSEA Pyrazinamide 1,500 mg 04/18/17 18:00 Pyrazinamide - PO DAILY@1800 [facility] Pyridoxine HCl 75 mg 04/18/17 10:30 04/18/17 13:09 Vitamin B6 - PO 75 mg DAILY TAMAR Administration Rifampin 600 mg 04/18/17 10:30 Rifadin - PO DAILY [facility] ASSESSMENT/PLAN 56 year-old male with PMH of HTN, active pulmonary tuberculosis, sarcoid, gout, and metastatic renal cell carcinoma s/p partial nephrectomy (2009). Admitted for SBO. 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 Full Code. Visit type - Emergency Visit Emergency Visit: Yes ED Registration Date: 04/16/17 Care time: The patient presented to the Emergency Department on the above date and was hospitalized for further evaluation of their emergent condition. - New Patient This patient is new to me today: No - Critical Care Critical Care patient: No
[2017-04-18] MEDS: ONDANSETRON 4 MG/2 ML VIAL IVPB PRN (15:35)
[2017-04-18] MEDS: RIFAMPIN 300 MG CAPSULE PO SCH (15:39)
[2017-04-18] MEDS: ISONIAZID 300 MG TABLET (FP) PO SCH (15:40)
[2017-04-18] MEDS: PYRAZINAMIDE 500 MG TABLET PO SCH (18:16)
[2017-04-18] MEDS: ETHAMBUTOL HCL 400 MG TABLET PO SCH (18:16)
[2017-04-18] MEDS: MIRTAZAPINE 15 MG TABLET (FP) PO SCH (21:20)
[2017-04-18] MEDS: GABAPENTIN 100 MG CAPSULE (FP) PO SCH (21:21)
[2017-04-19] MEDS ORDERED: PIPERACILLIN/TAZOBACTAM 4.5 GM VIAL IVPB ONE ×3 (00:09→18:01)
[2017-04-19] MEDS ORDERED: DEXTROSE 5%-WATER 100 ML IVPB ONE ×3 (00:10→18:01)
[2017-04-19] MEDS: PIPERACILLIN/TAZOB 4.5 GM 4.5 GM in DEXTROSE 5%-WATER 100 ML IVPB SCH ×3 (01:30→18:03)
[2017-04-19] MEDS: METRONIDAZOLE 500 MG PREMIXED 100 ML IVPB SCH ×4 (02:15→22:10)
[2017-04-19] MEDS: HEPARIN NA (PORCINE) 5,000 UNITS/ML 1ML VIAL SQ SCH ×3 (05:42→22:06)
[2017-04-19] MEDS ORDERED: PT OWN MED DRAWER 7, Y5N ONE ×3 (09:01→22:01)
[2017-04-19] MEDS: DEXTROSE 5%-0.45% SALINE 1,000 ML IV SCH ×2 (09:06→10:55)
[2017-04-19] MEDS: PYRIDOXINE HCL (B-6) 50 MG TABLET (FP) PO SCH (09:06)
[2017-04-19] MEDS: ISONIAZID 300 MG TABLET (FP) PO SCH (09:07)
[2017-04-19] MEDS: RIFAMPIN 300 MG CAPSULE PO SCH (09:07)
[2017-04-19] MEDS: morphine CARPU-JECT 4 MG/1 ML DISP.SYRIN IVPUSH PRN ×2 (09:20→14:03)
[2017-04-19] MEDS: FAMOTIDINE 20 MG/50 ML IVPB 50 ML IVPB SCH ×2 (10:20→22:06)
--- NOTE | 2017-04-19 12:40 | PN ---
Progress Note, Physician Chief Complaint: epigastric pain with n/v History of Present Illness: Pt seen and examined in bed. Had BM yesterday and stool studies are pending. Pt woke up with very painful right elbow with limited extension. No N/V, tolerating clears and TB meds taken with applesauce. No abdominal pain. - Current Medication List Current Medications: Active Medications Ethambutol HCl (Myambutol -) 1,200 mg PO DAILY@1800 [facility] Last Admin: 04/18/17 18:16 Dose: 1,200 mg Gabapentin (Neurontin -) 100 mg PO HS [facility] Last Admin: 04/18/17 21:21 Dose: 100 mg Heparin Sodium (Porcine) (Heparin -) 5,000 unit SQ TID [facility] Last Admin: 04/19/17 05:42 Dose: 5,000 unit Metronidazole (Flagyl 500mg Premixed Ivpb -) 100 mls @ 100 mls/hr IVPB Q6H-IV [facility] Last Admin: 04/19/17 09:06 Dose: 100 mls/hr Famotidine/Sodium Chloride (Pepcid 20 Mg Premixed Ivpb -) 50 mls @ 100 mls/hr IVPB BID [facility] Last Admin: 04/19/17 10:20 Dose: 100 mls/hr Piperacillin Sod/Tazobactam (Sod 4.5 gm/ Dextrose) 100 mls @ 200 mls/hr IVPB Q8H-IV [facility] Last Admin: 04/19/17 10:56 Dose: 200 mls/hr Dextrose/Sodium Chloride (D5-1/2ns -) 1,000 mls @ 125 mls/hr IV ASDIR [facility] Last Admin: 04/19/17 10:55 Dose: Not Given Isoniazid (Inh -) 300 mg PO DAILY [facility] Last Admin: 04/19/17 09:07 Dose: 300 mg Mirtazapine (Remeron -) 7.5 mg PO [facility] Last Admin: 04/18/17 21:20 Dose: 7.5 mg Morphine Sulfate (Morphine Injection -) 2 mg IVPUSH Q4H PRN PRN Reason: PAIN Last Admin: 04/19/17 09:20 Dose: 2 mg Ondansetron HCl (Zofran Injection) 4 mg IVPB Q6H PRN PRN Reason: NAUSEA Last Admin: 09/05/17 15:35 Dose: 4 mg Pyrazinamide (Pyrazinamide -) 1,500 mg PO DAILY@1800 [facility] Last Admin: 04/18/17 18:16 Dose: 1,500 mg Pyridoxine HCl (Vitamin B6 -) 75 mg PO DAILY [facility] Last Admin: 04/19/17 09:06 Dose: 75 mg Rifampin (Rifadin -) 600 mg PO DAILY [facility] Last Admin: 04/19/17 09:07 Dose: 600 mg - Objective Vital Signs: Vital Signs Temperature 100.4 F H 04/19/17 10:00 Pulse Rate 71 04/19/17 10:00 Respiratory Rate 18 04/19/17 10:00 Blood Pressure 121/81 04/19/17 10:00 O2 Sat by Pulse Oximetry (%) 96 04/19/17 09:00 Constitutional: Yes: Well Nourished, No Distress, Calm Gastrointestinal: Yes: Soft. No: Distention, Tenderness Musculoskeletal: Yes: Joint Stiffness (right elbow painful and tender, held in flexed position, pain with extension though can do so, tender over olecranon process and ulnar>radial side of joint; no significant swelling or erythema) Neurological: Yes: Alert, Oriented Labs: no new labs Problem List - Problems (1) SBO (small bowel obstruction) Assessment/Plan: obstruction resolved continue abx for enteritis abnormal cecal appearance on imaging will need GI followup when acute issues resolved Code(s): K56.69 - OTHER INTESTINAL OBSTRUCTION (2) Enteritis presumed infectious Assessment/Plan: obstruction cleared, treat primarily for enteritis/gastroenteritis etiology unclear - infectious? TB? inflammatory? sarcoid-related? malignant? renal cell CA met to R axillary node, but unlikely to SB may have contributed to bowel obstruction stool studies pending continue antibiotics per ID - on Zosyn, Flagyl tolerated clears for dinner and breakfast, ok to advance as tolerated no acute surgical issues Code(s): A09 - INFECTIOUS GASTROENTERITIS AND COLITIS, UNSPECIFIED (3) Pulmonary tuberculosis Assessment/Plan: on 4-drug treatment since last month had 3 AFB smears 03/31- prior to discharge - one was positive for rare AFB seen on smear per ID, has also had one negative smear since discharge home remains on airborne precautions in hospital resumed TB meds ID on board Code(s): A15.0 - TUBERCULOSIS OF LUNG (4) Metastatic renal cell carcinoma Assessment/Plan: met to R axillary LN diagnosed last month tx deferred at this time Code(s): C64.9 - MALIGNANT NEOPLASM OF UNSP KIDNEY, EXCEPT RENAL PELVIS Qualifiers: Laterality: right Qualified Code(s): C64.1 - Malignant neoplasm of right kidney, except renal pelvis; C79.9 - Secondary malignant neoplasm of unspecified site (5) Sarcoidosis of lung Assessment/Plan: no acute issues Code(s): D86.0 - SARCOIDOSIS OF LUNG (6) HTN (hypertension) Assessment/Plan: home meds prn Code(s): I10 - ESSENTIAL (PRIMARY) HYPERTENSION Qualifiers: Hypertension type: unspecified Qualified Code(s): I10 - Essential ( primary) hypertension (7) Gout Assessment/Plan: pt had flare with right hallux involvement last month right elbow pain could be related to gout? primary team to evaluate Code(s): M10.9 - GOUT, UNSPECIFIED Qualifiers: Gout site: multiple sites Gout etiology: unspecified cause Chronicity: unspecified Qualified Code(s): M10.9 - Gout, unspecified
--- NOTE | 2017-04-19 13:39 | PN ---
Progress Note, Physician Chief Complaint: Admitted for Abd pain History of Present Illness: He was admitted for abd pains, w/up SBO. CT scan with cecal inflammation and thickened wall terminal ileum. NG now out, has had BM's and flatus. No more abd pains, tolerating TB meds. - Current Medication List Current Medications: Active Medications Ethambutol HCl (Myambutol -) 1,200 mg PO DAILY@1800 [facility] Last Admin: 04/18/17 18:16 Dose: 1,200 mg Gabapentin (Neurontin -) 100 mg PO HS [facility] Last Admin: 04/18/17 21:21 Dose: 100 mg Heparin Sodium (Porcine) (Heparin -) 5,000 unit SQ TID [facility] Last Admin: 04/19/17 05:42 Dose: 5,000 unit Metronidazole (Flagyl 500mg Premixed Ivpb -) 100 mls @ 100 mls/hr IVPB Q6H-IV [facility] Last Admin: 04/19/17 09:06 Dose: 100 mls/hr Famotidine/Sodium Chloride (Pepcid 20 Mg Premixed Ivpb -) 50 mls @ 100 mls/hr IVPB BID [facility] Last Admin: 04/19/17 10:20 Dose: 100 mls/hr Piperacillin Sod/Tazobactam (Sod 4.5 gm/ Dextrose) 100 mls @ 200 mls/hr IVPB Q8H-IV [facility] Last Admin: 04/19/17 10:56 Dose: 200 mls/hr Dextrose/Sodium Chloride (D5-1/2ns -) 1,000 mls @ 125 mls/hr IV ASDIR [facility] Last Admin: 04/19/17 10:55 Dose: Not Given Isoniazid (Inh -) 300 mg PO DAILY [facility] Last Admin: 04/19/17 09:07 Dose: 300 mg Mirtazapine (Remeron -) 7.5 mg PO [facility] Last Admin: 04/18/17 21:20 Dose: 7.5 mg Morphine Sulfate (Morphine Injection -) 2 mg IVPUSH Q4H PRN PRN Reason: PAIN Last Admin: 04/19/17 09:20 Dose: 2 mg Ondansetron HCl (Zofran Injection) 4 mg IVPB Q6H PRN PRN Reason: NAUSEA Last Admin: 04/18/17 15:35 Dose: 4 mg Pyrazinamide (Pyrazinamide -) 1,500 mg PO DAILY@1800 [facility] Last Admin: 04/18/17 18:16 Dose: 1,500 mg Pyridoxine HCl (Vitamin B6 -) 75 mg PO DAILY [facility] Last Admin: 04/19/17 09:06 Dose: 75 mg Rifampin (Rifadin -) 600 mg PO DAILY [facility] Last Admin: 04/19/17 09:07 Dose: 600 mg - Objective Vital Signs: Vital Signs Temperature 100.4 F H 04/19/17 10:00 Pulse Rate 71 04/19/17 10:00 Respiratory Rate 18 04/19/17 10:00 Blood Pressure 121/81 04/19/17 10:00 O2 Sat by Pulse Oximetry (%) 96 04/19/17 09:00 Constitutional: Yes: No Distress, Calm Neck: Yes: Supple Cardiovascular: Yes: Regular Rate and Rhythm Respiratory: Yes: CTA Bilaterally Gastrointestinal: Yes: Normal Bowel Sounds, Soft. No: Distention Labs: CBC, BMP 04/18/17 09:20 04/18/17 09:20 Problem List - Problems (1) Pulmonary tuberculosis Code(s): A15.0 - TUBERCULOSIS OF LUNG (2) SBO (small bowel obstruction) Code(s): K56.69 - OTHER INTESTINAL OBSTRUCTION (3) H/O renal cell carcinoma Code(s): Z85.528 - PERSONAL HISTORY OF OTHER MALIGNANT NEOPLASM OF KIDNEY Assessment/Plan Patient with Hx metastatic RCC, Pulm Sarcoidosis, Pulm TB with enteritis ? Exacerbation sarcoidosis, TB enteritis, malignancy Xray shows contrast in small bowel, (R) and transverse colon Continue TB meds GI evaluation - will likely need colonoscopy as outpatient. Have placed call to Dr. Juarez's office and left message with his staff - Miesha.
[2017-04-19] MEDS ORDERED: SODIUM CHLORIDE 1,000 ML IV STA (16:41)
[2017-04-19] MEDS ORDERED: SODIUM CHLORIDE 1,000 ML IV SCH (16:45)
[2017-04-19] MEDS: PYRAZINAMIDE 500 MG TABLET PO SCH (17:18)
[2017-04-19] MEDS: ETHAMBUTOL HCL 400 MG TABLET PO SCH (17:18)
--- NOTE | 2017-04-19 17:27 | PN ---
Physical Exam: SUBJECTIVE: Patient seen and examined. Right elbow pain. OBJECTIVE: Vital Signs Period Temp Pulse Resp BP Sys/Parks Pulse Ox Last 24 Hr 98.2 F-102.3 F 71-82 16-18 115-142/68-85 96-96 GENERAL/NEURO: A&Ox3. Cranial nerves II through XII grossly intact. Normal speech. HEAD: Normal with no signs of trauma. LUNGS: CTA HEART: Regular rate and rhythm, S1, S2 without murmur, rub or gallop. ABDOMEN: Soft, diffusely tender, normoactive bowel sounds RIGHT UPPER EXTREMITY: Elbow with mild swelling, very warm to touch, no erythema , exquisitely tender Active Medications Generic Name Dose Route Start Last Admin Trade Name Freq PRN Reason Stop Dose Admin Ethambutol HCl 1,200 mg 04/18/17 18:00 04/19/17 17:18 Myambutol - PO 1,200 mg DAILY@1800 [facility] Administration Gabapentin 100 mg 04/16/17 22:00 04/18/17 21:21 Neurontin - PO 100 mg HS [facility]AR Administration Heparin Sodium (Porcine) 5,000 unit 04/16/17 15:00 04/19/17 13:53 Heparin - SQ 5,000 unit TID [facility] Administration Metronidazole 100 mls @ 100 mls/hr 04/16/17 15:15 04/19/17 14:39 Flagyl 500mg Premixed Ivpb - IVPB 100 mls/hr Q6H-IV [facility] Administration Famotidine/Sodium Chloride 50 mls @ 100 mls/hr 04/16/17 22:00 04/19/17 10:20 Pepcid 20 Mg Premixed Ivpb - IVPB 100 mls/hr BID [facility] Administration Piperacillin Sod/Tazobactam 100 mls @ 200 mls/hr 04/17/17 19:45 04/19/17 10:56 Sod 4.5 gm/ Dextrose IVPB 200 mls/hr Q8H-IV [facility] Administration Sodium Chloride 1,000 mls @ 1,000 mls/hr 04/19/17 16:41 04/19/17 16:54 Normal Saline - IV 04/19/17 17:40 1,000 mls/hr ASDIR STA Administration Sodium Chloride 1,000 mls @ 1,000 mls/hr 04/19/17 18:00 Normal Saline - IV 04/19/17 18:59 ASDIR ONE Sodium Chloride 1,000 mls @ 125 mls/hr 04/19/17 19:00 Normal Saline - IV ASDIR TAMAR Isoniazid 300 mg 04/18/17 10:30 04/19/17 09:07 Inh - PO 300 mg DAILY [facility] Administration Mirtazapine 7.5 mg 04/16/17 22:00 04/18/17 21:20 Remeron - PO 7.5 mg HS [facility] Administration Ondansetron HCl 4 mg 04/16/17 14:22 04/18/17 15:35 Zofran Injection IVPB 4 mg Q6H PRN Administration NAUSEA Pyrazinamide 1,500 mg 04/18/17 18:00 04/19/17 17:18 Pyrazinamide - PO 1,500 mg DAILY@1800 [facility] Administration Pyridoxine HCl 75 mg 04/18/17 10:30 04/19/17 09:06 Vitamin B6 - PO 75 mg DAILY [facility] Administration Rifampin 600 mg 04/18/17 10:30 04/19/17 09:07 Rifadin - PO 600 mg DAILY [facility] Administration ASSESSMENT/PLAN 56 year-old male with PMH of HTN, active pulmonary tuberculosis, sarcoid, gout, and metastatic renal cell carcinoma s/p partial nephrectomy (2009). Admitted for SBO. Fever spike today. Fever --spike this afternoon to 102.3 axillary, 103.1 rectal; etiology uncertain: inflamed bowel v. pulmonary TB v. infected elbow v. malignancy v. other --discussed with ID, started Vanco --back to NPO status except meds --NS 1L x 2; then continue 125mL/hr --panculture --consider re-imaging tomorrow for source SBO --04/16 CTAP: significant thickening of cecal wall; worsening stranding of perinephric fat and moderate free fluid/ascites in RLQ and pelvis; SBO; dilated small loops in lower abdomen and pelvis --serial abdominal Xrays show contrast in the colon; passing flatus, no BM yet --continue empiric Zosyn (day #4) and flagyl (day #4), IV pepcid --surgery following Pulmonary tuberculosis --continue PO TB meds per ID Pain, swelling right elbow --has history of gout but concern for infected joint (TB?) --Xray done, awaiting dictation --ortho consult to evaluate for possible aspiration Pulmomary sarcoidosis --no acute issues Metastatic renal cell carcinoma --originally diagnosed 2009, s/p partial nephrectomy; during hospitalization earlier this month, right axillary node tested positive for metastatic renal cell carcinoma, clear type --being followed by oncology as outpatient; plan is to complete 4-6 weeks of TB therapy prior to commencing chemotherapy Hypertension --presently normotensive --home Losartan PRN F/E/N Fluids: NS @ 125mL/hr Electrolytes: replete as indicated Nutrition: NPO Dispo: continues to require inpatient care. Full Code. Visit type - Emergency Visit Emergency Visit: Yes ED Registration Date: 04/16/17 Care time: The patient presented to the Emergency Department on the above date and was hospitalized for further evaluation of their emergent condition. - New Patient This patient is new to me today: No - Critical Care Critical Care patient: No
[2017-04-19] MEDS ORDERED: SODIUM CHLORIDE 1,000 ML IV ONE (18:00)
[2017-04-19] MEDS ORDERED: VANCOMYCIN 1 GRAM (PRE-DOCKED) 1,000 MG/250 ML BAG IVPB ONE (18:00)
[2017-04-19] MEDS: ACETAMINOPHEN 325 MG TABLET (FP) PO PRN (18:03)
[2017-04-19] MEDS: MIRTAZAPINE 15 MG TABLET (FP) PO SCH (22:06)
[2017-04-19] MEDS: GABAPENTIN 100 MG CAPSULE (FP) PO SCH (22:07)
[2017-04-19] MEDS: SODIUM CHLORIDE 1,000 ML IV SCH (22:08)
[2017-04-19] MEDS ORDERED: VANCOMYCIN 1,000 MG in SODIUM CHLORIDE 250 ML IVPB ONE (22:15)
[2017-04-20] MEDS ORDERED: PIPERACILLIN/TAZOBACTAM 4.5 GM VIAL IVPB ONE ×3 (00:38→17:33)
[2017-04-20] MEDS ORDERED: DEXTROSE 5%-WATER 100 ML IVPB ONE ×3 (00:39→17:34)
[2017-04-20] MEDS: ACETAMINOPHEN 325 MG TABLET (FP) PO PRN ×2 (00:48→15:30)
[2017-04-20] MEDS: PIPERACILLIN/TAZOB 4.5 GM 4.5 GM in DEXTROSE 5%-WATER 100 ML IVPB SCH ×3 (01:04→17:39)
[2017-04-20] MEDS: METRONIDAZOLE 500 MG PREMIXED 100 ML IVPB SCH ×4 (02:51→21:51)
[2017-04-20] MEDS: HEPARIN NA (PORCINE) 5,000 UNITS/ML 1ML VIAL SQ SCH ×3 (06:16→21:51)
[2017-04-20 07:47] LABS: BASOPHIL 0.8 % (0-2.0); EOSINOPHIL 3.2 % (0-4.5); MCH 26.8 pg (25.7-33.7); MEAN CELL VOLUME 81.1 fl (80-96); NEUTROPHILS 77.2 % (42.8-82.8); PLATELET COUNT 352 K/MM3 (134-434); RDW 16.7 % (11.9-15.9); WHITE BLOOD COUNT 7.1 K/mm3 (4.0-10.0)
[2017-04-20 08:36] LABS: ALBUMIN 2.3 g/dl (3.4-5.0); ALK PHOS 63 U/L (45-117); ANION GAP 12 (8-16); BILIRUBIN,TOTAL 1.2 mg/dL (0.2-1.0); CALCIUM 7.7 mg/dL (8.5-10.1); CO2 23 mmol/L (21-32); CREATININE 0.8 mg/dL (0.7-1.3); GLUCOSE,RANDOM 86 mg/dL (74-106); MAGNESIUM 1.6 mg/dL (1.8-2.4); PHOSPHOROUS 2.2 mg/dL (2.5-4.9); SGOT/AST 69 U/L (15-37); SGPT/ALT 80 U/L (12-78)
[2017-04-20] MEDS ORDERED: PT OWN MED DRAWER 7, Y5N ONE ×3 (10:00→17:33)
[2017-04-20] MEDS: SODIUM CHLORIDE 1,000 ML IV SCH ×2 (10:10→21:50)
--- NOTE | 2017-04-20 10:37 | PN ---
Progress Note, Physician Chief Complaint: epigastric pain with n/v History of Present Illness: Pt seen and examined in bed. Had mushy BM. Right elbow still painful and tender. XR done yesterday shows only minor soft tissue swelling at distal humerus. No N/V, had tolerated full liquids and TB meds taken with applesauce. No abdominal pain. Passing flatus. Is hungry. Spiked temp 102.3 yesterday, 103 rectal, in 99s afterward. - Current Medication List Current Medications: Active Medications Acetaminophen (Tylenol -) 650 mg PO Q6H PRN PRN Reason: FEVER OR PAIN Last Admin: 04/20/17 00:48 Dose: 650 mg Ethambutol HCl (Myambutol -) 1,200 mg PO DAILY@1800 [facility] Last Admin: 04/19/17 17:18 Dose: 1,200 mg Gabapentin (Neurontin -) 100 mg PO [facility] Last Admin: 04/19/17 22:07 Dose: 100 mg Heparin Sodium (Porcine) (Heparin -) 5,000 unit SQ TID [facility] Last Admin: 04/20/17 06:16 Dose: 5,000 unit Metronidazole (Flagyl 500mg Premixed Ivpb -) 100 mls @ 100 mls/hr IVPB Q6H-IV [facility] Last Admin: 04/20/17 08:23 Dose: 100 mls/hr Famotidine/Sodium Chloride (Pepcid 20 Mg Premixed Ivpb -) 50 mls @ 100 mls/hr IVPB BID [facility] Last Admin: 04/19/17 22:06 Dose: 100 mls/hr Piperacillin Sod/Tazobactam (Sod 4.5 gm/ Dextrose) 100 mls @ 200 mls/hr IVPB Q8H-IV [facility] Last Admin: 04/20/17 01:04 Dose: 200 mls/hr Sodium Chloride (Normal Saline -) 1,000 mls @ 125 mls/hr IV ASDIR [facility] Last Admin: 04/20/17 10:10 Dose: 125 mls/hr Vancomycin HCl 1,000 mg/ (Dextrose) 250 mls @ 250 mls/hr IVPB BID [facility] PRN Reason: Protocol Isoniazid (Inh -) 300 mg PO DAILY [facility] Last Admin: 04/19/17 09:07 Dose: 300 mg Mirtazapine (Remeron -) 7.5 mg PO [facility] Last Admin: 04/19/17 22:06 Dose: 7.5 mg Ondansetron HCl (Zofran Injection) 4 mg IVPB Q6H PRN PRN Reason: NAUSEA Last Admin: 04/18/17 15:35 Dose: 4 mg Pyrazinamide (Pyrazinamide -) 1,500 mg PO DAILY@1800 [facility] Last Admin: 04/19/17 17:18 Dose: 1,500 mg Pyridoxine HCl (Vitamin B6 -) 75 mg PO DAILY [facility] Last Admin: 04/19/17 09:06 Dose: 75 mg Rifampin (Rifadin -) 600 mg PO DAILY [facility] Last Admin: 04/19/17 09:07 Dose: 600 mg - Objective Vital Signs: Vital Signs Temperature 98.9 F 04/20/17 06:00 Pulse Rate 71 04/20/17 06:00 Respiratory Rate 18 04/20/17 06:00 Blood Pressure 132/86 04/20/17 06:00 O2 Sat by Pulse Oximetry (%) 97 04/19/17 20:52 Vital Signs - 24 hr 04/19/17 04/19/17 04/19/17 15:28 16:30 18:22 Temperature 98.2 F 102.3 F H 100.0 F H Pulse Rate 78 82 89 Respiratory 16 18 18 Rate Blood Pressure 142/85 151/95 O2 Sat by Pulse Oximetry (%) 04/19/17 04/19/17 04/19/17 19:42 20:52 22:00 Temperature 100.4 F H 99.1 F 99.4 F Pulse Rate 72 Respiratory 18 Rate Blood Pressure 121/81 O2 Sat by Pulse 97 Oximetry (%) 04/19/17 04/20/17 04/20/17 23:00 01:00 02:58 Temperature 99.2 F 99.4 F 99.1 F Pulse Rate Respiratory Rate Blood Pressure O2 Sat by Pulse Oximetry (%) 04/20/17 04/20/17 05:00 06:00 Temperature 99 F 98.9 F Pulse Rate 71 Respiratory 18 Rate Blood Pressure 132/86 O2 Sat by Pulse Oximetry (%) Constitutional: Yes: Well Nourished, No Distress, Calm Eyes: Yes: Conjunctiva Clear. No: Sclera Icterus Gastrointestinal: Yes: Normal Bowel Sounds, Soft. No: Distention, Tenderness Musculoskeletal: Yes: Joint Stiffness, Other (right elbow warm, tender, held in flexed position) Neurological: Yes: Alert, Oriented Labs: CBC, BMP 04/20/17 06:00 04/20/17 06:00 CMP Sodium 143 mmol/L (136-145) 04/20/17 06:00 Potassium 3.3 mmol/L (3.5-5.1) L 04/20/17 06:00 Chloride 108 mmol/L (98-107) H 04/20/17 06:00 Carbon Dioxide 23 mmol/L (21-32) 04/20/17 06:00 Anion Gap 12 (8-16) 04/20/17 06:00 BUN 4 mg/dL (7-18) L 04/20/17 06:00 Creatinine 0.8 mg/dL (0.7-1.3) 04/20/17 06:00 Creat Clearance w eGFR > 60 (>60) 04/20/17 06:00 Random Glucose 86 mg/dL (74-106) D 04/20/17 06:00 Lactic Acid 0.9 mmol/L (0.4-2.0) 04/20/17 06:00 Calcium 7.7 mg/dL (8.5-10.1) L 04/20/17 06:00 Phosphorus 2.2 mg/dL (2.5-4.9) L 04/20/17 06:00 Magnesium 1.6 mg/dL (1.8-2.4) L D 04/20/17 06:00 Total Bilirubin 1.2 mg/dL (0.2-1.0) H D 04/20/17 06:00 AST 69 U/L (15-37) H D 04/20/17 06:00 ALT 80 U/L (12-78) H D 04/20/17 06:00 Alkaline Phosphatase 63 U/L (45-117) 04/20/17 06:00 Total Protein 5.0 g/dl (6.4-8.2) L 04/20/17 06:00 Albumin 2.3 g/dl (3.4-5.0) L 04/20/17 06:00 Lipase 137 U/L (73-393) 04/16/17 09:56 LFTs down, bili up a little - ....Imaging X-ray: Report Reviewed (right elbow without fracture, dislocation, effusion), Image Reviewed Problem List - Problems (1) SBO (small bowel obstruction) Assessment/Plan: obstruction resolved continue abx for enteritis abnormal cecal appearance on imaging will need GI followup when acute issues resolved Code(s): K56.69 - OTHER INTESTINAL OBSTRUCTION (2) Enteritis presumed infectious Assessment/Plan: obstruction cleared, treating primarily for enteritis/gastroenteritis etiology unclear - infectious? TB? inflammatory? sarcoid-related? malignant? renal cell CA met to R axillary node, but unlikely to SB may have contributed to bowel obstruction stool studies pending, no WBC seen continue antibiotics per ID - on Zosyn, Flagyl ok to resume po from surgical standpoint (if reimaging is indicated, would use PO and IV contrast for CT) no acute surgical issues Code(s): A09 - INFECTIOUS GASTROENTERITIS AND COLITIS, UNSPECIFIED (3) Pulmonary tuberculosis Assessment/Plan: on 4-drug treatment since last month had 3 AFB smears 03/31- prior to discharge - one was positive for rare AFB seen on smear per ID, has also had one negative smear since discharge home remains on airborne precautions in hospital resumed TB meds ID on board Code(s): A15.0 - TUBERCULOSIS OF LUNG (4) Metastatic renal cell carcinoma Assessment/Plan: met to R axillary LN diagnosed last month tx deferred at this time Code(s): C64.9 - MALIGNANT NEOPLASM OF UNSP KIDNEY, EXCEPT RENAL PELVIS Qualifiers: Laterality: right Qualified Code(s): C64.1 - Malignant neoplasm of right kidney, except renal pelvis; C79.9 - Secondary malignant neoplasm of unspecified site (5) Sarcoidosis of lung Assessment/Plan: no acute issues Code(s): D86.0 - SARCOIDOSIS OF LUNG (6) HTN (hypertension) Assessment/Plan: home meds prn Code(s): I10 - ESSENTIAL (PRIMARY) HYPERTENSION Qualifiers: Hypertension type: unspecified Qualified Code(s): I10 - Essential ( primary) hypertension (7) Gout Assessment/Plan: pt had flare with right hallux involvement last month right elbow pain could be related to gout XR negative ortho consulted defer to primary team Code(s): M10.9 - GOUT, UNSPECIFIED Qualifiers: Gout site: multiple sites Gout etiology: unspecified cause Chronicity: unspecified Qualified Code(s): M10.9 - Gout, unspecified
[2017-04-20] MEDS: ISONIAZID 300 MG TABLET (FP) PO SCH (10:40)
[2017-04-20] MEDS: PYRIDOXINE HCL (B-6) 50 MG TABLET (FP) PO SCH (10:41)
[2017-04-20] MEDS: RIFAMPIN 300 MG CAPSULE PO SCH (10:42)
--- NOTE | 2017-04-20 10:46 | PN ---
Progress Note (short form) - Note Progress Note: Pt seen and examined. In summary he is a 56 year old male right hand dom pt who c/o 1 day of increasing swelling and pain in the right elbow. No known h/o trauma, bug bite, or infection. + h/o gout, usually well controlled. + sarcoid. + renal cell mets. AVSS WBC=7.1 Bld Cx Pending Xrays nl, no acute pathology PE Right elbow looks quite good, very minimal swelling, minimal erythema, mildly tender over the olecranon bursa RUE NVI Min pain with elbow ROM, otherwise painless ROM No obvious fluid collection Imp Right elbow cellulitis, improving, possibly resolving infected olecranon bursitis Rec No surgery indicated Con't abx
[2017-04-20 10:53] LABS: URINE APPEARANCE CLEAR; URINE BILIRUBIN NEGATIVE (NEGATIVE); URINE BLOOD NEGATIVE (NEGATIVE); URINE COLOR AMBER; URINE GLUCOSE (UA) NEGATIVE (NEGATIVE); URINE KETONE TRACE (NEGATIVE); URINE LEUK ESTERASE NEGATIVE (NEGATIVE); URINE NITRITE NEGATIVE (NEGATIVE); URINE PROTEIN NEGATIVE (NEGATIVE); URINE UROBILINOGEN NEGATIVE mg/dL (0.2-1.0)
[2017-04-20] MEDS: FAMOTIDINE 20 MG/50 ML IVPB 50 ML IVPB SCH ×2 (11:42→21:51)
[2017-04-20] MEDS: ONDANSETRON 4 MG/2 ML VIAL IVPB PRN (15:30)
[2017-04-20] MEDS ORDERED: MAGNESIUM OXIDE 400 MG TABLET (FP) PO ONE (16:09)
[2017-04-20] MEDS ORDERED: POTASSIUM CHLORIDE TABS 20 MEQ TABLET.ER (FP) PO ONE (16:09)
[2017-04-20] MEDS ORDERED: NAPH,MB-DB/K PH,MBDB POWDER PACKET PO ONE (16:09)
[2017-04-20] MEDS ORDERED: COLCHICINE 0.6 MG TABLET (FP) PO ONE (16:10)
--- NOTE | 2017-04-20 16:47 | PN ---
Progress Note (short form) - Note Progress Note: Subjective: The patient was seen and examined at the bedside, he reports he is feeling better at this time. His right elbow remains swollen, painful and red Current Medications Generic Name Dose Route Start Last Admin Trade Name Emerald PRN Reason Stop Dose Admin Acetaminophen 650 mg 04/19/17 17:45 04/20/17 15:30 Tylenol - PO 650 mg Q6H PRN Administration FEVER OR PAIN Ethambutol HCl 1,200 mg 04/18/17 18:00 04/19/17 17:18 Myambutol - PO 1,200 mg DAILY@1800 [facility] Administration Gabapentin 100 mg 04/16/17 22:00 04/19/17 22:07 Neurontin - PO 100 mg HS [facility] Administration Heparin Sodium (Porcine) 5,000 unit 04/16/17 15:00 04/20/17 13:36 Heparin - SQ 5,000 unit TID [facility] Administration Metronidazole 100 mls @ 100 mls/hr 04/16/17 15:15 04/20/17 14:22 Flagyl 500mg Premixed Ivpb - IVPB 100 mls/hr Q6H-IV [facility] Administration Famotidine/Sodium Chloride 50 mls @ 100 mls/hr 04/16/17 22:00 04/20/17 11:42 Pepcid 20 Mg Premixed Ivpb - IVPB 100 mls/hr BID [facility] Administration Piperacillin Sod/Tazobactam 100 mls @ 200 mls/hr 04/17/17 19:45 04/20/17 10:40 Sod 4.5 gm/ Dextrose IVPB 200 mls/hr Q8H-IV [facility] Administration Sodium Chloride 1,000 mls @ 125 mls/hr 04/19/17 19:00 04/20/17 10:10 Normal Saline - IV 125 mls/hr ASDIR [facility] Administration Vancomycin HCl 1,000 mg/ 250 mls @ 250 mls/hr 04/19/17 17:30 Dextrose IVPB BID [facility] Protocol Isoniazid 300 mg 04/18/17 10:30 04/20/17 10:40 Inh - PO 300 mg DAILY [facility] Administration Mirtazapine 7.5 mg 04/16/17 22:00 04/19/17 22:06 Remeron - PO 7.5 mg HS [facility] Administration Ondansetron HCl 4 mg 04/16/17 14:22 04/20/17 15:30 Zofran Injection IVPB 4 mg Q6H PRN Administration NAUSEA Potassium Chloride 40 meq 04/20/17 16:09 K-Dur - PO 04/20/17 16:10 ONCE ONE Potassium Phos/Sodium Phos 1 packet 04/20/17 16:09 Phos-Nak Packet - PO 04/20/17 16:10 ONCE ONE Pyrazinamide 1,500 mg 04/18/17 18:00 04/19/17 17:18 Pyrazinamide - PO 1,500 mg DAILY@1800 [facility] Administration Pyridoxine HCl 75 mg 04/18/17 10:30 04/20/17 10:41 Vitamin B6 - PO 75 mg DAILY [facility] Administration Rifampin 600 mg 04/18/17 10:30 04/20/17 10:42 Rifadin - PO 600 mg DAILY [facility] Administration Objective: Vital Signs Period Temp Pulse Resp BP Sys/Parks Pulse Ox Last 24 Hr 98.9 F-102.3 F 71-89 18-18 121-151/81-95 95-97 Physical Exam: General: NAD, A&Ox3 Lungs: CTA bilaterally Heart: RRR, S1S2 Abd: Soft, non-tender Ext: Right elbow erythema, edema, tenderness. Decrease ROM CBCD WBC 7.1 K/mm3 (4.0-10.0) 04/20/17 06:00 RBC 4.31 M/mm3 (4.00-5.60) 04/20/17 06:00 Hgb 11.5 GM/dL (11.7-16.9) L 04/20/17 06:00 Hct 35.0 % (35.4-49) L 04/20/17 06:00 MCV 81.1 fl (80-96) 04/20/17 06:00 MCHC 33.0 g/dl (32.0-35.9) 04/20/17 06:00 RDW 16.7 % (11.9-15.9) H 04/20/17 06:00 Plt Count 352 K/MM3 (134-434) 04/20/17 06:00 MPV 7.0 fl (7.5-11.1) L 04/20/17 06:00 CMP Sodium 143 mmol/L (136-145) 04/20/17 06:00 Potassium 3.3 mmol/L (3.5-5.1) L 04/20/17 06:00 Chloride 108 mmol/L (98-107) H 04/20/17 06:00 Carbon Dioxide 23 mmol/L (21-32) 04/20/17 06:00 Anion Gap 12 (8-16) 04/20/17 06:00 BUN 4 mg/dL (7-18) L 04/20/17 06:00 Creatinine 0.8 mg/dL (0.7-1.3) 04/20/17 06:00 Creat Clearance w eGFR > 60 (>60) 04/20/17 06:00 Random Glucose 86 mg/dL (74-106) D 04/20/17 06:00 Calcium 7.7 mg/dL (8.5-10.1) L 04/20/17 06:00 Total Bilirubin 1.2 mg/dL (0.2-1.0) H D 04/20/17 06:00 AST 69 U/L (15-37) H D 04/20/17 06:00 ALT 80 U/L (12-78) H D 04/20/17 06:00 Alkaline Phosphatase 63 U/L (45-117) 04/20/17 06:00 Total Protein 5.0 g/dl (6.4-8.2) L 04/20/17 06:00 Albumin 2.3 g/dl (3.4-5.0) L 04/20/17 06:00 Microbiology 04/18/17 17:54 Stool Gram Stain - Final 04/18/17 17:54 Stool Salmonella/Shigella Culture - Preliminary NO ENTERIC PATHOGENS, 24 HOURS, ON PRIMARY PLATES 04/18/17 17:54 Stool Yersinia Culture - Preliminary NO ENTERIC PATHOGENS, 24 HOURS, ON PRIMARY PLATES 04/18/17 17:54 Stool Vibrio Culture - Preliminary NO ENTERIC PATHOGENS, 24 HOURS, ON PRIMARY PLATES 04/18/17 17:54 Stool Escherichia coli 0157 Culture - Preliminary NO ENTERIC PATHOGENS, 24 HOURS, ON PRIMARY PLATES 04/18/17 17:54 Stool Clostridium difficile Antigen (CHAZ) - Final 04/18/17 17:54 Stool Clostridium difficile Toxin Assay - Final Assessment: This is a 56 year old male with PMHx of HTN, gout, active pulmonary tuberculosis, sarcoid, metastatic renal cell carcinoma s/p partial nephrectomy ( 2009) who presented with abdominal pain and was admitted for SBO. Plan: 1) GI: SBO - Resolved - 04/16 CTAP: significant thickening of cecal wall; worsening stranding of perinephric fat and moderate free fluid/ascites in RLQ and pelvis; SBO; dilated small loops in lower abdomen and pelvis - Passing gas - Advanced diet as discussed with surgery - Continue Zosyn (day 5) - Continue Flagyl (day 5) - Appreciate surgery consult 2) ID: Fever - Tmax 103 yesterday - Continue treatment for enteritis as above - Vancomycin added yesterday for additional coverage - Recultured yesterday - F/u ID consult Right elbow cellulitis - Possible resolving infected olecranon bursitis per ortho - No evidence of fluid collection of x-ray - No surgical interventions at this time - Continue abx as above - Appreciate ortho consul 3) Pulmonary: Active pulmonary Tb - Continue po medications Pulmonary sarcoid - No acute issues 4) Oncology: Metastatic renal cell carcinoma - Follow-up outpatient oncologist 5) F/E/N: - Monitor electrolytes - Hypokalemia: replete - Hypomagnesemia: replete - Hypophosphatemia: replete - Full liquid diet 6) Prophylaxis: - Heparin 5,000u sq tid - OOB ambulating 7) Dispo: - Requires continued inpatient care CODE STATUS: FULL CODE Visit type - Emergency Visit Emergency Visit: Yes ED Registration Date: 04/16/17 Care time: The patient presented to the Emergency Department on the above date and was hospitalized for further evaluation of their emergent condition. - New Patient This patient is new to me today: Yes Date on this admission: 04/20/17 - Critical Care Critical Care patient: No
[2017-04-20] MEDS: ETHAMBUTOL HCL 400 MG TABLET PO SCH (17:39)
[2017-04-20] MEDS: PYRAZINAMIDE 500 MG TABLET PO SCH (17:39)
[2017-04-20] MEDS: GABAPENTIN 100 MG CAPSULE (FP) PO SCH (21:51)
[2017-04-20] MEDS: MIRTAZAPINE 15 MG TABLET (FP) PO SCH (21:51)
[2017-04-21] MEDS: METRONIDAZOLE 500 MG PREMIXED 100 ML IVPB SCH ×4 (02:10→22:11)
[2017-04-21] MEDS: HEPARIN NA (PORCINE) 5,000 UNITS/ML 1ML VIAL SQ SCH ×3 (07:04→22:12)
[2017-04-21 08:27] LABS: ALBUMIN 2.2 g/dl (3.4-5.0); ALK PHOS 67 U/L (45-117); ANION GAP 12 (8-16); BILIRUBIN,TOTAL 0.8 mg/dL (0.2-1.0); CALCIUM 7.8 mg/dL (8.5-10.1); CO2 21 mmol/L (21-32); CREATININE 0.7 mg/dL (0.7-1.3); GLUCOSE,RANDOM 87 mg/dL (74-106); SGOT/AST 42 U/L (15-37); SGPT/ALT 69 U/L (12-78); TOT PROT 5.1 g/dl (6.4-8.2)
--- NOTE | 2017-04-21 09:02 | PN ---
Progress Note (short form) - Note Progress Note: Pt seen and examined in bed. Sleeping comfortably. Tolerating full liquids. Hungry. No abdominal pain. Elbow pain is decreased. Vital Signs Period Temp Pulse Resp BP Sys/Parks Pulse Ox Last 24 Hr 98.6 F-99 F 79-92 20-20 109-140/77-97 96 PE: abdomen soft, nondistended, nontender right elbow warm, mild erythema, less tender CMP pending A/P: SBO resolved antibiotics for enteritis tolerating diet - advance to regular today complete abx per ID continue TB meds no acute surgical issues will sign off - please recall with any questions Problem List - Problems (1) SBO (small bowel obstruction) Code(s): K56.69 - OTHER INTESTINAL OBSTRUCTION (2) Enteritis presumed infectious Code(s): A09 - INFECTIOUS GASTROENTERITIS AND COLITIS, UNSPECIFIED (3) Pulmonary tuberculosis Code(s): A15.0 - TUBERCULOSIS OF LUNG (4) Metastatic renal cell carcinoma Code(s): C64.9 - MALIGNANT NEOPLASM OF UNSP KIDNEY, EXCEPT RENAL PELVIS Qualifiers: Laterality: right Qualified Code(s): C64.1 - Malignant neoplasm of right kidney, except renal pelvis; C79.9 - Secondary malignant neoplasm of unspecified site (5) Sarcoidosis of lung Code(s): D86.0 - SARCOIDOSIS OF LUNG (6) HTN (hypertension) Code(s): I10 - ESSENTIAL (PRIMARY) HYPERTENSION Qualifiers: Hypertension type: unspecified Qualified Code(s): I10 - Essential ( primary) hypertension (7) Gout Code(s): M10.9 - GOUT, UNSPECIFIED Qualifiers: Gout site: multiple sites Gout etiology: unspecified cause Chronicity: unspecified Qualified Code(s): M10.9 - Gout, unspecified
[2017-04-21] MEDS ORDERED: PT OWN MED DRAWER 7, Y5N ONE ×3 (09:21→17:38)
--- NOTE | 2017-04-21 10:04 | PN ---
Progress Note (short form) - Note Progress Note: Ortho Pt seen and examined- improving Selected Entries 04/21/17 07:13 Temperature 98.6 F Pulse Rate 88 Respiratory 20 Rate Blood Pressure 134/86 Laboratory Tests 04/20/17 06:00 WBC 7.1 Hgb 11.5 L Hct 35.0 L Plt Count 352 decr swelling, decr pain, incr rom nvi a/p ABx as per ID ROm exercises NTD d/w Dr. White
[2017-04-21] MEDS: RIFAMPIN 300 MG CAPSULE PO SCH (10:49)
[2017-04-21] MEDS: FAMOTIDINE 20 MG/50 ML IVPB 50 ML IVPB SCH ×2 (10:49→22:11)
[2017-04-21] MEDS: ISONIAZID 300 MG TABLET (FP) PO SCH (10:49)
[2017-04-21] MEDS: PYRIDOXINE HCL (B-6) 50 MG TABLET (FP) PO SCH (10:50)
[2017-04-21] MEDS: SODIUM CHLORIDE 1,000 ML IV SCH ×2 (10:50→22:14)
[2017-04-21] MEDS: VANCOMYCIN 1,000 MG in SODIUM CHLORIDE 250 ML IVPB SCH (14:06)
--- NOTE | 2017-04-21 17:40 | PN ---
Progress Note (short form) - Note Progress Note: Subjective: The patient was seen and examined at the bedside, he reports he is feeling better at this time. He states that he has a poor appetite because all the food tastes like metal. His right elbow erythema has improved. He has better ROM. Encouraged ROM exercises Spoke to Dr. Ayon, will continue Vancomycin for now Current Medications Generic Name Dose Route Start Last Admin Trade Name Freq PRN Reason Stop Dose Admin Acetaminophen 650 mg 04/19/17 17:45 04/20/17 15:30 Tylenol - PO 650 mg Q6H PRN Administration FEVER OR PAIN Ethambutol HCl 1,200 mg 04/18/17 18:00 04/20/17 17:39 Myambutol - PO 1,200 mg DAILY@1800 TAMAR Administration Gabapentin 100 mg 04/16/17 22:00 04/20/17 21:51 Neurontin - PO 100 mg HS TAMAR Administration Heparin Sodium (Porcine) 5,000 unit 04/16/17 15:00 04/21/17 14:10 Heparin - SQ 5,000 unit TID TAMAR Administration Metronidazole 100 mls @ 100 mls/hr 04/16/17 15:15 04/21/17 16:50 Flagyl 500mg Premixed Ivpb - IVPB 100 mls/hr Q6H-IV TAMAR Administration Famotidine/Sodium Chloride 50 mls @ 100 mls/hr 04/16/17 22:00 04/21/17 10:49 Pepcid 20 Mg Premixed Ivpb - IVPB 100 mls/hr BID TAMAR Administration Sodium Chloride 1,000 mls @ 125 mls/hr 04/19/17 19:00 04/21/17 10:50 Normal Saline - IV 125 mls/hr ASDIR TAMAR Administration Vancomycin HCl 1,000 mg/ 250 mls @ 250 mls/hr 04/21/17 13:00 04/21/17 14:06 Sodium Chloride IVPB 250 mls/hr BID@0100,1300 TAMAR Administration Protocol Isoniazid 300 mg 04/18/17 10:30 04/21/17 10:49 Inh - PO 300 mg DAILY TAMAR Administration Mirtazapine 7.5 mg 04/16/17 22:00 04/20/17 21:51 Remeron - PO 7.5 mg HS TAMAR Administration Ondansetron HCl 4 mg 04/16/17 14:22 04/20/17 15:30 Zofran Injection IVPB 4 mg Q6H PRN Administration NAUSEA Pyrazinamide 1,500 mg 04/18/17 18:00 04/20/17 17:39 Pyrazinamide - PO 1,500 mg DAILY@1800 TAMAR Administration Pyridoxine HCl 75 mg 04/18/17 10:30 04/21/17 10:50 Vitamin B6 - PO 75 mg DAILY TAMAR Administration Rifampin 600 mg 04/18/17 10:30 04/21/17 10:49 Rifadin - PO 600 mg DAILY TAMAR Administration Objective: Vital Signs Period Temp Pulse Resp BP Sys/Parks Pulse Ox Last 24 Hr 98.6 F-99.5 F 79-88 16-20 109-134/72-93 95-96 Physical Exam: General: NAD, A&Ox3 Lungs: CTA bilaterally Heart: RRR, S1S2 Abd: Soft, non-tender Ext: Right elbow erythema, edema, tenderness. Better ROM today CBCD WBC 7.1 K/mm3 (4.0-10.0) 04/20/17 06:00 RBC 4.31 M/mm3 (4.00-5.60) 04/20/17 06:00 Hgb 11.5 GM/dL (11.7-16.9) L 04/20/17 06:00 Hct 35.0 % (35.4-49) L 04/20/17 06:00 MCV 81.1 fl (80-96) 04/20/17 06:00 MCHC 33.0 g/dl (32.0-35.9) 04/20/17 06:00 RDW 16.7 % (11.9-15.9) H 04/20/17 06:00 Plt Count 352 K/MM3 (134-434) 04/20/17 06:00 MPV 7.0 fl (7.5-11.1) L 04/20/17 06:00 CMP Sodium 141 mmol/L (136-145) 04/21/17 06:00 Potassium 3.5 mmol/L (3.5-5.1) 04/21/17 06:00 Chloride 108 mmol/L (98-107) H 04/21/17 06:00 Carbon Dioxide 21 mmol/L (21-32) 04/21/17 06:00 Anion Gap 12 (8-16) 04/21/17 06:00 BUN 4 mg/dL (7-18) L 04/21/17 06:00 Creatinine 0.7 mg/dL (0.7-1.3) 04/21/17 06:00 Creat Clearance w eGFR > 60 (>60) 04/21/17 06:00 Random Glucose 87 mg/dL (74-106) 04/21/17 06:00 Calcium 7.8 mg/dL (8.5-10.1) L 04/21/17 06:00 Total Bilirubin 0.8 mg/dL (0.2-1.0) D 04/21/17 06:00 AST 42 U/L (15-37) H D 04/21/17 06:00 ALT 69 U/L (12-78) 04/21/17 06:00 Alkaline Phosphatase 67 U/L (45-117) 04/21/17 06:00 Total Protein 5.1 g/dl (6.4-8.2) L 04/21/17 06:00 Albumin 2.2 g/dl (3.4-5.0) L 04/21/17 06:00 Microbiology 04/18/17 17:54 Stool Gram Stain - Final 04/18/17 17:54 Stool Salmonella/Shigella Culture - Final NO GROWTH OF SALMONELLA OR SHIGELLA SPECIES OBTAINED 04/18/17 17:54 Stool Campylobacter Culture - Final NO GROWTH OF CAMPYLOBACTER SPECIES OBTAINED 04/18/17 17:54 Stool Yersinia Culture - Final NO GROWTH OF YERSINIA SPECIES OBTAINED 04/18/17 17:54 Stool Vibrio Culture - Final NO GROWTH OF VIBRIO SPECIES OBTAINED 04/18/17 17:54 Stool Escherichia coli 0157 Culture - Final NO GROWTH OF E COLI 0157 OBTAINED 04/20/17 10:00 Urine - Urine Clean Catch Urine Culture - Final NO GROWTH OBTAINED 04/19/17 18:30 Blood - Peripheral Venous Blood Culture - Preliminary NO GROWTH OBTAINED AFTER 24 HOURS, INCUBATION TO CONTINUE FOR 4 DAYS. 04/19/17 18:30 Blood - Peripheral Venous Blood Culture - Preliminary NO GROWTH OBTAINED AFTER 24 HOURS, INCUBATION TO CONTINUE FOR 4 DAYS. 04/18/17 17:54 Stool Clostridium difficile Antigen (CHAZ) - Final 04/18/17 17:54 Stool Clostridium difficile Toxin Assay - Final Assessment: This is a 56 year old male with PMHx of HTN, gout, active pulmonary tuberculosis, sarcoid, metastatic renal cell carcinoma s/p partial nephrectomy ( 2009) who presented with abdominal pain and was admitted for SBO. Plan: 1) GI: SBO - Resolved - 04/16 CTAP: significant thickening of cecal wall; worsening stranding of perinephric fat and moderate free fluid/ascites in RLQ and pelvis; SBO; dilated small loops in lower abdomen and pelvis - Passing gas - Regular diet - Continue Zosyn (day 6) - Continue Flagyl (day 6) - Appreciate surgery consult 2) ID: Right elbow cellulitis, enteritis - Possible resolving infected olecranon bursitis per ortho. No fluid collection on x-ray. No surgical intervention at this time - Afebile - Continue treatment for enteritis as above, awaiting reevaluation by ID - Continue Vancomycin - F/u ID consult - Appreciate ortho consult 3) Pulmonary: Active pulmonary Tb - Continue po medications Pulmonary sarcoid - No acute issues 4) Oncology: Metastatic renal cell carcinoma - Follow-up outpatient oncologist 5) F/E/N: - Monitor electrolytes - Hypokalemia: resolved - Regular diet 6) Prophylaxis: - Heparin 5,000u sq tid - OOB ambulating 7) Dispo: - Requires continued inpatient care CODE STATUS: FULL CODE Visit type - Emergency Visit Emergency Visit: Yes ED Registration Date: 04/16/17 Care time: The patient presented to the Emergency Department on the above date and was hospitalized for further evaluation of their emergent condition. - New Patient This patient is new to me today: No - Critical Care Critical Care patient: No
[2017-04-21] MEDS: PYRAZINAMIDE 500 MG TABLET PO SCH (18:19)
[2017-04-21] MEDS: ETHAMBUTOL HCL 400 MG TABLET PO SCH (18:20)
[2017-04-21] MEDS: GABAPENTIN 100 MG CAPSULE (FP) PO SCH (22:12)
[2017-04-21] MEDS: MIRTAZAPINE 15 MG TABLET (FP) PO SCH (22:12)
[2017-04-21] MEDS: ONDANSETRON 4 MG/2 ML VIAL IVPB PRN (23:58)
[2017-04-22] MEDS ORDERED: PT OWN MED DRAWER 7, Y5N ONE ×6 (00:33→23:38)
[2017-04-22] MEDS: VANCOMYCIN 1,000 MG in SODIUM CHLORIDE 250 ML IVPB SCH ×2 (00:57→12:44)
[2017-04-22] MEDS: METRONIDAZOLE 500 MG PREMIXED 100 ML IVPB SCH ×4 (02:31→21:50)
[2017-04-22] MEDS: HEPARIN NA (PORCINE) 5,000 UNITS/ML 1ML VIAL SQ SCH ×3 (06:49→21:50)
[2017-04-22] MEDS: SODIUM CHLORIDE 1,000 ML IV SCH ×2 (08:51→19:05)
[2017-04-22] MEDS: ISONIAZID 300 MG TABLET (FP) PO SCH (10:17)
[2017-04-22] MEDS: RIFAMPIN 300 MG CAPSULE PO SCH (10:18)
[2017-04-22] MEDS: PYRIDOXINE HCL (B-6) 50 MG TABLET (FP) PO SCH (10:18)
[2017-04-22] MEDS: FAMOTIDINE 20 MG/50 ML IVPB 50 ML IVPB SCH ×2 (10:20→21:49)
--- NOTE | 2017-04-22 11:29 | PN ---
Progress Note (short form) - Note Progress Note: Subjective: The patient was seen and examined at the bedside, he states he would like to go home. His right elbow erythema and edema has improved Current Medications Generic Name Dose Route Start Last Admin Trade Name Emerald PRN Reason Stop Dose Admin Acetaminophen 650 mg 04/19/17 17:45 04/20/17 15:30 Tylenol - PO 650 mg Q6H PRN Administration FEVER OR PAIN Ethambutol HCl 1,200 mg 04/18/17 18:00 04/20/17 17:39 Myambutol - PO 1,200 mg DAILY@1800 TAMAR Administration Gabapentin 100 mg 04/16/17 22:00 04/20/17 21:51 Neurontin - PO 100 mg HS TAMAR Administration Heparin Sodium (Porcine) 5,000 unit 04/16/17 15:00 04/21/17 14:10 Heparin - SQ 5,000 unit TID TAMAR Administration Metronidazole 100 mls @ 100 mls/hr 04/16/17 15:15 04/21/17 16:50 Flagyl 500mg Premixed Ivpb - IVPB 100 mls/hr Q6H-IV TAMAR Administration Famotidine/Sodium Chloride 50 mls @ 100 mls/hr 04/16/17 22:00 04/21/17 10:49 Pepcid 20 Mg Premixed Ivpb - IVPB 100 mls/hr BID TAMAR Administration Sodium Chloride 1,000 mls @ 125 mls/hr 04/19/17 19:00 04/21/17 10:50 Normal Saline - IV 125 mls/hr ASDIR TAMAR Administration Vancomycin HCl 1,000 mg/ 250 mls @ 250 mls/hr 04/21/17 13:00 04/21/17 14:06 Sodium Chloride IVPB 250 mls/hr BID@0100,1300 TAMAR Administration Protocol Isoniazid 300 mg 04/18/17 10:30 04/21/17 10:49 Inh - PO 300 mg DAILY TAMAR Administration Mirtazapine 7.5 mg 04/16/17 22:00 04/20/17 21:51 Remeron - PO 7.5 mg HS TAMAR Administration Ondansetron HCl 4 mg 04/16/17 14:22 04/20/17 15:30 Zofran Injection IVPB 4 mg Q6H PRN Administration NAUSEA Pyrazinamide 1,500 mg 04/18/17 18:00 04/20/17 17:39 Pyrazinamide - PO 1,500 mg DAILY@1800 TAMAR Administration Pyridoxine HCl 75 mg 04/18/17 10:30 04/21/17 10:50 Vitamin B6 - PO 75 mg DAILY TAMAR Administration Rifampin 600 mg 04/18/17 10:30 04/21/17 10:49 Rifadin - PO 600 mg DAILY TAMAR Administration Objective: Vital Signs Period Temp Pulse Resp BP Sys/Parks Pulse Ox Last 24 Hr 98.6 F-99.5 F 79-88 16-20 109-134/72-93 95-96 Physical Exam: General: NAD, A&Ox3 Lungs: CTA bilaterally Heart: RRR, S1S2 Abd: Soft, non-tender Ext: Right elbow erythema, edema, tenderness improved. Increased ROM today CBCD WBC 7.1 K/mm3 (4.0-10.0) 04/20/17 06:00 RBC 4.31 M/mm3 (4.00-5.60) 04/20/17 06:00 Hgb 11.5 GM/dL (11.7-16.9) L 04/20/17 06:00 Hct 35.0 % (35.4-49) L 04/20/17 06:00 MCV 81.1 fl (80-96) 04/20/17 06:00 MCHC 33.0 g/dl (32.0-35.9) 04/20/17 06:00 RDW 16.7 % (11.9-15.9) H 04/20/17 06:00 Plt Count 352 K/MM3 (134-434) 04/20/17 06:00 MPV 7.0 fl (7.5-11.1) L 04/20/17 06:00 CMP Sodium 141 mmol/L (136-145) 04/22/17 12:50 Potassium 3.2 mmol/L (3.5-5.1) L 04/22/17 12:50 Chloride 105 mmol/L (98-107) 04/22/17 12:50 Carbon Dioxide 27 mmol/L (21-32) D 04/22/17 12:50 Anion Gap 9 (8-16) 04/22/17 12:50 BUN 3 mg/dL (7-18) L D 04/22/17 12:50 Creatinine 0.8 mg/dL (0.7-1.3) 04/22/17 12:50 Creat Clearance w eGFR > 60 (>60) 04/21/17 06:00 Random Glucose 157 mg/dL (74-106) H D 04/22/17 12:50 Calcium 7.8 mg/dL (8.5-10.1) L 04/22/17 12:50 Total Bilirubin 0.8 mg/dL (0.2-1.0) D 04/21/17 06:00 AST 42 U/L (15-37) H D 04/21/17 06:00 ALT 69 U/L (12-78) 04/21/17 06:00 Alkaline Phosphatase 67 U/L (45-117) 04/21/17 06:00 Total Protein 5.1 g/dl (6.4-8.2) L 04/21/17 06:00 Albumin 2.2 g/dl (3.4-5.0) L 04/21/17 06:00 Microbiology 04/19/17 18:30 Blood - Peripheral Venous Blood Culture - Preliminary NO GROWTH OBTAINED AFTER 48 HOURS, INCUBATION TO CONTINUE FOR 3 DAYS. 04/19/17 18:30 Blood - Peripheral Venous Blood Culture - Preliminary NO GROWTH OBTAINED AFTER 48 HOURS, INCUBATION TO CONTINUE FOR 3 DAYS. 04/18/17 17:54 Stool Gram Stain - Final 04/18/17 17:54 Stool Salmonella/Shigella Culture - Final NO GROWTH OF SALMONELLA OR SHIGELLA SPECIES OBTAINED 04/18/17 17:54 Stool Campylobacter Culture - Final NO GROWTH OF CAMPYLOBACTER SPECIES OBTAINED 04/18/17 17:54 Stool Yersinia Culture - Final NO GROWTH OF YERSINIA SPECIES OBTAINED 04/18/17 17:54 Stool Vibrio Culture - Final NO GROWTH OF VIBRIO SPECIES OBTAINED 04/18/17 17:54 Stool Escherichia coli 0157 Culture - Final NO GROWTH OF E COLI 0157 OBTAINED 04/20/17 10:00 Urine - Urine Clean Catch Urine Culture - Final NO GROWTH OBTAINED 04/18/17 17:54 Stool Clostridium difficile Antigen (CHAZ) - Final 04/18/17 17:54 Stool Clostridium difficile Toxin Assay - Final Imaging: - 04/16 CTAP: significant thickening of cecal wall; worsening stranding of perinephric fat and moderate free fluid/ascites in RLQ and pelvis; SBO; dilated small loops in lower abdomen and pelvis Assessment: This is a 56 year old male with PMHx of HTN, gout, active pulmonary tuberculosis, sarcoid, metastatic renal cell carcinoma s/p partial nephrectomy ( 2009) who presented with abdominal pain and was admitted for SBO. Plan: 1) GI: SBO - Resolved - Passing gas - Tolerating regular diet - Appreciate surgery consult 2) ID: Right elbow cellulitis, enteritis - Possible resolving infected olecranon bursitis per ortho. No fluid collection on x-ray. No surgical intervention at this time - Afebile - Continue treatment for enteritis as above: - Continue Zosyn (day 7) - Continue Flagyl (day 7) - Continue Vancomycin - Discussed with Dr. Ayon, can d/c from his perspective on Levaquin and Flagyl x7 more days - F/u ID reevaluation - Appreciate ortho consult 3) Pulmonary: Active pulmonary Tb - Continue po medications Pulmonary sarcoid - No acute issues 4) Oncology: Metastatic renal cell carcinoma - Follow-up outpatient oncologist 5) F/E/N: - Monitor electrolytes - Hypokalemia: replete - Hypophosphatemia: replete recheck level tomorrow, if improving, can d/c with po neutraphos - Regular diet 6) Prophylaxis: - Heparin 5,000u sq tid - OOB ambulating 7) Dispo: - Requires continued inpatient care CODE STATUS: FULL CODE Visit type - Emergency Visit Emergency Visit: Yes ED Registration Date: 04/16/17 Care time: The patient presented to the Emergency Department on the above date and was hospitalized for further evaluation of their emergent condition. - New Patient This patient is new to me today: No - Critical Care Critical Care patient: No
[2017-04-22 13:49] LABS: ANION GAP 9 (8-16); CALCIUM 7.8 mg/dL (8.5-10.1); CO2 27 mmol/L (21-32); CREATININE 0.8 mg/dL (0.7-1.3); GLUCOSE,RANDOM 157 mg/dL (74-106); MAGNESIUM 1.8 mg/dL (1.8-2.4); PHOSPHOROUS 1.4 mg/dL (2.5-4.9)
[2017-04-22] MEDS ORDERED: POTASSIUM PHOSPHATE 15 MM in SODIUM CHLORIDE 250 ML IVPB ONE (14:18)
[2017-04-22] MEDS ORDERED: POTASSIUM CHLORIDE TABS 20 MEQ TABLET.ER (FP) PO ONE (14:24)
[2017-04-22] MEDS: ETHAMBUTOL HCL 400 MG TABLET PO SCH (17:46)
[2017-04-22] MEDS: PYRAZINAMIDE 500 MG TABLET PO SCH (17:47)
[2017-04-22] MEDS: ACETAMINOPHEN 325 MG TABLET (FP) PO PRN (17:47)
[2017-04-22] MEDS: NAPH,MB-DB/K PH,MBDB POWDER PACKET PO SCH (21:49)
[2017-04-22] MEDS: MIRTAZAPINE 15 MG TABLET (FP) PO SCH (21:50)
[2017-04-22] MEDS: GABAPENTIN 100 MG CAPSULE (FP) PO SCH (21:50)
[2017-04-23] MEDS: VANCOMYCIN 1,000 MG in SODIUM CHLORIDE 250 ML IVPB SCH (01:00)
[2017-04-23] MEDS: METRONIDAZOLE 500 MG PREMIXED 100 ML IVPB SCH ×2 (02:19→09:13)
[2017-04-23] MEDS: HEPARIN NA (PORCINE) 5,000 UNITS/ML 1ML VIAL SQ SCH (06:27)
[2017-04-23 08:37] LABS: ANION GAP 12 (8-16); CALCIUM 8.5 mg/dL (8.5-10.1); CO2 22 mmol/L (21-32); CREATININE 0.7 mg/dL (0.7-1.3); GLUCOSE,RANDOM 94 mg/dL (74-106); MAGNESIUM 1.8 mg/dL (1.8-2.4); PHOSPHOROUS 2.6 mg/dL (2.5-4.9)
[2017-04-23] MEDS ORDERED: PT OWN MED DRAWER 7, Y5N ONE (09:01)
[2017-04-23] MEDS: ISONIAZID 300 MG TABLET (FP) PO SCH (09:11)
[2017-04-23] MEDS: NAPH,MB-DB/K PH,MBDB POWDER PACKET PO SCH (09:11)
[2017-04-23] MEDS: RIFAMPIN 300 MG CAPSULE PO SCH (09:12)
[2017-04-23] MEDS: FAMOTIDINE 20 MG/50 ML IVPB 50 ML IVPB SCH (09:13)
[2017-04-23] MEDS: PYRIDOXINE HCL (B-6) 50 MG TABLET (FP) PO SCH (09:14)
--- NOTE | 2017-04-23 09:49 | DS ---
Physical Examination Vital Signs: Vital Signs Temperature 99.8 F H 04/23/17 06:21 Pulse Rate 81 04/23/17 06:21 Respiratory Rate 18 04/23/17 06:21 Blood Pressure 135/91 04/23/17 06:21 O2 Sat by Pulse Oximetry (%) 94 L 04/22/17 21:00 Labs: CBC, BMP 04/20/17 06:00 04/23/17 06:45 Discharge Summary Reason For Visit: ENTERITIS TUBERCULOSIS, SMALL BOWEL OBSTRUCTION Current Active Problems DVT prophylaxis (Acute) Enteritis (Acute) Enteritis presumed infectious (Acute) Gout (Acute) H/O renal cell carcinoma (Acute) HTN (hypertension) (Acute) Pulmonary tuberculosis (Acute) SBO (small bowel obstruction) (Acute) Sarcoidosis of lung (Acute) 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 Please follow-up with providers as indicated. Follow-up with your primary care provider within 2-3 days to have your BMP, magnesium, and phosphorous levels checked. Referrals: Jeff Ayon MD [Staff Physician] - (Please follow-up with Dr. Ayon within 1 week for further management of your tuberculosis and enteritis and to assure your right elbow cellulitis has resolved) Kuldeep Villafana [Primary Care Provider] - Jeff Juarez MD [Staff Physician] - (Please follow-up with GI within 1 week to schedule an outpatient colonoscopy) Disposition: HOME - Home Medications Comprehensive Discharge Medication List: Ambulatory Orders Gabapentin 100 mg PO HS 03/14/17 Losartan Potassium 50 mg PO DAILY 03/14/17 Ethambutol HCl [Myambutol -] 1,200 mg PO DAILY@1800 #30 tablet 04/05/17 Isoniazid [Nydrazid -] 300 mg PO DAILY@0700 #30 tablet 04/05/17 Mirtazapine [Remeron -] 7.5 mg PO HS tablet 04/05/17 Pyrazinamide - 1,500 mg PO DAILY@1800 #30 tablet 04/05/17 Pyridoxine HCl (B-6) [Vitamin B6 -] 75 mg PO DAILY@0700 tablet 04/05/17 Rifampin [Rifadin -] 600 mg PO DAILY #30 mg 04/05/17 Acetaminophen [Tylenol .Regular Strength -] 650 mg PO Q6H PRN #0 tablet Famotidine 20 mg PO HS #30 tablet 04/23/17 Levofloxacin [Levaquin] 500 mg PO DAILY #7 tablet 04/23/17 Metronidazole [Flagyl -] 500 mg PO Q8H #21 tablet 04/23/17
[2017-04-23 11:15] VITALS: BP 138/94; PULSE 72; TEMP 97
== END 2017-04-23 12:27 | disposition home or self-care (01) | DRG 389 ==
LOC: JER 09:07 → JERBED 12:57 → J5S 19:04 → J8W 04-17 15:10
PROVIDERS: ADMIT Internal Medicine; ATTEND Registered Nurse
DX: K56.69 Other intestinal obstruction (principal); A09 Infectious gastroenteritis and colitis, unspecified; A15.9 Respiratory tuberculosis unspecified; C64.1 Malignant neoplasm of right kidney, except renal pelvis; C77.3 Secondary and unspecified malignant neoplasm of axilla and upper limb lymph nodes; L03.113 Cellulitis of right upper limb; I10 Essential (primary) hypertension; M10.9 Gout, unspecified; Z90.5 Acquired absence of kidney; D86.89 Sarcoidosis of other sites; Z86.19 Personal history of other infectious and parasitic diseases; Z87.891 Personal history of nicotine dependence; R50.9 Fever, unspecified; M70.21 Olecranon bursitis, right elbow; E87.6 Hypokalemia; E83.42 Hypomagnesemia; E83.39 Other disorders of phosphorus metabolism
CPT/HCPCS: 36415; 71010-TC; 73070-TC-RT; 74000-TC; 74177-TC; 80048; 80053; 81003; 83605; 83690; 83735; 84100; 84550; 85025; 87040; 87045; 87046; 87086; 87205; 87324; 87449; 93005; 93010; 99285-25; J1644

== ENCOUNTER 2017-05-26 11:36 | Inpatient (IN) | payer BC, OTHER ==
[2017-05-26 11:42] VITALS: BMI 17.9
--- NOTE | 2017-05-26 11:58 | PDOC ---
History of Present Illness - General History Source: Patient, Spouse Exam Limitations: No Limitations - History of Present Illness Initial Comments: 05/26/17 12:22 The patient is a 57 year old male, with a significant past medical history of SBO, TB+, renal cell carcinoma(s/p partial nephrectomy 2009), gout, hypertension , and sarcoidosis, who presents with abdominal pain, nausea, vomiting, and weakness since this morning. The patient reports he first developed diffuse abdominal pain this morning. Patient reports the pain radiates into his rectum. As per , patient was unable to tolerate solids or fluid p.o.. reports nausea and an episode of nonbloody/nonbilious emesis. Patient reports he has had normal bowel movements over the past couple of weeks, but he has not had a bowel movement today. He denies any melena or hematochezia during his lbm. Patient reports associated weakness and chills, but denies any fever, headache, or dizziness. Patient reports increased belching but no flatulence. He denies any dysuria, hematuria, frequency, or urgency. As per , the last time the patient had an SBO he had an NG tube placed, but he has not f/u with his surgeon Dr. James. Allergies: NKDA Past Surgical History: Partial nephrectomy (2009), right lung lobectomy Social History: Former smoker. No ETOH or recreational drug use. PCP: Dr. Villafana Surgeon: Dr. James <Sayda Barr - Last Filed: 05/26/17 14:50> <Tahira Medeiros - Last Filed: 05/26/17 14:55> - General Chief Complaint: Pain Stated Complaint: ABD PAIN Time Seen by Provider: 05/26/17 11:57 Past History <Syada Barr - Last Filed: 05/26/17 14:50> - Past Medical History Cancer: Yes (Renal ca, s/p R Nephrectomy) HTN: Yes Other medical history: sarcoidosis,gout - Surgical History Abdominal Surgery: (partial right nephrectomy 2009) - Suicide/Smoking/Psychosocial Hx Smoking History: Former smoker Have you smoked in the past 12 months: No If you are a former smoker, when did you quit?: 2009 Information on smoking cessation initiated: No Hx Alcohol Use: No Drug/Substance Use Hx: No Substance Use Type: None <Tahira Medeiros - Last Filed: 05/26/17 14:55> - Past Medical History Allergies/Adverse Reactions: Allergies Allergy/AdvReac Type Severity Reaction Status Date / Time No Known Allergies Allergy Verified 05/26/17 11:38 Home Medications: Ambulatory Orders Losartan Potassium 50 mg PO DAILY 03/14/17 Isoniazid [Nydrazid -] 300 mg PO DAILY@0700 #30 tablet 04/05/17 Pyrazinamide - 1,500 mg PO DAILY@1800 #30 tablet 04/05/17 Pyridoxine HCl (B-6) [Vitamin B6 -] 75 mg PO DAILY@0700 tablet 04/05/17 Rifampin [Rifadin -] 600 mg PO DAILY #30 mg 04/05/17 Review of Systems - Review of Systems Able to Perform ROS?: Yes Comments:: 05/26/17 12:24 GENERAL/CONSTITUTIONAL: Yes chills, weakness. No fever. HEAD, EYES, EARS, NOSE AND THROAT: No change in vision. No ear pain or discharge. No sore throat. CARDIOVASCULAR: No chest pain or shortness of breath. RESPIRATORY: No cough, wheezing, or hemoptysis. GASTROINTESTINAL: Yes diffuse abdominal pain, belching,nausea, vomiting, constipation, pain in rectum. No diarrhea, flatulence, melena, or hematochezia. GENITOURINARY: No dysuria, frequency, or change in urination. MUSCULOSKELETAL: No joint or muscle swelling or pain. No neck or back pain. SKIN: No rash NEUROLOGIC: No headache, vertigo, loss of consciousness, or change in strength/ sensation. ENDOCRINE: No increased thirst. No abnormal weight change. HEMATOLOGIC/LYMPHATIC: No anemia, easy bleeding, or history of blood clots. ALLERGIC/IMMUNOLOGIC: No hives or skin allergy. <Sayda Barr - Last Filed: 05/26/17 14:50> *Physical Exam - Vital Signs Last Vital Signs Temp Pulse Resp BP Pulse Ox 98.3 F 118 H 18 95/43 100 05/26/17 11:39 05/26/17 11:39 05/26/17 11:39 05/26/17 11:39 05/26/17 11:39 - Physical Exam Comments: 05/26/17 13:39 GENERAL: Awake, alert, and fully oriented, in no acute distress HEAD: No signs of trauma EYES: PERRLA, EOMI, sclera anicteric, conjunctiva clear ENT: Auricles normal inspection, hearing grossly normal, nares patent, oropharynx clear without exudates. Moist mucosa. NECK: Normal ROM, supple, no lymphadenopathy, JVD, or masses LUNGS: Breath sounds equal, clear to auscultation bilaterally. No wheezes, and no crackles HEART: Regular rate and rhythm, normal S1 and S2, no murmurs, rubs or gallops ABDOMEN: Diffusely tender in the lower quadrants, mildly distended. Old healed RLQ incision. Soft, normoactive bowel sounds. No guarding, no rebound. No masses EXTREMITIES: Normal range of motion, no edema. No clubbing or cyanosis. No cords, erythema, or tenderness NEUROLOGICAL: Cranial nerves II through XII grossly intact. Normal speech, normal gait SKIN: Warm, Dry, normal turgor, no rashes or lesions noted. <Sayda Barr - Last Filed: 05/26/17 14:50> - Vital Signs Last Vital Signs Temp Pulse Resp BP Pulse Ox 98.3 F 118 H 18 95/43 100 05/26/17 11:39 05/26/17 11:39 05/26/17 11:39 05/26/17 11:39 05/26/17 11:39 <Tahira Medeiros - Last Filed: 05/26/17 14:55> ED Treatment Course - LABORATORY CBC & Chemistry Diagram: 05/26/17 12:25 05/26/17 13:25 - RADIOLOGY Radiograph Interpretation: 05/26/17 14:48 EXAM: CT Abdomen and Pelvis INTERPRETED BY: Dr. Mcbride REVIEWED BY: Dr. Medeiros IMPRESSION: Free intra-abdominal air and fluid with distended small bowel loops. This is consistent with a bowel perforation. The site of perforation is uncertain. Clinical correlation is advised. EXAM: CXR INTERPRETED BY: Dr. Chiang REVIEWED BY: Dr. Medeiros IMPRESSION: Interval better aeration of the right upper lobe with residual airspace disease/pneumonia. Interval removal of the nasogastric tube. <Sayda Barr - Last Filed: 05/26/17 14:50> - LABORATORY CBC & Chemistry Diagram: 05/26/17 12:25 05/26/17 13:25 <Tahira Medeiros - Last Filed: 05/26/17 14:55> Medical Decision Making - Medical Decision Making 05/26/17 14:49 First call placed to Dr. Ayon at 12:39. Awaiting call back. Case discussed with Dr. Ayon at 14:29. Case discussed with Dr. James at 14:30. <Sayda Barr - Last Filed: 05/26/17 14:50> - Critical Care Time Total Critical Care Time (minutes): 30 Critical Care Statement: The care of this patient involved high complexity decision making to prevent further life threatening deterioration of the patient 's condition and/or to evaluate & treat vital organ system(s) failure or risk of failure. - Medical Decision Making 05/26/17 12:19 a/p: 57yo male with hx of SBO and hx of R nephrectomy in the past with n/v since this AM -last bm yesterday -PO intolerance this AM -vomiting x 1 - what he ate - nonbloody and nonbilious -No flatus or BM this AM -rectal vault empty -will obtain labs, ct abd/pelvis to eval for poss SBO. Recently dx with SBO in april managed medically 05/26/17 13:19 pt with elevated lactate, will continue ivf and NPO. pending rest of labs. 05/26/17 14:10 called by radiology - free fluid in abd, free air in abd, concern for perforation, also dilated loops of small bowel. 05/26/17 14:[address] James for surgical eval. 05/26/17 14:[address] Jacques who said the patient is clear from a TB standpoint, ok for OR, will see in consult. Dr. James at the bedside to see the patient. Case discussed with IM Dr. Rogers who accepts under Dr. Nickerson <Tahira Medeiros - Last Filed: 05/26/17 14:55> *DC/Admit/Observation/Transfer - Attestations Scribe Attestion: 05/26/17 12:25 Documentation prepared by Sayda Barr, acting as medical records custodian for Tahira eMdeiros DO. <Sayda Barr - Last Filed: 05/26/17 14:50> - Discharge Dispostion Admit: Yes - Attestations Physician Attestion: 05/26/17 14:34 I, Dr. Tahira Medeiros, DO, attest that this document has been prepared under my direction and personally reviewed by me in its entirety. I further attest, that it accurately reflects all work, treatment, procedures and medical decision -making performed by me. <Tahira Medeiros - Last Filed: 05/26/17 14:55> Diagnosis at time of Disposition: Perforated abdominal viscus - Discharge Dispostion Condition at time of disposition: Critical
[2017-05-26] MEDS ORDERED: ONDANSETRON 4 MG/2 ML VIAL IVPUSH ONE (12:12)
[2017-05-26] MEDS ORDERED: morphine CARPU-JECT 4 MG/1 ML DISP.SYRIN IVPUSH ONE ×2 (12:12→14:17)
[2017-05-26] MEDS ORDERED: SODIUM CHLORIDE 0.9% 1000 ML INFUS.BAG IV ONE ×4 (12:12→16:01)
[2017-05-26] MEDS ORDERED: FAMOTIDINE 20 MG/50 ML IVPB 50 ML IVPB ONE ×2 (12:12→12:31)
[2017-05-26] MEDS ORDERED: ONDANSETRON 4 MG/2 ML VIAL ONE (12:31)
[2017-05-26] MEDS ORDERED: morphine CARPU-JECT 2 MG/1 ML DISP.SYRIN ONE ×2 (12:31→14:23)
[2017-05-26 12:46] LABS: BASOPHIL 0.8 % (0-2.0); EOSINOPHIL 2.2 % (0-4.5); MCHC 32.3 g/dl (32.0-35.9); MEAN CELL VOLUME 83.6 fl (80-96); MEAN PLT VOLUME 7.9 fl (7.5-11.1); NEUTROPHILS 83.7 % (42.8-82.8); PLATELET COUNT 500 K/MM3 (134-434); RDW 16.3 % (11.9-15.9); WHITE BLOOD COUNT 6.1 K/mm3 (4.0-10.0)
[2017-05-26 12:53] LABS: INR 1.04 (0.82-1.09); PROTHROMBIN TIME (PATIENT) 11.7 SEC (9.98-11.88)
[2017-05-26 14:14] LABS: ALBUMIN 2.7 g/dl (3.4-5.0); ANION GAP 9 (8-16); CALCIUM 8.2 mg/dL (8.5-10.1); CO2 27 mmol/L (21-32); CREATININE 1.1 mg/dL (0.7-1.3); GLUCOSE,RANDOM 93 mg/dL (74-106); MAGNESIUM 1.9 mg/dL (1.8-2.4); SGOT/AST 15 U/L (15-37); SGPT/ALT 18 U/L (12-78)
[2017-05-26 14:19] LABS: ALK PHOS 112 U/L (45-117); CPK 22 IU/L (39-308); TOT PROT 5.9 g/dl (6.4-8.2); TROPONIN I < 0.02 ng/ml (0.00-0.05)
[2017-05-26] MEDS ORDERED: ONDANSETRON 4 MG/2 ML VIAL IVPB PRN ×2 (14:27→20:35)
[2017-05-26] MEDS ORDERED: SODIUM CHLORIDE 1,000 ML IV SCH (14:30)
[2017-05-26] MEDS ORDERED: PIPERACILLIN/TAZOB 4.5 GM/100 ML PRE-DOCKED IVPB ONE (14:41)
[2017-05-26] MEDS ORDERED: PIPERACILLIN/TAZOB 4.5 GM 100 ML IVPB ONE ×2 (14:56→23:00)
--- NOTE | 2017-05-26 15:02 | HP ---
CHIEF COMPLAINT: abdominal pain PCP: HISTORY OF PRESENT ILLNESS: This is a 57 year old male on on medication for TB, with a history of SBO, presents to the emergency dept, with abdominal pain since early this morning after eating breakfast. HE took all his TB medications, ate avocado and started to feel nauseated, and started to vomit, NBNB. Abdominal pain, diffuse on radiating. ER CT scan showed free air in abdomen. Recent Travel: PAST MEDICAL HISTORY: TB, SBO, HTN PAST SURGICAL HISTORY: Social History: Smoking:no Alcohol:no Drugs: no Family History: Allergies No Known Allergies Allergy (Verified 05/26/17 11:38) HOME MEDICATIONS: Home Medications Medication Instructions Recorded Losartan Potassium 50 mg PO DAILY 03/14/17 Isoniazid [Nydrazid -] 300 mg PO DAILY@0700 #30 tablet 04/05/17 Pyrazinamide - 1,500 mg PO DAILY@1800 #30 tablet 04/05/17 Pyridoxine HCl (B-6) [Vitamin B6 -] 75 mg PO DAILY@0700 tablet 04/05/17 Rifampin [Rifadin -] 600 mg PO DAILY #30 mg 04/05/17 REVIEW OF SYSTEMS CONSTITUTIONAL: Positive: chills, weakness Absent: fever, diaphoresis,malaise, loss of appetite, weight change HEENT: Absent: rhinorrhea, nasal congestion, throat pain, throat swelling, difficulty swallowing, mouth swelling, ear pain, eye pain, visual changes CARDIOVASCULAR: Absent: chest pain, syncope, palpitations, irregular heart rate, lightheadedness , peripheral edema RESPIRATORY: Absent: cough, shortness of breath, dyspnea with exertion, orthopnea, wheezing, stridor, hemoptysis GASTROINTESTINAL: Positive: abdominal pain, nausea, vomiting Absent: abdominal distension, diarrhea, constipation, melena, hematochezia GENITOURINARY: Absent: dysuria, frequency, urgency, hesitancy, hematuria, flank pain, genital pain MUSCULOSKELETAL: Absent: myalgia, arthralgia, joint swelling, back pain, neck pain SKIN: Absent: rash, itching, pallor HEMATOLOGIC/IMMUNOLOGIC: Absent: easy bleeding, easy bruising, lymphadenopathy, frequent infections ENDOCRINE: Absent: unexplained weight gain, unexplained weight loss, heat intolerance, cold intolerance NEUROLOGIC: Absent: headache, focal weakness or paresthesias, dizziness, unsteady gait, seizure, mental status changes, bladder or bowel incontinence PSYCHIATRIC: Absent: anxiety, depression, suicidal or homicidal ideation, hallucinations. PHYSICAL EXAMINATION Vital Signs - 24 hr 05/26/17 11:39 Temperature 98.3 F Pulse Rate 118 H Respiratory 18 Rate Blood Pressure 95/43 O2 Sat by Pulse 100 Oximetry (%) GENERAL: Awake, alert, and fully oriented, in no acute distress. in pain HEAD: Normal with no signs of trauma. EYES: Pupils equal, round and reactive to light, extraocular movements intact, sclera anicteric, conjunctiva clear. No lid lag. EARS, NOSE, THROAT: Ears normal, nares patent, oropharynx clear without exudates. Moist mucous membranes. NECK: Normal range of motion, supple without lymphadenopathy, JVD, or masses. LUNGS: Breath sounds equal, clear to auscultation bilaterally. No wheezes, and no crackles. No accessory muscle use. HEART: Regular rate and rhythm, normal S1 and S2 without murmur, rub or gallop. ABDOMEN: Soft, very tender, not distended, no bowel sounds, no guarding, no rebound, no masses. No hepatomegaly or splenomegaly. MUSCULOSKELETAL: Normal range of motion at all joints. No bony deformities or tenderness. No CVA tenderness. UPPER EXTREMITIES: 2+ pulses, warm, well-perfused. No cyanosis. No clubbing. No peripheral edema. LOWER EXTREMITIES: 2+ pulses, warm, well-perfused. No calf tenderness. No peripheral edema. NEUROLOGICAL: Cranial nerves II-XII intact. Normal speech. Normal gait. PSYCHIATRIC: Cooperative. Good eye contact. Appropriate mood and affect. SKIN: Warm, dry, normal turgor, no rashes or lesions noted, normal capillary refill. Laboratory Results - last 24 hr 05/26/17 05/26/17 05/26/17 12:11 12:25 12:25 WBC RBC Hgb Hct MCV MCH MCHC RDW Plt Count MPV Neutrophils % Lymphocytes % Monocytes % Eosinophils % Basophils % PT with INR INR PTT (Actin FS) 28.5 Sodium Cancelled Potassium Cancelled Chloride Cancelled Carbon Dioxide Cancelled Anion Gap Cancelled BUN Cancelled Creatinine Cancelled Creat Clearance w eGFR Cancelled Random Glucose Cancelled Lactic Acid 3.5 H* Calcium Cancelled Magnesium Cancelled Total Bilirubin Cancelled AST Cancelled ALT Cancelled Alkaline Phosphatase Cancelled Creatine Kinase Cancelled Troponin I Cancelled Total Protein Cancelled Albumin Cancelled Lipase Cancelled 05/26/17 05/26/17 05/26/17 12:25 12:25 12:25 WBC 6.1 RBC 4.92 Hgb 13.3 D Hct 41.1 D MCV 83.6 MCH 27.0 MCHC 32.3 RDW 16.3 H Plt Count 500 H D MPV 7.9 D Neutrophils % 83.7 H Lymphocytes % 6.5 L Monocytes % 6.8 Eosinophils % 2.2 Basophils % 0.8 PT with INR 11.70 INR 1.04 PTT (Actin FS) Sodium Potassium Chloride Carbon Dioxide Anion Gap BUN Creatinine Creat Clearance w eGFR Random Glucose Lactic Acid Calcium Magnesium Cancelled Total Bilirubin AST ALT Alkaline Phosphatase Creatine Kinase Troponin I Total Protein Albumin Lipase Cancelled 05/26/17 13:25 WBC RBC Hgb Hct MCV MCH MCHC RDW Plt Count MPV Neutrophils % Lymphocytes % Monocytes % Eosinophils % Basophils % PT with INR INR PTT (Actin FS) Sodium 141 Potassium 4.6 Chloride 105 Carbon Dioxide 27 D Anion Gap 9 BUN 15 D Creatinine 1.1 D Creat Clearance w eGFR > 60 Random Glucose 93 Lactic Acid Calcium 8.2 L Magnesium 1.9 Total Bilirubin 1.0 D AST 15 D ALT 18 D Alkaline Phosphatase 112 D Creatine Kinase 22 L Troponin I < 0.02 Total Protein 5.9 L Albumin 2.7 L D Lipase 145 ASSESSMENT/PLAN: 57 year old male with a past medical history of TB, sarcoidosis, and SBP presents with diffuse abdominal pain admitted for abdominal perforation. #abdominal pain secondary to abdominal perforation: -taken to OR for ex lap -npo, ivf, iv antibiotic -id, surgery consult #TB -medications as per ID -not on isolation case discussed with attending, ID and surgery full h and p to follow Problem List - Problem (1) Perforated abdominal viscus Code(s): [id number] - (2) Sarcoidosis of lung Code(s): D86.0 - SARCOIDOSIS OF LUNG Visit type - Emergency Visit Emergency Visit: Yes ED Registration Date: 05/26/17 Care time: The patient presented to the Emergency Department on the above date and was hospitalized for further evaluation of their emergent condition. - New Patient This patient is new to me today: Yes Date on this admission: 05/26/17 - Critical Care Critical Care patient: No
[2017-05-26 15:22] LABS: URINE APPEARANCE SLCLOUDY; URINE BILIRUBIN NEGATIVE (NEGATIVE); URINE BLOOD NEGATIVE (NEGATIVE); URINE COLOR AMBER; URINE GLUCOSE (UA) NEGATIVE (NEGATIVE); URINE KETONE TRACE (NEGATIVE); URINE NITRITE NEGATIVE (NEGATIVE)
[2017-05-26 15:25] LABS: URINE PROTEIN 2+ (NEGATIVE)
[2017-05-26] MEDS ORDERED: LIDOCAINE HCL/PF 2% SDV 5ML VIAL ONE (15:25)
[2017-05-26] MEDS ORDERED: PROPOFOL 20 ML ONE (15:25)
[2017-05-26] MEDS ORDERED: ETOMIDATE 20 MG/10 ML AMPUL IVPUSH ONE (15:25)
[2017-05-26] MEDS ORDERED: ROCURONIUM BROMIDE 50 MG/5 ML VIAL ONE (15:26)
[2017-05-26] MEDS ORDERED: MIDAZOLAM HCL 2 MG/2 ML SINGLE DOSE VIAL ONE ×5 (15:26→17:11)
[2017-05-26] MEDS ORDERED: SUCCINYLCHOLINE CHLORIDE 200 MG/10 ML VIAL ONE (15:28)
[2017-05-26 15:32] LABS: URINE HYALINE CAST 76 /lpf; URINE MUCUS MANY; URINE RBC 9 /hpf (0-3); URINE WBC 4 /hpf (3-5); YEAST RARE
--- NOTE | 2017-05-26 15:43 | CONSULT ---
Consult Consult Specialty:: General Surgery Referred by:: Dr. 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 He ate at 7am and then took his TB meds. Shortly after, the pain started and was followed by an episode of N/V, nonbloody. Last normal BM was yesterday, no flatus or BM this morning. No recent illness or diarrhea, but he thinks he emptied his colon well yesterday with BMs. No fever or chills. In ER, he was somewhat tachycardic with slightly low BP, responded well to IV fluids, afebrile, wbc 6, lactate 3.5, Cr 1.1. CT scan for possible SBO showed free air in abdomen without clear source of perforation. He still has some pain, especially when he moves. - History Source History Provided By: Patient, Family Member ( at bedside) Limitations to Obtaining History: No Limitations - Past Medical History Cardio/Vascular: Yes: HTN Pulmonary: Yes: Other (sarcoidosis (R wedge lung bx 2012), TB on 4-drug treatment since early March) Gastrointestinal: Yes: Other (enteritis in early April ?TB related) Hepatobiliary: Yes: Hepatitis B (per lab hx is positive for core Ab) Renal/: Yes: Cancer (s/p lap partial R nephrectomy 2009, metastatic to R ax LN by bx last month) Infectious Disease: Yes: Tuberculosis (on treatment - not on isolation per Dr. Ayon) Rheumatology: Yes: Gout (both big toes, left was last - took allopurinol yesterday, no pain now) Additional Medical History: Hx Sarcoid on chronic steroids since 2012 - tapered off Pred 10mg/d last month while in hospital - Past Surgical History Past Surgical History: Yes: Colonoscopy (2015 - polyps (not cancer) and reportedly sarcoid), Nephrectomy (laparoscopic - Partial (R) 2009) - Alcohol/Substance Use Hx Alcohol Use: No History of Substance Use: reports: None - Smoking History Smoking history: Former smoker Have you smoked in the past 12 months: No If you are a former smoker, when did you quit?: 2009 - Social History Usual Living Arrangement: With Spouse Home Medications - Allergies Allergies/Adverse Reactions: Allergies Allergy/AdvReac Type Severity Reaction Status Date / Time No Known Allergies Allergy Verified 05/26/17 11:38 - Home Medications Home Medications: Ambulatory Orders Losartan Potassium 50 mg PO DAILY 03/14/17 Isoniazid [Nydrazid -] 300 mg PO DAILY@0700 #30 tablet 04/05/17 Pyrazinamide - 1,500 mg PO DAILY@1800 #30 tablet 04/05/17 Pyridoxine HCl (B-6) [Vitamin B6 -] 75 mg PO DAILY@0700 tablet 04/05/17 Rifampin [Rifadin -] 600 mg PO DAILY #30 mg 04/05/17 Family Disease History - Family Disease History Family History: Unremarkable Review of Systems - Review of Systems Eyes: denies: Blurred Vision, Recent Change in Vision HENT: denies: Difficult Swallowing, Nasal Congestion, Throat Pain Neck: denies: Swollen Glands, Tenderness Cardiovascular: denies: Chest Pain, Palpitations Respiratory: denies: Cough, SOB Gastrointestinal: reports: Abdominal Pain (with hpi), Nausea (with hpi), Vomiting (with hpi). denies: Constipation, Diarrhea Genitourinary: denies: Burning, Dysuria Musculoskeletal: reports: Joint Pain (big toes/gout, not significant right now) . denies: Back Pain Integumentary: denies: Change in Color, Rash Neurological: denies: Dizziness, Headache Physical Exam Vital Signs: Vital Signs Temperature 98.3 F 05/26/17 11:39 Pulse Rate 118 H 05/26/17 11:39 Respiratory Rate 18 05/26/17 11:39 Blood Pressure 95/43 05/26/17 11:39 O2 Sat by Pulse Oximetry (%) 100 05/26/17 11:39 Constitutional: Yes: Well Nourished, Calm, Mild Distress (secondary to pain) Eyes: Yes: Conjunctiva Clear, EOM Intact HENT: Yes: Atraumatic, Normocephalic Neck: Yes: Supple, Trachea Midline Cardiovascular: Yes: Tachycardia. No: Pulse Irregular Respiratory: Yes: Regular, CTA Bilaterally Gastrointestinal: Yes: Distention (minimal), Hypoactive Bowel Sounds, Tenderness (diffusely, more in lower quadrants R>L, + guarding, + rebound), Tenderness, Rebound ...Rectal Exam: Yes: Deferred Renal/: Yes: Oliguria (provided small urine specimen). No: Anuria Musculoskeletal: No: Joint Stiffness, Joint Swelling Extremities: No: Cool, Cyanosis Edema: No Peripheral Pulses WNL: Yes Integumentary: No: Jaundice, Rash Neurological: Yes: Alert, Oriented Psychiatric: Yes: Alert, Oriented Labs: CBCD WBC 6.1 K/mm3 (4.0-10.0) 05/26/17 12:25 RBC 4.92 M/mm3 (4.00-5.60) 05/26/17 12:25 Hgb 13.3 GM/dL (11.7-16.9) D 05/26/17 12:25 Hct 41.1 % (35.4-49) D 05/26/17 12:25 MCV 83.6 fl (80-96) 05/26/17 12:25 MCHC 32.3 g/dl (32.0-35.9) 05/26/17 12:25 RDW 16.3 % (11.9-15.9) H 05/26/17 12:25 Plt Count 500 K/MM3 (134-434) H D 05/26/17 12:25 MPV 7.9 fl (7.5-11.1) D 05/26/17 12:25 CMP Sodium 141 mmol/L (136-145) 05/26/17 13:25 Potassium 4.6 mmol/L (3.5-5.1) 05/26/17 13:25 Chloride 105 mmol/L (98-107) 05/26/17 13:25 Carbon Dioxide 27 mmol/L (21-32) D 05/26/17 13:25 Anion Gap 9 (8-16) 05/26/17 13:25 BUN 15 mg/dL (7-18) D 05/26/17 13:25 Creatinine 1.1 mg/dL (0.7-1.3) D 05/26/17 13:25 Creat Clearance w eGFR > 60 (>60) 05/26/17 13:25 Calcium 8.2 mg/dL (8.5-10.1) L 05/26/17 13:25 Total Bilirubin 1.0 mg/dL (0.2-1.0) D 05/26/17 13:25 AST 15 U/L (15-37) D 05/26/17 13:25 ALT 18 U/L (12-78) D 05/26/17 13:25 Alkaline Phosphatase 112 U/L (45-117) D 05/26/17 13:25 Total Protein 5.9 g/dl (6.4-8.2) L 05/26/17 13:25 Albumin 2.7 g/dl (3.4-5.0) L D 05/26/17 13:25 lactate 3.5 repeat pending INR, PTT INR 1.04 (0.82-1.09) 05/26/17 12:25 Imaging - Results Cat Scan: Report Reviewed (pneumoperitoneum, source not identified, no oral contrast, evidence of partial R nephrectomy), Image Reviewed Problem List - Problems (1) Perforated abdominal viscus Assessment/Plan: aggressive IVF resuscitation, NPO to be admitted to hospitalist service blood cx sent Zosyn started in ER Discussed with patient risks, benefits and alternatives of exploratory laparotomy, possible bowel resection, possible ostomy, possible central venous catheter insertion, including but not limited to bleeding, infection, pneumothorax, injury to adjacent structures, leak or injury, intraabdominal abscess, need for drain, open wound, further procedures, ; alternatives include no surgery which would likely result in sepsis and . Patient desires to proceed with operation - will take to OR emergently for above. Informed consent signed for same. Pt is aware that he will have NGT and Carlos catheter postop ID/Dr. Ayon consulted to guide TB treatment while NPO - will have to hold meds temporarily Plan to continue Zosyn/abx per ID Code(s): [id number] - (2) Lactic acidosis Code(s): E87.2 - ACIDOSIS (3) Gout Code(s): M10.9 - GOUT, UNSPECIFIED Qualifiers: Gout site: multiple sites Gout etiology: unspecified cause Chronicity: unspecified Qualified Code(s): M10.9 - Gout, unspecified; M10.9 - Gout, unspecified (4) H/O renal cell carcinoma Code(s): Z85.528 - PERSONAL HISTORY OF OTHER MALIGNANT NEOPLASM OF KIDNEY (5) HTN (hypertension) Code(s): I10 - ESSENTIAL (PRIMARY) HYPERTENSION Qualifiers: Hypertension type: unspecified Qualified Code(s): I10 - Essential ( primary) hypertension; I10 - Essential (primary) hypertension; I10 - Essential ( primary) hypertension (6) Pulmonary tuberculosis Code(s): A15.0 - TUBERCULOSIS OF LUNG (7) Sarcoidosis of lung Code(s): D86.0 - SARCOIDOSIS OF LUNG
[2017-05-26] MEDS ORDERED: HYDROmorphone HCL CARPU-JECT 1 MG/1 ML DISP.SYRIN IVPUSH ONE (16:10)
[2017-05-26] MEDS ORDERED: HYDROmorphone HCL CARPU-JECT 1 MG/1 ML DISP.SYRIN ONE (16:12)
--- NOTE | 2017-05-26 17:06 | HP ---
CHIEF COMPLAINT: Abdominal pain x1 day PCP: Dr Villafana Surgeon- Dr James HISTORY OF PRESENT ILLNESS: The patient is a 57 year old with PMHx Renal cell cancer s/p R partial nephrectomy 2009, R lung lobectomy, Sarcoidosis , gout, HTN , TB (3rd month on treatment), previous partial small bowel obstruction ( april 2017), now presenting with constant generalized 9/10 pain radiating to rectum for one day. Pain started after his breakfast this am and was associated with vomiting X2 episodes this am. Of recently ingested food, non bloody. No hx of melena or hematemesis. No bowel movement today. No fever, chills, no recent travel. Patient was managed here at [facility] for a week for partial SBO in April, with NGT and fluids and recovered. Since then, patient has maintained a soft diet. He reports recurrent episodes of abdominal pain, lasting couple of days and then being relieved spontaneously. For a week prior to this presentation, patient had been unusually completely free of abdominal pain for a whole week until this morning when the pain became constant. No dysuria, no fever, no jaundice. No change in medication or recent travel. ER course was notable for: (1)CT abd_Free air under diaphragm, moderately distended fluid loops of small bowel in R side of abdomen indicative of SBO. (2) Lactic acid- 3.5 --> 4 (3) 2l LR boluses 4) IV Zosyn 5) UA- essentially negative Recent Travel: None PAST MEDICAL HISTORY: SBO Renal Cell cancer Gout HTN Sarcoidosis TB+ (on treatment) PAST SURGICAL HISTORY: r nephrectomy r lung lobectomy Social History: Smoking: former smoker Alcohol: Drugs: Family History: Allergies No Known Allergies Allergy (Verified 05/26/17 11:38) HOME MEDICATIONS: Home Medications Medication Instructions Recorded Losartan Potassium 50 mg PO DAILY 03/14/17 Isoniazid [Nydrazid -] 300 mg PO DAILY@0700 #30 tablet 04/05/17 Pyrazinamide - 1,500 mg PO DAILY@1800 #30 tablet 04/05/17 Pyridoxine HCl (B-6) [Vitamin B6 -] 75 mg PO DAILY@0700 tablet 04/05/17 Rifampin [Rifadin -] 600 mg PO DAILY #30 mg 04/05/17 REVIEW OF SYSTEMS CONSTITUTIONAL: Absent: fever, chills, diaphoresis, generalized weakness, malaise, loss of appetite, weight change HEENT: Absent: rhinorrhea, nasal congestion, throat pain, throat swelling, difficulty swallowing, mouth swelling, ear pain, eye pain, visual changes CARDIOVASCULAR: Absent: chest pain, syncope, palpitations, irregular heart rate, lightheadedness , peripheral edema RESPIRATORY: Absent: cough, shortness of breath, dyspnea with exertion, orthopnea, wheezing, stridor, hemoptysis GASTROINTESTINAL: Absent: abdominal pain+, abdominal distension, nausea+, vomiting+, diarrhea, constipation, melena, hematochezia GENITOURINARY: Absent: dysuria, frequency, urgency, hesitancy, hematuria, flank pain, genital pain MUSCULOSKELETAL: Absent: myalgia, arthralgia, joint swelling, back pain, neck pain SKIN: Absent: rash, itching, pallor HEMATOLOGIC/IMMUNOLOGIC: Absent: easy bleeding, easy bruising, lymphadenopathy, frequent infections ENDOCRINE: Absent: unexplained weight gain, unexplained weight loss, heat intolerance, cold intolerance NEUROLOGIC: Absent: headache, focal weakness or paresthesias, dizziness, unsteady gait, seizure, mental status changes, bladder or bowel incontinence PSYCHIATRIC: Absent: anxiety, depression, suicidal or homicidal ideation, hallucinations. PHYSICAL EXAMINATION Vital Signs - 24 hr 05/26/17 16:18 Temperature 98.7 F Pulse Rate [ 112 H Left Radial] Respiratory 18 Rate Blood Pressure 115/92 [Right Arm] O2 Sat by Pulse 98 Oximetry (%) GENERAL: Awake, alert, and fully oriented, in painful distress. HEAD: Normal with no signs of trauma. EYES: Pupils equal, round and reactive to light, extraocular movements intact, sclera anicteric, conjunctiva clear. EARS, NOSE, THROAT: Ears normal, nares patent, oropharynx clear without exudates. Dry mucous membranes. LUNGS: Breath sounds equal, clear to auscultation bilaterally. HEART: Regular rate and rhythm, normal S1 and S2 without murmur. ABDOMEN: Soft, absent bowel sounds, generalized tenderness, guarding, rebound. MUSCULOSKELETAL: Normal range of motion at all joints. No bony deformities or tenderness. No CVA tenderness. UPPER EXTREMITIES: 2+ pulses, warm, well-perfused. No cyanosis. No clubbing. No peripheral edema. LOWER EXTREMITIES: 2+ pulses, warm, well-perfused. No calf tenderness. No peripheral edema. NEUROLOGICAL: Cranial nerves II-XII intact. Normal speech. Normal gait. PSYCHIATRIC: Cooperative. Good eye contact. Appropriate mood and affect. Laboratory Results - last 24 hr 05/26/17 05/26/17 15:15 15:15 Lactic Acid 4.1 H* Urine Color Zahraa Urine Appearance Slcloudy Urine pH 5.0 Urine Protein 2+ H Urine Glucose (UA) Negative Urine Ketones Trace H Urine Blood Negative Urine Nitrite Negative Urine Bilirubin Negative Urine Urobilinogen 2.0 Urine RBC 9 Urine WBC 4 Ur Epithelial Cells Rare Hyaline Casts 76 Urine Mucus Many Urine Yeast Rare ASSESSMENT/PLAN: 57 year old with PMHx Renal cell cancer s/p R partial nephrectomy 2009, R lung lobectomy, Sarcoidosis , gout, HTN, TB (3rd month on treatment), previous partial small bowel obstruction now presenting with abdominal pain, nausea and vomiting and admitted for perforated bowel. #Perforated bowel NPO iv zosyn IV normal saline ID consult- Dr Jacques Surgery consult- Dr James Emergent surgery Pain mx #HTN Hypotensive on presentation Being resuscitated Hold BP meds #Sarcoidosis Not currently on prednisone #TB Hold meds #Gout Not in acute exacerbation Hold meds Visit type - Emergency Visit Emergency Visit: Yes ED Registration Date: 05/26/17 Care time: The patient presented to the Emergency Department on the above date and was hospitalized for further evaluation of their emergent condition. - New Patient This patient is new to me today: Yes Date on this admission: 05/26/17 - Critical Care Critical Care patient: No
[2017-05-26] MEDS ORDERED: PYRAZINAMIDE 500 MG TABLET PO SCH (18:00)
[2017-05-26] MEDS ORDERED: NEOSTIGMINE METHYLSULFATE 0.5 MG/ML - 10 ML MDV ONE (19:12)
[2017-05-26] MEDS ORDERED: GLYCOPYRROLATE 0.2 MG/1 ML VIAL ONE (19:13)
[2017-05-26 19:21] LABS: URINE LEUK ESTERASE Negative (NEGATIVE)
[2017-05-26] MEDS ORDERED: ONDANSETRON 4 MG/2 ML VIAL IVPUSH PRN (19:41)
[2017-05-26] MEDS ORDERED: HYDROmorphone *PCA* 10MG/50ML DISP.SYRIN PCA SCH ×2 (19:45→20:35)
[2017-05-26] MEDS ORDERED: LACTATED RINGERS SOLUTION 1,000 ML IV SCH (19:45)
--- NOTE | 2017-05-26 19:46 | OP ---
Operative Note - Note: Operative Date: 05/26/17 Pre-Operative Diagnosis: perforated viscus Operation: exploratory laparotomy, right hemicolectomy Findings: yellow/clear succus in peritoneum, mass palpated in terminal ileum with overlying site of perforation, no active extravasation; also mass palpable in cecum at ileocecal junction; NG palpated in stomach, ileocolic anastomosis performed; Apolinar drain left in pelvis Post-Operative Diagnosis: Other (perforated terminal ileum with mass, cecal mass , peritonitis) Surgeon: Cameron James Typing Office Worker: Selvin Pruett Anesthesiologist/TRANSPORTATION ENGINEER: Jakob Mead Anesthesia: General Specimens Removed: terminal ileum/appendix/right colon, additional distal margin of colon to pathology; peritoneal fluid cultured Estimated Blood Loss (mls): 100 Drains & Tubes with Location: Carlos, NGT, 19Fr Apolinar drain in pelvis Drains, Volume Out (mls): 350 (UOP) Fluid Volume Replaced (mls): 3,700 (crystalloid) Operative Report Dictated: Yes
[2017-05-26] MEDS ORDERED: HYDROmorphone HCL CARPU-JECT 2 MG/1 ML DISP.SYRIN ONE (19:49)
[2017-05-26] MEDS: HYDROmorphone HCL CARPU-JECT 1 MG/1 ML DISP.SYRIN IVPUSH PRN ×4 (20:00→20:35)
--- NOTE | 2017-05-26 20:21 | PN ---
Teaching Attending Note Name of Resident: Katlyn Rothman ATTENDING PHYSICIAN STATEMENT I saw and evaluated the patient. I reviewed the resident's note and discussed the case with the resident. I agree with the resident's findings and plan as documented. SUBJECTIVE: This patient is a 57 year old with PMHx Renal cell cancer s/p R partial nephrectomy 2009, R lung lobectomy, Sarcoidosis , gout, HTN, TB (3rd month on treatment), previous partial small bowel obstruction (april 2017), presented to ED. with severe abdominal pain 04/23. Patient had a CT done in ED.with positive pneumoperitoneum. surgery was called for an emergent surgery. OBJECTIVE: Vital Signs Temperature 98.7 F 05/26/17 16:18 Pulse Rate 112 H 05/26/17 16:18 Respiratory Rate 18 05/26/17 16:18 Blood Pressure 115/92 05/26/17 16:18 O2 Sat by Pulse Oximetry (%) 98 05/26/17 16:18 CBCD WBC 6.1 K/mm3 (4.0-10.0) 05/26/17 12:25 RBC 4.92 M/mm3 (4.00-5.60) 05/26/17 12:25 Hgb 13.3 GM/dL (11.7-16.9) D 05/26/17 12:25 Hct 41.1 % (35.4-49) D 05/26/17 12:25 MCV 83.6 fl (80-96) 05/26/17 12:25 MCHC 32.3 g/dl (32.0-35.9) 05/26/17 12:25 RDW 16.3 % (11.9-15.9) H 05/26/17 12:25 Plt Count 500 K/MM3 (134-434) H D 05/26/17 12:25 MPV 7.9 fl (7.5-11.1) D 05/26/17 12:25 CMP Sodium 141 mmol/L (136-145) 05/26/17 13:25 Potassium 4.6 mmol/L (3.5-5.1) 05/26/17 13:25 Chloride 105 mmol/L (98-107) 05/26/17 13:25 Carbon Dioxide 27 mmol/L (21-32) D 05/26/17 13:25 Anion Gap 9 (8-16) 05/26/17 13:25 BUN 15 mg/dL (7-18) D 05/26/17 13:25 Creatinine 1.1 mg/dL (0.7-1.3) D 05/26/17 13:25 Creat Clearance w eGFR > 60 (>60) 05/26/17 13:25 Random Glucose 93 mg/dL (74-106) 05/26/17 13:25 Calcium 8.2 mg/dL (8.5-10.1) L 05/26/17 13:25 Total Bilirubin 1.0 mg/dL (0.2-1.0) D 05/26/17 13:25 AST 15 U/L (15-37) D 05/26/17 13:25 ALT 18 U/L (12-78) D 05/26/17 13:25 Alkaline Phosphatase 112 U/L (45-117) D 05/26/17 13:25 Total Protein 5.9 g/dl (6.4-8.2) L 05/26/17 13:25 Albumin 2.7 g/dl (3.4-5.0) L D 05/26/17 13:25 CARDIAC ENZYMES Creatine Kinase 22 IU/L (39-308) L 05/26/17 13:25 Troponin I < 0.02 ng/ml (0.00-0.05) 05/26/17 13:25 Current Medications Generic Name Dose Route Start Last Admin Trade Name Freq PRN Reason Stop Dose Admin Hydromorphone HCl 0.5 mg 05/26/17 19:41 Dilaudid Injection - IVPUSH 05/29/17 19:42 [id number] PRN PAIN Hydromorphone HCl 0 mg 05/26/17 19:45 Dilaudid Chip Person - LEGAL NURSE CONSULTANT 05/29/17 19:41 LEGAL NURSE CONSULTANT TAMAR Protocol Sodium Chloride 1,000 mls @ 125 mls/hr 05/26/17 14:30 05/26/17 15:11 Normal Saline - IV 125 mls/hr ASDIR TAMAR Administration Lactated Ringer's 1,000 mls @ 125 mls/hr 05/26/17 19:45 Lactated Ringers Solution IV ASDIR TAMAR Ondansetron HCl 4 mg 05/26/17 14:27 Zofran Injection IVPB Q6H PRN NAUSEA Ondansetron HCl 4 mg 05/26/17 19:41 Zofran Injection IVPUSH 05/27/17 01:42 Q6H PRN NAUSEA AND/OR VOMITING Home Medications Medication Instructions Recorded Losartan Potassium 50 mg PO DAILY 03/14/17 Isoniazid [Nydrazid -] 300 mg PO DAILY@0700 #30 tablet 04/05/17 Pyrazinamide - 1,500 mg PO DAILY@1800 #30 tablet 04/05/17 Pyridoxine HCl (B-6) [Vitamin B6 -] 75 mg PO DAILY@0700 tablet 04/05/17 Rifampin [Rifadin -] 600 mg PO DAILY #30 mg 04/05/17 PE: per resident's note Abdomen: tender to palpation , mildly distented, Hypoactive Bowel Sounds, + guarding, + rebound. Cat Scan: Report Reviewed (pneumoperitoneum) ASSESSMENT AND PLAN: Patient is a 57 year old with PMHx Renal cell cancer s/p R partial nephrectomy 2009, R lung lobectomy, Sarcoidosis , gout, HTN, TB (3rd month on treatment), is admitted for perforated bowel. #Perforated bowel, NPO, emergent surgery by , surgeon lactation coordinator , on IV zosyn , IV normal saline , lactic acid q4his ordered. discussed with the surgeon. #HTN hold BP meds for now since hypotensive # hx of Sarcoidosis not on prednisone #TB Hold TB meds ID consult- Dr Jacques, #Hx of Gout stable at tis time DVt Px: SCds
--- NOTE | 2017-05-26 20:56 | CON.ID ---
Consult Consult Specialty:: Infectious Diseases Referred by:: Dr. James Reason for Consultation:: Antibiotic Recommendations - History of Present Illness Chief Complaint: Abdominal Pain History of Present Illness: Mr. Palmer is a 57 yr old man admitted with abdominal pain. He has Hx of PTB ( on treatment since Mar 18, 2017). He was hospitalized about a month ago with same and noted with colitis/ileitis. He was decompressed and did well. During the past few weeks, he was stable except for intermittent episodes of abdominal pains. He had intermittent episodes of poor appetite, but was able to eat most of the time. He has been followed at the [facility]. He has been on INH/B6, Rifampin, EMB and PZA. He has had increased gouty arthritis and the decision to hold PZA was made by [facility]. His AFB smear done 04/19/17 has been negative. He was evaluated in the ED where free air in the abdomen was seen on imaging. He was brought to the OR and he underwent (R) hemicolectomy. OR findings were discussed with Dr. James. - History Source History Provided By: Family Member, Medical Record Limitations to Obtaining History: No Limitations - Past Medical History Cardio/Vascular: Yes: HTN Pulmonary: Yes: Other (sarcoidosis (R wedge lung bx 2012), TB on 4-drug treatment since early March) Gastrointestinal: Yes: Other (enteritis in early April ?TB related) Hepatobiliary: Yes: Hepatitis B (per lab hx is positive for core Ab) Renal/: Yes: Cancer (s/p lap partial R nephrectomy 2009, metastatic to R ax LN by bx last month) Infectious Disease: Yes: Tuberculosis (on treatment - not on isolation per Dr. Ayon) Rheumatology: Yes: Gout (both big toes, left was last - took allopurinol yesterday, no pain now) Additional Medical History: Hx Sarcoid on chronic steroids since 2012 - tapered off Pred 10mg/d last month while in hospital - Past Surgical History Past Surgical History: Yes: Colonoscopy (2015 - polyps (not cancer) and reportedly sarcoid), Nephrectomy (laparoscopic - Partial (R) 2009) - Alcohol/Substance Use Hx Alcohol Use: No History of Substance Use: reports: None - Smoking History Smoking history: Former smoker Have you smoked in the past 12 months: No If you are a former smoker, when did you quit?: 2009 - Social History Usual Living Arrangement: With Spouse Home Medications - Allergies Allergies/Adverse Reactions: Allergies Allergy/AdvReac Type Severity Reaction Status Date / Time No Known Allergies Allergy Verified 05/26/17 11:38 - Home Medications Home Medications: Ambulatory Orders Losartan Potassium 50 mg PO DAILY 03/14/17 Isoniazid [Nydrazid -] 300 mg PO DAILY@0700 #30 tablet 04/05/17 Pyrazinamide - 1,500 mg PO DAILY@1800 #30 tablet 04/05/17 Pyridoxine HCl (B-6) [Vitamin B6 -] 75 mg PO DAILY@0700 tablet 04/05/17 Rifampin [Rifadin -] 600 mg PO DAILY #30 mg 04/05/17 Family Disease History - Family Disease History Family History: Unable to Obtain Review of Systems Unable to obtain ROS, reason: Sedated Physical Exam Vital Signs: Vital Signs Temperature 98.7 F 05/26/17 16:18 Pulse Rate 112 H 05/26/17 16:18 Respiratory Rate 18 05/26/17 16:18 Blood Pressure 115/92 05/26/17 16:18 O2 Sat by Pulse Oximetry (%) 98 05/26/17 16:18 Constitutional: Yes: No Distress Eyes: Yes: PERRL Cardiovascular: Yes: Regular Rate and Rhythm Respiratory: Yes: Regular Gastrointestinal: Yes: Other (Intact Dressing, (+) Drain) Imaging - Results Chest X-ray: Report Reviewed Problem List - Problems (1) Perforated abdominal viscus Code(s): [id number] - (2) Enteritis Code(s): K52.9 - NONINFECTIVE GASTROENTERITIS AND COLITIS, UNSPECIFIED (3) H/O renal cell carcinoma Code(s): Z85.528 - PERSONAL HISTORY OF OTHER MALIGNANT NEOPLASM OF KIDNEY (4) Pulmonary tuberculosis Code(s): A15.0 - TUBERCULOSIS OF LUNG Assessment/Plan Pt with perforated viscus - ? TB, RCC or Sarcoidosis. Would Rx Zosyn 4.5 gr IV q 8 hrs. As discussed with surgery, TB Rx on hold ~ 48 hrs. No isolation needed.
[2017-05-26] MEDS: PIPERACILLIN/TAZOB 4.5 GM/100 ML PREMIX BAG IVPB SCH ×2 (23:05→23:37)
[2017-05-26] MEDS: SODIUM CHLORIDE 1,000 ML IV SCH (23:34)
[2017-05-27] MEDS: PIPERACILLIN/TAZOB 4.5 GM/100 ML PREMIX BAG IVPB SCH ×2 (02:14→11:36)
[2017-05-27] MEDS: SODIUM CHLORIDE 1,000 ML IV SCH (06:24)
[2017-05-27] MEDS ORDERED: PYRIDOXINE HCL (B-6) 50 MG TABLET (FP) PO SCH (07:00)
[2017-05-27] MEDS ORDERED: ISONIAZID 300 MG TABLET (FP) PO SCH (07:00)
[2017-05-27] MEDS ORDERED: PIPERACILLIN/TAZOB 4.5 GM 100 ML IVPB ONE (07:00)
[2017-05-27 07:51] LABS: BASOPHIL 0.4 % (0-2.0); EOSINOPHIL 0.1 % (0-4.5); MCH 27.2 pg (25.7-33.7); MCHC 32.2 g/dl (32.0-35.9); MEAN CELL VOLUME 84.4 fl (80-96); MEAN PLT VOLUME 7.7 fl (7.5-11.1); PLATELET COUNT 403 K/MM3 (134-434); RDW 16.7 % (11.9-15.9)
--- NOTE | 2017-05-27 08:25 | PN ---
Progress Note (short form) - Note Progress Note: Anesthesia Post op Pt seen and examined S:alert and awake O: Vital Signs Temperature 98.8 F 05/27/17 06:00 Pulse Rate 90 05/27/17 06:40 Respiratory Rate 18 05/27/17 06:40 Blood Pressure 107/68 05/27/17 06:40 O2 Sat by Pulse Oximetry (%) 100 05/27/17 04:00 CBC, BMP 05/27/17 07:00 A/P: Current Active Problems Perforated abdominal viscus (Acute) s/p ex lap Doing well post op Continue current care Vernon Rome MD
[2017-05-27 08:44] LABS: ALK PHOS 72 U/L (45-117); ANION GAP 9 (8-16); BILIRUBIN,TOTAL 1.2 mg/dL (0.2-1.0); CALCIUM 7.5 mg/dL (8.5-10.1); CO2 20 mmol/L (21-32); GLUCOSE,RANDOM 85 mg/dL (74-106); MAGNESIUM 1.7 mg/dL (1.8-2.4); PHOSPHOROUS 3.7 mg/dL (2.5-4.9); SGOT/AST 16 U/L (15-37); SGPT/ALT 13 U/L (12-78); TOT PROT 4.9 g/dl (6.4-8.2)
[2017-05-27] MEDS ORDERED: FLU VACCINE QUAD 60 MCG/0.5 ML (MDV 17-18) IM ONE (09:00)
[2017-05-27] MEDS ORDERED: PT OWN MED DRAWER 7, Y5N ONE (09:23)
[2017-05-27] MEDS ORDERED: LOSARTAN POTASSIUM 50 MG TABLET (FP) PO SCH (10:00)
[2017-05-27] MEDS ORDERED: RIFAMPIN 300 MG CAPSULE PO SCH (10:00)
--- NOTE | 2017-05-27 10:05 | PN ---
Progress Note, Physician History of Present Illness: s/p laparotomy with R hemicolectomy for perforation of terminal ileum with associated mass Pt seen and examined in bed. Awake and responsive, c/o pain 7/10 but is "ok" lying in bed. Has PURCHASING INTERN, using button intermittently. NGT with little output so far, Carlos with improving UOP, CANDACE with serosanguineous fluid. NG 180ml; UOP 800 from PACU, 400ml overnight; drain with 200 in PACU, 270ml overnight, bulb ~2/3 full. No flatus or BM yet. No fever. Lactate came down to 2 and 1.4 overnight after initial slight rise. - Current Medication List Current Medications: Active Medications Hydromorphone HCl (Dilaudid Lineworker -) 0 mg PURCHASING INTERN PURCHASING INTERN TAMAR PRN Reason: Protocol Stop: 05/29/17 19:41 Last Admin: 05/26/17 20:40 Dose: 10 mg Sodium Chloride (Normal Saline -) 1,000 mls @ 125 mls/hr IV ASDIR TAMAR Last Admin: 05/27/17 06:24 Dose: 125 mls/hr Magnesium Sulfate (Magnesium Sulfate) 2 gm IVPB ONCE ONE Stop: 05/27/17 09:57 Ondansetron HCl (Zofran Injection) 4 mg IVPB Q6H PRN PRN Reason: NAUSEA Piperacillin/Tazobactam/Dextrose (Zosyn 4.5gm Ivpb (Premix)) 4.5 gm IVPB Q8H- IV TAMAR Last Admin: 05/27/17 02:14 Dose: 4.5 gm Pneumococcal 13-Valent Conj Vacc (Prevnar 13 Syringe -) 0.5 ml IM .ONCE ONE Stop: 05/27/17 11:01 - Objective Vital Signs: Vital Signs Temperature 98.8 F 05/27/17 06:00 Pulse Rate 90 05/27/17 06:40 Respiratory Rate 18 05/27/17 06:40 Blood Pressure 107/68 05/27/17 06:40 O2 Sat by Pulse Oximetry (%) 100 05/27/17 04:00 Vital Signs Period Temp Pulse Resp BP Sys/Parks Pulse Ox Last 24 Hr 97.8 F-100.0 F 86-122 10-20 95-134/43-92 98-100 Intake & Output 05/26/17 05/27/17 05/27/17 23:59 07:59 15:59 Intake Total 7600 1600 Output Total 4630 850 Balance 2970 750 Weight 129 lb Intake: IV 4100 1500 Normal Saline - 1,000 ml 1500 @ 125 mls/hr IV ASDIR TAMAR Rx#:[id number] IVPB 100 100 Oral 0 0 Other 3400 Output: Gastric Drainage 180 180 Drainage 200 270 Rt Abdomen 270 Urine 1150 400 Carlos 400 Estimated Blood Loss 100 Other 3000 Other: Voiding Method Indwelling Catheter Bowel Movement No No Height 5 ft 11 in Body Mass Index (BMI) 17.9 Constitutional: Yes: Well Nourished, No Distress, Calm Eyes: Yes: Conjunctiva Clear, EOM Intact Cardiovascular: Yes: Tachycardia (slight). No: Pulse Irregular Respiratory: Yes: Regular, CTA Bilaterally Gastrointestinal: Yes: Soft, Hypoactive Bowel Sounds, Tenderness (bilateral lower quadrants, less in upper quadrants), Other (RLQ drain with serosang in bulb). No: Distention Genitourinary: Yes: Carlos Present (yellow urine). No: Hematuria Edema: No Integumentary: Yes: Incision (midline). No: Jaundice, Rash Wound/Incision: Yes: Dressing Dry and Intact (midline - will change later) Neurological: Yes: Alert, Oriented Labs: CBC, BMP 05/27/17 07:00 05/27/17 07:00 INR, PTT INR 1.04 (0.82-1.09) 05/26/17 12:25 CMP Sodium 142 mmol/L (136-145) 05/27/17 07:00 Potassium 4.6 mmol/L (3.5-5.1) 05/27/17 07:00 Chloride 113 mmol/L (98-107) H 05/27/17 07:00 Carbon Dioxide 20 mmol/L (21-32) L D 05/27/17 07:00 Anion Gap 9 (8-16) 05/27/17 07:00 BUN 15 mg/dL (7-18) 05/27/17 07:00 Creatinine 1.0 mg/dL (0.7-1.3) 05/27/17 07:00 Creat Clearance w eGFR > 60 (>60) 05/27/17 07:00 Random Glucose 85 mg/dL (74-106) 05/27/17 07:00 Lactic Acid 1.4 mmol/L (0.4-2.0) 05/27/17 05:46 Calcium 7.5 mg/dL (8.5-10.1) L 05/27/17 07:00 Phosphorus 3.7 mg/dL (2.5-4.9) D 05/27/17 07:00 Magnesium 1.7 mg/dL (1.8-2.4) L 05/27/17 07:00 Total Bilirubin 1.2 mg/dL (0.2-1.0) H 05/27/17 07:00 AST 16 U/L (15-37) 05/27/17 07:00 ALT 13 U/L (12-78) D 05/27/17 07:00 Alkaline Phosphatase 72 U/L (45-117) D 05/27/17 07:00 Creatine Kinase 22 IU/L (39-308) L 05/26/17 13:25 Troponin I < 0.02 ng/ml (0.00-0.05) 05/26/17 13:25 Total Protein 4.9 g/dl (6.4-8.2) L 05/27/17 07:00 Albumin 2.0 g/dl (3.4-5.0) L D 05/27/17 07:00 Lipase 145 U/L (73-393) 05/26/17 13:25 Problem List - Problems (1) Perforated small intestine Assessment/Plan: POD1 s/p laparotomy with right hemicolectomy for terminal ileal mass with perforation, also cecal mass palpated at IC junction lactate normalized UOP improving continue NPO/IVF/NGT - await resumption of bowel function continue Carlos for accurate I/O's PURCHASING INTERN for pain - encouraged to use button frequently incentive spirometer ordered to be OOB to chair today GI/DVT prophylaxis continue antibiotics, ID on board replete magnesium (ordered), daily labs doing well overall await pathology, f/u cultures will start midline dressing changes by tomorrow Code(s): K63.1 - PERFORATION OF INTESTINE (NONTRAUMATIC) (2) Mass of small intestine Code(s): K63.89 - OTHER SPECIFIED DISEASES OF INTESTINE (3) Mass of cecum Code(s): K63.9 - DISEASE OF INTESTINE, UNSPECIFIED (4) Lactic acidosis Assessment/Plan: resolved Code(s): E87.2 - ACIDOSIS (5) Gout Code(s): M10.9 - GOUT, UNSPECIFIED Qualifiers: Gout site: multiple sites Gout etiology: unspecified cause Chronicity: unspecified Qualified Code(s): M10.9 - Gout, unspecified; M10.9 - Gout, unspecified (6) H/O renal cell carcinoma Code(s): Z85.528 - PERSONAL HISTORY OF OTHER MALIGNANT NEOPLASM OF KIDNEY (7) HTN (hypertension) Assessment/Plan: normotensive, holding meds while npo Code(s): I10 - ESSENTIAL (PRIMARY) HYPERTENSION Qualifiers: Hypertension type: unspecified Qualified Code(s): I10 - Essential ( primary) hypertension; I10 - Essential (primary) hypertension; I10 - Essential ( primary) hypertension (8) Pulmonary tuberculosis Assessment/Plan: will resume medications when NGT removed hold for now Code(s): A15.0 - TUBERCULOSIS OF LUNG (9) Sarcoidosis of lung Code(s): D86.0 - SARCOIDOSIS OF LUNG
[2017-05-27] MEDS ORDERED: PNEUMOC 13-VAL CONJ-DIP CRM/PF 0.5 ML DISP.SYRIN IM ONE (11:00)
[2017-05-27] MEDS ORDERED: SODIUM CHLORIDE 0.9% 500 ML INFUS.BAG IV ONE (12:31)
--- NOTE | 2017-05-27 12:48 | EKG ---
Test Reason : Blood Pressure : / mmHG Vent. Rate : 108 BPM Atrial Rate : 108 BPM P-R Int : 146 ms QRS Dur : 070 ms QT Int : 292 ms P-R-T Axes : 053 046 031 degrees QTc Int : 391 ms SINUS TACHYCARDIA LOW VOLTAGE QRS NONSPECIFIC T WAVE ABNORMALITY ABNORMAL ECG WHEN COMPARED WITH ECG OF 16-APR-2017 14:04, NO SIGNIFICANT CHANGE WAS FOUND Confirmed by LUDIVINA ANDRE MD ([id number]) on 05/27/2017 12:48:21 PM Referred By: Confirmed By:LUDIVINA ANDRE MD
[2017-05-27] MEDS ORDERED: MAGNESIUM SULF 50% (8.12 MEQ/2 ML-1 GM VIAL) IVPB ONE (13:30)
[2017-05-27] MEDS ORDERED: ADENOSINE 6 MG/2 ML VIAL IVPUSH ONE ×2 (13:31→13:40)
[2017-05-27] MEDS ORDERED: SODIUM CHLORIDE 1,000 ML IV SCH ×2 (13:45→16:17)
--- NOTE | 2017-05-27 14:43 | PN ---
Progress Note, Physician - Current Medication List Current Medications: Active Medications Hydromorphone HCl (Dilaudid Emergency Care Attendant -) 0 mg SENIOR ABAP DEVELOPER SENIOR ABAP DEVELOPER TAMAR PRN Reason: Protocol Stop: 05/29/17 19:41 Last Admin: 05/26/17 20:40 Dose: 10 mg Sodium Chloride (Normal Saline -) 1,000 mls @ 125 mls/hr IV ASDIR TAMAR Last Admin: 05/27/17 06:24 Dose: 125 mls/hr Sodium Chloride (Normal Saline -) 1,000 mls @ 250 mls/hr IV ASDIR TAMAR Stop: 05/28/17 17:44 Ondansetron HCl (Zofran Injection) 4 mg IVPB Q6H PRN PRN Reason: NAUSEA Piperacillin/Tazobactam/Dextrose (Zosyn 4.5gm Ivpb (Premix)) 4.5 gm IVPB Q8H- IV TAMAR Last Admin: 05/27/17 11:36 Dose: 4.5 gm - Objective Vital Signs: Vital Signs Temperature 98.6 F 05/27/17 08:35 Pulse Rate 103 H 05/27/17 08:35 Respiratory Rate 20 05/27/17 08:35 Blood Pressure 100/71 05/27/17 08:35 O2 Sat by Pulse Oximetry (%) 100 05/27/17 04:00 Constitutional: Yes: Well Nourished, No Distress, Calm Eyes: Yes: WNL, Conjunctiva Clear, EOM Intact HENT: Yes: WNL, Atraumatic, Normocephalic Neck: Yes: WNL, Supple, Trachea Midline Cardiovascular: Yes: WNL, Tachycardia, S1, S2 Respiratory: Yes: WNL, Regular, CTA Bilaterally Gastrointestinal: Yes: Other (patient is s/p laparatomy with cholectomy) Labs: CBC, BMP 05/27/17 07:00 05/27/17 07:00 INR, PTT INR 1.04 (0.82-1.09) 05/26/17 12:25 Problem List - Problems (1) Perforated abdominal viscus Assessment/Plan: patient is day 1 s/p abdominal surgery Code(s): KPK3841 - (2) Lactic acidosis Assessment/Plan: resolved Code(s): E87.2 - ACIDOSIS (3) SVT (supraventricular tachycardia) Assessment/Plan: patient was noted to be in HR of 188 on the floor, the patient was transferred to the ICU for further management, rapid response team was called after the patient was found to have the tachycardia in the ICU - 6 mg of adenosine was give in the left brachial vein, the SVT was terminated and the patient was back into sinus rhythm. on the floor the patient was give 1L bolus of NS and another 1 L bolus was given in the MICU. patient is clinically dry will increase the IVF supplementation Code(s): I47.1 - SUPRAVENTRICULAR TACHYCARDIA (4) Sepsis associated hypotension Assessment/Plan: patint is hemodynamically stable MAP 85, SBP 98/77, HR 95-100 will continue Antibiotic therapy avoid rate control medication if the patient goes into SVT please repeat the dose of adenosine spoke to Dr. Jones the blood bank order control clerk dental front office assistant Code(s): A41.9 - SEPSIS, UNSPECIFIED ORGANISM
--- NOTE | 2017-05-27 15:43 | CON.CARD ---
Consult Consult Specialty:: Cardiology Referred by:: Hospitalist Reason for Consultation:: Cardiac evaluation - History of Present Illness Chief Complaint: SVT History of Present Illness: Patient is a 57 year old male with underlying history of renal cell CA s/p right partial nephrectomy in 2009, right lung lobectomy with history of sarcoidosis, in addition history of gout, hypertension, TB who presented with acute abdominal pain requiring emergent laparotomy for perforated abdominal viscus. He has had partial small bowel obstruction in April. He is post op day #1 when he was found with narrow complex tachycardia which appears SVT. He was given Adenosine 6 mg which broke the rhythm back to sinus rhythm. He was transferred to ICU for further monitoring and management. He is awake and alert. He denies chest pain, shortness of breath or palpitations. He remains in sinus rhythm. He denies paroxysmal nocturnal dyspnea or orthopnea. He denies fever or chills. He denies headache or lightheadedness. Cardiology consultation was called for further evaluation. - History Source History Provided By: Patient Limitations to Obtaining History: No Limitations - Past Medical History Cardio/Vascular: Yes: HTN Pulmonary: Yes: Other (sarcoidosis (R wedge lung bx 2012), TB on 4-drug treatment since early March) Gastrointestinal: Yes: Other (enteritis in early April ?TB related and SBO) Hepatobiliary: Yes: Hepatitis B (per lab hx is positive for core Ab) Renal/: Yes: Cancer (s/p lap partial R nephrectomy 2009, metastatic to R ax LN by bx last month) Infectious Disease: Yes: Tuberculosis (on treatment - not on isolation per Dr. Ayon) Rheumatology: Yes: Gout (both big toes, left was last - took allopurinol yesterday, no pain now) Additional Medical History: Hx Sarcoid on chronic steroids since 2012 - tapered off Pred 10mg/d last month while in hospital - Past Surgical History Past Surgical History: Yes: Colonoscopy (2015 - polyps (not cancer) and reportedly sarcoid), Nephrectomy (laparoscopic - Partial (R) 2009) - Alcohol/Substance Use Hx Alcohol Use: No History of Substance Use: reports: None - Smoking History Smoking history: Former smoker Have you smoked in the past 12 months: No If you are a former smoker, when did you quit?: 2009 - Social History Usual Living Arrangement: With Spouse Home Medications - Allergies Allergies/Adverse Reactions: Allergies Allergy/AdvReac Type Severity Reaction Status Date / Time No Known Allergies Allergy Verified 05/26/17 11:38 - Home Medications Home Medications: Ambulatory Orders Losartan Potassium 50 mg PO DAILY 03/14/17 Isoniazid [Nydrazid -] 300 mg PO DAILY@0700 #30 tablet 04/05/17 Pyrazinamide - 1,500 mg PO DAILY@1800 #30 tablet 04/05/17 Pyridoxine HCl (B-6) [Vitamin B6 -] 75 mg PO DAILY@0700 tablet 04/05/17 Rifampin [Rifadin -] 600 mg PO DAILY #30 mg 04/05/17 Family Disease History - Family Disease History Family History: Denies Review of Systems - Review of Systems Constitutional: denies: Chills, Fever Cardiovascular: denies: Chest Pain, Palpitations, Shortness of Breath Respiratory: denies: Cough, Hemoptysis, Orthopnea, PND, SOB, SOB on Exertion Gastrointestinal: reports: Abdominal Pain, Other (Post op) Neurological: denies: Dizziness, Headache, Seizure, Syncope Vital Signs: Vital Signs Temperature 98.6 F 05/27/17 08:35 Pulse Rate 103 H 05/27/17 08:35 Respiratory Rate 20 05/27/17 08:35 Blood Pressure 100/71 05/27/17 08:35 O2 Sat by Pulse Oximetry (%) 100 05/27/17 04:00 Neck: Yes: Supple Respiratory: Yes: Diminished Gastrointestinal: Yes: Other (Post op) Cardiovascular: Yes: Regular Rate and Rhythm, Tachycardia JVD: No Carotid Bruit: No PMI: Non-Displaced Heart Sounds: Yes: S1, S2. No: Gallop Murmur: No: Systolic Murmur, Diastolic Murmur Edema: No - Other Data Labs, Other Data: CBC, BMP 05/27/17 07:00 05/27/17 07:00 INR, PTT INR 1.04 (0.82-1.09) 05/26/17 12:25 Laboratory Results - last 24 hr 05/26/17 05/26/17 05/26/17 15:15 15:15 15:39 WBC RBC Hgb Hct MCV MCH MCHC RDW Plt Count MPV Neutrophils % Lymphocytes % Monocytes % Eosinophils % Basophils % Sodium Potassium Chloride Carbon Dioxide Anion Gap BUN Creatinine Creat Clearance w eGFR Random Glucose Lactic Acid 4.1 H* Calcium Phosphorus Magnesium Total Bilirubin AST ALT Alkaline Phosphatase Total Protein Albumin Urine Color Zahraa Urine Appearance Slcloudy Urine pH 5.0 Ur Specific [place] >= 1.030 H Urine Protein 2+ H Urine Glucose (UA) Negative Urine Ketones Trace H Urine Blood Negative Urine Nitrite Negative Urine Bilirubin Negative Urine Urobilinogen 2.0 Ur Leukocyte Esterase Negative Urine RBC 9 Urine WBC 4 Ur Epithelial Cells Rare Hyaline Casts 76 Urine Mucus Many Urine Yeast Rare Blood Type B POSITIVE Antibody Screen Negative 05/27/17 05/27/17 07:00 07:00 WBC 15.0 H D RBC 4.51 Hgb 12.3 Hct 38.1 MCV 84.4 MCH 27.2 MCHC 32.2 RDW 16.7 H Plt Count 403 MPV 7.7 Neutrophils % 92.0 H Lymphocytes % 2.8 L D Monocytes % 4.7 Eosinophils % 0.1 D Basophils % 0.4 Sodium 142 Potassium 4.6 Chloride 113 H Carbon Dioxide 20 L D Anion Gap 9 BUN 15 Creatinine 1.0 Creat Clearance w eGFR > 60 Random Glucose 85 Lactic Acid Calcium 7.5 L Phosphorus 3.7 D Magnesium 1.7 L Total Bilirubin 1.2 H AST 16 ALT 13 D Alkaline Phosphatase 72 D Total Protein 4.9 L Albumin 2.0 L D Urine Color Urine Appearance Urine pH Ur Specific [place] Urine Protein Urine Glucose (UA) Urine Ketones Urine Blood Urine Nitrite Urine Bilirubin Urine Urobilinogen Ur Leukocyte Esterase Urine RBC Urine WBC Ur Epithelial Cells Hyaline Casts Urine Mucus Urine Yeast Blood Type Antibody Screen SVT with T wave abnormality now in sinus tachycardia Imaging - Results Chest X-ray: Report Reviewed Cat Scan: Report Reviewed (Abdominal CT free intra-abdominal free air with pneumoperitoneum) Problem List - Problems (1) Mass of cecum Code(s): K63.9 - DISEASE OF INTESTINE, UNSPECIFIED (2) Perforated abdominal viscus Code(s): EZW1681 - (3) SVT (supraventricular tachycardia) Code(s): I47.1 - SUPRAVENTRICULAR TACHYCARDIA (4) Sepsis associated hypotension Code(s): A41.9 - SEPSIS, UNSPECIFIED ORGANISM (5) Gout Code(s): M10.9 - GOUT, UNSPECIFIED Qualifiers: Gout site: multiple sites Gout etiology: unspecified cause Chronicity: unspecified Qualified Code(s): M10.9 - Gout, unspecified; M10.9 - Gout, unspecified (6) H/O renal cell carcinoma Code(s): Z85.528 - PERSONAL HISTORY OF OTHER MALIGNANT NEOPLASM OF KIDNEY (7) HTN (hypertension) Code(s): I10 - ESSENTIAL (PRIMARY) HYPERTENSION Qualifiers: Hypertension type: unspecified Qualified Code(s): I10 - Essential ( primary) hypertension; I10 - Essential (primary) hypertension; I10 - Essential ( primary) hypertension (8) Pulmonary tuberculosis Code(s): A15.0 - TUBERCULOSIS OF LUNG (9) SBO (small bowel obstruction) Code(s): K56.69 - OTHER INTESTINAL OBSTRUCTION * DO NOT USE * (10) Sarcoidosis of lung Code(s): D86.0 - SARCOIDOSIS OF LUNG Assessment/Plan 1. Post pneumoperitoneum with abdominal viscus perforation status post emergent laparotomy with hemicolectomy, history of previous SBO 2. SVT converted to sinus tachycardia with Adenosine 3. History of hypertension 4. Renal cell CA s/p nephrectomy 5. History of sarcoidosis 6. History of TB PLAN: 1. Continue ICU monitoring 2. 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 Continue post op management as per Surgical service 4. Transthoracic echocardiography to assess LV/RV and valvular function 5. Check TFTs 6. Empiric antibiotic coverage Further plans are to be followed Guarded Josue Jones MD
--- NOTE | 2017-05-27 16:05 | PN ---
Progress Note, Physician Chief Complaint: Awake , Alert - Afebrile. He was transferred to the ICU this AM for SVT. - Current Medication List Current Medications: Active Medications Hydromorphone HCl (Dilaudid Commercial Analyst -) 0 mg GROOVER OPERATOR GROOVER OPERATOR TAMAR PRN Reason: Protocol Stop: 05/29/17 19:41 Last Admin: 05/26/17 20:40 Dose: 10 mg Sodium Chloride (Normal Saline -) 1,000 mls @ 125 mls/hr IV ASDIR TAMAR Last Admin: 05/27/17 06:24 Dose: 125 mls/hr Sodium Chloride (Normal Saline -) 1,000 mls @ 250 mls/hr IV ASDIR TAMAR Stop: 05/28/17 17:44 Ondansetron HCl (Zofran Injection) 4 mg IVPB Q6H PRN PRN Reason: NAUSEA Piperacillin/Tazobactam/Dextrose (Zosyn 4.5gm Ivpb (Premix)) 4.5 gm IVPB Q8H- IV TAMAR Last Admin: 05/27/17 11:36 Dose: 4.5 gm - Objective Vital Signs: Vital Signs Temperature 98.6 F 05/27/17 08:35 Pulse Rate 103 H 05/27/17 08:35 Respiratory Rate 20 05/27/17 08:35 Blood Pressure 100/71 05/27/17 08:35 O2 Sat by Pulse Oximetry (%) 100 05/27/17 04:00 Constitutional: Yes: No Distress, Calm Neck: Yes: Supple Cardiovascular: Yes: Regular Rate and Rhythm Respiratory: Yes: CTA Bilaterally Gastrointestinal: Yes: Soft (No BS noted), Other Labs: CBC, BMP 05/27/17 07:00 05/27/17 07:00 INR, PTT INR 1.04 (0.82-1.09) 05/26/17 12:25 Problem List - Problems (1) Perforated abdominal viscus Code(s): [id number] - (2) Enteritis Code(s): K52.9 - NONINFECTIVE GASTROENTERITIS AND COLITIS, UNSPECIFIED (3) H/O renal cell carcinoma Code(s): Z85.528 - PERSONAL HISTORY OF OTHER MALIGNANT NEOPLASM OF KIDNEY (4) Pulmonary tuberculosis Code(s): A15.0 - TUBERCULOSIS OF LUNG Assessment/Plan Pt with perforated viscus - ? TB, RCC or Sarcoidosis. Continue Rx Zosyn 4.5 gr IV q 8 hrs. Will resume anti-TB meds once bowel function resumes.
[2017-05-27] MEDS ORDERED: ONDANSETRON 4 MG/2 ML VIAL IVPB PRN (16:17)
[2017-05-27] MEDS ORDERED: PIPERACILLIN/TAZOB 4.5 GM/100 ML PRE-DOCKED IVPB SCH (17:30)
[2017-05-27] MEDS ORDERED: PIPERACILLIN/TAZOB 4.5 GM/100 ML PREMIX BAG IVPB SCH (18:00)
--- NOTE | 2017-05-27 21:26 | CONSULT ---
Consult - text type - Consultation Consultation Note: Pulm/CCM Pt seen and examined in the ICU CC: s/p SBO HPI: Patient is a 57 year old male with underlying history of renal cell CA s/p right partial nephrectomy in 2009, right lung lobectomy with history of sarcoidosis, gout, hypertension, pulmTB (on treatment) who POD #1 after emergent laparotomy with R hemicolectomy for perforation of terminal ileum with associated mass, of note had partial small bowel obstruction in April. This morning he was seen by PT, got out of bed and did light exercise. Shortly after being put back in bed had palpitations, HR 180, narrow complex SVT on EKG. Given 6mg adeonsine. Transferred to ICU out of concern further episodes. Since admission has been in Sinus Rhthm 110-130 without ectopy. Hemodynamics otherwise stable. Pain controlled. Past Medical History Cardio/Vascular HTN Pulmonary Other (sarcoidosis (R wedge lung bx 2012), TB on 4-drug treatment since early March) Gastrointestinal Other (enteritis in early April ?TB related and SBO) Hepatobiliary Hepatitis B (per lab hx is positive for core Ab ) Renal/ Cancer (s/p lap partial R nephrectomy 2009, metastatic to R ax LN by bx last month) Infectious Disease Tuberculosis (on treatment - not on isolation per Dr. Ayon) Rheumatology Gout (both big toes, left was last - took allopurinol yesterday, no pain now) Additional Medical History Hx Sarcoid on chronic steroids since 2012 - tapered off Pred 10mg/d last month while in hospital Past Surgical History Past Surgical History Colonoscopy (2015 - polyps (not cancer) and reportedly sarcoid),Nephrectomy (laparoscopic - Partial (R) 2009) Home Medications Medication Instructions Recorded Losartan Potassium 50 mg PO DAILY 03/14/17 Isoniazid [Nydrazid -] 300 mg PO DAILY@0700 #30 tablet 04/05/17 Pyrazinamide - 1,500 mg PO DAILY@1800 #30 tablet 04/05/17 Pyridoxine HCl (B-6) [Vitamin B6 -] 75 mg PO DAILY@0700 tablet 04/05/17 Rifampin [Rifadin -] 600 mg PO DAILY #30 mg 04/05/17 Current Medications Hydromorphone HCl (Dilaudid Gasoline Service Attendant -) 0 mg BRUSH CLEANER BRUSH CLEANER TAMAR PRN Reason: Protocol Stop: 05/29/17 19:41 Sodium Chloride (Normal Saline -) 1,000 mls @ 250 mls/hr IV ASDIR TAMAR Stop: 05/28/17 17:44 Last Admin: 05/27/17 14:30 Dose: 250 mls/hr Sodium Chloride (Normal Saline -) 1,000 mls @ 125 mls/hr IV ASDIR TAMAR Last Admin: 05/27/17 19:09 Dose: 125 mls/hr Ondansetron HCl (Zofran Injection) 4 mg IVPB Q6H PRN PRN Reason: NAUSEA Piperacillin Sod/Tazobactam Sod (Zosyn 4.5gm Ivpb (Pre-Docked)) 4.5 gm IVPB ONCE TAMAR Stop: 05/28/17 17:29 Last Admin: 05/27/17 19:44 Dose: 4.5 gm Piperacillin/Tazobactam/Dextrose (Zosyn 4.5gm Ivpb (Premix)) 4.5 gm IVPB Q8H- IV TAMAR Vital Signs Temp 98.6 F 05/27/17 20:00 Pulse 97 H 05/27/17 20:00 Resp 17 05/27/17 21:00 BP 112/71 05/27/17 20:00 Pulse Ox 98 05/27/17 21:30 Intake & Output 05/26/17 05/27/17 05/27/17 23:59 11:59 23:59 Intake Total 7600 1600 3401 Output Total 4630 850 545 Balance 2970 750 2856 Weight 58.513 kg Intake: IV 4100 1500 3101 Normal Saline - 1,000 ml 1500 1250 @ 125 mls/hr IV ASDIR TAMAR Rx#:[id number] Normal Saline - 1,000 ml 500 @ 250 mls/hr IV ASDIR TAMAR Rx#:[id number] Normal Saline - 1,000 ml 1351 @ 125 mls/hr IV ASDIR TAMAR Rx#:[id number] IVPB 100 100 300 Oral 0 0 Other 3400 Output: Gastric Drainage 180 180 Drainage 200 270 245 Rt Abdomen 270 245 Urine 1150 400 300 Carlos 400 300 Estimated Blood Loss 100 Other 3000 Other: Voiding Method Indwelling Catheter Indwelling Catheter Bowel Movement No No Height 5 ft 11 in Body Mass Index (BMI) 17.9 ROS: 10 pt review of system perofrmed and negative / unremarkable save as per HPI. PE: HEENT: PERRL, NCAT, EOMI PULM: Clear anterior, no distress CV: tachy, regular, no m/r/g appreciated ABD: midline incision, CDI. CANDACE with small amt of serosang drainage, very hypoactive bowel (pt denies flatus) EXT: no edema, 3+ pulses NEURO: non focal . A & O x 3 Cat Scan: Report Reviewed (pneumoperitoneum) A/ 57 y/o man POD #1 with perforated bowel now s/p ex lap with myron-coloectomy P/ -monitor HR for further SVT, Adensosine PRN -Fluid resuscitation as needed -Pip/Tazo for empiric abd coverage -advance diet when improved bowel function/Surgery following -SCD, no indication for GI proph -OOB as tolerated -ok for floor in AM Darrell Bey ACNP [id number]
[2017-05-27] MEDS ORDERED: HYDROmorphone *PCA* 10MG/50ML DISP.SYRIN PCA ONE (21:43)
[2017-05-27] MEDS: HYDROmorphone *PCA* 10MG/50ML DISP.SYRIN PCA SCH (21:45)
[2017-05-28] MEDS ORDERED: PIPERACILLIN/TAZOB 4.5 GM/100 ML PREMIX BAG IVPB ONE (00:45)
[2017-05-28] MEDS ORDERED: PIPERACILLIN/TAZOB 4.5 GM/100 ML PREMIX BAG IVPB SCH (02:00)
--- NOTE | 2017-05-28 09:02 | PN ---
Progress Note (short form) - Note Progress Note: Patient seen and examined in the ICU. Awake and alert. No further episodes of SVT. Did not require additional adenosine overnight. Intake & Output 05/25/17 05/26/17 05/27/17 05/28/17 23:59 23:59 23:59 23:59 Intake Total 7600 6001 975 Output Total 4630 1995 760 Balance 2970 4006 215 Weight 129 lb 142 lb 2 oz Last Vital Signs Temp Pulse Resp BP Pulse Ox 98.4 F 94 H 11 L 127/83 98 05/28/17 02:00 05/28/17 08:00 05/28/17 08:50 05/28/17 08:00 05/27/17 21:30 Active Medications Hydromorphone HCl (Dilaudid Stereo Equipment Salesperson -) 0 mg SALES ADMINISTRATION SPECIALIST SALES ADMINISTRATION SPECIALIST TAMAR PRN Reason: Protocol Stop: 05/29/17 19:41 Last Admin: 05/27/17 21:45 Dose: 10 mg Sodium Chloride (Normal Saline -) 1,000 mls @ 250 mls/hr IV ASDIR TAMAR Stop: 05/28/17 17:44 Last Admin: 05/27/17 14:30 Dose: 250 mls/hr Sodium Chloride (Normal Saline -) 1,000 mls @ 200 mls/hr IV ASDIR TAMAR Ondansetron HCl (Zofran Injection) 4 mg IVPB Q6H PRN PRN Reason: NAUSEA Piperacillin/Tazobactam/Dextrose (Zosyn 4.5gm Ivpb (Premix)) 4.5 gm IVPB Q8H- IV TAMAR HEENT: PERRL, NCAT, EOMI PULM: Clear anterior, no distress CV: tachy, regular, no m/r/g appreciated ABD: midline incision, CDI. CANDACE with small amt of serosang drainage, hypoactive BS EXT: no edema, 3+ pulses NEURO: non focal. AAO IMP: SVT POD #2 Ex lap with myron-coloectomy due to perforated terminal ileum / mass Pulm TB Renal cell CA S/P Right partial nephrectomy in 2009 Right lung lobectomy Sarcoidosis Gout Hypertension PLAN: Check labs IVF NPO VTE prophylaxis OOB to chair ABX as ordered Follow cultures Cardiac Telemetry monitoring Dr Fine Critical care time spent in reviewing chart, evaluating patient and formulating plan - 36 minutes
[2017-05-28 09:15] LABS: BASOPHIL 0.2 % (0-2.0); EOSINOPHIL 1.3 % (0-4.5); MCH 26.8 pg (25.7-33.7); MCHC 31.9 g/dl (32.0-35.9); MEAN CELL VOLUME 83.9 fl (80-96); MEAN PLT VOLUME 7.8 fl (7.5-11.1); NEUTROPHILS 90.9 % (42.8-82.8); PLATELET COUNT 337 K/MM3 (134-434); RDW 16.2 % (11.9-15.9)
[2017-05-28 09:43] LABS: ALBUMIN 1.8 g/dl (3.4-5.0); ANION GAP 8 (8-16); CALCIUM 7.6 mg/dL (8.5-10.1); CO2 23 mmol/L (21-32); GLUCOSE,RANDOM 63 mg/dL (74-106)
[2017-05-28 09:49] LABS: ALK PHOS 79 U/L (45-117); CREATININE 0.8 mg/dL (0.7-1.3); SGOT/AST 19 U/L (15-37); SGPT/ALT 14 U/L (12-78); TOT PROT 4.6 g/dl (6.4-8.2)
[2017-05-28] MEDS ORDERED: METOPROLOL TARTRATE 5 MG/5 ML VIAL IVPUSH PRN (10:00)
--- NOTE | 2017-05-28 10:00 | PN ---
Progress Note, Physician Chief Complaint: Events noted Remains in ICU Periods of sinus tachycardia No further episode of SVT History of Present Illness: Patient was seen and examined. Awake and alert. Chart was reviewed Denies chest pain, SOB or palpitations Tolerating therapy post op - Current Medication List Current Medications: Active Medications Hydromorphone HCl (Dilaudid Heating Repair Technician -) 0 mg OUTER DIAMETER TECHNICIAN OUTER DIAMETER TECHNICIAN TAMAR PRN Reason: Protocol Stop: 05/29/17 19:41 Last Admin: 05/27/17 21:45 Dose: 10 mg Sodium Chloride (Normal Saline -) 1,000 mls @ 250 mls/hr IV ASDIR TAMAR Stop: 05/28/17 17:44 Last Admin: 05/27/17 14:30 Dose: 250 mls/hr Sodium Chloride (Normal Saline -) 1,000 mls @ 200 mls/hr IV ASDIR TAMAR Ondansetron HCl (Zofran Injection) 4 mg IVPB Q6H PRN PRN Reason: NAUSEA Piperacillin/Tazobactam/Dextrose (Zosyn 4.5gm Ivpb (Premix)) 4.5 gm IVPB Q8H- IV TAMAR - Objective Vital Signs: Vital Signs Temperature 98.4 F 05/28/17 02:00 Pulse Rate 94 H 05/28/17 08:00 Respiratory Rate 11 L 05/28/17 08:50 Blood Pressure 127/83 05/28/17 08:00 O2 Sat by Pulse Oximetry (%) 98 05/27/17 21:30 Neck: Yes: Supple Cardiovascular: Yes: Regular Rate and Rhythm, Tachycardia, S1, S2. No: Murmur Respiratory: Yes: Diminished Gastrointestinal: Yes: Other (Post op) Edema: No Additional Findings/Remarks: - Review of Systems Constitutional: denies: Chills, Fever Cardiovascular: denies: Chest Pain, Palpitations, Shortness of Breath Respiratory: denies: Cough, Hemoptysis, Orthopnea, PND, SOB, SOB on Exertion Gastrointestinal: reports: Abdominal Pain, Other (Post op) Neurological: denies: Dizziness, Headache, Seizure, Syncope Labs: CBC, BMP 05/28/17 08:40 05/28/17 08:40 INR, PTT INR 1.04 (0.82-1.09) 05/26/17 12:25 Problem List - Problems (1) Mass of cecum Code(s): K63.9 - DISEASE OF INTESTINE, UNSPECIFIED (2) Perforated abdominal viscus Code(s): [id number] - (3) SVT (supraventricular tachycardia) Code(s): I47.1 - SUPRAVENTRICULAR TACHYCARDIA (4) Sepsis associated hypotension Code(s): A41.9 - SEPSIS, UNSPECIFIED ORGANISM (5) Gout Code(s): M10.9 - GOUT, UNSPECIFIED Qualifiers: Gout site: multiple sites Gout etiology: unspecified cause Chronicity: unspecified Qualified Code(s): M10.9 - Gout, unspecified; M10.9 - Gout, unspecified (6) H/O renal cell carcinoma Code(s): Z85.528 - PERSONAL HISTORY OF OTHER MALIGNANT NEOPLASM OF KIDNEY (7) HTN (hypertension) Code(s): I10 - ESSENTIAL (PRIMARY) HYPERTENSION Qualifiers: Hypertension type: unspecified Qualified Code(s): I10 - Essential ( primary) hypertension; I10 - Essential (primary) hypertension; I10 - Essential ( primary) hypertension (8) Pulmonary tuberculosis Code(s): A15.0 - TUBERCULOSIS OF LUNG (9) SBO (small bowel obstruction) Code(s): K56.69 - OTHER INTESTINAL OBSTRUCTION * DO NOT USE * (10) Sarcoidosis of lung Code(s): D86.0 - SARCOIDOSIS OF LUNG Assessment/Plan 1. Post pneumoperitoneum with abdominal viscus perforation status post emergent laparotomy with hemicolectomy, history of previous SBO 2. 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 AVRT 3. History of hypertension 4. Renal cell CA s/p nephrectomy 5. History of sarcoidosis 6. History of TB PLAN: 1. Continue ICU monitoring then telemetry 2. May use IV beta annabelle - Lopressor 5 mg IV until he is able to take PO meds - if SVT recurs, other option is to pursue EP study and RFA 3. Continue post op management as per Surgical service 4. Transthoracic echocardiography to assess LV/RV and valvular function 5. Check TFTs 6. Empiric antibiotic coverage Further plans are to be followed Guarded Josue Jones MD
--- NOTE | 2017-05-28 10:58 | PN ---
Progress Note, Physician - Current Medication List Current Medications: Active Medications Hydromorphone HCl (Dilaudid Refrigerator Glazier -) 0 mg VINEYARDIST VINEYARDIST TAMAR PRN Reason: Protocol Stop: 05/29/17 19:41 Last Admin: 05/27/17 21:45 Dose: 10 mg Sodium Chloride (Normal Saline -) 1,000 mls @ 250 mls/hr IV ASDIR TAMAR Stop: 05/28/17 17:44 Last Admin: 05/27/17 14:30 Dose: 250 mls/hr Sodium Chloride (Normal Saline -) 1,000 mls @ 200 mls/hr IV ASDIR TAMAR Metoprolol Tartrate (Lopressor Injection -) 5 mg IVPUSH Q4H PRN PRN Reason: TACHYCARDIA Ondansetron HCl (Zofran Injection) 4 mg IVPB Q6H PRN PRN Reason: NAUSEA Piperacillin Sod/Tazobactam Sod (Zosyn 4.5gm Ivpb (Pre-Docked)) 4.5 gm IVPB Q8H -IV TAMAR - Objective Vital Signs: Vital Signs Temperature 98.4 F 05/28/17 02:00 Pulse Rate 94 H 05/28/17 08:00 Respiratory Rate 11 L 05/28/17 08:50 Blood Pressure 127/83 05/28/17 08:00 O2 Sat by Pulse Oximetry (%) 98 05/27/17 21:30 Constitutional: Yes: No Distress, Calm Eyes: Yes: WNL, Conjunctiva Clear, EOM Intact HENT: Yes: WNL, Atraumatic, Normocephalic Neck: Yes: WNL, Supple, Trachea Midline Cardiovascular: Yes: WNL, Regular Rate and Rhythm Respiratory: Yes: WNL, Regular, CTA Bilaterally Gastrointestinal: Yes: Other (wound midline of the abdomen, with the drainage noted.) Labs: CBC, BMP 05/28/17 08:40 05/28/17 08:40 INR, PTT INR 1.04 (0.82-1.09) 05/26/17 12:25 Problem List - Problems (1) Perforated abdominal viscus Code(s): [id number] - (2) Lactic acidosis Assessment/Plan: resolved Code(s): E87.2 - ACIDOSIS (3) SVT (supraventricular tachycardia) Assessment/Plan: patient is in sinus rhythm, with episodes of sinus tachycardia patient is to be transferred to telemetry when a bed is available metoprolol 5mg IVP can be given if the patient needs rate control as per cardiology note patient may require EP evaluation for EP study as an out patient Code(s): I47.1 - SUPRAVENTRICULAR TACHYCARDIA (4) Sepsis associated hypotension Assessment/Plan: patient is hemodynamically stable no active issue BP 128/78, no fever or chills WBS trending up but no signs of shock c/w IVF hydration patient I is 6L and out 1.3L will increase fluids to 200cc/hr x 2 then go to 150cc/hr patient requires reassessment in the morning for further fluid adjustments Code(s): A41.9 - SEPSIS, UNSPECIFIED ORGANISM
--- NOTE | 2017-05-28 11:05 | EKG ---
Test Reason : Blood Pressure : / mmHG Vent. Rate : 103 BPM Atrial Rate : 103 BPM P-R Int : 152 ms QRS Dur : 072 ms QT Int : 320 ms P-R-T Axes : 047 028 022 degrees QTc Int : 419 ms SINUS TACHYCARDIA OTHERWISE NORMAL ECG WHEN COMPARED WITH ECG OF 27-MAY-2017 12:21, PREVIOUS ECG HAS UNDETERMINED RHYTHM, NEEDS REVIEW T WAVE INVERSION NO LONGER EVIDENT IN INFERIOR LEADS Confirmed by THAI PENNY, LUDIVINA ([id number]) on 05/28/2017 11:04:59 AM Referred By: Jaci VYAS Confirmed By:LUDIVINA ANDRE MD
--- NOTE | 2017-05-28 11:06 | EKG ---
Test Reason : Blood Pressure : / mmHG Vent. Rate : 188 BPM Atrial Rate : 220 BPM P-R Int : 000 ms QRS Dur : 068 ms QT Int : 230 ms P-R-T Axes : 000 039 -47 degrees QTc Int : 407 ms SUPRAVENTRICULAR TACHYCARDIA T WAVE ABNORMALITY, CONSIDER INFERIOR ISCHEMIA ABNORMAL ECG Confirmed by LUDIVINA ANDRE MD ([id number]) on 05/28/2017 11:06:12 AM Referred By: Jaci VYAS Confirmed By:LUDIVINA ANDRE MD
[2017-05-28] MEDS: PIPERACILLIN/TAZOB 4.5 GM/100 ML PRE-DOCKED IVPB SCH ×2 (12:28→18:08)
[2017-05-28] MEDS: SODIUM CHLORIDE 1,000 ML IV SCH ×2 (12:30→18:07)
[2017-05-28] MEDS ORDERED: HYDROmorphone *PCA* 10MG/50ML DISP.SYRIN PCA ONE (12:57)
--- NOTE | 2017-05-28 13:10 | PN ---
Progress Note, Physician Chief Complaint: abdominal pain, free air History of Present Illness: POD2 s/p laparotomy with R hemicolectomy for perforation of terminal ileum with associated mass Pt seen and examined sitting up in chair, then in bed. Awake and alert, c/o pain 3/10 controlled with INSULATION ESTIMATOR. NGT with 180 yesterday, total ~350 in canister; Carlos with 1300 yest, 700 today so far, CANDACE with serosanguineous fluid, 515ml yesterday, 60 overnight, ~135 emptied in last couple hours. No flatus or BM yet. No fever. Events of yesterday noted - pt had episode of SVT resolved with adenosine, transferred to ICU. No further episodes. UOP appropriate, was given more IVF. Albumin very low. WBC up postop. Cr decreasing. - Current Medication List Current Medications: Active Medications Hydromorphone HCl (Dilaudid Business Planning Manager -) 0 mg INSULATION ESTIMATOR INSULATION ESTIMATOR TAMAR PRN Reason: Protocol Stop: 05/29/17 19:41 Last Admin: 05/27/17 21:45 Dose: 10 mg Sodium Chloride (Normal Saline -) 1,000 mls @ 250 mls/hr IV ASDIR TAMAR Stop: 05/28/17 17:44 Last Admin: 05/27/17 14:30 Dose: 250 mls/hr Sodium Chloride (Normal Saline -) 1,000 mls @ 200 mls/hr IV ASDIR TAMAR Last Admin: 05/28/17 12:30 Dose: 200 mls/hr Metoprolol Tartrate (Lopressor Injection -) 5 mg IVPUSH Q4H PRN PRN Reason: TACHYCARDIA Ondansetron HCl (Zofran Injection) 4 mg IVPB Q6H PRN PRN Reason: NAUSEA Piperacillin Sod/Tazobactam Sod (Zosyn 4.5gm Ivpb (Pre-Docked)) 4.5 gm IVPB Q8H -IV TAMAR Last Admin: 05/28/17 12:28 Dose: 4.5 gm - Objective Vital Signs: Vital Signs Temperature 98.4 F 05/28/17 02:00 Pulse Rate 94 H 05/28/17 08:00 Respiratory Rate 11 L 05/28/17 08:50 Blood Pressure 127/83 05/28/17 08:00 O2 Sat by Pulse Oximetry (%) 98 05/27/17 21:30 Vital Signs Period Temp Pulse Resp BP Sys/Parks Pulse Ox Last 24 Hr 98.4 F-98.6 F 93-180 11-24 98-142/71-90 98-100 Intake & Output 05/27/17 05/28/17 05/28/17 23:59 07:59 15:59 Intake Total 2600 975 Output Total 670 760 Balance 1930 215 Weight 142 lb 2 oz Intake: IV 2500 875 Normal Saline - 1,000 ml 1000 875 @ 125 mls/hr IV ASDIR TAMAR Rx#:[id number] Normal Saline - 1,000 ml 500 @ 250 mls/hr IV ASDIR TAMAR Rx#:[id number] Normal Saline - 1,000 ml 1000 @ 125 mls/hr IV ASDIR TAMAR Rx#:[id number] IVPB 100 100 Output: Drainage 70 60 Rt Abdomen 70 60 Urine 600 700 Carlos 600 700 Other: Voiding Method Indwelling Catheter Indwelling Catheter Indwelling Catheter Weight Measurement Method Built in [facility] Constitutional: Yes: Well Nourished, No Distress, Calm Eyes: Yes: Conjunctiva Clear, EOM Intact Cardiovascular: Yes: Tachycardia (mild). No: Pulse Irregular Respiratory: Yes: Regular, CTA Bilaterally, On Nasal O2 (taken off - will assess without) Gastrointestinal: Yes: Soft, Hypoactive Bowel Sounds, Tenderness (RLQ without R/ G), Other (RLQ drain with serosang fluid in bulb). No: Distention Genitourinary: Yes: Carlos Present (yellow urine). No: Hematuria Extremities: No: Cool, Cyanosis Edema: No Integumentary: Yes: Incision (midline open wound). No: Jaundice Wound/Incision: Yes: Rosangela Intact (at umbilicus), Dressing Dry and Intact, Dressing Removed (midline - and packing changed with 1" saline-dampened plain packing below umbilicus, 2x2 above), Unapproximated (wound clean, yellow and red base, fascia intact) Neurological: Yes: Alert, Oriented Labs: CBC, BMP 05/28/17 08:40 05/28/17 08:40 CMP Sodium 142 mmol/L (136-145) 05/28/17 08:40 Potassium 4.2 mmol/L (3.5-5.1) 05/28/17 08:40 Chloride 111 mmol/L (98-107) H 05/28/17 08:40 Carbon Dioxide 23 mmol/L (21-32) 05/28/17 08:40 Anion Gap 8 (8-16) 05/28/17 08:40 BUN 13 mg/dL (7-18) 05/28/17 08:40 Creatinine 0.8 mg/dL (0.7-1.3) 05/28/17 08:40 Creat Clearance w eGFR > 60 (>60) 05/28/17 08:40 Random Glucose 63 mg/dL (74-106) L D 05/28/17 08:40 Calcium 7.6 mg/dL (8.5-10.1) L 05/28/17 08:40 Total Bilirubin 1.0 mg/dL (0.2-1.0) 05/28/17 08:40 AST 19 U/L (15-37) 05/28/17 08:40 ALT 14 U/L (12-78) 05/28/17 08:40 Alkaline Phosphatase 79 U/L (45-117) 05/28/17 08:40 Total Protein 4.6 g/dl (6.4-8.2) L 05/28/17 08:40 Albumin 1.8 g/dl (3.4-5.0) L 05/28/17 08:40 Problem List - Problems (1) Perforated small intestine Assessment/Plan: POD2 s/p laparotomy with right hemicolectomy for terminal ileal mass with perforation, also cecal mass palpated at IC junction SVT yesterday with no further episodes, hemodynamically stable echo pending UOP adequate continue Carlos for accurate I/O's today continue NPO/IVF/NGT - await resumption of bowel function INSULATION ESTIMATOR for pain incentive spirometer - getting 750-1000, encouraged to use regularly OOB to chair, can ambulate with assist GI/DVT prophylaxis continue antibiotics, ID on board replete lytes prn doing well overall await pathology, peritoneal fluid culture growing LF-GNB, probably E. coli midline wound dressings daily ok for transfer to telemetry when bed available Code(s): K63.1 - PERFORATION OF INTESTINE (NONTRAUMATIC) (2) Mass of small intestine Code(s): K63.89 - OTHER SPECIFIED DISEASES OF INTESTINE (3) Mass of cecum Code(s): K63.9 - DISEASE OF INTESTINE, UNSPECIFIED (4) Gout Code(s): M10.9 - GOUT, UNSPECIFIED Qualifiers: Gout site: multiple sites Gout etiology: unspecified cause Chronicity: unspecified Qualified Code(s): M10.9 - Gout, unspecified; M10.9 - Gout, unspecified (5) H/O renal cell carcinoma Code(s): Z85.528 - PERSONAL HISTORY OF OTHER MALIGNANT NEOPLASM OF KIDNEY (6) HTN (hypertension) Assessment/Plan: normotensive, holding meds while npo Code(s): I10 - ESSENTIAL (PRIMARY) HYPERTENSION Qualifiers: Hypertension type: unspecified Qualified Code(s): I10 - Essential ( primary) hypertension; I10 - Essential (primary) hypertension; I10 - Essential ( primary) hypertension (7) Pulmonary tuberculosis Assessment/Plan: will resume medications when NGT removed hold for now Code(s): A15.0 - TUBERCULOSIS OF LUNG (8) Sarcoidosis of lung Code(s): D86.0 - SARCOIDOSIS OF LUNG Assessment/Plan This patient is critically ill. Time spent reviewing chart, examining patient, talking with providers and/or family and documentation is 40 minutes
[2017-05-28] MEDS: FAMOTIDINE 20 MG/50 ML IVPB 50 ML IVPB SCH ×2 (15:56→21:45)
[2017-05-29] MEDS: METOPROLOL TARTRATE 5 MG/5 ML VIAL IVPUSH PRN ×2 (00:28→06:49)
[2017-05-29] MEDS ORDERED: PT OWN MED DRAWER 7, Y5N ONE ×2 (01:16→08:13)
[2017-05-29] MEDS ORDERED: hydrALAZINE HCL 20 MG/ML VIAL ONE (01:16)
[2017-05-29] MEDS: hydrALAZINE HCL 20 MG/ML VIAL IVPUSH PRN ×2 (01:22→09:25)
[2017-05-29] MEDS: SODIUM CHLORIDE 1,000 ML IV SCH ×3 (01:23→09:19)
[2017-05-29] MEDS: PIPERACILLIN/TAZOB 4.5 GM/100 ML PREMIX BAG IVPB SCH ×2 (01:40→12:47)
[2017-05-29 06:00] LABS: MCH 27.2 pg (25.7-33.7); MCHC 32.9 g/dl (32.0-35.9); MEAN CELL VOLUME 82.8 fl (80-96); PLATELET COUNT 353 K/MM3 (134-434); WHITE BLOOD COUNT 18.1 K/mm3 (4.0-10.0)
[2017-05-29 06:39] LABS: ALBUMIN 1.9 g/dl (3.4-5.0); ANION GAP 14 (8-16); CALCIUM 7.4 mg/dL (8.5-10.1); CO2 20 mmol/L (21-32); GLUCOSE,RANDOM 58 mg/dL (74-106); MAGNESIUM 1.9 mg/dL (1.8-2.4); PHOSPHOROUS 1.5 mg/dL (2.5-4.9); SGOT/AST 15 U/L (15-37)
[2017-05-29 06:42] LABS: ALK PHOS 83 U/L (45-117); BILIRUBIN,TOTAL 1.8 mg/dL (0.2-1.0); CREATININE 0.6 mg/dL (0.7-1.3); SGPT/ALT 13 U/L (12-78); TOT PROT 4.8 g/dl (6.4-8.2)
[2017-05-29] MEDS: HYDROmorphone *PCA* 10MG/50ML DISP.SYRIN PCA SCH (07:10)
[2017-05-29] MEDS ORDERED: HYDROmorphone *PCA* 10MG/50ML DISP.SYRIN PCA ONE (07:16)
[2017-05-29] MEDS: FAMOTIDINE 20 MG/50 ML IVPB 50 ML IVPB SCH ×2 (09:18→21:05)
--- NOTE | 2017-05-29 11:49 | PN ---
Progress Note, Physician Chief Complaint: Events noted Remains in ICU Periods of sinus tachycardia No further episode of SVT History of Present Illness: Patient was seen and examined. Awake and alert. Chart was reviewed Denies chest pain, SOB or palpitations - Current Medication List Current Medications: Active Medications Hydralazine HCl (Apresoline Injection -) 10 mg IVPUSH Q8H PRN PRN Reason: sbp >180 and or dbp >105 Last Admin: 05/29/17 09:25 Dose: 10 mg Hydromorphone HCl (Dilaudid Office Manager Executive Assistant -) 0 mg SOUND EFFECTS TECHNICIAN SOUND EFFECTS TECHNICIAN TAMAR PRN Reason: Protocol Stop: 05/29/17 19:41 Last Admin: 05/29/17 07:10 Dose: 0.2 mg Sodium Chloride (Normal Saline -) 1,000 mls @ 200 mls/hr IV ASDIR TAMAR Last Admin: 05/29/17 09:19 Dose: 200 mls/hr Famotidine/Sodium Chloride (Pepcid 20 Mg Premixed Ivpb -) 50 mls @ 100 mls/hr IVPB BID TAMAR Last Admin: 05/29/17 09:18 Dose: 100 mls/hr Potassium Phosphate 20 mm/ (Dextrose) 256.6667 mls @ 62.5 mls/hr IVPB ONCE ONE Stop: 05/29/17 15:41 Metoprolol Tartrate (Lopressor Injection -) 5 mg IVPUSH Q4H PRN PRN Reason: TACHYCARDIA Last Admin: 05/29/17 06:49 Dose: 5 mg Ondansetron HCl (Zofran Injection) 4 mg IVPB Q6H PRN PRN Reason: NAUSEA Piperacillin/Tazobactam/Dextrose (Zosyn 4.5gm Ivpb (Premix)) 4.5 gm IVPB Q8H- IV TAMAR Last Admin: 05/29/17 01:40 Dose: 4.5 gm - Objective Vital Signs: Vital Signs Temperature 98.2 F 05/29/17 10:00 Pulse Rate 82 05/29/17 10:00 Respiratory Rate 13 05/29/17 10:00 Blood Pressure 160/99 05/29/17 10:00 O2 Sat by Pulse Oximetry (%) 100 05/29/17 09:40 Neck: Yes: Supple Cardiovascular: Yes: Regular Rate and Rhythm, Tachycardia, S1, S2 Respiratory: Yes: Diminished Gastrointestinal: Yes: Other (Post op laparotomy) Edema: No Additional Findings/Remarks: - Review of Systems Constitutional: denies: Chills, Fever Cardiovascular: denies: Chest Pain, Palpitations, Shortness of Breath Respiratory: denies: Cough, Hemoptysis, Orthopnea, PND, SOB, SOB on Exertion Gastrointestinal: reports: Abdominal Pain, Other (Post op) Neurological: denies: Dizziness, Headache, Seizure, Syncope Labs: CBC, BMP 05/29/17 05:00 05/29/17 05:00 Problem List - Problems (1) Mass of cecum Code(s): K63.9 - DISEASE OF INTESTINE, UNSPECIFIED (2) Perforated abdominal viscus Code(s): [id number] - (3) SVT (supraventricular tachycardia) Code(s): I47.1 - SUPRAVENTRICULAR TACHYCARDIA (4) Sepsis associated hypotension Code(s): A41.9 - SEPSIS, UNSPECIFIED ORGANISM (5) Gout Code(s): M10.9 - GOUT, UNSPECIFIED Qualifiers: Gout site: multiple sites Gout etiology: unspecified cause Chronicity: unspecified Qualified Code(s): M10.9 - Gout, unspecified; M10.9 - Gout, unspecified (6) H/O renal cell carcinoma Code(s): Z85.528 - PERSONAL HISTORY OF OTHER MALIGNANT NEOPLASM OF KIDNEY (7) HTN (hypertension) Code(s): I10 - ESSENTIAL (PRIMARY) HYPERTENSION Qualifiers: Hypertension type: unspecified Qualified Code(s): I10 - Essential ( primary) hypertension; I10 - Essential (primary) hypertension; I10 - Essential ( primary) hypertension (8) Pulmonary tuberculosis Code(s): A15.0 - TUBERCULOSIS OF LUNG (9) SBO (small bowel obstruction) Code(s): K56.69 - OTHER INTESTINAL OBSTRUCTION * DO NOT USE * (10) Sarcoidosis of lung Code(s): D86.0 - SARCOIDOSIS OF LUNG Assessment/Plan 1. Post pneumoperitoneum with abdominal viscus perforation status post emergent laparotomy with hemicolectomy, history of previous SBO 2. SVT converted to sinus tachycardia with Adenosine 3. History of hypertension 4. Renal cell CA s/p nephrectomy 5. History of sarcoidosis 6. History of TB PLAN: 1. Continue ICU monitoring 2. 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 Hydralazine IV as needed 4. Continue post op management as per Surgical service 5. Transthoracic echocardiography to assess LV/RV and valvular function 6. Check TFTs 7. Empiric antibiotic coverage Further plans are to be followed Guarded Josue Jones MD
[2017-05-29] MEDS ORDERED: PIPERACILLIN/TAZOB 4.5 GM 100 ML IVPB SCH ×2 (12:00→18:00)
[2017-05-29] MEDS ORDERED: HYDROmorphone *PCA* 10MG/50ML DISP.SYRIN PCA SCH ×2 (12:54→13:11)
[2017-05-29] MEDS ORDERED: ONDANSETRON 4 MG/2 ML VIAL IVPB PRN (12:54)
[2017-05-29] MEDS ORDERED: POTASSIUM PHOSPHATE 20 MM in DEXTROSE 5%-WATER - 250 ML IVPB ONE ×2 (13:00→13:11)
--- NOTE | 2017-05-29 13:00 | PN ---
Physical Exam: SUBJECTIVE: 57 yo male with h/o R lung lobectomy, pulmTB (active treatment), sarcoidosis, renal cell CA s/p R partial nephrectomy 2010, gout, HTN, day 3 s/p emergent laparotomy w/ R hemicolectomy for perforation of terminal ileum with associated mass. He presented to ED 05/26 with complaints of consitpation, nausea, rectal pain, in setting of recent SBO. CT AP in ED depicted free air under diaphrgam and patient admitted to [facility] for treatment. On med/surg unit patient developed SVT w/ HR 180 treated with 6 mg adenosine and transferred to ICU ( 05/27) for further monitoring. Patinet has been NSR with sinus tachycardia since SVT episode. Overnight patient given Hydralazine injection x 1 for undocumented elevated SBP> 180. Pt. also given Metoprolol following episode of tachycardia this AM. No episode of SVT overnight. Currently no complaints. He is resting comfortably in bed with NG tube in place. Pain is well controlled with hydromorphone LAUNDRY ROUTE DRIVER. Denies palpitations, lightheadedness, dizziness, SOB, chest pain, weakness. Endorses constipation with minimal flatus. Well controlled abdominal pain. Patient currently hypertensive with SBP~170. Hemodynamics otherwise stable and patient afebrile. OBJECTIVE: Vital Signs Period Temp Pulse Resp BP Sys/Parks Pulse Ox Last 24 Hr 98.0 F-100 F 79-105 10-18 123-160/92-111 95-100 GENERAL: The patient is awake, alert, and fully oriented, in no acute distress. HEAD: Normal with no signs of trauma. EYES: PERRL, extraocular movements intact, sclera anicteric, conjunctiva clear. No ptosis. ENT: Ears normal, nares patent, oropharynx clear without exudates, moist mucous membranes. NECK: Trachea midline, full range of motion, supple. LUNGS: Breath sounds equal, clear to auscultation bilaterally, no wheezes, no crackles, no accessory muscle use. HEART: Regular rate and rhythm, S1, S2 without murmur, rub or gallop. ABDOMEN: Soft, tender, nondistended, normoactive bowel sounds, no guarding, no rebound, no hepatosplenomegaly, no masses.+ Midline dressing in place c/d/i. + CANDACE tube of right sided abdomen with clear serosainguenous drainage. EXTREMITIES: 2+ pulses, warm, well-perfused, no edema. NG tube in place. PSYCH: Normal mood, normal affect. SKIN: Warm, dry, normal turgor, no rashes or lesions noted Laboratory Results - last 24 hr 05/29/17 05/29/17 05:00 05:00 WBC 18.1 H RBC 3.88 L Hgb 10.6 L Hct 32.1 L MCV 82.8 MCH 27.2 MCHC 32.9 RDW 16.0 H Plt Count 353 MPV 8.0 Sodium 141 Potassium 3.7 Chloride 107 Carbon Dioxide 20 L Anion Gap 14 BUN 8 D Creatinine 0.6 L D Creat Clearance w eGFR > 60 Random Glucose 58 L Calcium 7.4 L Phosphorus 1.5 L D Magnesium 1.9 Total Bilirubin 1.8 H D AST 15 D ALT 13 Alkaline Phosphatase 83 Total Protein 4.8 L Albumin 1.9 L Active Medications Generic Name Dose Route Start Last Admin Trade Name Freq PRN Reason Stop Dose Admin Hydralazine HCl 10 mg 05/29/17 01:10 05/29/17 09:25 Apresoline Injection - IVPUSH 10 mg Q8H PRN Administration sbp >180 and or dbp >105 Hydromorphone HCl 0 mg 05/27/17 16:17 05/29/17 07:10 Dilaudid Credit Reference Clerk - LAUNDRY ROUTE DRIVER 05/29/17 19:41 0.2 mg LAUNDRY ROUTE DRIVER TAMAR Administration Protocol Sodium Chloride 1,000 mls @ 200 mls/hr 05/28/17 08:24 05/29/17 09:19 Normal Saline - IV 200 mls/hr ASDIR TAMAR Administration Famotidine/Sodium Chloride 50 mls @ 100 mls/hr 05/28/17 13:30 05/29/17 09:18 Pepcid 20 Mg Premixed Ivpb - IVPB 100 mls/hr BID TAMAR Administration Potassium Phosphate 20 mm/ 256.6667 mls @ 64.167 mls/hr 05/29/17 13:00 Dextrose IVPB 05/29/17 16:59 ONCE ONE Piperacillin/Tazobactam/Dextrose 100 mls @ 200 mls/hr 05/29/17 12:00 05/29/17 12:42 Zosyn 4.5gm Ivpb (Premix) IVPB 200 mls/hr Q8H-IV TAMAR Administration Metoprolol Tartrate 5 mg 05/28/17 10:02 05/29/17 06:49 Lopressor Injection - IVPUSH 5 mg Q4H PRN Administration TACHYCARDIA Ondansetron HCl 4 mg 05/27/17 16:17 Zofran Injection IVPB Q6H PRN NAUSEA ASSESSMENT/PLAN: 57 yo male with h/o R lung lobectomy, pulmTB (active treatment), sarcoidosis, renal cell CA s/p R partial nephrectomy 2009, gout, HTN, day 3 s/emergent laparotomy w/ R hemicolectomy for perforation of terminal ileum with associated mass. Neuro: A&O x 3 No acute focal neuro deficits Cardiac: HTN: Home Losartan Holding oral anti-HTN medication d/t NG tube Plan: - Resume Losartan - Hydralazine 10 mg IVPB SBP>180, DBP>105 SVT: (stable) 1 Episode of SVT ( 05/27) 6 mg adenosine Plan: - Vagal maneuvers and Adenosine PRN - Cont to monitor HR - D/c Metoprolol Tartrate 5 mg IVPB PRN for tachycardia - Metoprolol 25 mg BID - TTE to assess LV/RV and valve fxn. - Cont cardiac tele monitoring Pulmonary: H/o sarcoidosis - Chronic steroids since 2012 - Tapered off Prednisone 10 mg last month - Cont Pulm hygeine Tuberculosis: Current TB infection Not on Isolation per Dr. Ayon Plan: - Cont Rifampin, INH, Pyrazinamide,Pyridoxine GI: H/o SBO Day 3 s/p emergent laparotomy w/ R hemicolectomy for perforation of terminal ileum with associated mass No BM with minimal flatus Peritoneal fluid cultures growing E.coli WBC~6.1-->18.1 Plan: - Cont Zosyn 4.5 mg IV for empiric abdominal coverage - Cont PT Hepatitis B ( stable) AST/ALT Alk Phosph 83 : H/o renal cell carcinoma withmets to R axillary lymph node last month. s/p R partial nephrectomy (2009) Cr/BUN- 0.6/8 Infectious Disease: Sepsis 2/2 peritonitis AF, and hemodynamically stable Peritoneal fluid cultures growing E.coli WBC~6.1-->18.1 Plan: - Cont Zosyn 4.5 mg IV for empiric abdominal coverage - Cont IV NS FEN: NS, Lytes PRN, Clear liquids/advance as tolerated PPx: No indication for GI ppx, SCD's Dispo: Transfer to Tele Visit type - Emergency Visit Emergency Visit: Yes ED Registration Date: 05/26/17 Care time: The patient presented to the Emergency Department on the above date and was hospitalized for further evaluation of their emergent condition. - New Patient This patient is new to me today: Yes Date on this admission: 05/29/17 - Critical Care Critical Care patient: Yes Total Critical Care Time (in minutes): 35 Critical Care Statement: The care of this patient involved high complexity decision making to prevent further life threatening deterioration of the patient 's condition and/or to evaluate & treat vital organ system(s) failure or risk of failure.
[2017-05-29] MEDS ORDERED: METOPROLOL TARTRATE 5 MG/5 ML VIAL IVPUSH PRN (13:11)
[2017-05-29] MEDS ORDERED: hydrALAZINE HCL 20 MG/ML VIAL IVPUSH PRN (13:11)
[2017-05-29] MEDS ORDERED: SODIUM CHLORIDE 1,000 ML IV SCH (13:11)
[2017-05-29] MEDS: METOPROLOL TARTRATE 25 MG TABLET (FP) PO SCH ×2 (13:30→21:06)
--- NOTE | 2017-05-29 13:38 | PN ---
Teaching Attending Note Name of Resident: Andrae Monae ATTENDING PHYSICIAN STATEMENT I saw and evaluated the patient. I reviewed the resident's note and discussed the case with the resident. I agree with the resident's findings and plan as documented. SUBJECTIVE: Patient seen and examined in the ICU. Awake and alert. No further episodes of SVT. No flatus or BM. Intake & Output 05/26/17 05/27/17 05/28/17 05/29/17 23:59 23:59 23:59 23:59 Intake Total 7600 6001 3525 1750 Output Total 4630 1994 2320 1410 Balance 2970 4006 1205 340 Weight 129 lb 142 lb 2 oz 141 lb 1.6 oz Last Vital Signs Temp Pulse Resp BP Pulse Ox 98.0 F 91 H 14 153/100 100 05/29/17 12:00 05/29/17 13:11 05/29/17 13:11 05/29/17 13:11 05/29/17 09:40 Active Medications Hydralazine HCl (Apresoline Injection -) 10 mg IVPUSH Q8H PRN PRN Reason: sbp >180 and or dbp >105 Hydromorphone HCl (Dilaudid Cost Accounting Clerk -) 10 mg SETTER JUICE PACKAGING MACHINES SETTER JUICE PACKAGING MACHINES TAMAR PRN Reason: Protocol Stop: 05/29/17 19:41 Last Admin: 05/29/17 13:11 Dose: 10 mg Famotidine/Sodium Chloride (Pepcid 20 Mg Premixed Ivpb -) 50 mls @ 100 mls/hr IVPB BID TAMAR Potassium Phosphate 20 mm/ (Dextrose) 256.6667 mls @ 64.167 mls/hr IVPB ONCE ONE Stop: 05/29/17 16:59 Sodium Chloride (Normal Saline -) 1,000 mls @ 200 mls/hr IV ASDIR TAMAR Last Admin: 05/29/17 13:11 Dose: Not Given Piperacillin/Tazobactam/Dextrose (Zosyn 4.5gm Ivpb (Premix)) 100 mls @ 200 mls/ hr IVPB Q8H-IV TAMAR Metoprolol Tartrate (Lopressor Injection -) 5 mg IVPUSH Q4H PRN PRN Reason: TACHYCARDIA Metoprolol Tartrate (Lopressor -) 25 mg PO BID TAMAR Ondansetron HCl (Zofran Injection) 4 mg IVPB Q6H PRN PRN Reason: NAUSEA HEENT: PERRL, NCAT, EOMI PULM: Clear anterior, no distress CV: tachy, regular, no m/r/g appreciated ABD: midline incision, CDI. CANDACE with serosanguinous drainage, hypoactive BS EXT: no edema, 3+ pulses NEURO: non focal. AAO Laboratory Results - last 24 hr 05/29/17 05/29/17 05:00 05:00 WBC 18.1 H RBC 3.88 L Hgb 10.6 L Hct 32.1 L MCV 82.8 MCH 27.2 MCHC 32.9 RDW 16.0 H Plt Count 353 MPV 8.0 Sodium 141 Potassium 3.7 Chloride 107 Carbon Dioxide 20 L Anion Gap 14 BUN 8 D Creatinine 0.6 L D Creat Clearance w eGFR > 60 Random Glucose 58 L Calcium 7.4 L Phosphorus 1.5 L D Magnesium 1.9 Total Bilirubin 1.8 H D AST 15 D ALT 13 Alkaline Phosphatase 83 Total Protein 4.8 L Albumin 1.9 L IMP: SVT POD #3 Ex lap with myron-coloectomy due to perforated terminal ileum / mass Pulm TB Renal cell CA S/P Right partial nephrectomy in 2009 Right lung lobectomy Sarcoidosis Gout Hypertension PLAN: IVF PO when OK with surgery Monitor NGT outputs VTE prophylaxis OOB to chair To discuss with ID ABX coverage : Mancera:Sensitive E Coli Follow final cultures Follow Path Cardiac Telemetry monitoring Dr Fine Critical care time spent in reviewing chart, evaluating patient and formulating plan - 36 minutes
--- NOTE | 2017-05-29 13:40 | PN ---
Progress Note, Physician Chief Complaint: abdominal pain, free air History of Present Illness: POD3 s/p laparotomy with R hemicolectomy for perforation of terminal ileum with associated mass Pt seen and examined in bed. Awake and alert, pain controlled with MOLD YARD WORKER. NGT with 100 overnight, ~600 in canister; Carlos with 2200 yest, 1250 today so far, CANDACE with serosanguineous fluid, 120ml yesterday, 160 today. No BM yet, pt not sure if he has had flatus. No fever. Has been OOB to chair, using IS - can get to 1750 with good effort. - Current Medication List Current Medications: Active Medications Hydralazine HCl (Apresoline Injection -) 10 mg IVPUSH Q8H PRN PRN Reason: sbp >180 and or dbp >105 Hydromorphone HCl (Dilaudid Home Demonstration Agent -) 10 mg MOLD YARD WORKER MOLD YARD WORKER TAMAR PRN Reason: Protocol Stop: 05/29/17 19:41 Last Admin: 05/29/17 13:11 Dose: 10 mg Famotidine/Sodium Chloride (Pepcid 20 Mg Premixed Ivpb -) 50 mls @ 100 mls/hr IVPB BID TAMAR Potassium Phosphate 20 mm/ (Dextrose) 256.6667 mls @ 64.167 mls/hr IVPB ONCE ONE Stop: 05/29/17 16:59 Sodium Chloride (Normal Saline -) 1,000 mls @ 200 mls/hr IV ASDIR TAMAR Last Admin: 05/29/17 13:11 Dose: Not Given Piperacillin/Tazobactam/Dextrose (Zosyn 4.5gm Ivpb (Premix)) 100 mls @ 200 mls/ hr IVPB Q8H-IV TAMAR Metoprolol Tartrate (Lopressor Injection -) 5 mg IVPUSH Q4H PRN PRN Reason: TACHYCARDIA Metoprolol Tartrate (Lopressor -) 25 mg PO BID TAMAR Ondansetron HCl (Zofran Injection) 4 mg IVPB Q6H PRN PRN Reason: NAUSEA - Objective Vital Signs: Vital Signs Temperature 98.0 F 05/29/17 12:00 Pulse Rate 91 H 05/29/17 13:11 Respiratory Rate 14 05/29/17 13:11 Blood Pressure 153/100 05/29/17 13:11 O2 Sat by Pulse Oximetry (%) 100 05/29/17 09:40 Vital Signs Period Temp Pulse Resp BP Sys/Parks Pulse Ox Last 24 Hr 98.0 F-100 F 79-105 10-18 123-160/92-111 95-100 Intake & Output 05/28/17 05/29/17 05/29/17 23:59 07:59 15:59 Intake Total 800 1600 150 Output Total 760 660 750 Balance 40 940 -600 Weight 141 lb 1.6 oz Intake: IV 700 1600 Normal Saline - 1,000 ml 700 1600 @ 200 mls/hr IV ASDIR TAMAR Rx#:[id number] IVPB 100 0 150 Output: Drainage 60 60 100 Rt Abdomen 60 60 100 Urine 700 600 650 Carlos 700 600 650 Other: Voiding Method Indwelling Catheter Indwelling Catheter Bowel Movement No No Weight Measurement Method Built in [facility] Constitutional: Yes: Well Nourished, No Distress, Calm Eyes: Yes: Conjunctiva Clear, EOM Intact HENT: Yes: Other (NGT with light brown/clear output) Cardiovascular: Yes: Regular Rate and Rhythm, Tachycardia (slight) Respiratory: Yes: Regular, CTA Bilaterally, On Nasal O2 ( - will check without) Gastrointestinal: Yes: Soft, Hypoactive Bowel Sounds (present but hypoactive), Tenderness (more LLQ, but mildly diffuse/incisional). No: Distention Genitourinary: No: Carlos Present, Oliguria Extremities: No: Cool, Cyanosis Edema: No Integumentary: Yes: Incision (midline). No: Rash Wound/Incision: Yes: [place] Intact (at umbilicus), Dressing Dry and Intact, Dressing Removed (and changed - packed with saline-dampened 2x2 above and 4x4 below umbilicus; wounds clean, fat beginning to granulate, fascia intact), Unapproximated (midline) Neurological: Yes: Alert, Oriented Labs: CBC, BMP 05/29/17 05:00 05/29/17 05:00 CMP Sodium 141 mmol/L (136-145) 05/29/17 05:00 Potassium 3.7 mmol/L (3.5-5.1) 05/29/17 05:00 Chloride 107 mmol/L (98-107) 05/29/17 05:00 Carbon Dioxide 20 mmol/L (21-32) L 05/29/17 05:00 Anion Gap 14 (8-16) 05/29/17 05:00 BUN 8 mg/dL (7-18) D 05/29/17 05:00 Creatinine 0.6 mg/dL (0.7-1.3) L D 05/29/17 05:00 Creat Clearance w eGFR > 60 (>60) 05/29/17 05:00 Random Glucose 58 mg/dL (74-106) L 05/29/17 05:00 Calcium 7.4 mg/dL (8.5-10.1) L 05/29/17 05:00 Phosphorus 1.5 mg/dL (2.5-4.9) L D 05/29/17 05:00 Magnesium 1.9 mg/dL (1.8-2.4) 05/29/17 05:00 Total Bilirubin 1.8 mg/dL (0.2-1.0) H D 05/29/17 05:00 AST 15 U/L (15-37) D 05/29/17 05:00 ALT 13 U/L (12-78) 05/29/17 05:00 Alkaline Phosphatase 83 U/L (45-117) 05/29/17 05:00 Total Protein 4.8 g/dl (6.4-8.2) L 05/29/17 05:00 Albumin 1.9 g/dl (3.4-5.0) L 05/29/17 05:00 Problem List - Problems (1) Perforated small intestine Assessment/Plan: POD3 s/p laparotomy with right hemicolectomy for terminal ileal mass with perforation, also cecal mass palpated at IC junction no SVT or arrhythmias, hemodynamically stable echo pending UOP adequate unclear if passing flatus yet, but abd not distended, NG output low, no nausea NGT and Carlos d/c'd at bedside PO meds with water and ice chips ok today continue MOLD YARD WORKER for pain today incentive spirometer - getting 1750, encouraged to use regularly OOB to chair, ambulate with assist GI/DVT prophylaxis peritoneal fluid culture growing pansensitive E. coli continue antibiotics, ID on board replete lytes prn - change to maintenance fluid doing well overall await pathology midline wound dressings daily ok for transfer to telemetry when bed available Code(s): K63.1 - PERFORATION OF INTESTINE (NONTRAUMATIC) (2) Mass of small intestine Code(s): K63.89 - OTHER SPECIFIED DISEASES OF INTESTINE (3) Mass of cecum Code(s): K63.9 - DISEASE OF INTESTINE, UNSPECIFIED (4) Gout Code(s): M10.9 - GOUT, UNSPECIFIED Qualifiers: Qualified Code(s): M10.9 - Gout, unspecified; M10.9 - Gout, unspecified (5) H/O renal cell carcinoma Code(s): Z85.528 - PERSONAL HISTORY OF OTHER MALIGNANT NEOPLASM OF KIDNEY (6) HTN (hypertension) Assessment/Plan: Lopressor as per cardiology Code(s): I10 - ESSENTIAL (PRIMARY) HYPERTENSION Qualifiers: Qualified Code(s): I10 - Essential (primary) hypertension; I10 - Essential (primary) hypertension; I10 - Essential (primary) hypertension (7) Pulmonary tuberculosis Assessment/Plan: ok to resume TB meds - ID to order Code(s): A15.0 - TUBERCULOSIS OF LUNG (8) Sarcoidosis of lung Code(s): D86.0 - SARCOIDOSIS OF LUNG Assessment/Plan This patient is critically ill. Time spent reviewing chart, examining patient, talking with providers and/or family and documentation is 35 minutes
[2017-05-29] MEDS: D5-1/2NS+20 MEQ KCL - 1,000 ML IV SCH (14:00)
--- NOTE | 2017-05-29 14:22 | PN ---
Teaching Attending Note ATTENDING PHYSICIAN STATEMENT I saw and evaluated the patient. I reviewed the resident's note and discussed the case with the resident. I agree with the resident's findings and plan as documented. SUBJECTIVE: Pain is controlled Remains with NG tube to LES ( approx 500cc draining ) CANDACE in place - approx 100cc in the drain No fever no recurrent episodes of SVT OBJECTIVE : Vital Signs Temperature 98.0 F 05/29/17 12:00 Pulse Rate 90 05/29/17 13:52 Respiratory Rate 13 05/29/17 13:52 Blood Pressure 153/101 05/29/17 13:52 O2 Sat by Pulse Oximetry (%) 100 05/29/17 09:40 LUNGS: Scattered basilar crackles , using incentive spirometer . HEART: Regular rate and rhythm, S1, S2 without murmur, rub or gallop. ABDOMEN: Soft, tender, nondistended, normoactive bowel sounds, no guarding, no rebound, no hepatosplenomegaly, no masses.+ Midline dressing in place. CANDACE tube draining EXTREMITIES: 2+ pulses, warm, well-perfused, no edema. NG tube in place. PSYCH: Normal mood, normal affect. CBC, BMP 05/29/17 05:00 05/29/17 05:00 CMP Sodium 141 mmol/L (136-145) 05/29/17 05:00 Potassium 3.7 mmol/L (3.5-5.1) 05/29/17 05:00 Chloride 107 mmol/L (98-107) 05/29/17 05:00 Carbon Dioxide 20 mmol/L (21-32) L 05/29/17 05:00 Anion Gap 14 (8-16) 05/29/17 05:00 BUN 8 mg/dL (7-18) D 05/29/17 05:00 Creatinine 0.6 mg/dL (0.7-1.3) L D 05/29/17 05:00 Creat Clearance w eGFR > 60 (>60) 05/29/17 05:00 Random Glucose 58 mg/dL (74-106) L 05/29/17 05:00 Lactic Acid 1.4 mmol/L (0.4-2.0) 05/27/17 05:46 Calcium 7.4 mg/dL (8.5-10.1) L 05/29/17 05:00 Phosphorus 1.5 mg/dL (2.5-4.9) L D 05/29/17 05:00 Magnesium 1.9 mg/dL (1.8-2.4) 05/29/17 05:00 Total Bilirubin 1.8 mg/dL (0.2-1.0) H D 05/29/17 05:00 AST 15 U/L (15-37) D 05/29/17 05:00 ALT 13 U/L (12-78) 05/29/17 05:00 Alkaline Phosphatase 83 U/L (45-117) 05/29/17 05:00 Creatine Kinase 22 IU/L (39-308) L 05/26/17 13:25 Troponin I < 0.02 ng/ml (0.00-0.05) 05/26/17 13:25 Total Protein 4.8 g/dl (6.4-8.2) L 05/29/17 05:00 Albumin 1.9 g/dl (3.4-5.0) L 05/29/17 05:00 Lipase 145 U/L (73-393) 05/26/17 13:25 Home Medication List Medication Instructions Recorded Confirmed Type Losartan Potassium 50 mg PO DAILY 03/14/17 05/26/17 History Active Medications Generic Name Dose Route Start Last Admin Trade Name Freq PRN Reason Stop Dose Admin Hydralazine HCl 10 mg 05/29/17 13:11 Apresoline Injection - IVPUSH Q8H PRN sbp >180 and or dbp >105 Hydromorphone HCl 10 mg 05/29/17 13:11 05/29/17 13:11 Dilaudid Air Surveillance Operator - COBBLER UPPER 05/29/17 19:41 10 mg COBBLER UPPER TAMAR Administration Protocol Famotidine/Sodium Chloride 50 mls @ 100 mls/hr 05/29/17 22:00 Pepcid 20 Mg Premixed Ivpb - IVPB BID TAMAR Potassium Phosphate 20 mm/ 256.6667 mls @ 64.167 mls/hr 05/29/17 13:11 13:15 Dextrose IVPB 05/29/17 16:59 64.167 mls/hr ONCE ONE Administration Piperacillin/Tazobactam/Dextrose 100 mls @ 200 mls/hr 05/29/17 18:00 Zosyn 4.5gm Ivpb (Premix) IVPB Q8H-IV TAMAR Potassium Chloride/Dextrose/Sod Cl 1,000 mls @ 125 mls/hr 05/29/17 14:00 D5-1/2ns+20 Meq Kcl - IV ASDIR TAMAR Metoprolol Tartrate 25 mg 05/29/17 13:30 05/29/17 13:30 Lopressor - PO 25 mg BID TAMAR Administration Ondansetron HCl 4 mg 05/29/17 13:11 Zofran Injection IVPB Q6H PRN NAUSEA ASSESSMENT AND PLAN: 1. Perforated bowel/ acute peritonitis secindary to newly diagnosed colonic and cecal mass. S/P R hemicolectomy POD 3. - c/w IVAB - c/e drain management per surgery
--- NOTE | 2017-05-29 15:45 | SURG ---
Surgery Dairy Farm Operator Note Dairy Farm Operator: Slevin Pruett MD Date of Service: 05/26/17 Diagnosis: perforated viscus Procedure: exploratory laparotomy; right hemicolectomy I was present for the entirety of the operative procedure. For further detail, please refer to operative report. Visit type - Case Type Case Type: ED Admission - Emergency Emergency Visit: Yes ED Registration Date: 05/26/17 Care time: The patient presented to the Emergency Department on the above date and was hospitalized for further evaluation of their emergent condition. - New patient This patient is new to me today: Yes Date on this admission: 05/26/17 - Critical Care Critical Care patient: No
--- NOTE | 2017-05-29 16:47 | PN ---
Physical Exam: SUBJECTIVE: Patient seen and examined. Patient seen this am. Still had NGT in place, c/o about it discomfort with it in. Pain has been well controlled with VEHICLE CARE SPECIALIST. No fever, nausea or vomiting noted. OBJECTIVE: Vital Signs Period Temp Pulse Resp BP Sys/Parks Pulse Ox Last 24 Hr 98.0 F-100 F 79-105 10-18 127-160/92-111 95-100 GENERAL: The patient is awake, alert, and fully oriented, in no acute painful distress. EYES: sclera anicteric, conjunctiva clear. ENT: NGT in place draining greenish colored fluid. oropharynx clear without exudates, moist mucous membranes. LUNGS: Breath sounds equal, clear to auscultation anteriorly HEART: Regular rate and rhythm, S1, S2 ABDOMEN: Midline dressing supraumbilical up to substernal area, clean dry. R hypochondrial dressing around mcburney's point. Hypoactive bowel sounds. Soft, mildly tender, nondistended EXTREMITIES: 2+ pulses, warm, well-perfused, no edema. NEUROLOGICAL: Cranial nerves II through XII grossly intact. Normal speech, gait not observed. PSYCH: Normal mood, normal affect. Laboratory Results - last 24 hr 05/29/17 05/29/17 05:00 05:00 WBC 18.1 H RBC 3.88 L Hgb 10.6 L Hct 32.1 L MCV 82.8 MCH 27.2 MCHC 32.9 RDW 16.0 H Plt Count 353 MPV 8.0 Sodium 141 Potassium 3.7 Chloride 107 Carbon Dioxide 20 L Anion Gap 14 BUN 8 D Creatinine 0.6 L D Creat Clearance w eGFR > 60 Random Glucose 58 L Calcium 7.4 L Phosphorus 1.5 L D Magnesium 1.9 Total Bilirubin 1.8 H D AST 15 D ALT 13 Alkaline Phosphatase 83 Total Protein 4.8 L Albumin 1.9 L Active Medications Generic Name Dose Route Start Last Admin Trade Name Freq PRN Reason Stop Dose Admin Hydralazine HCl 10 mg 05/29/17 13:11 Apresoline Injection - IVPUSH Q8H PRN sbp >180 and or dbp >105 Hydromorphone HCl 10 mg 05/29/17 13:11 05/29/17 13:11 Dilaudid Tankage Supervisor - VEHICLE CARE SPECIALIST 05/29/17 19:41 10 mg VEHICLE CARE SPECIALIST TAMAR Administration Protocol Famotidine/Sodium Chloride 50 mls @ 100 mls/hr 05/29/17 22:00 Pepcid 20 Mg Premixed Ivpb - IVPB BID TAMAR Potassium Phosphate 20 mm/ 256.6667 mls @ 64.167 mls/hr 05/29/17 13:11 13:15 Dextrose IVPB 05/29/17 16:59 64.167 mls/hr ONCE ONE Administration Piperacillin/Tazobactam/Dextrose 100 mls @ 200 mls/hr 05/29/17 18:00 Zosyn 4.5gm Ivpb (Premix) IVPB Q8H-IV TAMAR Potassium Chloride/Dextrose/Sod Cl 1,000 mls @ 125 mls/hr 05/29/17 14:00 14:00 D5-1/2ns+20 Meq Kcl - IV 125 mls/hr ASDIR TAMAR Administration Metoprolol Tartrate 25 mg 05/29/17 13:30 05/29/17 13:30 Lopressor - PO 25 mg BID TAMAR Administration Ondansetron HCl 4 mg 05/29/17 13:11 Zofran Injection IVPB Q6H PRN NAUSEA ASSESSMENT/PLAN: 57 year old with PMHx Renal cell cancer s/p R partial nephrectomy 2009, R lung lobectomy, Sarcoidosis , gout, HTN, TB (3rd month on treatment), previous partial small bowel obstruction now presenting with abdominal pain, nausea and vomiting and admitted for perforated bowel. #Perforated bowel; s/p laparotomy day 3 day 3 on iv zosyn, per Dr Jacques- based on sensitivities to wound culture-changed to ceftriaxone and flagyl Pain mx NGT - removed per Sx #HTN 10mg iv hydralazine with holding orders #SVT Had an episode of SVT aborted with adenosine over the weekend No recurrence since #Sarcoidosis Not currently on prednisone #TB Resumed per Dr Jacques #Gout Not in acute exacerbation Hold meds #Dispo Transfer to Med Surg Visit type - Emergency Visit Emergency Visit: Yes ED Registration Date: 05/26/17 Care time: The patient presented to the Emergency Department on the above date and was hospitalized for further evaluation of their emergent condition. - New Patient This patient is new to me today: No - Critical Care Critical Care patient: Yes Total Critical Care Time (in minutes): 32 Critical Care Statement: The care of this patient involved high complexity decision making to prevent further life threatening deterioration of the patient 's condition and/or to evaluate & treat vital organ system(s) failure or risk of failure. - Discharge Referral Referred to [facility] No
--- NOTE | 2017-05-29 18:31 | PN ---
Progress Note, Physician Chief Complaint: Patient is afebrile, NGT out. - Current Medication List Current Medications: Active Medications Ethambutol HCl (Myambutol -) 800 mg PO HS TAMAR Ethambutol HCl (Myambutol -) 400 mg PO AM TAMAR Hydralazine HCl (Apresoline Injection -) 10 mg IVPUSH Q8H PRN PRN Reason: sbp >180 and or dbp >105 Hydromorphone HCl (Dilaudid Case Management Assistant -) 10 mg HEADING PINNER HEADING PINNER TAMAR PRN Reason: Protocol Stop: 05/29/17 19:41 Last Admin: 05/29/17 13:11 Dose: 10 mg Famotidine/Sodium Chloride (Pepcid 20 Mg Premixed Ivpb -) 50 mls @ 100 mls/hr IVPB BID TAMAR Piperacillin/Tazobactam/Dextrose (Zosyn 4.5gm Ivpb (Premix)) 100 mls @ 200 mls/ hr IVPB Q8H-IV TAMAR Potassium Chloride/Dextrose/Sod Cl (D5-1/2ns+20 Meq Kcl -) 1,000 mls @ 125 mls/ hr IV ASDIR [facility] Last Admin: 05/29/17 14:00 Dose: 125 mls/hr Isoniazid (Inh -) 300 mg PO DAILY [facility] Metoprolol Tartrate (Lopressor -) 25 mg PO BID [facility] Last Admin: 05/29/17 13:30 Dose: 25 mg Ondansetron HCl (Zofran Injection) 4 mg IVPB Q6H PRN PRN Reason: NAUSEA Pyridoxine HCl (Vitamin B6 -) 50 mg PO DAILY TAMAR Rifampin (Rifadin -) 600 mg PO DAILY [facility] - Objective Vital Signs: Vital Signs Temperature 98.4 F 05/29/17 18:00 Pulse Rate 86 05/29/17 18:00 Respiratory Rate 13 05/29/17 18:00 Blood Pressure 156/111 05/29/17 18:00 O2 Sat by Pulse Oximetry (%) 100 05/29/17 09:40 Constitutional: Yes: Well Nourished Eyes: Yes: PERRL Cardiovascular: Yes: Regular Rate and Rhythm Respiratory: Yes: CTA Bilaterally Gastrointestinal: Yes: Soft. No: Tenderness Labs: CBC, BMP 05/29/17 05:00 05/29/17 05:00 INR, PTT INR 1.04 (0.82-1.09) 10/13/17 12:25 Problem List - Problems (1) Perforated abdominal viscus Code(s): WAZ8256 - (2) Enteritis Code(s): K52.9 - NONINFECTIVE GASTROENTERITIS AND COLITIS, UNSPECIFIED (3) H/O renal cell carcinoma Code(s): Z85.528 - PERSONAL HISTORY OF OTHER MALIGNANT NEOPLASM OF KIDNEY (4) Pulmonary tuberculosis Code(s): A15.0 - TUBERCULOSIS OF LUNG Assessment/Plan Pt with perforated viscus - ? TB, RCC or Sarcoidosis. EColi in fluid c/s Re-start TB meds. DC Zosyn Rx CTX 2 gr q 24 + IV Flagyl 500 mg q 8 hrs
[2017-05-29] MEDS ORDERED: RIFAMPIN 300 MG CAPSULE PO SCH (18:45)
[2017-05-29] MEDS ORDERED: CEFTRIAXONE 2 GM in DEXTROSE 5%-WATER - 100 ML IVPB SCH (18:45)
[2017-05-29] MEDS ORDERED: METRONIDAZOLE 500 MG PREMIXED 100 ML IVPB SCH (18:45)
[2017-05-29] MEDS ORDERED: ISONIAZID 300 MG TABLET (FP) PO SCH (18:45)
[2017-05-29] MEDS ORDERED: ETHAMBUTOL HCL 400 MG TABLET PO SCH (18:45)
[2017-05-29] MEDS ORDERED: PYRIDOXINE HCL (B-6) 50 MG TABLET (FP) PO SCH (18:45)
[2017-05-29] MEDS ORDERED: AMIODARONE HCL INJECTION 150 MG in DEXTROSE 5%-WATER - 97 ML IVPB ONE (21:47)
[2017-05-29] MEDS ORDERED: ADENOSINE 6 MG/2 ML VIAL IVPUSH ONE ×2 (21:50→21:51)
[2017-05-29] MEDS: RIFAMPIN 300 MG CAPSULE PO SCH (22:13)
[2017-05-29] MEDS: ETHAMBUTOL HCL 400 MG TABLET PO SCH (22:13)
[2017-05-29] MEDS: ISONIAZID 300 MG TABLET (FP) PO SCH (22:13)
[2017-05-29] MEDS: PYRIDOXINE HCL (B-6) 50 MG TABLET (FP) PO SCH (22:13)
[2017-05-30] MEDS: METRONIDAZOLE 500 MG PREMIXED 100 ML IVPB SCH ×3 (01:31→19:21)
[2017-05-30] MEDS: ETHAMBUTOL HCL 400 MG TABLET PO SCH ×3 (06:08→21:36)
[2017-05-30 06:34] LABS: ALBUMIN 1.9 g/dl (3.4-5.0); ANION GAP 9 (8-16); CALCIUM 7.3 mg/dL (8.5-10.1); CO2 24 mmol/L (21-32); CREATININE 0.6 mg/dL (0.7-1.3); GLUCOSE,RANDOM 145 mg/dL (74-106); MAGNESIUM 1.6 mg/dL (1.8-2.4); SGOT/AST 12 U/L (15-37); SGPT/ALT 12 U/L (12-78)
[2017-05-30 06:41] LABS: ALK PHOS 77 U/L (45-117); PHOSPHOROUS 1.4 mg/dL (2.5-4.9)
[2017-05-30 08:26] LABS: EOSINOPHIL 1.2 % (0-4.5); MCH 26.8 pg (25.7-33.7); MCHC 32.6 g/dl (32.0-35.9); MEAN CELL VOLUME 82.2 fl (80-96); MEAN PLT VOLUME 7.9 fl (7.5-11.1); NEUTROPHILS 85.8 % (42.8-82.8); PLATELET COUNT 382 K/MM3 (134-434); RDW 15.6 % (11.9-15.9); WHITE BLOOD COUNT 13.9 K/mm3 (4.0-10.0)
--- NOTE | 2017-05-30 08:42 | PN ---
Physical Exam: SUBJECTIVE: Patient seen and examined NGT removed yesterday. Patient restarted PO meds yesterday without foods and feels nauseous, without any episode of vomiting. Still yet to pass gas. Had an episode of PVT overnight aborted with adenosine 6mg OBJECTIVE: Vital Signs Period Temp Pulse Resp BP Sys/Parks Pulse Ox Last 24 Hr 98.0 F-98.7 F 75-91 10-15 138-160/82-111 99-100 GENERAL: The patient is awake, alert, and fully oriented, in no acute distress. EYES: sclera anicteric, conjunctiva clear ENT: moist mucous membranes. NGT removed. LUNGS: Scattered fine creps > R, no SOB, no acute respiratory distress HEART: Regular rate and rhythm, S1, S2 without murmur ABDOMEN: Soft,mild tenderness, Midline supraumbilical dressing in place, clean dry. R hypochondrial dressing over CANDACE tube. CANDACE tube with minimal serosanguinous drainage (emptied already this am). EXTREMITIES: Mild bilateral pedal edema. 2+ pulses, warm, well-perfused. NEUROLOGICAL: Normal speech, gait not observed. PSYCH: Normal mood, normal affect. Laboratory Results - last 24 hr 05/29/17 05/30/17 05/30/17 05:00 05:00 08:00 WBC 13.9 H RBC 4.22 Hgb 11.3 L Hct 34.7 L MCV 82.2 MCH 26.8 MCHC 32.6 RDW 15.6 Plt Count 382 MPV 7.9 Neutrophils % 85.8 H Lymphocytes % 3.0 L D Monocytes % 9.0 Eosinophils % 1.2 Basophils % 1.0 D Sodium 139 Potassium 3.4 L Chloride 106 Carbon Dioxide 24 Anion Gap 9 BUN 5 L D Creatinine 0.6 L Creat Clearance w eGFR > 60 Random Glucose 145 H D Calcium 7.3 L Phosphorus 1.4 L Magnesium 1.6 L Total Bilirubin 3.0 H D AST 12 L ALT 12 Alkaline Phosphatase 77 Total Protein 5.0 L Albumin 1.9 L Free T3 1.4 L Active Medications Generic Name Dose Route Start Last Admin Trade Name Freq PRN Reason Stop Dose Admin Ethambutol HCl 800 mg 05/29/17 22:00 05/29/17 22:13 Myambutol - PO 800 mg HS TAMAR Administration Ethambutol HCl 400 mg 05/30/17 07:00 05/30/17 06:08 Myambutol - PO 400 mg AM TAMAR Administration Hydralazine HCl 10 mg 05/29/17 13:11 Apresoline Injection - IVPUSH Q8H PRN sbp >180 and or dbp >105 Famotidine/Sodium Chloride 50 mls @ 100 mls/hr 05/29/17 22:00 05/29/17 21:05 Pepcid 20 Mg Premixed Ivpb - IVPB 100 mls/hr BID TAMAR Administration Potassium Chloride/Dextrose/Sod Cl 1,000 mls @ 125 mls/hr 05/29/17 14:00 14:00 D5-1/2ns+20 Meq Kcl - IV 125 mls/hr ASDIR TAMAR Administration Ceftriaxone Sodium 2 gm/ 100 mls @ 200 mls/hr 05/30/17 10:00 Dextrose IVPB DAILY TAMAR Metronidazole 100 mls @ 100 mls/hr 05/30/17 02:00 05/30/17 01:31 Flagyl 500mg Premixed Ivpb - IVPB 100 mls/hr Q8H-IV TAMAR Administration Magnesium Sulfate 4 gm/ 100 mls @ 100 mls/hr 05/30/17 08:19 Miscellaneous IVPB 05/30/17 09:18 ONCE ONE Potassium Phosphate 20 mm/ 256.6667 mls @ 62.5 mls/hr 05/30/17 08:22 Dextrose IVPB 05/30/17 12:28 ONCE ONE Isoniazid 300 mg 05/29/17 21:15 05/29/17 22:13 Inh - PO 300 mg DAILY TAMAR Administration Metoprolol Tartrate 25 mg 05/29/17 13:30 05/29/17 21:06 Lopressor - PO 25 mg BID TAMAR Administration Ondansetron HCl 4 mg 05/29/17 13:11 Zofran Injection IVPB Q6H PRN NAUSEA Pyridoxine HCl 50 mg 05/29/17 21:15 05/29/17 22:13 Vitamin B6 - PO 50 mg DAILY TAMAR Administration Rifampin 600 mg 05/29/17 21:15 05/29/17 22:13 Rifadin - PO 600 mg DAILY TAMAR Administration ASSESSMENT/PLAN: 57 year old with PMHx Renal cell cancer s/p R partial nephrectomy 2009, R lung lobectomy, Sarcoidosis , gout, HTN, TB (3rd month on treatment), previous partial small bowel obstruction now presenting with abdominal pain, nausea and vomiting and admitted for perforated bowel. #Perforated bowel; yet to pass flatus Startede PO meds yet NPO s/p laparotomy day 4 day 4 on antibiotic, started, ceftriaxone and flagyl yesterday Pain mx #Electrolytes Replete as needed #HTN 10mg iv hydralazine with holding orders #SVT Had another episode of SVT aborted with 6mg adenosine overnight Continue monitoring Stable currently #Sarcoidosis Not currently on prednisone #TB Resumed per Dr Jacques INH-300mg PO daily Ethambutol 800mg PO HS Ethambutol 400mg PO am Rifampicin 600mg POI daily Pyridoxine 50 PO daily #Gout Not in acute exacerbation Hold meds Visit type - Emergency Visit Emergency Visit: Yes ED Registration Date: 05/26/17 Care time: The patient presented to the Emergency Department on the above date and was hospitalized for further evaluation of their emergent condition. - New Patient This patient is new to me today: No - Critical Care Critical Care patient: Yes Total Critical Care Time (in minutes): 37 Critical Care Statement: The care of this patient involved high complexity decision making to prevent further life threatening deterioration of the patient 's condition and/or to evaluate & treat vital organ system(s) failure or risk of failure. - Discharge Referral Referred to [facility] No
[2017-05-30] MEDS ORDERED: POTASSIUM PHOSPHATE 20 MM in DEXTROSE 5%-WATER - 250 ML IVPB ONE ×2 (09:00→15:26)
[2017-05-30] MEDS ORDERED: PT OWN MED DRAWER 7, Y5N ONE (09:08)
[2017-05-30] MEDS: FAMOTIDINE 20 MG/50 ML IVPB 50 ML IVPB SCH ×2 (09:29→21:35)
[2017-05-30] MEDS: ONDANSETRON 4 MG/2 ML VIAL IVPB PRN (09:29)
[2017-05-30] MEDS: CEFTRIAXONE 2 GM in DEXTROSE 5%-WATER - 100 ML IVPB SCH (09:42)
[2017-05-30] MEDS ORDERED: MAGNESIUM SULF 50% (8.12 MEQ/2 ML-1 GM VIAL) IVPB ONE (09:55)
[2017-05-30] MEDS ORDERED: PYRIDOXINE HCL (B-6) 50 MG TABLET (FP) PO SCH (10:00)
[2017-05-30] MEDS ORDERED: RIFAMPIN 300 MG CAPSULE PO SCH (10:00)
[2017-05-30] MEDS ORDERED: ISONIAZID 300 MG TABLET (FP) PO SCH (10:00)
[2017-05-30] MEDS ORDERED: ETHAMBUTOL HCL 400 MG TABLET PO SCH (10:00)
--- NOTE | 2017-05-30 10:45 | PN ---
Progress Note, Physician Chief Complaint: Events noted Remains in ICU Periods of sinus tachycardia and episode of SVT again last night. He received Adenosine which broke it to sinus rhythm Currently remains in sinus rhythm in the 70's History of Present Illness: Patient was seen and examined. Awake and alert. Chart was reviewed Denies chest pain, SOB or palpitations Complains of nausea - Current Medication List Current Medications: Active Medications Ethambutol HCl (Myambutol -) 800 mg PO HS [facility] Last Admin: 05/29/17 22:13 Dose: 800 mg Ethambutol HCl (Myambutol -) 400 mg PO AM [facility] Last Admin: 05/30/17 06:08 Dose: 400 mg Hydralazine HCl (Apresoline Injection -) 10 mg IVPUSH Q8H PRN PRN Reason: sbp >180 and or dbp >105 Famotidine/Sodium Chloride (Pepcid 20 Mg Premixed Ivpb -) 50 mls @ 100 mls/hr IVPB BID [facility] Last Admin: 05/30/17 09:29 Dose: 100 mls/hr Potassium Chloride/Dextrose/Sod Cl (D5-1/2ns+20 Meq Kcl -) 1,000 mls @ 125 mls/ hr IV ASDIR [facility] Last Admin: 05/29/17 14:00 Dose: 125 mls/hr Ceftriaxone Sodium 2 gm/ (Dextrose) 100 mls @ 200 mls/hr IVPB DAILY [facility] Last Admin: 05/30/17 09:42 Dose: 200 mls/hr Metronidazole (Flagyl 500mg Premixed Ivpb -) 100 mls @ 100 mls/hr IVPB Q8H-IV [facility] Last Admin: 05/30/17 09:29 Dose: 100 mls/hr Potassium Phosphate 20 mm/ (Dextrose) 256.6667 mls @ 62.5 mls/hr IVPB ONCE ONE Stop: 05/30/17 13:06 Last Admin: 05/30/17 09:42 Dose: 62.5 mls/hr Isoniazid (Inh -) 300 mg PO DAILY [facility] Last Admin: 05/29/17 22:13 Dose: 300 mg Metoprolol Tartrate (Lopressor -) 25 mg PO BID [facility] Last Admin: 05/29/17 21:06 Dose: 25 mg Ondansetron HCl (Zofran Injection) 4 mg IVPB Q6H PRN PRN Reason: NAUSEA Last Admin: 05/30/17 09:29 Dose: 4 mg Pyridoxine HCl (Vitamin B6 -) 50 mg PO DAILY [facility] Last Admin: 05/29/17 22:13 Dose: 50 mg Rifampin (Rifadin -) 600 mg PO DAILY [facility] Last Admin: 05/29/17 22:13 Dose: 600 mg - Objective Vital Signs: Vital Signs Temperature 98.7 F 05/30/17 02:00 Pulse Rate 77 05/30/17 08:00 Respiratory Rate 15 05/30/17 08:00 Blood Pressure 164/98 05/30/17 08:00 O2 Sat by Pulse Oximetry (%) 99 05/29/17 20:39 Neck: Yes: Supple Cardiovascular: Yes: Regular Rate and Rhythm, S1, S2 Respiratory: Yes: CTA Bilaterally Gastrointestinal: Yes: Other (Post op) Edema: No Additional Findings/Remarks: - Review of Systems Constitutional: denies: Chills, Fever Cardiovascular: denies: Chest Pain, Palpitations, Shortness of Breath Respiratory: denies: Cough, Hemoptysis, Orthopnea, PND, SOB, SOB on Exertion Gastrointestinal: reports: Abdominal Pain, Other (Post op) Neurological: denies: Dizziness, Headache, Seizure, Syncope Labs: CBC, BMP 05/30/17 08:00 05/30/17 05:00 INR, PTT INR 1.04 (0.82-1.09) 05/26/17 12:25 Problem List - Problems (1) Mass of cecum Code(s): K63.9 - DISEASE OF INTESTINE, UNSPECIFIED (2) Perforated abdominal viscus Code(s): EGS7613 - (3) SVT (supraventricular tachycardia) Code(s): I47.1 - SUPRAVENTRICULAR TACHYCARDIA (4) Sepsis associated hypotension Code(s): A41.9 - SEPSIS, UNSPECIFIED ORGANISM (5) Gout Code(s): M10.9 - GOUT, UNSPECIFIED Qualifiers: Gout site: multiple sites Gout etiology: unspecified cause Chronicity: unspecified Qualified Code(s): M10.9 - Gout, unspecified; M10.9 - Gout, unspecified (6) H/O renal cell carcinoma Code(s): Z85.528 - PERSONAL HISTORY OF OTHER MALIGNANT NEOPLASM OF KIDNEY (7) HTN (hypertension) Code(s): I10 - ESSENTIAL (PRIMARY) HYPERTENSION Qualifiers: Hypertension type: unspecified Qualified Code(s): I10 - Essential ( primary) hypertension; I10 - Essential (primary) hypertension; I10 - Essential ( primary) hypertension (8) Pulmonary tuberculosis Code(s): A15.0 - TUBERCULOSIS OF LUNG (9) SBO (small bowel obstruction) Code(s): K56.69 - OTHER INTESTINAL OBSTRUCTION * DO NOT USE * (10) Sarcoidosis of lung Code(s): D86.0 - SARCOIDOSIS OF LUNG Assessment/Plan 1. Post pneumoperitoneum with abdominal viscus perforation status post emergent laparotomy with hemicolectomy, history of previous SBO 2. 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 History of hypertension 4. Renal cell CA s/p nephrectomy 5. History of sarcoidosis 6. History of TB PLAN: 1. Continue ICU monitoring 2. Titrate Lopressor PO. Since he has nausea today, IV Lopressor may be given 3. Hydralazine IV as needed 4. Continue post op management as per Surgical service 5. Empiric antibiotic coverage 6. Patient was explained other option as outpatient including EP study and RFA if PSVT continues despite medication Further plans are to be followed Guarded Josue Jones MD
[2017-05-30] MEDS ORDERED: METOPROLOL TARTRATE 5 MG/5 ML VIAL IVPUSH ONE (11:15)
[2017-05-30] MEDS ORDERED: SODIUM CHLORIDE IVPB STA ×2 (11:31→11:33)
[2017-05-30] MEDS ORDERED: MAGNESIUM SULFATE IVPB STA ×2 (11:31→11:33)
[2017-05-30] MEDS ORDERED: POTASSIUM PHOSPHATE IVPB STA (11:33)
[2017-05-30] MEDS: ISONIAZID 300 MG TABLET (FP) PO SCH ×2 (11:42→12:48)
[2017-05-30] MEDS: PYRIDOXINE HCL (B-6) 50 MG TABLET (FP) PO SCH ×2 (11:42→12:47)
[2017-05-30] MEDS: RIFAMPIN 300 MG CAPSULE PO SCH ×2 (11:42→12:47)
[2017-05-30] MEDS: METOPROLOL TARTRATE 25 MG TABLET (FP) PO SCH ×3 (11:42→21:35)
--- NOTE | 2017-05-30 12:40 | PN ---
Physical Exam: SUBJECTIVE: 57 yo male with h/o R lung lobectomy, pulmTB (active treatment), sarcoidosis, renal cell CA s/p R partial nephrectomy 2010, gout, HTN, day 3 s/p emergent laparotomy w/ R hemicolectomy for perforation of terminal ileum with associated mass. He presented to ED 05/26 with complaints of consitpation, nausea, rectal pain, in setting of recent SBO. CT AP in ED depicted free air under diaphrgam and patient admitted to [facility] for treatment. On med/surg unit patient developed SVT w/ HR 180 treated with 6 mg adenosine and transferred to ICU ( 05/27) for further monitoring. Overnight at 10:22 patient with episode of SVT aborted with 6 mg adenosine. Pt reports nausea since resuming oral TB medications. Currently NPO. Endorses constipation with minimal flatus Currently no complaints. Denies palpitations, lightheadedness, dizziness, SOB, chest pain, weakness. He is resting comfortably in bed. Abdominal pain is well controlled with hydromorphone [employer]. Hemodynamics stable and patient afebrile. OBJECTIVE: Vital Signs Period Temp Pulse Resp BP Sys/Parks Pulse Ox Last 24 Hr 98.0 F-98.7 F 74-91 10-16 130-164/82-111 99 GENERAL: The patient is awake, alert, and fully oriented, in no acute distress. HEAD: Normal with no signs of trauma. EYES: PERRL, extraocular movements intact, sclera anicteric, conjunctiva clear. No ptosis. ENT: Ears normal, nares patent, oropharynx clear without exudates, moist mucous membranes. NECK: Trachea midline, full range of motion, supple. LUNGS: Breath sounds equal, clear to auscultation bilaterally, no wheezes, no crackles, no accessory muscle use. HEART: Regular rate and rhythm, S1, S2 without murmur, rub or gallop. ABDOMEN: Soft, tender, nondistended, normoactive bowel sounds, no guarding, no rebound, no hepatosplenomegaly, no masses.+ Midline dressing in place c/d/i. + CANDACE tube of right sided abdomen with clear serosainguenous drainage. EXTREMITIES: 2+ pulses, warm, well-perfused, no edema. PSYCH: Normal mood, normal affect. SKIN: Warm, dry, normal turgor, no rashes or lesions noted Laboratory Results - last 24 hr 05/29/17 05/30/17 05/30/17 05:00 05:00 08:00 WBC 13.9 H RBC 4.22 Hgb 11.3 L Hct 34.7 L MCV 82.2 MCH 26.8 MCHC 32.6 RDW 15.6 Plt Count 382 MPV 7.9 Neutrophils % 85.8 H Lymphocytes % 3.0 L D Monocytes % 9.0 Eosinophils % 1.2 Basophils % 1.0 D Sodium 139 Potassium 3.4 L Chloride 106 Carbon Dioxide 24 Anion Gap 9 BUN 5 L D Creatinine 0.6 L Creat Clearance w eGFR > 60 Random Glucose 145 H D Calcium 7.3 L Phosphorus 1.4 L Magnesium 1.6 L Total Bilirubin 3.0 H D AST 12 L ALT 12 Alkaline Phosphatase 77 Total Protein 5.0 L Albumin 1.9 L Free T3 1.4 L Active Medications Generic Name Dose Route Start Last Admin Trade Name Freq PRN Reason Stop Dose Admin Ethambutol HCl 800 mg 05/29/17 22:00 05/29/17 22:13 Myambutol - PO 800 mg HS TAMAR Administration Ethambutol HCl 400 mg 05/30/17 07:00 05/30/17 06:08 Myambutol - PO 400 mg AM TAMAR Administration Hydralazine HCl 10 mg 05/29/17 13:11 Apresoline Injection - IVPUSH Q8H PRN sbp >180 and or dbp >105 Famotidine/Sodium Chloride 50 mls @ 100 mls/hr 05/29/17 22:00 05/30/17 09:29 Pepcid 20 Mg Premixed Ivpb - IVPB 100 mls/hr BID TAMAR Administration Potassium Chloride/Dextrose/Sod Cl 1,000 mls @ 125 mls/hr 05/29/17 14:00 14:00 D5-1/2ns+20 Meq Kcl - IV 125 mls/hr ASDIR TAMAR Administration Ceftriaxone Sodium 2 gm/ 100 mls @ 200 mls/hr 05/30/17 10:00 05/30/17 09:42 Dextrose IVPB 200 mls/hr DAILY TAMAR Administration Metronidazole 100 mls @ 100 mls/hr 05/30/17 02:00 05/30/17 09:29 Flagyl 500mg Premixed Ivpb - IVPB 100 mls/hr Q8H-IV TAMAR Administration Potassium Phosphate 20 mm/ 256.6667 mls @ 62.5 mls/hr 05/30/17 09:00 05/30/17 09:42 Dextrose IVPB 05/30/17 13:06 62.5 mls/hr ONCE ONE Administration Magnesium Sulfate 2 gm/ 260.6667 mls @ 500 mls/hr 05/30/17 11:33 Potassium Phosphate 20 mm/ IVPB 05/30/17 12:02 Sodium Chloride ASDIR STA Isoniazid 300 mg 05/29/17 21:15 05/30/17 11:42 Inh - PO Not Given DAILY TAMAR Metoprolol Tartrate 25 mg 05/29/17 13:30 05/30/17 11:42 Lopressor - PO Not Given BID TAMAR Ondansetron HCl 4 mg 05/29/17 13:11 05/30/17 09:29 Zofran Injection IVPB 4 mg Q6H PRN Administration NAUSEA Pyridoxine HCl 50 mg 05/29/17 21:15 05/30/17 11:42 Vitamin B6 - PO Not Given DAILY TAMAR Rifampin 600 mg 05/29/17 21:15 05/30/17 11:42 Rifadin - PO Not Given DAILY TAMAR ASSESSMENT/PLAN: 57 yo male with h/o R lung lobectomy, pulmTB (active treatment), sarcoidosis, renal cell CA s/p R partial nephrectomy 2009, gout, HTN, day 3 s/emergent laparotomy w/ R hemicolectomy for perforation of terminal ileum with associated mass. Neuro: A&O x 3 No acute focal neuro deficits Cardiac: HTN: Home Losartan Holding oral anti-HTN medication d/t NG tube Plan: - Resume Losartan - Hydralazine 10 mg IVPB SBP>180, DBP>105 SVT: (stable) 1 Episode of SVT ( 05/27) 6 mg adenosine Plan: - Vagal maneuvers and Adenosine PRN - Cont to monitor HR - Titrate Metoprolol 25 mg BID. May give IV metoprolol d/t nasuea. - TTE to assess LV/RV and valve fxn. - Cont cardiac tele monitoring Pulmonary: H/o sarcoidosis - Chronic steroids since 2012 - Tapered off Prednisone 10 mg last month - Cont Pulm hygeine Tuberculosis: Current TB infection Not on Isolation per Dr. Bonoan Plan: - Hold oral Rifampin, INH, Pyrazinamide,Pyridoxine d/t nausea GI: H/o SBO Day 3 s/p emergent laparotomy w/ R hemicolectomy for perforation of terminal ileum with associated mass No BM with minimal flatus Peritoneal fluid cultures growing E.coli WBC~6.1-->18.1 Plan: - D/c Zosyn 4.5 mg IV for empiric abdominal coverage - Ceftriaxone and Flagyl - Cont PT Hepatitis B ( stable) AST/ALT 12/72 Alk Phosph 77 : H/o renal cell carcinoma withmets to R axillary lymph node last month. s/p R partial nephrectomy (2009) Cr/BUN- 0.6/5 Infectious Disease: Sepsis 2/2 peritonitis AF, and hemodynamically stable Peritoneal fluid cultures growing E.coli WBC~6.1-->13.9 Plan: - D/c Zosyn 4.5 mg IV for empiric abdominal coverage - Ceftriaxone and Flagyl - Cont IV NS FEN: NS, Lytes PRN, NPO PPx: No indication for GI ppx, SCD's Dispo: Transfer to Tele Visit type - Emergency Visit Emergency Visit: Yes ED Registration Date: 05/26/17 Care time: The patient presented to the Emergency Department on the above date and was hospitalized for further evaluation of their emergent condition. - New Patient This patient is new to me today: No - Critical Care Critical Care patient: Yes Total Critical Care Time (in minutes): 35 Critical Care Statement: The care of this patient involved high complexity decision making to prevent further life threatening deterioration of the patient 's condition and/or to evaluate & treat vital organ system(s) failure or risk of failure.
--- NOTE | 2017-05-30 14:05 | OP ---
DATE OF OPERATION: 05/26/2017 PREOPERATIVE DIAGNOSIS: Perforated viscus. POSTOPERATIVE DIAGNOSIS: Perforated terminal ileum with associated mass, also a cecal mass and peritonitis. OPERATION: Exploratory laparotomy and right hemicolectomy. SURGEON: Cameron James MD LINEN SORTER: Selvin Pruett MD ANESTHESIA: General endotracheal. ESTIMATED BLOOD LOSS: 100 mL FLUIDS: 3700 mL of crystalloid. URINE OUTPUT: 350 mL DRAINS: Carlos, NG tube and a 19-Australian Apolinar drain in the pelvis to bulb suction. SPECIMENS: Terminal ileum, appendix, and right colon en bloc and additional distal margin of the colon to Pathology. There was also culture of peritoneal fluid sent. FINDINGS: Yellowish/cloudy succus in the peritoneal cavity. There was a mass palpated in the terminal ileum with an overlying site of perforation but no active extravasation, and also a mass palpable in the cecum at the ileocecal junction. Nasogastric tube was palpable in the stomach. An ileocolic anastomosis was performed and a Apolinar drain left in the pelvis. DISPOSITION: Stable and extubated to PACU. INDICATIONS FOR PROCEDURE: Patient is a 57-year-old male with multiple medical and surgical history, including pulmonary tuberculosis for which he is now on his third month of treatment and is no longer in isolation per Infectious Disease. He also has a history of sarcoidosis and renal cell cancer, status post partial right laparoscopic nephrectomy. He had been hospitalized in early April with a partial small bowel obstruction, which resolved quickly with contrast passing into the colon, and he was treated for enteritis, possibly TB-related. He had been apparently experiencing intermittent abdominal pain since his discharge, but had had approximately a week of no pain and had been tolerating diet. He then presented to the emergency room today, having had generalized abdominal pain after having breakfast and taking his medications this morning, which was quite significant and associated with an episode of nausea and vomiting. In the ER, he was somewhat tachycardic with relative hypotension, which responded well to IV fluids. He was afebrile, had a white count of 6, with a lactate of 3.5, and appeared slightly dehydrated. CT scan done for possible small bowel obstruction actually showed free air in the abdomen without a clear source of perforation. The patient was peritoneal on exam. Risks, benefits, and alternatives of exploratory laparotomy, possible bowel resection, possible ostomy were discussed with the patient and his , with risks including, but not limited to, bleeding, infection, injury to intraabdominal structures, intestinal leak, intraabdominal abscess, and need for further procedures. The patient has signed informed consent for the same and is brought emergently to the operating room. He was given fluids in the emergency room, as well as a dose of Zosyn just about an hour and 1/2 prior to OR. Antibiotics were not repeated in the operating room. OPERATIVE TECHNIQUE: The patient was brought to the OR and laid supine on the operating table. Sequential compression devices were applied to bilateral lower extremities. After induction and intubation by Anesthesia, a Carlos catheter was placed in the patient's bladder, which was left in place at the end of the procedure. He also had a nasogastric tube placed by Anesthesia. His abdomen was clipped of hair, prepped and draped in sterile fashion. A midline incision was made with a scalpel and carried into subcutaneous tissues with electrocautery until the abdominal wall fascia was identified and scored along its length. The fascia was then divided with electrocautery in the central portion of the incision until the preperitoneal fat was identified, and the peritoneum was gently grasped with 2 clamps and elevated. The peritoneum was entered with Metzenbaum scissors, and the tip of a finger inserted to ensure the absence of underlying adhesions. With fingers protecting the bowel, the peritoneum was divided with electrocautery along the entire length of the incision. The peritoneal fluid was yellow and cloudy and was cultured on entry into the abdominal cavity, and we began searching for the site of perforation. The fluid was suctioned from the abdomen with a Haas suction device. We identified no evidence of perforation in the upper abdomen. The transverse colon and omentum were lifted superiorly, and attention turned to the right lower quadrant, where the cecum was identified and palpated and noted to feel like there was some form of mass present at the ileocecal junction. This was brought up so that we could identify the terminal ileum as well, and as we traced the terminal ileum back, which appeared to be somewhat dilated, a short distance proximal to the cecum there was an area where the terminal ileum was noted to have an intraluminal mass and an overlying perforation, although there was no active extravasation from the site. The area looked inflamed, and there were some adhesions of small bowel to the area, which were bluntly easily. We then looked for an additional short distance proximally, where the small bowel appeared normal, and we were able to palpate the remainder of the ascending colon, as we mobilized it medially to look for the white line of Toldt, and noted no other abnormalities distal to the cecum itself. The appendix did appear normal. We planned to resect the distal ileum and right colon, including both masses. It was unclear whether the ileocecal mass represented possibly an intussusception or an additional actual mass in the cecum, but no attempt was made to reduce it. We first turned our attention to making the proximal transection in the terminal ileum a couple of inches proximal to the mass. A window was created in the mesentery adjacent to the bowel wall, and a fingertip passed through in order to pass the JARROD 60 stapler and transect the bowel. Once this had been accomplished, we turned our attention to mobilizing the cecum and ascending colon along the white line of Toldt laterally. This was accomplished with electrocautery and guided by the tip of a clamp in the avascular plane. The dissection continued up toward the hepatic flexure until we were able to appreciate the duodenum underneath this and carefully avoid it. The entire hepatic flexure mobilized easily, and we examined the vascular arcades. We were able to identify an area for transection between 2 vascular arcades proximal to the middle colic artery, and again made a window at the mesentery adjacent to the bowel wall of the proximal transverse colon to complete a right hemicolectomy. The transverse colon was then also divided with an JARROD 80 stapler, and the LigaSure device was then used to transect the mesentery, dividing it from both proximal and distal ends. At a couple of points, the larger vascular pedicles were isolated, divided between Jacqueline clamps, and tied with 0 silk ties. Once the specimen was entirely free, it was passed off the table for pathology and not opened on the back table. We then turned our attention toward anastomosing the proximal and distal limbs. This was accomplished in a typical [id number], functional end-to-end fashion by snipping the corners off the staple lines with electrocautery, and a JARROD 80 stapler was used to create the anastomosis between transverse colon and the antimesenteric border of the ileum. Once we were satisfied with the anastomosis and ensured that the bowel was not twisted, the mesenteric defect was closed with a running 3-0 Vicryl suture. Hemostasis was achieved throughout the case with electrocautery where needed. The abdomen was then copiously irrigated with saline solution in all quadrants and suctioned clear. A 19-Australian Apolinar drain was left through a stab wound in the right lower quadrant, positioned down in the pelvis and secured in place with a nylon stitch. This was attached to bulb suction. The NG tube was palpated in the stomach and ensured to be in appropriate position, and the omentum was drawn down over the intestines. The fascia was then closed with running No. 1 looped PDS sutures x2, starting at both ends and tied in the middle. Rosangela were used to reapproximate the area of the umbilicus, and the subcutaneous tissues both above and below were packed open with [id number]-dampened 2-inch roll gauze. The incision was covered with gauze and an ABD pad. A drain dressing was also placed, and the NGT secured by anesthesia. The Carlos catheter was not removed. Counts were correct at the end of the procedure. The patient was then awakened and extubated by Anesthesia, moved back to his stretcher, and taken to the recovery room in stable condition, having tolerated the procedure fairly well. Dr. Pruett was an essential cardiology physician assistant during this case with regard to entering the abdominal cavity, mobilizing the colon, assisting with the transections and anastomosis, as well as retraction and exposure throughout the entire case. Cameron James M.D. [id number] MTDD
--- NOTE | 2017-05-30 14:11 | PN ---
Progress Note, Physician Chief Complaint: abdominal pain, free air History of Present Illness: POD4 s/p laparotomy with R hemicolectomy for perforation of terminal ileum with associated mass Had one episode of SVT responded to adenosine yesterday; per pt it was shortly after taking his meds and when he had some nausea. Zofran and water helped with the nausea from his TB meds. Pt seen and examined in bed. Awake and alert, pain controlled, not using GRADUATE RN much now. UOP 500 recorded yesterday after Carlos out, CANDACE with serosanguineous fluid, 290ml yesterday, 100 today with . Passed flatus today, no BM yet. No fever. Has been OOB to chair, using IS. No nausea now. - Current Medication List Current Medications: Active Medications Ethambutol HCl (Myambutol -) 800 mg PO HS [facility] Last Admin: 05/29/17 22:13 Dose: 800 mg Ethambutol HCl (Myambutol -) 400 mg PO AM [facility] Last Admin: 05/30/17 12:48 Dose: 400 mg Hydralazine HCl (Apresoline Injection -) 10 mg IVPUSH Q8H PRN PRN Reason: sbp >180 and or dbp >105 Famotidine/Sodium Chloride (Pepcid 20 Mg Premixed Ivpb -) 50 mls @ 100 mls/hr IVPB BID [facility] Last Admin: 05/30/17 09:29 Dose: 100 mls/hr Potassium Chloride/Dextrose/Sod Cl (D5-1/2ns+20 Meq Kcl -) 1,000 mls @ 125 mls/ hr IV ASDIR [facility] Last Admin: 05/29/17 14:00 Dose: 125 mls/hr Ceftriaxone Sodium 2 gm/ (Dextrose) 100 mls @ 200 mls/hr IVPB DAILY [facility] Last Admin: 05/30/17 09:42 Dose: 200 mls/hr Metronidazole (Flagyl 500mg Premixed Ivpb -) 100 mls @ 100 mls/hr IVPB Q8H-IV [facility] Last Admin: 05/30/17 09:29 Dose: 100 mls/hr Isoniazid (Inh -) 300 mg PO DAILY [facility] Last Admin: 05/30/17 12:48 Dose: 300 mg Metoprolol Tartrate (Lopressor -) 25 mg PO BID [facility] Last Admin: 05/30/17 12:46 Dose: 25 mg Ondansetron HCl (Zofran Injection) 4 mg IVPB Q6H PRN PRN Reason: NAUSEA Last Admin: 05/30/17 09:29 Dose: 4 mg Pyridoxine HCl (Vitamin B6 -) 50 mg PO DAILY [facility] Last Admin: 05/30/17 12:47 Dose: 50 mg Rifampin (Rifadin -) 600 mg PO DAILY [facility] Last Admin: 05/30/17 12:47 Dose: 600 mg - Objective Vital Signs: Vital Signs Temperature 98.4 F 05/30/17 13:29 Pulse Rate 77 05/30/17 12:00 Respiratory Rate 16 05/30/17 12:00 Blood Pressure 144/96 05/30/17 12:00 O2 Sat by Pulse Oximetry (%) 99 05/29/17 20:39 Vital Signs Period Temp Pulse Resp BP Sys/Parks Pulse Ox Last 24 Hr 98.0 F-98.7 F 74-89 10- 130-164/82-111 99 Intake & Output 05/29/17 05/30/17 05/30/17 23:59 07:59 15:59 Intake Total 775 1452 Output Total 730 100 Balance 45 1352 Weight 138 lb 14.259 oz Intake: IV 625 1352 D5-1/2Ns+20 Meq KCl - 1, 625 1352 000 ml @ 125 mls/hr IV ASDIR [facility] Rx#:[id number] IVPB 150 100 Output: Gastric Drainage 100 Drainage 130 100 Rt Abdomen 130 100 Urine 500 Void 500 Other: Voiding Method Urinal Bowel Movement No No Weight Measurement Method [facility] Constitutional: Yes: Well Nourished, No Distress, Calm Eyes: Yes: Conjunctiva Clear, EOM Intact Cardiovascular: Yes: Regular Rate and Rhythm. No: Murmur Respiratory: Yes: Regular, CTA Bilaterally Gastrointestinal: Yes: Normal Bowel Sounds, Soft, Tenderness (mild in lower quadrants only, incisional with dressing change), Other (drain with serosang in bulb, ~2/3 full). No: Distention Extremities: No: Cool, Cyanosis Edema: No Integumentary: Yes: Incision (midline). No: Rash Wound/Incision: Yes: [place] Intact (at umbilicus), Dressing Dry and Intact, Dressing Removed (and packing changed - saline-dampened 2x2 above and 4x4 below umbilicus), Unapproximated (midline) Neurological: Yes: Alert, Oriented Labs: CBC, BMP 05/30/17 08:00 05/30/17 05:00 CMP Sodium 139 mmol/L (136-145) 05/30/17 05:00 Potassium 3.4 mmol/L (3.5-5.1) L 05/30/17 05:00 Chloride 106 mmol/L (98-107) 05/30/17 05:00 Carbon Dioxide 24 mmol/L (21-32) 05/30/17 05:00 Anion Gap 9 (8-16) 05/30/17 05:00 BUN 5 mg/dL (7-18) L D 05/30/17 05:00 Creatinine 0.6 mg/dL (0.7-1.3) L 05/30/17 05:00 Creat Clearance w eGFR > 60 (>60) 05/30/17 05:00 Random Glucose 145 mg/dL (74-106) H D 05/30/17 05:00 Lactic Acid 1.4 mmol/L (0.4-2.0) 05/27/17 05:46 Calcium 7.3 mg/dL (8.5-10.1) L 05/30/17 05:00 Phosphorus 1.4 mg/dL (2.5-4.9) L 05/30/17 05:00 Magnesium 1.6 mg/dL (1.8-2.4) L 05/30/17 05:00 Total Bilirubin 3.0 mg/dL (0.2-1.0) H D 05/30/17 05:00 AST 12 U/L (15-37) L 05/30/17 05:00 ALT 12 U/L (12-78) 05/30/17 05:00 Alkaline Phosphatase 77 U/L (45-117) 05/30/17 05:00 Creatine Kinase 22 IU/L (39-308) L 05/26/17 13:25 Troponin I < 0.02 ng/ml (0.00-0.05) 05/26/17 13:25 Total Protein 5.0 g/dl (6.4-8.2) L 05/30/17 05:00 Albumin 1.9 g/dl (3.4-5.0) L 05/30/17 05:00 Lipase 145 U/L (73-393) 05/26/17 13:25 Free T3 1.4 pg/ml (2.0-4.4) L 05/29/17 05:00 wbc down, K/Phos/Mg low - repleting - ....Imaging Other: Report Reviewed (echo - appears normal) Problem List - Problems (1) Perforated small intestine Assessment/Plan: POD4 s/p laparotomy with right hemicolectomy for terminal ileal mass with perforation, also cecal mass palpated at IC junction path still pending had episode of SVT which responded to adenosine last night - was just after meds at time of nausea per pt, none since echo was normal voiding, tolerating sips and chips, nausea with TB meds ok for clears now and full liquids for dinner ok to use applesauce with meds to minimize nausea continue incentive spirometer, OOB to chair, ambulate with assist GI/DVT prophylaxis ID on board - continue antibiotics until wbc normal; pt has been afebrile replete lytes, may use po as well doing well overall await pathology midline wound dressings daily - may need VNS, though family can likely do dressings ok for transfer to telemetry when bed available Code(s): K63.1 - PERFORATION OF INTESTINE (NONTRAUMATIC) (2) Mass of small intestine Code(s): K63.89 - OTHER SPECIFIED DISEASES OF INTESTINE (3) Mass of cecum Code(s): K63.9 - DISEASE OF INTESTINE, UNSPECIFIED (4) Gout Code(s): M10.9 - GOUT, UNSPECIFIED Qualifiers: Gout site: multiple sites Gout etiology: unspecified cause Chronicity: unspecified Qualified Code(s): M10.9 - Gout, unspecified; M10.9 - Gout, unspecified (5) H/O renal cell carcinoma Code(s): Z85.528 - PERSONAL HISTORY OF OTHER MALIGNANT NEOPLASM OF KIDNEY (6) HTN (hypertension) Assessment/Plan: Lopressor as per cardiology Code(s): I10 - ESSENTIAL (PRIMARY) HYPERTENSION Qualifiers: Hypertension type: unspecified Qualified Code(s): I10 - Essential ( primary) hypertension; I10 - Essential (primary) hypertension; I10 - Essential ( primary) hypertension (7) Pulmonary tuberculosis Assessment/Plan: back on TB meds Code(s): A15.0 - TUBERCULOSIS OF LUNG (8) Sarcoidosis of lung Code(s): D86.0 - SARCOIDOSIS OF LUNG Assessment/Plan This patient is critically ill. Time spent reviewing chart, examining patient, talking with providers and/or family and documentation is 35 minutes
--- NOTE | 2017-05-30 14:44 | PN ---
Teaching Attending Note Name of Resident: Andrae Monae ATTENDING PHYSICIAN STATEMENT I saw and evaluated the patient. I reviewed the resident's note and discussed the case with the resident. I agree with the resident's findings and plan as documented. SUBJECTIVE: Patient seen and examined in the ICU. Awake and alert. SVT last night requiring. Denies CP or SOB. Intake & Output 05/27/17 05/28/17 05/29/17 05/30/17 23:59 23:59 23:59 23:59 Intake Total 6001 3525 4175 1452 Output Total 1994 2320 2790 100 Balance 4006 1205 1385 1352 Weight 142 lb 2 oz 141 lb 1.6 oz 138 lb 14.259 oz Last Vital Signs Temp Pulse Resp BP Pulse Ox 98.4 F 77 16 144/96 99 05/30/17 13:29 05/30/17 12:00 05/30/17 12:00 05/30/17 12:00 05/29/17 20:39 Active Medications Acetaminophen (Tylenol -) 650 mg PO Q6H PRN PRN Reason: FEVER OR PAIN Ethambutol HCl (Myambutol -) 800 mg PO HS [facility] Last Admin: 05/29/17 22:13 Dose: 800 mg Ethambutol HCl (Myambutol -) 400 mg PO AM [facility] Last Admin: 05/30/17 12:48 Dose: 400 mg Hydralazine HCl (Apresoline Injection -) 10 mg IVPUSH Q8H PRN PRN Reason: sbp >180 and or dbp >105 Famotidine/Sodium Chloride (Pepcid 20 Mg Premixed Ivpb -) 50 mls @ 100 mls/hr IVPB BID [facility] Last Admin: 05/30/17 09:29 Dose: 100 mls/hr Potassium Chloride/Dextrose/Sod Cl (D5-1/2ns+20 Meq Kcl -) 1,000 mls @ 125 mls/ hr IV ASDIR [facility] Last Admin: 05/29/17 14:00 Dose: 125 mls/hr Ceftriaxone Sodium 2 gm/ (Dextrose) 100 mls @ 200 mls/hr IVPB DAILY [facility] Last Admin: 05/30/17 09:42 Dose: 200 mls/hr Metronidazole (Flagyl 500mg Premixed Ivpb -) 100 mls @ 100 mls/hr IVPB Q8H-IV [facility] Last Admin: 05/30/17 09:29 Dose: 100 mls/hr Isoniazid (Inh -) 300 mg PO DAILY [facility] Last Admin: 05/30/17 12:48 Dose: 300 mg Magnesium Oxide (Mag-Ox -) 400 mg PO BID [facility] Metoprolol Tartrate (Lopressor -) 25 mg PO BID [facility] Last Admin: 05/30/17 12:46 Dose: 25 mg Ondansetron HCl (Zofran Injection) 4 mg IVPB Q6H PRN PRN Reason: NAUSEA Last Admin: 05/30/17 09:29 Dose: 4 mg Potassium Chloride (Potassium Chloride Oral Liquid) 20 meq PO BID [facility] Potassium Phos/Sodium Phos (Phos-Nak Packet -) 2 packet PO ONCE ONE Stop: 05/30/17 14:32 Potassium Phos/Sodium Phos (Phos-Nak Packet -) 1 packet PO TID [facility] Pyridoxine HCl (Vitamin B6 -) 50 mg PO DAILY [facility] Last Admin: 05/30/17 12:47 Dose: 50 mg Rifampin (Rifadin -) 600 mg PO DAILY [facility] Last Admin: 05/30/17 12:47 Dose: 600 mg HEENT: PERRL, NCAT, EOMI PULM: Clear anterior, no distress CV: tachy, regular, no m/r/g appreciated ABD: midline incision, CDI. CANDACE with serosanguinous drainage, hypoactive BS EXT: no edema, 3+ pulses NEURO: non focal. AAO Laboratory Results - last 24 hr 05/29/17 05/30/17 05/30/17 05:00 05:00 08:00 WBC 13.9 H RBC 4.22 Hgb 11.3 L Hct 34.7 L MCV 82.2 MCH 26.8 MCHC 32.6 RDW 15.6 Plt Count 382 MPV 7.9 Neutrophils % 85.8 H Lymphocytes % 3.0 L D Monocytes % 9.0 Eosinophils % 1.2 Basophils % 1.0 D Sodium 139 Potassium 3.4 L Chloride 106 Carbon Dioxide 24 Anion Gap 9 BUN 5 L D Creatinine 0.6 L Creat Clearance w eGFR > 60 Random Glucose 145 H D Calcium 7.3 L Phosphorus 1.4 L Magnesium 1.6 L Total Bilirubin 3.0 H D AST 12 L ALT 12 Alkaline Phosphatase 77 Total Protein 5.0 L Albumin 1.9 L Free T3 1.4 L IMP: SVT POD #3 Ex lap with myron-coloectomy due to perforated terminal ileum / mass Pulm TB Renal cell CA S/P Right partial nephrectomy in 2009 Right lung lobectomy Sarcoidosis Gout Hypertension PLAN: IVF PO per surgery NGT removed VTE prophylaxis OOB to chair ABX per ID noted Follow Path Cardiac Telemetry monitoring Aggressive repletion of lytes Check PM labs Dr Fine Critical care time spent in reviewing chart, evaluating patient and formulating plan - 35 minutes
[2017-05-30] MEDS ORDERED: NAPH,MB-DB/K PH,MBDB POWDER PACKET PO ONE ×2 (15:00→15:36)
[2017-05-30] MEDS: D5-1/2NS+20 MEQ KCL - 1,000 ML IV SCH (15:06)
[2017-05-30] MEDS ORDERED: hydrALAZINE HCL 10 MG TABLET PO ONE ×2 (16:14→17:00)
--- NOTE | 2017-05-30 18:22 | PN ---
Teaching Attending Note Name of Resident: Katlyn Rothman ATTENDING PHYSICIAN STATEMENT I saw and evaluated the patient. I reviewed the resident's note and discussed the case with the resident. I agree with the resident's findings and plan as documented. SUBJECTIVE: Patient has no complaints. He has not had BM but is passing flatus. Had episode of SVT last night which broke with Adenosine 6 mg. OBJECTIVE: Vital Signs Period Temp Pulse Resp BP Sys/Parks Pulse Ox Last 24 Hr 98.2 F-98.7 F 67-88 10-18 73-164/47-103 99-99 HEART: S1S2, RRR LUNGS: Clear ABDOMEN: Soft, non-tender, non-distended, normal BS EXTREMITIES: Trace pedal edema bilaterally Current Medications Generic Name Dose Route Start Last Admin Trade Name Freq PRN Reason Stop Dose Admin Acetaminophen 650 mg 05/30/17 14:42 Tylenol - PO Q6H PRN FEVER OR PAIN Ethambutol HCl 800 mg 05/29/17 22:00 05/29/17 22:13 Myambutol - PO 800 mg HS [facility] Administration Ethambutol HCl 400 mg 05/30/17 07:00 05/30/17 12:48 Myambutol - PO 400 mg AM [facility] Administration Hydralazine HCl 10 mg 05/29/17 13:11 Apresoline Injection - IVPUSH Q8H PRN sbp >180 and or dbp >105 Famotidine/Sodium Chloride 50 mls @ 100 mls/hr 05/29/17 22:00 05/30/17 09:29 Pepcid 20 Mg Premixed Ivpb - IVPB 100 mls/hr BID [facility] Administration Potassium Chloride/Dextrose/Sod Cl 1,000 mls @ 125 mls/hr 05/29/17 14:00 15:06 D5-1/2ns+20 Meq Kcl - IV Not Given ASDIR [facility] Ceftriaxone Sodium 2 gm/ 100 mls @ 200 mls/hr 05/30/17 10:00 05/30/17 09:42 Dextrose IVPB 200 mls/hr DAILY [facility] Administration Metronidazole 100 mls @ 100 mls/hr 05/30/17 02:00 05/30/17 09:29 Flagyl 500mg Premixed Ivpb - IVPB 100 mls/hr Q8H-IV [facility] Administration Isoniazid 300 mg 05/29/17 21:15 05/30/17 12:48 Inh - PO 300 mg DAILY [facility] Administration Magnesium Oxide 400 mg 05/30/17 22:00 Mag-Ox - PO BID [facility] Metoprolol Tartrate 25 mg 05/29/17 13:30 05/30/17 12:46 Lopressor - PO 25 mg BID [facility] Administration Ondansetron HCl 4 mg 05/29/17 13:11 05/30/17 09:29 Zofran Injection IVPB 4 mg Q6H PRN Administration NAUSEA Potassium Chloride 20 meq 05/30/17 22:00 Potassium Chloride Oral Liquid PO BID [facility] Potassium Phos/Sodium Phos 1 packet 05/30/17 22:00 Phos-Nak Packet - PO TID [facility] Pyridoxine HCl 50 mg 05/29/17 21:15 05/30/17 12:47 Vitamin B6 - PO 50 mg DAILY [facility] Administration Rifampin 600 mg 05/29/17 21:15 05/30/17 12:47 Rifadin - PO 600 mg DAILY [facility] Administration ASSESSMENT AND PLAN: 1. SVT - Keep K > 4.0, Mg > 2.0 - Continue Lopressor 2. Perforated mass of terminal ileum, cecal mass with peritonitis - s/p right hemicolectomy 05/29 - Continue Rocephin, Flagyl - Clear liquids started - Incentive spirometer - Ambulation - DVT prophylaxis 3. HTN - Continue Hydralazine, Lopressor 4. History of TB - Continue INH, Rifampin, Pyridoxine, Ethambutol 5. History of renal cell cancer, partial right nephrectomy 6. Sarcoidosis 7. History of gout
[2017-05-30] MEDS ORDERED: HYDROmorphone *PCA* 10MG/50ML DISP.SYRIN PCA SCH (19:45)
--- NOTE | 2017-05-30 20:20 | PN ---
Progress Note, Physician History of Present Illness: Mr. Palmer is a 57 yr old man admitted with abdominal pain. He has Hx of PTB ( on treatment since Mar 18, 2017). He was hospitalized about a month ago with same and noted with colitis/ileitis. He was decompressed and did well. During the past few weeks, he was stable except for intermittent episodes of abdominal pains. He had intermittent episodes of poor appetite, but was able to eat most of the time. He has been followed at the [facility]. He has been on INH/B6, Rifampin, EMB and PZA. He has had increased gouty arthritis and the decision to hold PZA was made by [facility]. His AFB smear done 04/19/17 has been negative. He was evaluated in the ED where free air in the abdomen was seen on imaging. He was brought to the OR and he underwent (R) hemicolectomy. He was started on IV Zosyn. OR c/s ECOli - Mancera sensitive and Rx was de-escalated to CTX /Flagyl. He had 1 episode SVT. - Current Medication List Current Medications: Active Medications Acetaminophen (Tylenol -) 650 mg PO Q6H PRN PRN Reason: FEVER OR PAIN Ethambutol HCl (Myambutol -) 800 mg PO HS [facility] Last Admin: 05/29/17 22:13 Dose: 800 mg Ethambutol HCl (Myambutol -) 400 mg PO AM [facility] Last Admin: 05/30/17 12:48 Dose: 400 mg Hydralazine HCl (Apresoline Injection -) 10 mg IVPUSH Q8H PRN PRN Reason: sbp >180 and or dbp >105 Last Admin: 05/30/17 17:00 Dose: 10 mg Hydromorphone HCl (Dilaudid Heavy Line Technician -) 10 mg MARINE GEAR KEEPER MARINE GEAR KEEPER [facility] PRN Reason: Protocol Stop: 06/06/17 19:34 Famotidine/Sodium Chloride (Pepcid 20 Mg Premixed Ivpb -) 50 mls @ 100 mls/hr IVPB BID [facility] Last Admin: 05/30/17 09:29 Dose: 100 mls/hr Potassium Chloride/Dextrose/Sod Cl (D5-1/2ns+20 Meq Kcl -) 1,000 mls @ 125 mls/ hr IV ASDIR [facility] Last Admin: 05/30/17 15:06 Dose: Not Given Ceftriaxone Sodium 2 gm/ (Dextrose) 100 mls @ 200 mls/hr IVPB DAILY [facility] Last Admin: 05/30/17 09:42 Dose: 200 mls/hr Metronidazole (Flagyl 500mg Premixed Ivpb -) 100 mls @ 100 mls/hr IVPB Q8H-IV [facility] Last Admin: 05/30/17 19:21 Dose: 100 mls/hr Isoniazid (Inh -) 300 mg PO DAILY [facility] Last Admin: 05/30/17 12:48 Dose: 300 mg Magnesium Oxide (Mag-Ox -) 400 mg PO BID [facility] Metoprolol Tartrate (Lopressor -) 25 mg PO BID [facility] Last Admin: 05/30/17 12:46 Dose: 25 mg Ondansetron HCl (Zofran Injection) 4 mg IVPB Q6H PRN PRN Reason: NAUSEA Last Admin: 05/30/17 09:29 Dose: 4 mg Potassium Chloride (Potassium Chloride Oral Liquid) 20 meq PO BID [facility] Potassium Phos/Sodium Phos (Phos-Nak Packet -) 1 packet PO TID [facility] Pyridoxine HCl (Vitamin B6 -) 50 mg PO DAILY [facility] Last Admin: 05/30/17 12:47 Dose: 50 mg Rifampin (Rifadin -) 600 mg PO DAILY [facility] Last Admin: 05/30/17 12:47 Dose: 600 mg - Objective Vital Signs: Vital Signs Temperature 98.4 F 05/30/17 13:29 Pulse Rate 80 05/30/17 20:12 Respiratory Rate 20 05/30/17 20:12 Blood Pressure 134/97 05/30/17 20:12 O2 Sat by Pulse Oximetry (%) 97 05/30/17 20:12 Labs: CBC, BMP 05/30/17 08:00 05/30/17 05:00 INR, PTT INR 1.04 (0.82-1.09) 05/26/17 12:25 Problem List - Problems (1) Perforated abdominal viscus Code(s): [id number] - (2) Enteritis Code(s): K52.9 - NONINFECTIVE GASTROENTERITIS AND COLITIS, UNSPECIFIED (3) H/O renal cell carcinoma Code(s): Z85.528 - PERSONAL HISTORY OF OTHER MALIGNANT NEOPLASM OF KIDNEY (4) Pulmonary tuberculosis Code(s): A15.0 - TUBERCULOSIS OF LUNG Assessment/Plan Pt with perforated viscus - ? TB, RCC or Sarcoidosis. EColi in fluid c/s Day 4 Abx (Total) Cont CTX 2 gr q 24 + IV Flagyl 500 mg q 8 hrs
[2017-05-30 21:19] LABS: ALBUMIN 1.9 g/dl (3.4-5.0); ALK PHOS 84 U/L (45-117); ANION GAP 11 (8-16); CALCIUM 7.3 mg/dL (8.5-10.1); CO2 23 mmol/L (21-32); CREATININE 0.5 mg/dL (0.7-1.3); GLUCOSE,RANDOM 122 mg/dL (74-106); SGOT/AST 16 U/L (15-37); SGPT/ALT 12 U/L (12-78)
[2017-05-30] MEDS: POTASSIUM CHLORIDE ORAL LIQUID 20 MEQ/15 ML PO SCH (21:35)
[2017-05-30] MEDS: MAGNESIUM OXIDE 400 MG TABLET (FP) PO SCH (21:35)
[2017-05-30] MEDS: NAPH,MB-DB/K PH,MBDB POWDER PACKET PO SCH (21:36)
[2017-05-30] MEDS: KCL 10 MEQ IVPB 100 ML IVPB SCH (22:45)
[2017-05-30 23:10] LABS: MAGNESIUM 1.9 mg/dL (1.8-2.4); PHOSPHOROUS 1.7 mg/dL (2.5-4.9)
[2017-05-31] MEDS: KCL 10 MEQ IVPB 100 ML IVPB SCH ×5 (00:09→05:04)
[2017-05-31] MEDS: METRONIDAZOLE 500 MG PREMIXED 100 ML IVPB SCH ×2 (01:10→10:41)
[2017-05-31] MEDS: D5-1/2NS+40 MEQ KCL - 1,000 ML IV SCH ×2 (05:05→17:25)
[2017-05-31] MEDS: ETHAMBUTOL HCL 400 MG TABLET PO SCH (06:03)
[2017-05-31] MEDS: NAPH,MB-DB/K PH,MBDB POWDER PACKET PO SCH ×2 (06:03→14:01)
[2017-05-31 06:30] LABS: BASOPHIL 0.3 % (0-2.0); EOSINOPHIL 2.5 % (0-4.5); MCH 27.9 pg (25.7-33.7); MCHC 34.4 g/dl (32.0-35.9); MEAN CELL VOLUME 81.2 fl (80-96); MEAN PLT VOLUME 7.9 fl (7.5-11.1); NEUTROPHILS 79.5 % (42.8-82.8); PLATELET COUNT 380 K/MM3 (134-434); RDW 15.8 % (11.9-15.9)
[2017-05-31 06:57] LABS: ANION GAP 7 (8-16); CO2 27 mmol/L (21-32); GLUCOSE,RANDOM 116 mg/dL (74-106); MAGNESIUM 1.8 mg/dL (1.8-2.4)
[2017-05-31 06:58] LABS: CREATININE 0.5 mg/dL (0.7-1.3); PHOSPHOROUS 1.6 mg/dL (2.5-4.9)
--- NOTE | 2017-05-31 08:46 | PN ---
Physical Exam: SUBJECTIVE: Patient seen and examined Had a bowel movement last night. Said to have vomited his oral electrolytes overnight. No longer on MANAGER EXPORT No other c/o this am. OBJECTIVE: Vital Signs Period Temp Pulse Resp BP Sys/Parks Pulse Ox Last 24 Hr 98.0 F-99.2 F 66-95 15-20 108-160/78-102 96-99 GENERAL: The patient is awake, alert, and fully oriented, in no acute distress. HEAD: Normal with no signs of trauma. EYES: PERRL, extraocular movements intact, sclera anicteric, conjunctiva clear. No ptosis. ENT: Ears normal, nares patent, oropharynx clear without exudates, moist mucous membranes. NECK: Trachea midline, full range of motion, supple. LUNGS: Breath sounds equal, clear to auscultation bilaterally, no wheezes, no crackles, no accessory muscle use. HEART: Regular rate and rhythm, S1, S2 without murmur, rub or gallop. ABDOMEN: Soft, nontender, nondistended, normoactive bowel sounds, no guarding, no rebound, no hepatosplenomegaly, no masses. EXTREMITIES: 2+ pulses, warm, well-perfused, mild bilateral pedal edema. NEUROLOGICAL: Cranial nerves II through XII grossly intact. Normal speech, gait not observed. PSYCH: Normal mood, normal affect. SKIN: Warm, dry, normal turgor, no rashes or lesions noted Laboratory Results - last 24 hr 05/30/17 05/30/17 05/31/17 20:00 20:00 06:10 WBC 9.0 D RBC 3.87 L Hgb 10.8 L Hct 31.4 L MCV 81.2 MCH 27.9 MCHC 34.4 RDW 15.8 Plt Count 380 MPV 7.9 Neutrophils % 79.5 Lymphocytes % 5.6 L D Monocytes % 12.1 H Eosinophils % 2.5 D Basophils % 0.3 Sodium 139 Potassium 3.0 L Chloride 105 Carbon Dioxide 23 Anion Gap 11 BUN 3 L D Creatinine 0.5 L Creat Clearance w eGFR > 60 Random Glucose 122 H Calcium 7.3 L Phosphorus 1.7 L D Magnesium 1.9 Total Bilirubin 3.0 H AST 16 D ALT 12 Alkaline Phosphatase 84 Total Protein 5.0 L Albumin 1.9 L 05/31/17 06:10 WBC RBC Hgb Hct MCV MCH MCHC RDW Plt Count MPV Neutrophils % Lymphocytes % Monocytes % Eosinophils % Basophils % Sodium 138 Potassium 3.4 L Chloride 104 Carbon Dioxide 27 Anion Gap 7 L BUN 4 L D Creatinine 0.5 L Creat Clearance w eGFR Random Glucose 116 H Calcium 7.0 L Phosphorus 1.6 L Magnesium 1.8 Total Bilirubin AST ALT Alkaline Phosphatase Total Protein Albumin bilateral duplex of LE - bilateral popliteal fossa cysts- R 3.7x 3x 1.5, L 3.7x 2.3x1, showed no evidence of DVT Active Medications Generic Name Dose Route Start Last Admin Trade Name Freq PRN Reason Stop Dose Admin Acetaminophen 650 mg 05/30/17 14:42 Tylenol - PO Q6H PRN FEVER OR PAIN Ethambutol HCl 800 mg 05/29/17 22:00 05/30/17 21:36 Myambutol - PO 800 mg HS [facility] Administration Ethambutol HCl 400 mg 05/30/17 07:00 05/31/17 06:03 Myambutol - PO 400 mg AM [facility] Administration Hydralazine HCl 10 mg 05/29/17 13:11 05/30/17 17:00 Apresoline Injection - IVPUSH 10 mg Q8H PRN Administration sbp >180 and or dbp >105 Hydromorphone HCl 10 mg 05/30/17 19:45 05/30/17 21:00 Dilaudid Assistant [employer] - MANAGER EXPORT 06/06/17 19:34 10 mg MANAGER EXPORT [facility] Administration Protocol Famotidine/Sodium Chloride 50 mls @ 100 mls/hr 05/29/17 22:00 05/30/17 21:35 Pepcid 20 Mg Premixed Ivpb - IVPB 100 mls/hr BID [facility] Administration Ceftriaxone Sodium 2 gm/ 100 mls @ 200 mls/hr 05/30/17 10:00 05/30/17 09:42 Dextrose IVPB 200 mls/hr DAILY [facility] Administration Metronidazole 100 mls @ 100 mls/hr 05/30/17 02:00 05/31/17 01:10 Flagyl 500mg Premixed Ivpb - IVPB 100 mls/hr Q8H-IV [facility] Administration Dextrose/Sodium Chloride 1,000 mls @ 125 mls/hr 05/30/17 23:15 05/31/17 05:05 D5-1/2ns+40 Meq Kcl - IV 125 mls/hr ASDIR [facility] Administration Isoniazid 300 mg 05/29/17 21:15 05/30/17 12:48 Inh - PO 300 mg DAILY [facility] Administration Magnesium Oxide 400 mg 05/30/17 22:00 05/30/17 21:35 Mag-Ox - PO 400 mg BID [facility] Administration Metoprolol Tartrate 25 mg 05/29/17 13:30 05/30/17 21:35 Lopressor - PO 25 mg BID [facility] Administration Ondansetron HCl 4 mg 05/29/17 13:11 05/30/17 09:29 Zofran Injection IVPB 4 mg Q6H PRN Administration NAUSEA Potassium Chloride 20 meq 05/30/17 22:00 05/30/17 21:35 Potassium Chloride Oral Liquid PO 20 meq BID [facility] Administration Potassium Phos/Sodium Phos 1 packet 05/30/17 22:00 05/31/17 06:03 Phos-Nak Packet - PO 1 packet TID [facility] Administration Pyridoxine HCl 50 mg 05/29/17 21:15 05/30/17 12:47 Vitamin B6 - PO 50 mg DAILY [facility] Administration Rifampin 600 mg 05/29/17 21:15 05/30/17 12:47 Rifadin - PO 600 mg DAILY [facility] Administration ASSESSMENT/PLAN: 57 year old with PMHx Renal cell cancer s/p R partial nephrectomy 2009, R lung lobectomy, Sarcoidosis , gout, HTN, TB (3rd month on treatment), previous partial small bowel obstruction presented with abdominal pain, nausea and vomiting and admitted for perforated bowel, now s/p laparotomy #Perforated bowel: POD5 s/p laparotomy with right hemicolectomy for terminal ileal mass with perforation, also cecal mass palpated at IC junction Had bowel movement Feeds escalated- solids day 5 on antibiotic, on ceftriaxone and flagyl Pain mx- on tylenol Awaiting pathology report of cecal and terminal ileal masses #Electrolytes IV Mg SO4 - 1gm stat-received iv Sodium Phosphate 30mmol/dextrose KCL 20meq bid Potassium Phosph Sodium phosph packet (PhoshNaK) 1 packet PO tids D5-1/2 NS 40meq Kcl @125mls/hr Mg Oxide 400meq PO bid #HTN 10mg ivpush hydralazine Q8H with holding orders #SVT Very brief episode of SVT aborted spontaneously early this am Continue monitoring Stable currently #Bilaterally pedal edema: Likely due to hypoalbuminemia, Patient just resumed regular diet with supplementation Not tender, patient is on SCDs bilateral duplex of LE showed no evidence of DVT, bilateral popliteal fossa cysts #Sarcoidosis Not currently on prednisone #TB: To have medication after meals INH-300mg PO daily Ethambutol 800mg PO HS Eth[facility]ol 400mg PO am Rifampicin 600mg POI daily Pyridoxine 50 PO daily #Gout Not in acute exacerbation Hold meds Visit type - Emergency Visit Emergency Visit: Yes ED Registration Date: 05/26/17 Care time: The patient presented to the Emergency Department on the above date and was hospitalized for further evaluation of their emergent condition. - New Patient This patient is new to me today: No - Critical Care Critical Care patient: No - Discharge Referral Referred to [facility] No
[2017-05-31] MEDS: FAMOTIDINE 20 MG/50 ML IVPB 50 ML IVPB SCH ×2 (10:40→22:09)
[2017-05-31] MEDS: ISONIAZID 300 MG TABLET (FP) PO SCH (10:41)
[2017-05-31] MEDS: CEFTRIAXONE 2 GM in DEXTROSE 5%-WATER - 100 ML IVPB SCH (10:41)
[2017-05-31] MEDS: POTASSIUM CHLORIDE ORAL LIQUID 20 MEQ/15 ML PO SCH ×2 (10:42→22:10)
[2017-05-31] MEDS: METOPROLOL TARTRATE 25 MG TABLET (FP) PO SCH ×3 (10:42→22:10)
[2017-05-31] MEDS: MAGNESIUM OXIDE 400 MG TABLET (FP) PO SCH ×2 (10:42→22:12)
[2017-05-31] MEDS: RIFAMPIN 300 MG CAPSULE PO SCH (10:43)
[2017-05-31] MEDS: PYRIDOXINE HCL (B-6) 50 MG TABLET (FP) PO SCH (10:43)
[2017-05-31] MEDS ORDERED: MAGNESIUM SULF 50% (8.12 MEQ/2 ML-1 GM VIAL) IVPB ONE (10:45)
--- NOTE | 2017-05-31 10:49 | PN ---
Progress Note, Physician History of Present Illness: Episode of PSVT earlier in AM, passing gas, tolerating clears. - Current Medication List Current Medications: Active Medications Acetaminophen (Tylenol -) 650 mg PO Q6H PRN PRN Reason: FEVER OR PAIN Ethambutol HCl (Myambutol -) 800 mg PO HS [facility] Last Admin: 05/30/17 21:36 Dose: 800 mg Ethambutol HCl (Myambutol -) 400 mg PO AM [facility] Last Admin: 05/31/17 06:03 Dose: 400 mg Hydralazine HCl (Apresoline Injection -) 10 mg IVPUSH Q8H PRN PRN Reason: sbp >180 and or dbp >105 Last Admin: 05/30/17 17:00 Dose: 10 mg Hydromorphone HCl (Dilaudid Director Weights And Measures -) 10 mg AFFIRMATIVE ACTION SPECIALIST AFFIRMATIVE ACTION SPECIALIST TAMAR PRN Reason: Protocol Stop: 06/06/17 19:34 Last Admin: 05/30/17 21:00 Dose: 10 mg Famotidine/Sodium Chloride (Pepcid 20 Mg Premixed Ivpb -) 50 mls @ 100 mls/hr IVPB BID [facility] Last Admin: 05/31/17 10:40 Dose: 100 mls/hr Ceftriaxone Sodium 2 gm/ (Dextrose) 100 mls @ 200 mls/hr IVPB DAILY [facility] Last Admin: 05/31/17 10:41 Dose: 200 mls/hr Metronidazole (Flagyl 500mg Premixed Ivpb -) 100 mls @ 100 mls/hr IVPB Q8H-IV [facility] Last Admin: 05/31/17 10:41 Dose: 100 mls/hr Dextrose/Sodium Chloride (D5-1/2ns+40 Meq Kcl -) 1,000 mls @ 125 mls/hr IV ASDIR [facility] Last Admin: 05/31/17 05:05 Dose: 125 mls/hr Potassium Phosphate 20 mm/ (Dextrose) 256.6667 mls @ 62.5 mls/hr IVPB ONCE ONE Stop: 05/31/17 15:36 Isoniazid (Inh -) 300 mg PO DAILY [facility] Last Admin: 05/31/17 10:41 Dose: 300 mg Magnesium Oxide (Mag-Ox -) 400 mg PO BID [facility] Last Admin: 05/31/17 10:42 Dose: 400 mg Metoprolol Tartrate (Lopressor -) 25 mg PO BID [facility] Last Admin: 05/31/17 10:42 Dose: 25 mg Ondansetron HCl (Zofran Injection) 4 mg IVPB Q6H PRN PRN Reason: NAUSEA Last Admin: 05/30/17 09:29 Dose: 4 mg Potassium Chloride (Potassium Chloride Oral Liquid) 20 meq PO BID [facility] Last Admin: 05/31/17 10:42 Dose: 20 meq Potassium Phos/Sodium Phos (Phos-Nak Packet -) 1 packet PO TID [facility] Last Admin: 05/31/17 06:03 Dose: 1 packet Pyridoxine HCl (Vitamin B6 -) 50 mg PO DAILY [facility] Last Admin: 05/31/17 10:43 Dose: 50 mg Rifampin (Rifadin -) 600 mg PO DAILY [facility] Last Admin: 05/31/17 10:43 Dose: 600 mg - Objective Vital Signs: Vital Signs Temperature 98.8 F 05/31/17 08:00 Pulse Rate 71 05/31/17 10:00 Respiratory Rate 14 05/31/17 10:00 Blood Pressure 111/70 05/31/17 10:00 O2 Sat by Pulse Oximetry (%) 98 05/31/17 10:00 Constitutional: Yes: No Distress, Calm Neck: Yes: Supple Cardiovascular: Yes: Regular Rate and Rhythm Respiratory: Yes: Regular, Diminished Gastrointestinal: Yes: Soft, Hypoactive Bowel Sounds Edema: No Labs: CBC, BMP 05/31/17 06:10 05/31/17 06:10 INR, PTT INR 1.04 (0.82-1.09) 05/26/17 12:25 Problem List - Problems (1) Mass of cecum Code(s): K63.9 - DISEASE OF INTESTINE, UNSPECIFIED (2) Mass of small intestine Code(s): K63.89 - OTHER SPECIFIED DISEASES OF INTESTINE (3) Perforated small intestine Code(s): K63.1 - PERFORATION OF INTESTINE (NONTRAUMATIC) (4) SVT (supraventricular tachycardia) Code(s): I47.1 - SUPRAVENTRICULAR TACHYCARDIA (5) Gout Code(s): M10.9 - GOUT, UNSPECIFIED Qualifiers: Gout site: multiple sites Gout etiology: unspecified cause Chronicity: unspecified Qualified Code(s): M10.9 - Gout, unspecified; M10.9 - Gout, unspecified (6) H/O renal cell carcinoma Code(s): Z85.528 - PERSONAL HISTORY OF OTHER MALIGNANT NEOPLASM OF KIDNEY (7) HTN (hypertension) Code(s): I10 - ESSENTIAL (PRIMARY) HYPERTENSION Qualifiers: Hypertension type: essential hypertension Qualified Code(s): I10 - Essential (primary) hypertension; I10 - Essential (primary) hypertension; I10 - Essential (primary) hypertension (8) Pulmonary tuberculosis Code(s): A15.0 - TUBERCULOSIS OF LUNG (9) Sarcoidosis of lung Code(s): D86.0 - SARCOIDOSIS OF LUNG (10) Tuberculosis Code(s): A15.9 - RESPIRATORY TUBERCULOSIS UNSPECIFIED Assessment/Plan 1. POD4 s/p laparotomy with right hemicolectomy for terminal ileal mass with perforation, also cecal mass palpated at IC junction 2. 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 History of hypertension 4. Renal cell CA s/p right partial nephrectomy in 2009 5. History of sarcoidosis 6. History of pulm TB post right lung lobectomy 7. Gout PLAN: 1. Continue telemetry monitoring 2. Increase Lopressor 25 PO tid. 3. Hydralazine IV as needed 4. Continue post op management as per Surgical service 5. Empiric antibiotic coverage, maintain anti-mycobacterial regimen 6. Patient was explained other option as outpatient including EP study and RFA if PSVT continues despite medication 7. DVT and GI prophylaxis, OOB to chair, f/u pathology, IS, early ambulation 8. Eventual cardiac MRI or PET to r/o cardiac sarcoid as outpatient if not already performed
[2017-05-31] MEDS ORDERED: SODIUM PHOSPHATE - 0 MM in DEXTROSE 5%-WATER - 250 ML IVPB ONE (10:54)
--- NOTE | 2017-05-31 11:04 | PN ---
Progress Note, Physician Chief Complaint: abdominal pain, free air History of Present Illness: POD5 s/p laparotomy with R hemicolectomy for perforation of terminal ileum with associated mass Had one very brief episode of SVT this morning, self-limited. Tolerated some fulls last night, did not want to eat breakfast - "I didn't like it." Pt seen and examined in bed. Awake and alert, pain controlled with minimal COUN[employer] APPRENTICE use. UOP 500 yest recorded, 300+ today, CANDACE with serosanguineous fluid, 210ml yesterday, 110 just emptied. Had a small BM overnight. No fever. Has been to chair, but spending more time in bed. US yesterday negative for DVT. - Current Medication List Current Medications: Active Medications Acetaminophen (Tylenol -) 650 mg PO Q6H PRN PRN Reason: FEVER OR PAIN Docusate Sodium (Colace -) 100 mg PO BID [facility] Ethambutol HCl (Myambutol -) 800 mg PO HS [facility] Last Admin: 05/30/17 21:36 Dose: 800 mg Ethambutol HCl (Myambutol -) 400 mg PO AM [facility] Last Admin: 05/31/17 06:03 Dose: 400 mg Hydralazine HCl (Apresoline Injection -) 10 mg IVPUSH Q8H PRN PRN Reason: sbp >180 and or dbp >105 Last Admin: 05/30/17 17:00 Dose: 10 mg Famotidine/Sodium Chloride (Pepcid 20 Mg Premixed Ivpb -) 50 mls @ 100 mls/hr IVPB BID [facility] Last Admin: 05/31/17 10:40 Dose: 100 mls/hr Ceftriaxone Sodium 2 gm/ (Dextrose) 100 mls @ 200 mls/hr IVPB DAILY [facility] Last Admin: 05/31/17 10:41 Dose: 200 mls/hr Metronidazole (Flagyl 500mg Premixed Ivpb -) 100 mls @ 100 mls/hr IVPB Q8H-IV [facility] Last Admin: 05/31/17 10:41 Dose: 100 mls/hr Dextrose/Sodium Chloride (D5-1/2ns+40 Meq Kcl -) 1,000 mls @ 125 mls/hr IV ASDIR [facility] Last Admin: 05/31/17 05:05 Dose: 125 mls/hr Sodium Phosphate / Dextrose 250 mls @ 62.5 mls/hr IVPB ONCE ONE Stop: 05/31/17 14:53 Isoniazid (Inh -) 300 mg PO DAILY [facility] Last Admin: 05/31/17 10:41 Dose: 300 mg Magnesium Oxide (Mag-Ox -) 400 mg PO BID [facility] Last Admin: 05/31/17 10:42 Dose: 400 mg Metoprolol Tartrate (Lopressor -) 25 mg PO BID [facility] Last Admin: 05/31/17 10:42 Dose: 25 mg Ondansetron HCl (Zofran Injection) 4 mg IVPB Q6H PRN PRN Reason: NAUSEA Last Admin: 05/30/17 09:29 Dose: 4 mg Oxycodone HCl (Roxicodone -) 5 mg PO Q6H PRN PRN Reason: SEVERE PAIN Potassium Chloride (Potassium Chloride Oral Liquid) 20 meq PO BID [facility] Last Admin: 05/31/17 10:42 Dose: 20 meq Potassium Phos/Sodium Phos (Phos-Nak Packet -) 1 packet PO TID [facility] Last Admin: 05/31/17 06:03 Dose: 1 packet Pyridoxine HCl (Vitamin B6 -) 50 mg PO DAILY [facility] Last Admin: 05/31/17 10:43 Dose: 50 mg Rifampin (Rifadin -) 600 mg PO DAILY [facility] Last Admin: 05/31/17 10:43 Dose: 600 mg - Objective Vital Signs: Vital Signs Temperature 98.8 F 05/31/17 08:00 Pulse Rate 71 05/31/17 10:00 Respiratory Rate 14 05/31/17 10:00 Blood Pressure 111/70 05/31/17 10:00 O2 Sat by Pulse Oximetry (%) 98 05/31/17 10:00 Vital Signs Period Temp Pulse Resp BP Sys/Parks Pulse Ox Last 24 Hr 98.0 F-99.2 F 66-95 14-20 108-160/70-102 96-98 Intake & Output 05/30/17 05/31/17 05/31/17 23:59 07:59 15:59 Intake Total 2475 1025 280 Output Total 550 300 110 Balance 1925 725 170 Intake: IV 1875 125 D5-1/2Ns+20 Meq KCl - 1, 1875 000 ml @ 125 mls/hr IV ASDIR [facility] Rx#:[id number] D5-1/2Ns+40 Meq KCl - 1, 125 000 ml @ 125 mls/hr IV ASDIR [facility] Rx#:[id number] IVPB 500 700 Oral 100 200 280 Output: Drainage 50 110 Rt Abdomen 50 110 Urine 500 300 Void 500 300 Other: Voiding Method Urinal Urinal # Unmeasured Voids Void 1 Bowel Movement No Constitutional: Yes: Well Nourished, No Distress, Calm Eyes: Yes: Conjunctiva Clear, EOM Intact Cardiovascular: Yes: Regular Rate and Rhythm. No: Tachycardia Gastrointestinal: Yes: Soft, Tenderness (mild RUQ, less RLQ, mild incisional), Other (drain with light serosang in bulb). No: Distention Extremities: No: Cool, Cyanosis Edema: No Peripheral Pulses WNL: Yes Integumentary: Yes: Incision (midline). No: Rash Wound/Incision: Yes: Dressing Dry and Intact, Dressing Removed (and packing changed - wound clean, pink, granulating), Unapproximated (midline) Neurological: Yes: Alert, Oriented Labs: CBC, BMP 05/31/17 06:10 05/31/17 06:10 CMP Sodium 138 mmol/L (136-145) 05/31/17 06:10 Potassium 3.4 mmol/L (3.5-5.1) L 05/31/17 06:10 Chloride 104 mmol/L (98-107) 05/31/17 06:10 Carbon Dioxide 27 mmol/L (21-32) 05/31/17 06:10 Anion Gap 7 (8-16) L 05/31/17 06:10 BUN 4 mg/dL (7-18) L D 05/31/17 06:10 Creatinine 0.5 mg/dL (0.7-1.3) L 05/31/17 06:10 Creat Clearance w eGFR > 60 (>60) 05/30/17 20:00 Random Glucose 116 mg/dL (74-106) H 05/31/17 06:10 Calcium 7.0 mg/dL (8.5-10.1) L 05/31/17 06:10 Phosphorus 1.6 mg/dL (2.5-4.9) L 05/31/17 06:10 Magnesium 1.8 mg/dL (1.8-2.4) 05/31/17 06:10 - ....Imaging Ultrasound: Report Reviewed Problem List - Problems (1) Perforated small intestine Assessment/Plan: POD5 s/p laparotomy with right hemicolectomy for terminal ileal mass with perforation, also cecal mass palpated at IC junction path still pending transferred to telemetry had episode of SVT this am, self-limited lopressor per cardio voiding, tolerating full liquids but not very hungry + BM regular diet ok - family can bring him food continue incentive spirometer, OOB to chair, ambulate with assist pt reluctant - will order PT D/C [employer] PR[employer] APPRENTICE - Tylenol ordered with oxycodone for breakthrough prn GI/DVT prophylaxis ID on board - antibiotics and TB meds repleting lytes, mainly po - pt refusing IV potassium doing well overall midline wound dressing changed, continue daily - may need VNS, though family can likely do dressings Code(s): K63.1 - PERFORATION OF INTESTINE (NONTRAUMATIC) (2) Mass of small intestine Code(s): K63.89 - OTHER SPECIFIED DISEASES OF INTESTINE (3) Mass of cecum Code(s): K63.9 - DISEASE OF INTESTINE, UNSPECIFIED (4) Gout Code(s): M10.9 - GOUT, UNSPECIFIED Qualifiers: Qualified Code(s): M10.9 - Gout, unspecified; M10.9 - Gout, unspecified (5) H/O renal cell carcinoma Code(s): Z85.528 - PERSONAL HISTORY OF OTHER MALIGNANT NEOPLASM OF KIDNEY (6) HTN (hypertension) Assessment/Plan: Lopressor as per cardiology Code(s): I10 - ESSENTIAL (PRIMARY) HYPERTENSION Qualifiers: Qualified Code(s): I10 - Essential (primary) hypertension; I10 - Essential (primary) hypertension; I10 - Essential (primary) hypertension (7) Pulmonary tuberculosis Assessment/Plan: back on TB meds Code(s): A15.0 - TUBERCULOSIS OF LUNG (8) Sarcoidosis of lung Code(s): D86.0 - SARCOIDOSIS OF LUNG
[2017-05-31] MEDS: ACETAMINOPHEN 325 MG TABLET (FP) PO PRN ×2 (11:29→20:54)
[2017-05-31] MEDS ORDERED: POTASSIUM PHOSPHATE 20 MM in DEXTROSE 5%-WATER - 250 ML IVPB ONE (11:30)
[2017-05-31] MEDS: DOCUSATE SODIUM 100 MG CAPSULE (FP) PO SCH ×2 (11:41→22:10)
[2017-05-31] MEDS ORDERED: SODIUM PHOSPHATE - 30 MM in DEXTROSE 5%-WATER - 250 ML IVPB ONE (12:00)
--- NOTE | 2017-05-31 13:16 | PN ---
Progress Note, Physician Chief Complaint: Patient is afebrile, had BM this AM. History of Present Illness: Tolerating diet, Had BM. C/S reviewed. - Current Medication List Current Medications: Active Medications Acetaminophen (Tylenol -) 650 mg PO Q6H PRN PRN Reason: FEVER OR PAIN Last Admin: 05/31/17 11:29 Dose: 650 mg Docusate Sodium (Colace -) 100 mg PO BID [facility] Last Admin: 05/31/17 11:41 Dose: 100 mg Ethambutol HCl (Myambutol -) 800 mg PO HS [facility] Last Admin: 05/30/17 21:36 Dose: 800 mg Ethambutol HCl (Myambutol -) 400 mg PO AM [facility] Last Admin: 05/31/17 06:03 Dose: 400 mg Hydralazine HCl (Apresoline Injection -) 10 mg IVPUSH Q8H PRN PRN Reason: sbp >180 and or dbp >105 Last Admin: 05/30/17 17:00 Dose: 10 mg Famotidine/Sodium Chloride (Pepcid 20 Mg Premixed Ivpb -) 50 mls @ 100 mls/hr IVPB BID [facility] Last Admin: 05/31/17 10:40 Dose: 100 mls/hr Ceftriaxone Sodium 2 gm/ (Dextrose) 100 mls @ 200 mls/hr IVPB DAILY [facility] Last Admin: 05/31/17 10:41 Dose: 200 mls/hr Metronidazole (Flagyl 500mg Premixed Ivpb -) 100 mls @ 100 mls/hr IVPB Q8H-IV [facility] Last Admin: 05/31/17 10:41 Dose: 100 mls/hr Dextrose/Sodium Chloride (D5-1/2ns+40 Meq Kcl -) 1,000 mls @ 125 mls/hr IV ASDIR [facility] Last Admin: 05/31/17 05:05 Dose: 125 mls/hr Sodium Phosphate 30 mm/ (Dextrose) 260 mls @ 43.333 mls/hr IVPB ONCE ONE Stop: 05/31/17 17:59 Last Admin: 05/31/17 11:51 Dose: 43.333 mls/hr Isoniazid (Inh -) 300 mg PO DAILY [facility] Last Admin: 05/31/17 10:41 Dose: 300 mg Magnesium Oxide (Mag-Ox -) 400 mg PO BID [facility] Last Admin: 05/31/17 10:42 Dose: 400 mg Metoprolol Tartrate (Lopressor -) 25 mg PO TID [facility] Ondansetron HCl (Zofran Injection) 4 mg IVPB Q6H PRN PRN Reason: NAUSEA Last Admin: 05/30/17 09:29 Dose: 4 mg Oxycodone HCl (Roxicodone -) 5 mg PO Q6H PRN PRN Reason: SEVERE PAIN Potassium Chloride (Potassium Chloride Oral Liquid) 20 meq PO BID [facility] Last Admin: 05/31/17 10:42 Dose: 20 meq Potassium Phos/Sodium Phos (Phos-Nak Packet -) 1 packet PO TID [facility] Last Admin: 05/31/17 06:03 Dose: 1 packet Pyridoxine HCl (Vitamin B6 -) 50 mg PO DAILY [facility] Last Admin: 05/31/17 10:43 Dose: 50 mg Rifampin (Rifadin -) 600 mg PO DAILY [facility] Last Admin: 05/31/17 10:43 Dose: 600 mg - Objective Vital Signs: Vital Signs Temperature 98.8 F 05/31/17 08:00 Pulse Rate 71 05/31/17 10:00 Respiratory Rate 14 05/31/17 10:00 Blood Pressure 111/70 05/31/17 10:00 O2 Sat by Pulse Oximetry (%) 98 05/31/17 10:00 Constitutional: Yes: No Distress Cardiovascular: Yes: Regular Rate and Rhythm Respiratory: Yes: CTA Bilaterally Gastrointestinal: Yes: Normal Bowel Sounds, Soft Labs: CBC, BMP 05/31/17 06:10 05/31/17 06:10 INR, PTT INR 1.04 (0.82-1.09) 05/26/17 12:25 Problem List - Problems (1) Perforated abdominal viscus Code(s): NMB4805 - (2) Enteritis Code(s): K52.9 - NONINFECTIVE GASTROENTERITIS AND COLITIS, UNSPECIFIED (3) H/O renal cell carcinoma Code(s): Z85.528 - PERSONAL HISTORY OF OTHER MALIGNANT NEOPLASM OF KIDNEY (4) Pulmonary tuberculosis Code(s): A15.0 - TUBERCULOSIS OF LUNG Assessment/Plan Pt with perforated viscus - ? TB, RCC or Sarcoidosis. EColi in fluid c/s Day 5 Abx (Total) Cont CTX 2 gr q 24 Can DC Flagyl ( No Anaerobes isolated in c/s )
[2017-05-31] MEDS: oxyCODONE HCL 5 MG TABLET PO PRN (15:12)
--- NOTE | 2017-05-31 18:28 | PN ---
Teaching Attending Note Name of Resident: Katlyn Rothman ATTENDING PHYSICIAN STATEMENT I saw and evaluated the patient. I reviewed the resident's note and discussed the case with the resident. I agree with the resident's findings and plan as documented. SUBJECTIVE: has abd pain. passed gas and had a formed BM . has no fever or chills. OBJECTIVE: NAD , pleasant CV: RRR, no MRG Lungs : CTAB Ext : No edema Abd :soft, ND, TTP in periambilical area, mid line surgical wound with trevor and a packing in upper part . No surrounding erythema ASSESSMENT AND PLAN: 57 y/o unfortunate gentleman withh/o sarcoidosis, h/o renal carcinoma with lung mets, s/p resection, pulm TB , and other medical problems who presented with abd pain and was found to have bowel perforation with cecal and ileal masses 1- Perforated intestine with peritonitis and cecal/ileal masses: doing well, tolerated diet. Passed [place] and had BM - cont ceftriaxone . Cx reviewed - advance diet - off [employer] , cont oxy and tylenol - dressing change - cont IVF at current rate , will decrease tomorrow 2- SVTs: probably due to electrolytes abn, and critical illness Echo with no significant etiology , electrolytes need further mg t - replete K, Phos , ANd Mg and recheck at 8 PM - cont BB - will need EP study and cardiac MRI as out pt 3- h/o TB : cont meds . appreciate ID Recs 4- Start heparin sq for DVT px . cont SCDS
[2017-05-31 21:21] LABS: ANION GAP 7 (8-16); CALCIUM 7.3 mg/dL (8.5-10.1); CO2 23 mmol/L (21-32); CREATININE 0.6 mg/dL (0.7-1.3); GLUCOSE,RANDOM 139 mg/dL (74-106); MAGNESIUM 2.1 mg/dL (1.8-2.4); PHOSPHOROUS 1.8 mg/dL (2.5-4.9)
[2017-05-31] MEDS: HEPARIN NA (PORCINE) 5,000 UNITS/ML 1ML VIAL SQ SCH (22:11)
[2017-06-01] MEDS: oxyCODONE HCL 5 MG TABLET PO PRN (00:07)
[2017-06-01] MEDS: D5-1/2NS+40 MEQ KCL - 1,000 ML IV SCH (00:08)
[2017-06-01] MEDS ORDERED: POTASSIUM PHOSPHATE 20 MM in SODIUM CHLORIDE 250 ML IVPB ONE (02:33)
[2017-06-01] MEDS: HEPARIN NA (PORCINE) 5,000 UNITS/ML 1ML VIAL SQ SCH ×3 (06:13→21:27)
[2017-06-01] MEDS: METOPROLOL TARTRATE 25 MG TABLET (FP) PO SCH ×3 (06:14→21:22)
[2017-06-01] MEDS: ACETAMINOPHEN 325 MG TABLET (FP) PO PRN ×2 (06:20→21:26)
[2017-06-01 06:23] LABS: BASOPHIL 0.5 % (0-2.0); EOSINOPHIL 5.8 % (0-4.5); MCH 27.8 pg (25.7-33.7); MCHC 33.9 g/dl (32.0-35.9); NEUTROPHILS 74.9 % (42.8-82.8); PLATELET COUNT 425 K/MM3 (134-434); WHITE BLOOD COUNT 8.2 K/mm3 (4.0-10.0)
[2017-06-01 06:56] LABS: CALCIUM 7.6 mg/dL (8.5-10.1)
[2017-06-01 07:03] LABS: ANION GAP 10 (8-16); CO2 20 mmol/L (21-32); CREATININE 0.5 mg/dL (0.7-1.3); GLUCOSE,RANDOM 107 mg/dL (74-106); MAGNESIUM 1.9 mg/dL (1.8-2.4); PHOSPHOROUS 2.9 mg/dL (2.5-4.9)
--- NOTE | 2017-06-01 07:31 | PN ---
Physical Exam: SUBJECTIVE: Patient seen and examined No SVT reported overnight. No new complaints. OBJECTIVE: Vital Signs Period Temp Pulse Resp BP Sys/Parks Pulse Ox Last 24 Hr 97.4 F-99.0 F 60-76 14-14 111-132/70-98 97-98 GENERAL: The patient is awake, alert, and fully oriented, in mild painful distress. EYES: PERRL, extraocular movements intact, sclera anicteric, conjunctiva clear. ENT: Ears normal, nares patent, oropharynx clear without exudates, moist mucous membranes. LUNGS: Breath sounds equal, clear to auscultation bilaterally, no wheezes, no crackles HEART: Regular rate and rhythm, S1, S2 without murmur, rub or gallop. ABDOMEN: Soft, Mild tenderness, nondistended, normoactive bowel sounds, Midline dressing supraumbilical, soaked dressing. R hypochondrial dressing with CANDACE drain in place, showing minimally drained serosanguinous fluid. EXTREMITIES: 2+ pulses, warm, well-perfused, no edema. NEUROLOGICAL: Cranial nerves II through XII grossly intact. Normal speech, gait not observed. PSYCH: Normal mood, normal affect. Laboratory Results - last 24 hr 05/31/17 06/01/17 06/01/17 20:35 05:10 05:10 WBC 8.2 RBC 3.91 L Hgb 10.8 L Hct 32.0 L MCV 82.0 MCH 27.8 MCHC 33.9 RDW 16.0 H Plt Count 425 MPV 8.0 Neutrophils % 74.9 Lymphocytes % 6.3 L Monocytes % 12.5 H Eosinophils % 5.8 H D Basophils % 0.5 Sodium 140 142 Potassium 3.9 4.5 Chloride 110 H 112 H Carbon Dioxide 23 20 L Anion Gap 7 L 10 BUN 5 L D 3 L D Creatinine 0.6 L 0.5 L Random Glucose 139 H 107 H D Calcium 7.3 L 7.6 L Phosphorus 1.8 L 2.9 D Magnesium 2.1 1.9 Active Medications Generic Name Dose Route Start Last Admin Trade Name Freq PRN Reason Stop Dose Admin Acetaminophen 650 mg 05/30/17 14:42 06/01/17 06:20 Tylenol - PO 650 mg Q6H PRN Administration FEVER OR PAIN Docusate Sodium 100 mg 05/31/17 11:30 05/31/17 22:10 Colace - PO 100 mg BID TAMAR Administration Ethambutol HCl 800 mg 05/29/17 22:00 05/30/17 21:36 Myambutol - PO 800 mg HS TAMAR Administration Ethambutol HCl 400 mg 05/30/17 07:00 05/31/17 06:03 Myambutol - PO 400 mg AM TAMAR Administration Heparin Sodium (Porcine) 5,000 unit 05/31/17 22:00 06/01/17 06:13 Heparin - SQ 5,000 unit TID TAMAR Administration Hydralazine HCl 10 mg 05/29/17 13:11 05/30/17 17:00 Apresoline Injection - IVPUSH 10 mg Q8H PRN Administration sbp >180 and or dbp >105 Famotidine/Sodium Chloride 50 mls @ 100 mls/hr 05/29/17 22:00 05/31/17 22:09 Pepcid 20 Mg Premixed Ivpb - IVPB 100 mls/hr BID TAMAR Administration Ceftriaxone Sodium 2 gm/ 100 mls @ 200 mls/hr 05/30/17 10:00 05/31/17 10:41 Dextrose IVPB 200 mls/hr DAILY TAMAR Administration Dextrose/Sodium Chloride 1,000 mls @ 125 mls/hr 05/30/17 23:15 06/01/17 00:08 D5-1/2ns+40 Meq Kcl - IV 125 mls/hr ASDIR TAMAR Administration Isoniazid 300 mg 05/29/17 21:15 05/31/17 10:41 Inh - PO 300 mg DAILY TAMAR Administration Magnesium Oxide 400 mg 05/30/17 22:00 05/31/17 22:12 Mag-Ox - PO 400 mg BID TAMAR Administration Metoprolol Tartrate 25 mg 05/31/17 15:00 06/01/17 06:14 Lopressor - PO 25 mg TID TAMAR Administration Ondansetron HCl 4 mg 05/29/17 13:11 05/30/17 09:29 Zofran Injection IVPB 4 mg Q6H PRN Administration NAUSEA Oxycodone HCl 5 mg 05/31/17 10:56 06/01/17 00:07 Roxicodone - PO 5 mg Q6H PRN Administration SEVERE PAIN Potassium Chloride 20 meq 05/30/17 22:00 05/31/17 22:10 Potassium Chloride Oral Liquid PO 20 meq BID TAMAR Administration Potassium Phos/Sodium Phos 1 packet 05/30/17 22:00 05/31/17 14:01 Phos-Nak Packet - PO 1 packet TID TAMAR Administration Pyridoxine HCl 50 mg 05/29/17 21:15 05/31/17 10:43 Vitamin B6 - PO 50 mg DAILY TAMAR Administration Rifampin 600 mg 05/29/17 21:15 05/31/17 10:43 Rifadin - PO 600 mg DAILY TAMAR Administration ASSESSMENT/PLAN: 57 year old with PMHx Renal cell cancer s/p R partial nephrectomy 2009, R lung lobectomy, Sarcoidosis , gout, HTN, TB (3rd month on treatment), previous partial small bowel obstruction presented with abdominal pain, nausea and vomiting and admitted for perforated bowel, now s/p laparotomy #Perforated bowel: POD6 s/p laparotomy with right hemicolectomy for terminal ileal mass with perforation, also cecal mass palpated at IC junction Having bowel movements Feeds escalated- solids day 7 on antibiotic, on ceftriaxone Pain mx- on tylenol 650mg Q6H and oxycodone 5mg Q6H Awaiting pathology report of cecal and terminal ileal masses- preliminary based on d/w pathologist not likely malignant. Final report shows tuberculoid granulomas-plan discuss with ID about next steps in management #Electrolytes On Normal saline @50mls KCL 20meq bid PO -discontinued Potassium Phosph Sodium phosph packet (PhoshNaK) 1 packet PO tids D5-1/2 NS 40meq Kcl @125mls/hr stopped Mg Oxide 400meq PO bid Monitor #Nausea: Improved Patient is on zofran iv 4mg Q6H PRN #HTN 10mg ivpush hydralazine Q8H with holding orders Lopressor 25 tid #SVT No SVT today Continue monitoring on telemetry per cardio For outpatient EP studies to R/o sarcoidosis Stable currently #Bilaterally pedal edema: Resolved Likely due to hypoalbuminemia, Patient just resumed regular diet with supplementation Not tender, patient is on SCDs bilateral duplex of LE showed no evidence of DVT, bilateral popliteal fossa cysts #Sarcoidosis Not currently on prednisone #TB: To have medication after meals INH-300mg PO daily Ethambutol 800mg PO HS Ethambutol 400mg PO am Rifampicin 600mg PO daily Pyridoxine 50 PO daily #Gout Not in acute exacerbation Hold meds Visit type - Emergency Visit Emergency Visit: Yes ED Registration Date: 05/26/17 Care time: The patient presented to the Emergency Department on the above date and was hospitalized for further evaluation of their emergent condition. - New Patient This patient is new to me today: No - Critical Care Critical Care patient: No - Discharge Referral Referred to [facility] Med [facility] No
--- NOTE | 2017-06-01 09:36 | PN ---
Progress Note, Physician History of Present Illness: No further episodes of PSVT, having BM, ambulating, tolerating regular diet. - Current Medication List Current Medications: Active Medications Acetaminophen (Tylenol -) 650 mg PO Q6H PRN PRN Reason: FEVER OR PAIN Last Admin: 06/01/17 06:20 Dose: 650 mg Docusate Sodium (Colace -) 100 mg PO BID [facility] Last Admin: 05/31/17 22:10 Dose: 100 mg Ethambutol HCl (Myambutol -) 800 mg PO HS [facility] Last Admin: 05/30/17 21:36 Dose: 800 mg Ethambutol HCl (Myambutol -) 400 mg PO AM [facility] Last Admin: 05/31/17 06:03 Dose: 400 mg Heparin Sodium (Porcine) (Heparin -) 5,000 unit SQ TID [facility] Last Admin: 06/01/17 06:13 Dose: 5,000 unit Hydralazine HCl (Apresoline Injection -) 10 mg IVPUSH Q8H PRN PRN Reason: sbp >180 and or dbp >105 Last Admin: 05/30/17 17:00 Dose: 10 mg Famotidine/Sodium Chloride (Pepcid 20 Mg Premixed Ivpb -) 50 mls @ 100 mls/hr IVPB BID [facility] Last Admin: 05/31/17 22:09 Dose: 100 mls/hr Ceftriaxone Sodium 2 gm/ (Dextrose) 100 mls @ 200 mls/hr IVPB DAILY [facility] Last Admin: 05/31/17 10:41 Dose: 200 mls/hr Dextrose/Sodium Chloride (D5-1/2ns+40 Meq Kcl -) 1,000 mls @ 125 mls/hr IV ASDIR [facility] Last Admin: 06/01/17 00:08 Dose: 125 mls/hr Isoniazid (Inh -) 300 mg PO DAILY [facility] Last Admin: 05/31/17 10:41 Dose: 300 mg Magnesium Oxide (Mag-Ox -) 400 mg PO BID [facility] Last Admin: 05/31/17 22:12 Dose: 400 mg Metoprolol Tartrate (Lopressor -) 25 mg PO TID [facility] Last Admin: 06/01/17 06:14 Dose: 25 mg Ondansetron HCl (Zofran Injection) 4 mg IVPB Q6H PRN PRN Reason: NAUSEA Last Admin: 05/30/17 09:29 Dose: 4 mg Oxycodone HCl (Roxicodone -) 5 mg PO Q6H PRN PRN Reason: SEVERE PAIN Last Admin: 06/01/17 00:07 Dose: 5 mg Potassium Chloride (Potassium Chloride Oral Liquid) 20 meq PO BID [facility] Last Admin: 05/31/17 22:10 Dose: 20 meq Potassium Phos/Sodium Phos (Phos-Nak Packet -) 1 packet PO TID [facility] Last Admin: 05/31/17 14:01 Dose: 1 packet Pyridoxine HCl (Vitamin B6 -) 50 mg PO DAILY [facility] Last Admin: 05/31/17 10:43 Dose: 50 mg Rifampin (Rifadin -) 600 mg PO DAILY [facility] Last Admin: 05/31/17 10:43 Dose: 600 mg - Objective Vital Signs: Vital Signs Temperature 97.4 F L 06/01/17 06:00 Pulse Rate 64 06/01/17 06:00 Respiratory Rate 14 06/01/17 06:00 Blood Pressure 132/98 06/01/17 06:00 O2 Sat by Pulse Oximetry (%) 98 05/31/17 22:00 Constitutional: Yes: No Distress, Calm Neck: Yes: Supple Cardiovascular: Yes: Regular Rate and Rhythm Respiratory: Yes: Regular, Diminished Gastrointestinal: Yes: Soft, Hypoactive Bowel Sounds Edema: No Labs: CBC, BMP 06/01/17 05:10 06/01/17 05:10 INR, PTT INR 1.04 (0.82-1.09) 05/26/17 12:25 - ....Imaging EKG: Report Reviewed (Tele: SR without PSVT) Problem List - Problems (1) Mass of cecum Code(s): K63.9 - DISEASE OF INTESTINE, UNSPECIFIED (2) Mass of small intestine Code(s): K63.89 - OTHER SPECIFIED DISEASES OF INTESTINE (3) Perforated small intestine Code(s): K63.1 - PERFORATION OF INTESTINE (NONTRAUMATIC) (4) SVT (supraventricular tachycardia) Code(s): I47.1 - SUPRAVENTRICULAR TACHYCARDIA (5) Gout Code(s): M10.9 - GOUT, UNSPECIFIED Qualifiers: Gout site: multiple sites Gout etiology: unspecified cause Chronicity: unspecified Qualified Code(s): M10.9 - Gout, unspecified; M10.9 - Gout, unspecified (6) H/O renal cell carcinoma Code(s): Z85.528 - PERSONAL HISTORY OF OTHER MALIGNANT NEOPLASM OF KIDNEY (7) HTN (hypertension) Code(s): I10 - ESSENTIAL (PRIMARY) HYPERTENSION Qualifiers: Hypertension type: essential hypertension Qualified Code(s): I10 - Essential (primary) hypertension; I10 - Essential (primary) hypertension; I10 - Essential (primary) hypertension (8) Pulmonary tuberculosis Code(s): A15.0 - TUBERCULOSIS OF LUNG (9) Sarcoidosis of lung Code(s): D86.0 - SARCOIDOSIS OF LUNG (10) Tuberculosis Code(s): A15.9 - RESPIRATORY TUBERCULOSIS UNSPECIFIED Assessment/Plan 05/29/2017 Echo: Normal LV size and fxn without sig valve abnl 1. POD 6 s/p laparotomy with right hemicolectomy for terminal ileal mass with perforation, also cecal mass palpated at IC junction 2. 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 History of hypertension 4. Renal cell CA s/p right partial nephrectomy in 2009 5. History of sarcoidosis 6. History of pulm TB post right lung lobectomy 7. Gout PLAN: 1. Continue telemetry monitoring 2. Maintain Lopressor 25 PO tid. 3. Hydralazine IV as needed 4. Continue post op management as per Surgical service 5. Empiric antibiotic coverage narrowed per ID, maintain anti-mycobacterial regimen 6. Patient was explained other option as outpatient including EP study and RFA if PSVT continues despite medication 7. DVT and GI prophylaxis, OOB to chair, f/u pathology, IS, early ambulation 8. Eventual cardiac MRI or PET to r/o cardiac sarcoid as outpatient if not already performed, patient is already scheduled for whole body PET scan by oncologist
[2017-06-01] MEDS ORDERED: SODIUM CHLORIDE 1,000 ML IV SCH (10:00)
[2017-06-01] MEDS ORDERED: PT OWN MED DRAWER 7, Y5N ONE ×3 (11:05→21:39)
[2017-06-01] MEDS: POTASSIUM CHLORIDE ORAL LIQUID 20 MEQ/15 ML PO SCH (11:09)
[2017-06-01] MEDS: FAMOTIDINE 20 MG/50 ML IVPB 50 ML IVPB SCH ×2 (11:09→21:29)
[2017-06-01] MEDS: MAGNESIUM OXIDE 400 MG TABLET (FP) PO SCH ×2 (11:10→21:22)
[2017-06-01] MEDS: RIFAMPIN 300 MG CAPSULE PO SCH (11:10)
[2017-06-01] MEDS: DOCUSATE SODIUM 100 MG CAPSULE (FP) PO SCH ×3 (11:10→21:40)
[2017-06-01] MEDS: ISONIAZID 300 MG TABLET (FP) PO SCH (11:11)
[2017-06-01] MEDS: PYRIDOXINE HCL (B-6) 50 MG TABLET (FP) PO SCH (11:19)
[2017-06-01] MEDS: CEFTRIAXONE 2 GM in DEXTROSE 5%-WATER - 100 ML IVPB SCH (11:29)
--- NOTE | 2017-06-01 13:19 | PN ---
Progress Note, Physician Chief Complaint: abdominal pain, free air History of Present Illness: POD6 s/p laparotomy with R hemicolectomy for perforation of terminal ileum with associated mass No further episodes of SVT. Tolerating diet with decreased appetite. Pt seen and examined in bed. Awake and alert, pain controlled with po meds. UOP 1250 yest recorded, 700 so far today, CANDACE with serous fluid, 250ml yesterday, 60 just emptied. Had soft BMs x 4 overnight. No fever. Still gets some nausea with TB meds, better with Ensure. - Current Medication List Current Medications: Active Medications Acetaminophen (Tylenol -) 650 mg PO Q6H PRN PRN Reason: FEVER OR PAIN Last Admin: 06/01/17 06:20 Dose: 650 mg Docusate Sodium (Colace -) 100 mg PO BID [facility] Last Admin: 06/01/17 11:18 Dose: Not Given Ethambutol HCl (Myambutol -) 800 mg PO HS [facility] Last Admin: 05/30/17 21:36 Dose: 800 mg Ethambutol HCl (Myambutol -) 400 mg PO AM [facility] Last Admin: 05/31/17 06:03 Dose: 400 mg Heparin Sodium (Porcine) (Heparin -) 5,000 unit SQ TID [facility] Last Admin: 06/01/17 06:13 Dose: 5,000 unit Hydralazine HCl (Apresoline Injection -) 10 mg IVPUSH Q8H PRN PRN Reason: sbp >180 and or dbp >105 Last Admin: 05/30/17 17:00 Dose: 10 mg Famotidine/Sodium Chloride (Pepcid 20 Mg Premixed Ivpb -) 50 mls @ 100 mls/hr IVPB BID [facility] Last Admin: 06/01/17 11:09 Dose: 100 mls/hr Ceftriaxone Sodium 2 gm/ (Dextrose) 100 mls @ 200 mls/hr IVPB DAILY [facility] Last Admin: 06/01/17 11:29 Dose: 200 mls/hr Sodium Chloride (Normal Saline -) 1,000 mls @ 50 mls/hr IV ASDIR [facility] Stop: 06/02/17 09:52 Last Admin: 06/01/17 11:19 Dose: 50 mls/hr Isoniazid (Inh -) 300 mg PO DAILY [facility] Last Admin: 06/01/17 11:11 Dose: 300 mg Magnesium Oxide (Mag-Ox -) 400 mg PO BID [facility] Last Admin: 06/01/17 11:10 Dose: 400 mg Metoprolol Tartrate (Lopressor -) 25 mg PO TID [facility] Last Admin: 06/01/17 06:14 Dose: 25 mg Ondansetron HCl (Zofran Injection) 4 mg IVPB Q6H PRN PRN Reason: NAUSEA Last Admin: 05/30/17 09:29 Dose: 4 mg Oxycodone HCl (Roxicodone -) 5 mg PO Q6H PRN PRN Reason: SEVERE PAIN Last Admin: 06/01/17 00:07 Dose: 5 mg Potassium Chloride (Potassium Chloride Oral Liquid) 20 meq PO BID [facility] Last Admin: 06/01/17 11:09 Dose: 20 meq Potassium Phos/Sodium Phos (Phos-Nak Packet -) 1 packet PO TID [facility] Last Admin: 05/31/17 14:01 Dose: 1 packet Pyridoxine HCl (Vitamin B6 -) 50 mg PO DAILY [facility] Last Admin: 06/01/17 11:19 Dose: 50 mg Rifampin (Rifadin -) 600 mg PO DAILY [facility] Last Admin: 06/01/17 11:10 Dose: 600 mg - Objective Vital Signs: Vital Signs Temperature 97.4 F L 06/01/17 06:00 Pulse Rate 56 L 06/01/17 10:42 Respiratory Rate 14 06/01/17 06:00 Blood Pressure 132/98 06/01/17 06:00 O2 Sat by Pulse Oximetry (%) 100 06/01/17 10:42 Constitutional: Yes: Well Nourished, No Distress, Calm Eyes: Yes: Conjunctiva Clear, EOM Intact Cardiovascular: Yes: Regular Rate and Rhythm. No: Murmur Respiratory: Yes: Regular, CTA Bilaterally Gastrointestinal: Yes: Normal Bowel Sounds, Soft, Tenderness (RLQ with deep palpation, minimal incisional), Other (drain with serous/light serosang fluid in bulb). No: Distention Edema: No Integumentary: Yes: Incision (midline). No: Rash Wound/Incision: Yes: Fountain Intact (at umbilicus), Dressing Removed (and midline packing changed - wounds granulating nicely, single saline-damp 2x2 and 2/3 of a 4x4 packed into upper and lower respectively; fascia intact), Unapproximated (midline). No: Dressing Dry and Intact (drain dressing with some yellow fluid, changed for dry gauze) Neurological: Yes: Alert, Oriented Labs: CBC, BMP 06/01/17 05:10 06/01/17 05:10 CMP Sodium 142 mmol/L (136-145) 06/01/17 05:10 Potassium 4.5 mmol/L (3.5-5.1) 06/01/17 05:10 Chloride 112 mmol/L (98-107) H 06/01/17 05:10 Carbon Dioxide 20 mmol/L (21-32) L 06/01/17 05:10 Anion Gap 10 (8-16) 06/01/17 05:10 BUN 3 mg/dL (7-18) L D 06/01/17 05:10 Creatinine 0.5 mg/dL (0.7-1.3) L 06/01/17 05:10 Creat Clearance w eGFR > 60 (>60) 05/30/17 20:00 Random Glucose 107 mg/dL (74-106) H D 06/01/17 05:10 Lactic Acid 1.4 mmol/L (0.4-2.0) 05/27/17 05:46 Calcium 7.6 mg/dL (8.5-10.1) L 06/01/17 05:10 Phosphorus 2.9 mg/dL (2.5-4.9) D 06/01/17 05:10 Magnesium 1.9 mg/dL (1.8-2.4) 06/01/17 05:10 Total Bilirubin 3.0 mg/dL (0.2-1.0) H 05/30/17 20:00 AST 16 U/L (15-37) D 05/30/17 20:00 ALT 12 U/L (12-78) 05/30/17 20:00 Alkaline Phosphatase 84 U/L (45-117) 05/30/17 20:00 Creatine Kinase 22 IU/L (39-308) L 05/26/17 13:25 Troponin I < 0.02 ng/ml (0.00-0.05) 05/26/17 13:25 Total Protein 5.0 g/dl (6.4-8.2) L 05/30/17 20:00 Albumin 1.9 g/dl (3.4-5.0) L 05/30/17 20:00 Lipase 145 U/L (73-393) 05/26/17 13:25 Free T3 1.4 pg/ml (2.0-4.4) L 05/29/17 05:00 K up, Phos and Mg within normal ranges Problem List - Problems (1) Perforated small intestine Assessment/Plan: POD6 s/p laparotomy with right hemicolectomy for terminal ileal mass with perforation, also cecal mass palpated at IC junction final path still pending - spoke with pathologist, no malignancy identified at this time, inflammation present with evidence of sarcoid in lymph nodes, transmural ileal inflammation noted with perforation, they are checking for AFB as well - cecal area also with inflammatory changes tolerating diet, + bowel function, voiding continue incentive spirometer, OOB to chair, ambulate with assist PT to see patient Tylenol with oxycodone for breakthrough prn lopressor per cardio GI/DVT prophylaxis ID on board - Ceftriaxone (wbc normal, afebrile, pérez diet - could d/c from surgical standpoint) and TB meds lytes repleted, will stop oral K+, continue PO phos, Mg another day or two doing well overall midline wound dressing changed, continue daily - may need VNS, though family can likely do dressings drain dressing changed, may d/c tomorrow discharge planning - VNS? for daily wound care Code(s): K63.1 - PERFORATION OF INTESTINE (NONTRAUMATIC) (2) Mass of small intestine Code(s): K63.89 - OTHER SPECIFIED DISEASES OF INTESTINE (3) Mass of cecum Code(s): K63.9 - DISEASE OF INTESTINE, UNSPECIFIED (4) Gout Code(s): M10.9 - GOUT, UNSPECIFIED Qualifiers: Gout site: multiple sites Gout etiology: unspecified cause Chronicity: unspecified Qualified Code(s): M10.9 - Gout, unspecified; M10.9 - Gout, unspecified (5) H/O renal cell carcinoma Code(s): Z85.528 - PERSONAL HISTORY OF OTHER MALIGNANT NEOPLASM OF KIDNEY (6) HTN (hypertension) Assessment/Plan: Lopressor as per cardiology Code(s): I10 - ESSENTIAL (PRIMARY) HYPERTENSION Qualifiers: Hypertension type: essential hypertension Qualified Code(s): I10 - Essential (primary) hypertension; I10 - Essential (primary) hypertension; I10 - Essential (primary) hypertension (7) Pulmonary tuberculosis Assessment/Plan: back on TB meds Code(s): A15.0 - TUBERCULOSIS OF LUNG (8) Sarcoidosis of lung Assessment/Plan: present in lymph nodes in surgical specimen defer to primary/pulmonary Code(s): D86.0 - SARCOIDOSIS OF LUNG
[2017-06-01 13:58] LABS: MAGNESIUM 1.9 mg/dL (1.8-2.4); PHOSPHOROUS 3.3 mg/dL (2.5-4.9)
[2017-06-01] MEDS: NAPH,MB-DB/K PH,MBDB POWDER PACKET PO SCH ×2 (14:01→21:30)
[2017-06-01] MEDS: ONDANSETRON 4 MG/2 ML VIAL IVPB PRN (14:01)
--- NOTE | 2017-06-01 14:26 | PN ---
Teaching Attending Note Name of Resident: Katlyn Rothman ATTENDING PHYSICIAN STATEMENT I saw and evaluated the patient. I reviewed the resident's note and discussed the case with the resident. I agree with the resident's findings and plan as documented. SUBJECTIVE: no fever or chills, denies any CP or SOB. cont to have BM , no diarrhea . abd pain is tolerable and controlled with pain meds OBJECTIVE: NAD , pleasant CV: RRR, no MRG Lungs : CTAB Ext : No edema Abd :soft, ND, TTP in periambilical area, mid line surgical wound with trevor and a packing in upper and lower parts . No surrounding erythema ASSESSMENT AND PLAN: 57 y/o unfortunate gentleman with h/o sarcoidosis, h/o renal carcinoma with lung mets, s/p resection, pulm TB , and other medical problems who presented with abd pain and was found to have bowel perforation with cecal and ileal masses 1- Perforated intestine with peritonitis and cecal/ileal masses: doing well, tolerated diet. - cont ceftriaxone . - Cont regular diet - Cont oxy and tylenol - dressing change and packing per Sx - change IVF to NS and decrease rate - follow pathology , still pending 2- SVTs: probably due to electrolytes abn, and critical illness Echo with no significant etiology. tele reviewed, no SVTs noted, one episode of NSVT( 4 beats last night ) and loren to 40s this am - repeat K, Phos, Mg this afternoon - cont BB - will need EP study and cardiac MRI as out pt 3- H/o TB : cont meds . appreciate ID Recs 4- Cont heparin sq for DVT px . cont SCDS Dispo : pending ability to switch to po abx . VNS needed at DC
--- NOTE | 2017-06-01 16:16 | PATH ---
Surgical Pathology Report Patient Name: [facility]. Rec. #: [id number] /Age/Gender: 1960 (Age: 57) / M Account: [id number] Location: 4 SO PEDS/ADOL Taken: 05/26/2017 Received: 05/29/2017 Reported: 06/01/2017 Physicians: Cameron James M.D. PHYSICIAN EMERGENCY DEPT Specimen(s) Received A: TERMINAL ILEUM, APPENDIX AND RIGHT COLON B: ADDITIONAL DISTAL MARGIN Clinical History Perforated abdominal viscous History of metastatic RCC Final Diagnosis A. TERMINAL ILEUM, APPENDIX, AND RIGHT COLON, RESECTION: SEGMENT OF BOWEL WITH FULL-THICKNESS GRANULOMATOUS AND ACUTE NECROTIZING INFLAMMATION (TUBERCULOUS ENTERITIS) AND ASSOCIATED PERFORATION OF THE ILEUM. PERFORMED SPECIAL STAIN FOR ACID-FAST BACILLI (AFB) STAIN SHOW MANY ORGANISMS. ACUTE SEROSITIS. VERMIFORM APPENDIX. SEVEN BENIGN LYMPH NODES WITH FOCAL GRANULOMATOUS INFLAMMATION (0/7). SURGICAL MARGINS ARE VIABLE. B. ADDITIONAL DISTAL MARGIN, RESECTION: PORTION OF SMALL BOWEL AND COLON CONSISTENT WITH ANASTOMOTIC SITE WITH ACUTE SEROSITIS. Comment: Immunohistochemical stains performed and interpreted at [facility] for cytokeratin AE 1/3 is negative. Prior history of renal cell carcinoma is noted ([id number]). Suggest clinical/radiologic correlation. Findings discussed with Dr. James on 06/01/17. Electronically Signed Winnie Remy M.D. Gross Description A. Received in formalin labeled "terminal ileum, appendix and right colon," is an 18.5 cm in length portion of terminal ileum with a 12 cm in length portion of cecum and right colon attached. The specimen displays 2 stapled mucosal margins and moderate attached pericolonic adipose tissue. There is a 5 cm in length vermiform appendix attached at the cecum. The serosa is casillas everett with exudate and a focal defect in the terminal ileum, 6.5 cm from the proximal mucosal margin, consistent with a rupture site. The mucosa is focally ulcerated and thickened in the area of the perforation site as well as at the ileocecal valve. Sectioning reveals firm fibrosis (possible mass) in the soft tissue surrounding the rupture site. Additionally, there is a 1.8 x 1.2 x 1.2 cm focus of firm fibrous tissue (possible mass) in the soft tissue surrounding the ileocecal valve. No definite mucosal masses are identified. The remaining mucosa is casillas with focally flattened folds at the distal aspect of the specimen. Sectioning of the appendix displays a dilated lumen containing brown fecal material. There are multiple lymph nodes identified within the pericolonic adipose tissue. Incident Analyst sections are submitted in 22 cassettes as follows: 1-proximal mucosal margin; 2-distal mucosal margin; 3-shave of mesenteric margin; 4-appendix; 9-8-tndanotfhjf site (ileum); 7-10-firm tissue surrounding perforation site in ileum; 11-ileal mucosa proximal to perforation site; 12-ileal mucosa distal to perforation site; 13-16-firm fibrous tissue surrounding ileocecal valve; 17-distal right colon; 18-20-one whole bisected lymph node each; 21-one whole trisected lymph node; 22-three whole lymph nodes. B. Received in formalin labeled "additional distal margin," are two 6 cm in length portions of bowel with a lengthwise stapled anastomosis joining the 2 specimens. The serosa is casillas-lópez and smooth. The specimen displays 2 stapled mucosal margins. The mucosa is casillas with normal folds. No mucosal masses are identified. Incident Analyst sections are submitted in 6 cassettes as follows: 8-4-ounvctdjqcui stapled mucosal margins; 0-9-zlscutlm from anastomosis (trevor removed); 0-9-kmxstxpoupmzzq sections from each portion of bowel. 05/30/[address] [facility]05/30/2017
--- NOTE | 2017-06-01 16:22 | PN ---
Progress Note (short form) - Note Progress Note: Patient seen and examined in the ICU. Awake and alert. No further episodes of SVT. Mild abdominal discomfort. Intake & Output 05/29/17 05/30/17 05/31/17 06/01/17 23:59 23:59 23:59 23:59 Intake Total 4175 4627 3405 810 Output Total 2790 710 1500 780 Balance 1385 3917 1905 30 Weight 141 lb 1.6 oz 138 lb 14.259 oz 138 lb 8 oz Last Vital Signs Temp Pulse Resp BP Pulse Ox 98.6 F 62 14 152/96 100 06/01/17 14:00 06/01/17 14:00 06/01/17 14:00 06/01/17 14:00 06/01/17 10:42 Active Medications Acetaminophen (Tylenol -) 650 mg PO Q6H PRN PRN Reason: FEVER OR PAIN Last Admin: 06/01/17 06:20 Dose: 650 mg Docusate Sodium (Colace -) 100 mg PO BID [facility] Last Admin: 06/01/17 11:18 Dose: Not Given Ethambutol HCl (Myambutol -) 800 mg PO HS [facility] Last Admin: 05/30/17 21:36 Dose: 800 mg Ethambutol HCl (Myambutol -) 400 mg PO AM [facility] Last Admin: 05/31/17 06:03 Dose: 400 mg Heparin Sodium (Porcine) (Heparin -) 5,000 unit SQ TID [facility] Last Admin: 06/01/17 14:01 Dose: 5,000 unit Hydralazine HCl (Apresoline Injection -) 10 mg IVPUSH Q8H PRN PRN Reason: sbp >180 and or dbp >105 Last Admin: 05/30/17 17:00 Dose: 10 mg Famotidine/Sodium Chloride (Pepcid 20 Mg Premixed Ivpb -) 50 mls @ 100 mls/hr IVPB BID [facility] Last Admin: 06/01/17 11:09 Dose: 100 mls/hr Ceftriaxone Sodium 2 gm/ (Dextrose) 100 mls @ 200 mls/hr IVPB DAILY [facility] Last Admin: 06/01/17 11:29 Dose: 200 mls/hr Isoniazid (Inh -) 300 mg PO DAILY [facility] Last Admin: 06/01/17 11:11 Dose: 300 mg Magnesium Oxide (Mag-Ox -) 400 mg PO BID [facility] Last Admin: 06/01/17 11:10 Dose: 400 mg Metoprolol Tartrate (Lopressor -) 25 mg PO TID [facility] Last Admin: 06/01/17 14:01 Dose: 25 mg Ondansetron HCl (Zofran Injection) 4 mg IVPB Q6H PRN PRN Reason: NAUSEA Last Admin: 06/01/17 14:01 Dose: 4 mg Oxycodone HCl (Roxicodone -) 5 mg PO Q6H PRN PRN Reason: SEVERE PAIN Last Admin: 06/01/17 00:07 Dose: 5 mg Potassium Phos/Sodium Phos (Phos-Nak Packet -) 1 packet PO TID [facility] Last Admin: 06/01/17 14:01 Dose: 1 packet Pyridoxine HCl (Vitamin B6 -) 50 mg PO DAILY [facility] Last Admin: 06/01/17 11:19 Dose: 50 mg Rifampin (Rifadin -) 600 mg PO DAILY [facility] Last Admin: 06/01/17 11:10 Dose: 600 mg HEENT: PERRL, NCAT, EOMI PULM: Clear anterior, no distress CV: tachy, regular, no m/r/g appreciated ABD: midline incision, CDI. CANDACE with small amt of serosang drainage, hypoactive BS EXT: no edema, 3+ pulses NEURO: non focal. AAO Laboratory Results - last 24 hr 05/31/17 06/01/17 06/01/17 20:35 05:10 05:10 WBC 8.2 RBC 3.91 L Hgb 10.8 L Hct 32.0 L MCV 82.0 MCH 27.8 MCHC 33.9 RDW 16.0 H Plt Count 425 MPV 8.0 Neutrophils % 74.9 Lymphocytes % 6.3 L Monocytes % 12.5 H Eosinophils % 5.8 H D Basophils % 0.5 Sodium 140 142 Potassium 3.9 4.5 Chloride 110 H 112 H Carbon Dioxide 23 20 L Anion Gap 7 L 10 BUN 5 L D 3 L D Creatinine 0.6 L 0.5 L Random Glucose 139 H 107 H D Calcium 7.3 L 7.6 L Phosphorus 1.8 L 2.9 D Magnesium 2.1 1.9 06/01/17 13:00 WBC RBC Hgb Hct MCV MCH MCHC RDW Plt Count MPV Neutrophils % Lymphocytes % Monocytes % Eosinophils % Basophils % Sodium Potassium 4.6 Chloride Carbon Dioxide Anion Gap BUN Creatinine Random Glucose Calcium Phosphorus 3.3 Magnesium 1.9 IMP: SVT POD #2 Ex lap with myron-coloectomy due to perforated terminal ileum / mass Pulm TB Renal cell CA S/P Right partial nephrectomy in 2009 Right lung lobectomy Sarcoidosis Gout Hypertension TB Enteritis PLAN: PO as tolerated VTE prophylaxis OOB to chair ABX Cardiac Telemetry monitoring Dr Fine
[2017-06-01] MEDS: ETHAMBUTOL HCL 400 MG TABLET PO SCH (21:28)
[2017-06-02 05:59] LABS: BASOPHIL 1.2 % (0-2.0); EOSINOPHIL 5.5 % (0-4.5); MCH 27.7 pg (25.7-33.7); MCHC 33.8 g/dl (32.0-35.9); MEAN CELL VOLUME 82.1 fl (80-96); MEAN PLT VOLUME 8.3 fl (7.5-11.1); NEUTROPHILS 76.7 % (42.8-82.8); PLATELET COUNT 448 K/MM3 (134-434); RDW 16.3 % (11.9-15.9); WHITE BLOOD COUNT 9.9 K/mm3 (4.0-10.0)
[2017-06-02] MEDS ORDERED: PT OWN MED DRAWER 7, Y5N ONE ×3 (06:01→09:55)
[2017-06-02] MEDS: NAPH,MB-DB/K PH,MBDB POWDER PACKET PO SCH ×2 (06:03→06:54)
[2017-06-02 06:39] LABS: ANION GAP 10 (8-16); CALCIUM 7.9 mg/dL (8.5-10.1); CO2 22 mmol/L (21-32); CREATININE 0.6 mg/dL (0.7-1.3); GLUCOSE,RANDOM 81 mg/dL (74-106); MAGNESIUM 1.9 mg/dL (1.8-2.4); PHOSPHOROUS 3.6 mg/dL (2.5-4.9)
[2017-06-02] MEDS: HEPARIN NA (PORCINE) 5,000 UNITS/ML 1ML VIAL SQ SCH ×2 (06:52→14:45)
[2017-06-02] MEDS: METOPROLOL TARTRATE 25 MG TABLET (FP) PO SCH ×2 (06:53→14:45)
[2017-06-02] MEDS: ETHAMBUTOL HCL 400 MG TABLET PO SCH (06:53)
[2017-06-02] MEDS: FAMOTIDINE 20 MG/50 ML IVPB 50 ML IVPB SCH (09:58)
[2017-06-02] MEDS: CEFTRIAXONE 2 GM in DEXTROSE 5%-WATER - 100 ML IVPB SCH (09:58)
[2017-06-02] MEDS: MAGNESIUM OXIDE 400 MG TABLET (FP) PO SCH (09:58)
[2017-06-02] MEDS: RIFAMPIN 300 MG CAPSULE PO SCH (09:59)
[2017-06-02] MEDS: DOCUSATE SODIUM 100 MG CAPSULE (FP) PO SCH (10:00)
[2017-06-02] MEDS: PYRIDOXINE HCL (B-6) 50 MG TABLET (FP) PO SCH (10:00)
[2017-06-02] MEDS: ISONIAZID 300 MG TABLET (FP) PO SCH (10:01)
--- NOTE | 2017-06-02 10:11 | PN ---
Progress Note, Physician History of Present Illness: No further episodes of PSVT, having BM, ambulating, tolerating regular diet. - Current Medication List Current Medications: Active Medications Acetaminophen (Tylenol -) 650 mg PO Q6H PRN PRN Reason: FEVER OR PAIN Last Admin: 06/01/17 21:26 Dose: 650 mg Docusate Sodium (Colace -) 100 mg PO BID [facility] Last Admin: 06/02/17 10:00 Dose: Not Given Ethambutol HCl (Myambutol -) 800 mg PO HS [facility] Last Admin: 06/01/17 21:28 Dose: 800 mg Ethambutol HCl (Myambutol -) 400 mg PO AM [facility] Last Admin: 06/02/17 06:53 Dose: 400 mg Heparin Sodium (Porcine) (Heparin -) 5,000 unit SQ TID [facility] Last Admin: 06/02/17 06:52 Dose: 5,000 unit Hydralazine HCl (Apresoline Injection -) 10 mg IVPUSH Q8H PRN PRN Reason: sbp >180 and or dbp >105 Last Admin: 05/30/17 17:00 Dose: 10 mg Famotidine/Sodium Chloride (Pepcid 20 Mg Premixed Ivpb -) 50 mls @ 100 mls/hr IVPB BID [facility] Last Admin: 06/02/17 09:58 Dose: 100 mls/hr Ceftriaxone Sodium 2 gm/ (Dextrose) 100 mls @ 200 mls/hr IVPB DAILY [facility] Last Admin: 06/02/17 09:58 Dose: 200 mls/hr Isoniazid (Inh -) 300 mg PO DAILY [facility] Last Admin: 06/02/17 10:01 Dose: 300 mg Magnesium Oxide (Mag-Ox -) 400 mg PO BID [facility] Last Admin: 06/02/17 09:58 Dose: 400 mg Metoprolol Tartrate (Lopressor -) 25 mg PO TID [facility] Last Admin: 06/02/17 06:53 Dose: 25 mg Ondansetron HCl (Zofran Injection) 4 mg IVPB Q6H PRN PRN Reason: NAUSEA Last Admin: 06/01/17 14:01 Dose: 4 mg Oxycodone HCl (Roxicodone -) 5 mg PO Q6H PRN PRN Reason: SEVERE PAIN Last Admin: 06/01/17 00:07 Dose: 5 mg Potassium Phos/Sodium Phos (Phos-Nak Packet -) 1 packet PO TID [facility] Last Admin: 06/02/17 06:54 Dose: 1 packet Pyridoxine HCl (Vitamin B6 -) 50 mg PO DAILY [facility] Last Admin: 06/02/17 10:00 Dose: 50 mg Rifampin (Rifadin -) 600 mg PO DAILY [facility] Last Admin: 06/02/17 09:59 Dose: 600 mg - Objective Vital Signs: Vital Signs Temperature 98.6 F 06/02/17 06:57 Pulse Rate 69 06/02/17 06:57 Respiratory Rate 18 06/02/17 06:57 Blood Pressure 132/98 06/02/17 06:57 O2 Sat by Pulse Oximetry (%) 99 06/01/17 22:00 Constitutional: Yes: No Distress, Calm Neck: Yes: Supple Cardiovascular: Yes: Regular Rate and Rhythm Respiratory: Yes: Regular, Diminished Gastrointestinal: Yes: Normal Bowel Sounds, Soft Edema: No Labs: CBC, BMP 06/02/17 05:00 06/02/17 05:00 INR, PTT INR 1.04 (0.82-1.09) 05/26/17 12:25 Problem List - Problems (1) Mass of cecum Code(s): K63.9 - DISEASE OF INTESTINE, UNSPECIFIED (2) Mass of small intestine Code(s): K63.89 - OTHER SPECIFIED DISEASES OF INTESTINE (3) Perforated small intestine Code(s): K63.1 - PERFORATION OF INTESTINE (NONTRAUMATIC) (4) SVT (supraventricular tachycardia) Code(s): I47.1 - SUPRAVENTRICULAR TACHYCARDIA (5) Gout Code(s): M10.9 - GOUT, UNSPECIFIED Qualifiers: Gout site: multiple sites Gout etiology: unspecified cause Chronicity: unspecified Qualified Code(s): M10.9 - Gout, unspecified; M10.9 - Gout, unspecified (6) H/O renal cell carcinoma Code(s): Z85.528 - PERSONAL HISTORY OF OTHER MALIGNANT NEOPLASM OF KIDNEY (7) HTN (hypertension) Code(s): I10 - ESSENTIAL (PRIMARY) HYPERTENSION Qualifiers: Hypertension type: essential hypertension Qualified Code(s): I10 - Essential (primary) hypertension; I10 - Essential (primary) hypertension; I10 - Essential (primary) hypertension (8) Pulmonary tuberculosis Code(s): A15.0 - TUBERCULOSIS OF LUNG (9) Sarcoidosis of lung Code(s): D86.0 - SARCOIDOSIS OF LUNG (10) Tuberculosis Code(s): A15.9 - RESPIRATORY TUBERCULOSIS UNSPECIFIED Assessment/Plan 05/29/2017 Echo: Normal LV size and fxn without sig valve abnl 1. POD 7 s/p laparotomy with right hemicolectomy for terminal ileal mass with perforation, also cecal mass palpated at IC junction 2. 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 History of hypertension 4. Renal cell CA s/p right partial nephrectomy in 2009 5. History of sarcoidosis 6. 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 Gout PLAN: 1. Continue telemetry monitoring 2. Increase Lopressor 50 PO bid. 3. Hydralazine IV as needed 4. Continue post op management as per Surgical service 5. Empiric antibiotic coverage narrowed per ID, maintain anti-mycobacterial regimen 6. Patient was explained other option as outpatient including EP study and RFA if PSVT continues despite medication 7. DVT and GI prophylaxis, OOB to chair, f/u pathology, IS, early ambulation 8. Eventual cardiac MRI or PET to r/o cardiac sarcoid as outpatient if not already performed, patient is already scheduled for whole body PET scan by oncologist
--- NOTE | 2017-06-02 11:35 | PN ---
Progress Note (short form) - Note Progress Note: Feels overall better. Awake and alert. No further episodes of SVT. Tolerating PO intake. Intake & Output 05/30/17 05/31/17 06/01/17 06/02/17 23:59 23:59 23:59 23:59 Intake Total 4627 3405 880 50 Output Total 710 1500 990 50 Balance 3917 1905 -110 0 Weight 138 lb 14.259 oz 138 lb 8 oz Last Vital Signs Temp Pulse Resp BP Pulse Ox 98.6 F 72 18 147/100 100 06/02/17 06:57 06/02/17 10:40 06/02/17 10:00 06/02/17 10:00 06/02/17 10:40 Active Medications Acetaminophen (Tylenol -) 650 mg PO Q6H PRN PRN Reason: FEVER OR PAIN Last Admin: 06/01/17 21:26 Dose: 650 mg Docusate Sodium (Colace -) 100 mg PO BID [facility] Last Admin: 06/02/17 10:00 Dose: Not Given Ethambutol HCl (Myambutol -) 800 mg PO HS [facility] Last Admin: 06/01/17 21:28 Dose: 800 mg Ethambutol HCl (Myambutol -) 400 mg PO AM [facility] Last Admin: 06/02/17 06:53 Dose: 400 mg Heparin Sodium (Porcine) (Heparin -) 5,000 unit SQ TID [facility] Last Admin: 06/02/17 06:52 Dose: 5,000 unit Hydralazine HCl (Apresoline Injection -) 10 mg IVPUSH Q8H PRN PRN Reason: sbp >180 and or dbp >105 Last Admin: 05/30/17 17:00 Dose: 10 mg Famotidine/Sodium Chloride (Pepcid 20 Mg Premixed Ivpb -) 50 mls @ 100 mls/hr IVPB BID [facility] Last Admin: 06/02/17 09:58 Dose: 100 mls/hr Ceftriaxone Sodium 2 gm/ (Dextrose) 100 mls @ 200 mls/hr IVPB DAILY [facility] Last Admin: 06/02/17 09:58 Dose: 200 mls/hr Isoniazid (Inh -) 300 mg PO DAILY [facility] Last Admin: 06/02/17 10:01 Dose: 300 mg Magnesium Oxide (Mag-Ox -) 400 mg PO BID [facility] Last Admin: 06/02/17 09:58 Dose: 400 mg Metoprolol Tartrate (Lopressor -) 25 mg PO TID [facility] Last Admin: 06/02/17 06:53 Dose: 25 mg Ondansetron HCl (Zofran Injection) 4 mg IVPB Q6H PRN PRN Reason: NAUSEA Last Admin: 06/01/17 14:01 Dose: 4 mg Oxycodone HCl (Roxicodone -) 5 mg PO Q6H PRN PRN Reason: SEVERE PAIN Last Admin: 06/01/17 00:07 Dose: 5 mg Potassium Phos/Sodium Phos (Phos-Nak Packet -) 1 packet PO TID [facility] Last Admin: 06/02/17 06:54 Dose: 1 packet Pyridoxine HCl (Vitamin B6 -) 50 mg PO DAILY [facility] Last Admin: 06/02/17 10:00 Dose: 50 mg Rifampin (Rifadin -) 600 mg PO DAILY [facility] Last Admin: 06/02/17 09:59 Dose: 600 mg HEENT: PERRL, NCAT, EOMI PULM: Clear anterior, no distress CV: tachy, regular, no m/r/g appreciated ABD: midline incision, CDI. CANDACE with small amt of serosang drainage, (+) BS EXT: no edema, 3+ pulses NEURO: non focal. AAO Laboratory Results - last 24 hr 06/01/17 06/02/17 06/02/17 13:00 05:00 05:00 WBC 9.9 RBC 3.99 L Hgb 11.1 L Hct 32.8 L MCV 82.1 MCH 27.7 MCHC 33.8 RDW 16.3 H Plt Count 448 H MPV 8.3 Neutrophils % 76.7 Lymphocytes % 5.5 L Monocytes % 11.1 H Eosinophils % 5.5 H Basophils % 1.2 Sodium 140 Potassium 4.6 4.1 Chloride 108 H Carbon Dioxide 22 Anion Gap 10 BUN 3 L Creatinine 0.6 L Random Glucose 81 D Calcium 7.9 L Phosphorus 3.3 3.6 Magnesium 1.9 1.9 IMP: SVT POD #2 Ex lap with myron-coloectomy due to perforated terminal ileum / mass Pulm TB Renal cell CA S/P Right partial nephrectomy in 2009 Right lung lobectomy Sarcoidosis Gout Hypertension TB Enteritis PLAN: PO as tolerated VTE prophylaxis OOB to chair ABX Dr Fine
[2017-06-02] MEDS: ACETAMINOPHEN 325 MG TABLET (FP) PO PRN (12:53)
--- NOTE | 2017-06-02 14:36 | PN ---
Progress Note, Physician Chief Complaint: abdominal pain, free air History of Present Illness: POD7 s/p laparotomy with R hemicolectomy for perforation of terminal ileum with associated mass No further episodes of SVT. Tolerating diet with decreased appetite. Getting Ensure. Pt seen and examined in bed. Was ambulating around unit. Pain controlled with po meds. CANDACE with serous fluid, 290ml yesterday, 50 last shift, 10-15 in bulb. Having soft BMs/diarrhea. No fever. Minimal abdominal pain, had Tylenol earlier. - Current Medication List Current Medications: Active Medications Acetaminophen (Tylenol -) 650 mg PO Q6H PRN PRN Reason: FEVER OR PAIN Last Admin: 06/02/17 12:53 Dose: 650 mg Docusate Sodium (Colace -) 100 mg PO BID [facility] Last Admin: 06/02/17 10:00 Dose: Not Given Ethambutol HCl (Myambutol -) 800 mg PO HS [facility] Last Admin: 06/01/17 21:28 Dose: 800 mg Ethambutol HCl (Myambutol -) 400 mg PO AM [facility] Last Admin: 06/02/17 06:53 Dose: 400 mg Heparin Sodium (Porcine) (Heparin -) 5,000 unit SQ TID [facility] Last Admin: 06/02/17 06:52 Dose: 5,000 unit Hydralazine HCl (Apresoline Injection -) 10 mg IVPUSH Q8H PRN PRN Reason: sbp >180 and or dbp >105 Last Admin: 05/30/17 17:00 Dose: 10 mg Famotidine/Sodium Chloride (Pepcid 20 Mg Premixed Ivpb -) 50 mls @ 100 mls/hr IVPB BID [facility] Last Admin: 06/02/17 09:58 Dose: 100 mls/hr Ceftriaxone Sodium 2 gm/ (Dextrose) 100 mls @ 200 mls/hr IVPB DAILY [facility] Last Admin: 06/02/17 09:58 Dose: 200 mls/hr Isoniazid (Inh -) 300 mg PO DAILY [facility] Last Admin: 06/02/17 10:01 Dose: 300 mg Metoprolol Tartrate (Lopressor -) 25 mg PO TID [facility] Last Admin: 06/02/17 06:53 Dose: 25 mg Ondansetron HCl (Zofran Injection) 4 mg IVPB Q6H PRN PRN Reason: NAUSEA Last Admin: 06/01/17 14:01 Dose: 4 mg Oxycodone HCl (Roxicodone -) 5 mg PO Q6H PRN PRN Reason: SEVERE PAIN Last Admin: 06/01/17 00:07 Dose: 5 mg Pyridoxine HCl (Vitamin B6 -) 50 mg PO DAILY [facility] Last Admin: 06/02/17 10:00 Dose: 50 mg Rifampin (Rifadin -) 600 mg PO DAILY [facility] Last Admin: 06/02/17 09:59 Dose: 600 mg - Objective Vital Signs: Vital Signs Temperature 98.6 F 06/02/17 06:57 Pulse Rate 72 06/02/17 10:40 Respiratory Rate 18 06/02/17 10:00 Blood Pressure 147/100 06/02/17 10:00 O2 Sat by Pulse Oximetry (%) 100 06/02/17 10:40 Vital Signs Period Temp Pulse Resp BP Sys/Parks Pulse Ox Last 24 Hr 98.2 F-98.8 F 60-73 18-18 132-152/84-100 99-100 Intake & Output 06/01/17 06/02/17 06/02/17 23:59 07:59 15:59 Intake Total 70 50 Output Total 160 50 Balance -90 0 Intake: IV 20 #22 R wrist 05/29/17 10 lfa #18 05/30/17 10 IVPB 50 Oral 50 Output: Drainage 160 50 Rt Abdomen 160 50 Other: Voiding Method Urinal Urinal Bowel Movement No Constitutional: Yes: Well Nourished, No Distress, Calm Eyes: Yes: Conjunctiva Clear, EOM Intact. No: Sclera Icterus Cardiovascular: Yes: Regular Rate and Rhythm. No: Murmur Respiratory: Yes: Regular, CTA Bilaterally Gastrointestinal: Yes: Normal Bowel Sounds, Soft, Tenderness (mild right-sided) , Other (drain with minimal serous fluid in bulb). No: Distention Extremities: No: Cool, Cyanosis Edema: No Integumentary: Yes: Incision (midline). No: Jaundice, Rash Wound/Incision: Yes: Rosangela Intact (at umbilicus), Dressing Dry and Intact ( slight staining at edges, dry), Dressing Removed (and midline packings changed; wounds granulating, beefy red), Unapproximated (midline) Neurological: Yes: Alert, Oriented Labs: CBC, BMP 06/02/17 05:00 10/20/17 05:00 INR, PTT INR 1.04 (0.82-1.09) 05/26/17 12:25 CMP Sodium 140 mmol/L (136-145) 06/02/17 05:00 Potassium 4.1 mmol/L (3.5-5.1) 06/02/17 05:00 Chloride 108 mmol/L (98-107) H 06/02/17 05:00 Carbon Dioxide 22 mmol/L (21-32) 06/02/17 05:00 Anion Gap 10 (8-16) 06/02/17 05:00 BUN 3 mg/dL (7-18) L 06/02/17 05:00 Creatinine 0.6 mg/dL (0.7-1.3) L 06/02/17 05:00 Creat Clearance w eGFR > 60 (>60) 05/30/17 20:00 Random Glucose 81 mg/dL (74-106) D 06/02/17 05:00 Lactic Acid 1.4 mmol/L (0.4-2.0) 05/27/17 05:46 Calcium 7.9 mg/dL (8.5-10.1) L 06/02/17 05:00 Phosphorus 3.6 mg/dL (2.5-4.9) 06/02/17 05:00 Magnesium 1.9 mg/dL (1.8-2.4) 06/02/17 05:00 Total Bilirubin 3.0 mg/dL (0.2-1.0) H 05/30/17 20:00 AST 16 U/L (15-37) D 05/30/17 20:00 ALT 12 U/L (12-78) 05/30/17 20:00 Alkaline Phosphatase 84 U/L (45-117) 05/30/17 20:00 Creatine Kinase 22 IU/L (39-308) L 05/26/17 13:25 Troponin I < 0.02 ng/ml (0.00-0.05) 05/26/17 13:25 Total Protein 5.0 g/dl (6.4-8.2) L 05/30/17 20:00 Albumin 1.9 g/dl (3.4-5.0) L 05/30/17 20:00 Lipase 145 U/L (73-393) 05/26/17 13:25 Free T3 1.4 pg/ml (2.0-4.4) L 05/29/17 05:00 Problem List - Problems (1) Perforated small intestine Assessment/Plan: POD7 s/p laparotomy with right hemicolectomy for terminal ileal mass with perforation, also cecal mass palpated at IC junction pathology with no malignancy identified, AFB + for many organisms, 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 and perforation of TI, also inflammatory mass at ileocecal valve in cecum; also evidence of sarcoid in lymph nodes tolerating diet, + bowel function, voiding Apolinar drain removed, site dressed with gauze continue incentive spirometer, OOB to chair, ambulate with assist PT has seen and ambulated with patient Tylenol prn for pain with max 2600mg/day lopressor per cardio GI/DVT prophylaxis ID on board - Ceftriaxone off, TB meds to continue lytes repleted, will stop oral supplements midline wound dressing changed, continue daily - family can likely do dressings vs VNS discharge planning - daily wound care instructions in discharge plan pt to f/u with me in clinic as directed (~2 wks from surgery) Code(s): K63.1 - PERFORATION OF INTESTINE (NONTRAUMATIC) (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 - TUBERCULOUS ENTERITIS (3) Gout Code(s): M10.9 - GOUT, UNSPECIFIED Qualifiers: Gout site: multiple sites Gout etiology: unspecified cause Chronicity: unspecified Qualified Code(s): M10.9 - Gout, unspecified; M10.9 - Gout, unspecified (4) H/O renal cell carcinoma Code(s): Z85.528 - PERSONAL HISTORY OF OTHER MALIGNANT NEOPLASM OF KIDNEY (5) HTN (hypertension) Assessment/Plan: Lopressor as per cardiology Code(s): I10 - ESSENTIAL (PRIMARY) HYPERTENSION Qualifiers: Hypertension type: essential hypertension Qualified Code(s): I10 - Essential (primary) hypertension; I10 - Essential (primary) hypertension; I10 - Essential (primary) hypertension (6) Pulmonary tuberculosis Assessment/Plan: back on TB meds Code(s): A15.0 - TUBERCULOSIS OF LUNG (7) Sarcoidosis of lung with sarcoidosis of lymph nodes Code(s): D86.2 - SARCOIDOSIS OF LUNG WITH SARCOIDOSIS OF LYMPH NODES
--- NOTE | 2017-06-02 18:19 | DS ---
Physical Exam: SUBJECTIVE: Patient seen and examined in the am. Passed 4 episodes of stool overnight. No episodes of vtach or SVTs overnight. Eating better now. Pain is well managed. OBJECTIVE: Vital Signs Period Temp Pulse Resp BP Sys/Parks Pulse Ox Last 24 Hr 89.5 F-98.8 F 60-73 18-20 129-152/84-100 99-100 PHYSICAL EXAM GENERAL: The patient is awake, alert, in no painful distress. EYES: sclera anicteric, conjunctiva clear. ENT: moist mucous membranes. LUNGS: Breath sounds equal, clear to auscultation bilaterally HEART: Regular rate and rhythm, S1, S2 without murmur ABDOMEN: Soft, normoactive bowel sounds, mildly tender, nondistended. Gauze packed surgical wounds supra-umbilical and infra-umbilical, each measuring about 3cm. Soaked with serosanguinous fluid. CANDACE tube in right hypochondrial region, soaked surgical dressing over site. Drain with very minimal sero- sanguinous collections. EXTREMITIES: 2+ pulses, warm, well-perfused, no edema. NEUROLOGICAL: Alert and oriented X3. Normal speech, gait not observed. LABS Laboratory Results - last 24 hr 06/02/17 06/02/17 05:00 05:00 WBC 9.9 RBC 3.99 L Hgb 11.1 L Hct 32.8 L MCV 82.1 MCH 27.7 MCHC 33.8 RDW 16.3 H Plt Count 448 H MPV 8.3 Neutrophils % 76.7 Lymphocytes % 5.5 L Monocytes % 11.1 H Eosinophils % 5.5 H Basophils % 1.2 Sodium 140 Potassium 4.1 Chloride 108 H Carbon Dioxide 22 Anion Gap 10 BUN 3 L Creatinine 0.6 L Random Glucose 81 D Calcium 7.9 L Phosphorus 3.6 Magnesium 1.9 CXR 05/26/17: Interval better aeration of R upper lobe with residual airspace disease /pneumonia. CT abdomen 05/26/17: Atelectasis of R lower lung lobe. Free air under the diaphragm. Moderately distended fluid loops of small bowel bowel within R side of abdomen and pelvis and colon. Surgical mass pathology report of terminal ileal, appendix and R colon stained for many acid fast bacilli : HOSPITAL COURSE: Date of Admission:05/26/17 Date of Discharge: 06/02/17 57 year old with PMHx Renal cell cancer s/p R partial nephrectomy 2009, R lung lobectomy, Sarcoidosis, gout, HTN, TB (3rd month on treatment), previous partial small bowel obstruction presented with abdominal pain, nausea and vomiting and admitted for perforated bowel, now s/p laparotomy. #Perforated bowel: s/p with right hemicolectomy for terminal ileal mass with perforation, also cecal mass palpated at IC junction Patient had resumed bowel movements, was having more loose stools Was tolerating solid food Received ceftriaxone for 8 days Pain mx- was discharged on NSAIDS and tylenol For resected tuberculoid- D/W Infectious disease doctor-to continue antituberculoid therapy #Electrolytes Were repleted as needed #Nausea: Improved Patient was on zofran iv 4mg Q6H PRN #HTN Received 10mg ivpush hydralazine Q8H while NPO Started on Lopressor 25 tid Resumed home losartan 50mg PO #SVT Had 2 episodes of SVT that were aborted with adenosine 6mg Was placed on continous cardiac monitoring Electrolytes-K, Mg and phosphate were repleted as needed intravenously and orally For outpatient follow up with box loader for EP studies to R/o sarcoidosis #Bilaterally pedal edema: Resolved Likely due to hypoalbuminemia, Patient just resumed regular diet with supplementation Not tender, patient is on SCDs bilateral duplex of LE showed no evidence of DVT, bilateral popliteal fossa cysts #Sarcoidosis Not currently on prednisone #TB: To have medication after meals INH-300mg PO daily Ethambutol 800mg PO HS [facility] 400mg PO am Rifampicin 600mg PO daily Pyridoxine 50 PO daily #Gout Not in acute exacerbation May resume medications at home Minutes to complete discharge: 45 Discharge Summary Reason For Visit: PERFORATED ABDOMINAL VISCUS Current Active Problems Lactic acidosis (Acute) Mass of cecum (Acute) Mass of small intestine (Acute) Perforated abdominal viscus (Acute) Perforated small intestine (Acute) SVT (supraventricular tachycardia) (Acute) Sepsis associated hypotension (Acute) Tuberculous enteritis (Acute) Gout (Chronic) H/O renal cell carcinoma (Chronic) HTN (hypertension) (Chronic) Pulmonary tuberculosis (Chronic) Sarcoidosis of lung (Chronic) Sarcoidosis of lung with sarcoidosis of lymph nodes (Chronic) Tuberculosis (Chronic) Condition: Improved - Instructions Diet, Activity, Other Instructions: Postoperative instructions: You had a right hemicolectomy on 05/26/[address] Cameron James of [facility]. Activity: Resume your usual activities gradually, but no heavy exertion or lifting more than 10-15 pounds for 6 weeks. You may shower with your dressing/ packing out, just pat the incision areas dry. Eat lightly at first, but advance to your usual diet as tolerated. Pain: For pain, you may use Tylenol (acetaminophen) every 6 hours as neededDo not take more than 2600mg of acetaminophen in a day. Take medications as prescribed or indicated on the labeling. WOUND CARE: Tuck saline-dampened gauze into the midline abdominal wounds daily after shower or cleansing. Cover with gauze and tape. You cannot hurt the wounds with soap and water in the shower. No baths or swimming. Leave the drain dressing for 1-2 days, then may remove it and start showering without the dressings. Keep that site covered with gauze daily if it continues to leak fluid until it seals over. Follow-up: Call Dr. James's office at [phone] to make your postop appointment (Monday ~2 weeks after surgery). Clinic is held in the Diagnostic [facility] on the first floor of [facility]. Call the office if you have: * increasing pain not responsive to pain medication * fever of 101F or higher * vomiting * unusual or increasing bleeding or drainage from wounds * increasing redness or swelling at wound sites Also, see your primary medical doctor-within 1-2 weeks. Follow up with cardiology -Dr Josue Jones next week as well. As an outpatient you may need EP study and RFA for the arrythmias you had while here. You may also require eventual cardiac MRI or PET to r/o cardiac sarcoid as outpatient i Please follow up with your oncologist-Dr Banuelos You are already scheduled for whole body PET scan by oncologist Please follow up with your infectious disease doctor-Dr Jacques within 2 weeks Please continue all your home medications. If you have chills, fevers, persistent diarrhea, nausea, and vomiting or feel your symptoms are getting worse please go to the nearest emergency room. Referrals: Kuldeep Villafana [Non Staff, Medical] - 1 Week (Please follow up with your primary care doctor in one week) Cameron James MD [Staff Physician] - 2 Weeks (Please follow up with your surgeon in 2 weeks) Josue Jones MD [Staff Physician] - 2 Weeks (Please follow up with your box loader in 2 weeks) Shantell Banuelos MD [Staff Physician] - 2 Weeks (Please follow up with your oncologist, Dr Banuelos) Disposition: VNS/HOME HEALTH CARE - Home Medications Comprehensive Discharge Medication List: Ambulatory Orders Losartan Potassium 50 mg PO DAILY 03/14/17 Isoniazid [Nydrazid -] 300 mg PO DAILY@0700 #30 tablet 04/05/17 Rifampin [Rifadin -] 600 mg PO DAILY #30 mg 04/05/17 Ethambutol HCl 400 mg PO AM 06/01/17 Ethambutol HCl [Myambutol] 800 mg PO HS 06/01/17 Metoprolol Tartrate [Lopressor -] 25 mg PO TID #90 tablet 06/02/17 Pyridoxine HCl (B-6) [Vitamin B6 -] 50 mg PO DAILY tablet 06/02/17 This patient is new to me today: No Emergency Visit: Yes ED Registration Date: 05/26/17 Care time: The patient presented to the Emergency Department on the above date and was hospitalized for further evaluation of their emergent condition. Critical Care patient: No - Discharge Referral Referred to [facility] Med P.C.: No
[2017-06-02 18:21] VITALS: BP 148/98; PULSE 72; TEMP 97.9
--- NOTE | 2017-06-02 18:44 | PN ---
Teaching Attending Note Name of Resident: Katlyn Rothman ATTENDING PHYSICIAN STATEMENT I saw and evaluated the patient. I reviewed the resident's note and discussed the case with the resident. I agree with the resident's findings and plan as documented. SUBJECTIVE: seen at 9 am No fever or chills, had minimal Abd pain , did not require a lot of pain meds had 4 bM at night , 2 formed and 2 watery. later throughout the day , no BMS OBJECTIVE: NAD , pleasant CV: RRR, no MRG Lungs : CTAB Ext : No edema Abd: soft, ND, TTP in periambilical area, mid line surgical wound with trevor and a packing in upper and lower parts . 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 d/w ID - cont anti-TB meds - dc IVF wound packing daily , and f/u with Sx . - diarrhea is likely due to colon resection and Abx , c diff is unlikely with no significant sx , fever or leukocytosis 2- SVTs: probably due to electrolytes abn, and critical illness Echo with no significant etiology. tele reviewed, no SVTs noted, one episode of NSVT( 4 beats last night ) and loren to 40s this am Cont BB - will need EP study and cardiac MRI as out pt f/u with card 3- H/o TB : cont meds . 4- DC home . daughter and are RNs and will help with wound care Ambulating with no help
== END 2017-06-02 17:30 | disposition home health service (06) | DRG 329 ==
LOC: JER 11:36 → JERBED 14:34 → J8W 23:08 → JICU 05-27 12:55 → J2W 05-30 20:07 → J4S 05-30 23:10 → J2W 05-30 23:17
PROVIDERS: ADMIT Internal Medicine; ATTEND Internal Medicine
PROC: 0DTF0ZZ Resection of Right Large Intestine, Open Approach (ICD-10-PCS; principal; 2017-05-26 16:00)
DX: K63.1 Perforation of intestine (nontraumatic) (principal); K65.8 Other peritonitis; A41.9 Sepsis, unspecified organism; E87.2 Acidosis; A15.0 Tuberculosis of lung; I47.1 Supraventricular tachycardia; D86.0 Sarcoidosis of lung; E88.09 Other disorders of plasma-protein metabolism, not elsewhere classified; M10.9 Gout, unspecified; K63.89 Other specified diseases of intestine; Z86.19 Personal history of other infectious and parasitic diseases; Z79.52 Long term (current) use of systemic steroids; Z87.891 Personal history of nicotine dependence; Z85.528 Personal history of other malignant neoplasm of kidney
CPT/HCPCS: 36415; 71010-TC; 74176-TC; 80048; 80053; 81003; 81015; 82550; 83605; 83690; 83735; 84100; 84132; 84481; 84484; 85025; 85027; 85610; 85730; 86850; 86900; 86901; 87040; 87070; 87075; 87186; 87205; 88304-TC; 88307-TC; 90670; 93005; 93010; 93306-TC; 93970-TC; 94010; 94760; 97116-GP; 97161-GP; 99283-25; J1644

== ENCOUNTER 2018-11-07 06:15 | Day surgery (SDC) | payer BC, OTHER ==
[2018-11-07 07:18] VITALS: BMI 22.0
[2018-11-07] MEDS ORDERED: PROPOFOL 20 ML ONE ×2 (08:19)
[2018-11-07 09:18] VITALS: TEMP 97.6
[2018-11-07 09:19] VITALS: PULSE 59
[2018-11-07 10:36] VITALS: BP 130/70
--- NOTE | 2018-11-08 09:30 | PATH ---
Surgical Pathology Report Patient Name: MOLLY MICHAEL [facility]. Rec. #: [id number] /Age/Gender: 1960 (Age: 58) / M Account: [id number] Location: U-ENDOSCOPY Taken: 11/07/2018 Received: 11/07/2018 Reported: 11/08/2018 Physicians: Jeff Juarez M.D. Specimen(s) Received COLON BIOPSY Clinical History History of small bowel TB Postoperative diagnosis: Inflammation of colon anastomotic site Final Diagnosis COLON, ANASTOMOSIS, BIOPSY: COLONIC MUCOSA WITH EXTRAVASATION OF RED BLOOD CELLS WITHIN LAMINA PROPRIA. NO ACTIVE COLITIS, ARCHITECTURAL DISTORTION, GRANULOMATA, OR DYSPLASIA IDENTIFIED. NO METASTATIC CARCINOMA IDENTIFIED. Comment: Also see prior specimens [id number], [id number], and [id number]. Electronically Signed Anton Mtz M.D. Gross Description Received in formalin, labeled "inflammation of colon at anastomotic site" are 4 casillas, irregular portions of soft tissue ranging from 0.3-0.4 cm. in greatest dimension. The specimens are submitted in toto in one cassette. /11/07/2018 [facility]11/07/2018
== END 2018-11-07 09:45 | disposition home or self-care (01) ==
LOC: JASU-ENDO 06:15
PROVIDERS: ATTEND Internal Medicine Gastroenterology
PROC: 0DBB8ZX Excision of Ileum, Via Natural or Artificial Opening Endoscopic, Diagnostic (ICD-10-PCS; principal; 2018-11-07 07:30)
DX: Z98.0 Intestinal bypass and anastomosis status (principal); C34.90 Malignant neoplasm of unspecified part of unspecified bronchus or lung; C79.00 Secondary malignant neoplasm of unspecified kidney and renal pelvis
CPT/HCPCS: 87045; 87046; 87177; 87186; 87209; 88305-TC